=== PATIENT | male | born 1980 | race Caucasian/White ===

== ENCOUNTER 2017-08-22 17:07 | Observation (INO) | payer OTHER, SELFPAY ==
[2017-08-22 17:08] VITALS: BP 164/100; PULSE 67; RESP 14; TEMP 36.9; O2SAT 97; BMI 34.0
--- NOTE | 2017-08-22 17:19 | CT_ITS ---
CT abdomen pelvis w con CLINICAL INDICATION: Abdominal pain and tenderness. Right lower quadrant pain and tenderness. Lower abdominal pain and tenderness ITS.REASON: abd pain ORDERING PHYSICIAN: Montse Shoemaker MD PATIENT AGE: 37 years COMPARISON: None TECHNIQUE: Axial images obtained with sagittal and coronal reformats. PROCEDURE: Oral Contrast: None IV Contrast: 75 mL's of [id number]. FINDINGS: No acute finding in the lower chest. The liver, spleen, adrenal glands, and pancreas have an unremarkable appearance. Gallbladder wall appears slightly thickened but may be due to contraction. Ultrasound may be of further value. There is mild ectasia of the renal pelvicalyceal system on both sides as seen on the most recent IVP of 07/11/2017. Unremarkable appendix. There is thickening of the junction of the descending and sigmoid colon in the left lower quadrant with an inflamed diverticulum noted with stranding of the pericolic fat. No abscess or free air are evident. There is colonic diverticulosis of the descending and sigmoid colon. No pelvic mass. No acute bony anomalies. IMPRESSION: Diverticulitis of the proximal sigmoid colon. No abscess or free air.
[2017-08-22 17:26] LABS: Microscopic, Urine URINE MICROSCOPIC (MICROSCOPIC)
[2017-08-22 17:27] LABS: Appearance,Urine CLEAR (Clear); Bilirubin,Urine Negative (Negative); Blood, Urine TRACE-I (Negative); Color,Urine YELLOW (Yellow); Glucose,Urine (UA) Negative (Negative); Ketones,Urine Negative (Negative); Leukocyte Esterase,Urine Negative (Negative); Nitrate,Urine Negative (Negative); Protein,Urine Negative (Negative); Specific Gravity, Urine <= 1.005 (1.005-1.030); Urobilinogen,Urine 0.2 EU/dl (0.2)
[2017-08-22 17:37] LABS: Basophils % 0.3 % (0.1-2.0); Eosinophils # 0.1 K/mm3 (0.0-0.4); Eosinophils % 1.1 % (0.1-12.0); Hematocrit 37.8 % (42.0-52.0); Hemoglobin 12.7 g/dL (14.1-18.0); Lymphocytes # 2.2 K/mm3 (0.7-4.5); Lymphocytes % 23.9 K/mm3 (10-50); Mean Corpuscular HGB Conc 33.5 g/dL (31.8-35.4); Mean Corpuscular Hemoglobin 27.9 pg (27.0-31.2); Mean Corpuscular Volume 83.2 fl (80-94); Mean Platelet Volume 7.8 fl (7.4-10.4); Monocytes # 0.5 K/mm3 (0.1-1.0); Monocytes % 5.6 % (1.7-9.3); Neutrophils # 6.2 K/mm3 (1.8-7.8); Platelet Count 213 K/mm3 (142-424); Red Blood Count 4.55 M/mm3 (4.60-6.20); Red Cell Distribution Width 13.6 % (11.5-17.5)
--- NOTE | 2017-08-22 17:41 | HMH.EDABDPAI ---
ED Disposition Clinical Impression: Abdominal pain Qualifiers: Abdominal location: right lower quadrant Qualified Code(s): R10.31 - Right lower quadrant pain Disposition: Still a Patient Condition on Discharge: Good Instructions: DI for Diarrhea and Traveler's Diarrhea -- Adult, DI for Diarrhea and Traveler's Diarrhea -- Child, DI for Nausea -- Adult, DI for Nausea -- Child Referrals: Rayo Richey APRN [Primary Care Provider] - - Critical Care Critical Care Time: No Attestation: On , the high probability of a clinically significant, sudden or life threatening deterioration of the following system(s) required my full and direct attention, intervention and personal management. The time I documented below is in addition to time spent performing reported procedures but includes the following listed in this critical care notation. Medical Decision Making Vital Signs: 08/22/17 17:08 Temperature 98.5 F Temperature Source Oral Pulse Rate [Left Brachial] 67 Respiratory Rate 14 Blood Pressure [Right Arm] 164/100 Blood Pressure Mean [Right Arm] 121 Blood Pressure Source [Right Arm] Automatic Cuff Blood Pressure Position [Right Arm] Sitting 02 Sat by Pulse Oximetry 97 Oxygen Delivery Method Room Air - Lab Data Lab Results 08/22/17 17:20: Urine Color Yellow, Urine Appearance Clear, Urine pH 7.0, Ur Specific [place] <= 1.005, Urine Protein Negative, Urine Glucose (UA) Negative, Urine Ketones Negative, Urine Blood Trace-i, Urine Nitrate Negative, Urine Bilirubin Negative, Urine Urobilinogen 0.2, Ur Leukocyte Esterase Negative, Urine RBC Occasional, Urine WBC Occasional, Ur Squamous Epith Cells None, Urine Bacteria None 08/22/17 17:30: WBC 9.0, RBC 4.55 L, Hgb 12.7 L, Hct 37.8 L, MCV 83.2, MCH 27.9, MCHC 33.5, RDW 13.6, Plt Count 213, MPV 7.8, Neut % (Auto) 69.0, Lymph % (Auto) 23.9, [place] % (Auto) 5.6, Eos % (Auto) 1.1, Baso % (Auto) 0.3, Neut # (Auto) 6.2, Lymph # (Auto) 2.2, [place] # (Auto) 0.5, Eos # (Auto) 0.1, Baso # (Auto) 0.0 08/22/17 17:30: Sodium 141, Potassium 4.4, Chloride 105, Carbon Dioxide 29, Anion Gap 11.4, BUN 13, Creatinine 1.11, Estimated Creat Clear 147, Estimated GFR 75, Est GFR ( Amer) 90, Glucose 97, Calcium 9.4, Total Bilirubin 0.6, AST 19, ALT 26, Alkaline Phosphatase 106, Total Protein 7.5, Albumin 3.8, Globulin 3.7 H, Albumin/Globulin Ratio 1.0 L Result diagrams: 08/22/17 17:30 08/22/17 17:30 Orders (Tests/Meds): ED MEDICATIONS Generic Name Dose Route Start Last Admin Trade Name Freq PRN Reason Stop Dose Admin Sodium Chloride 10 ml 08/22/17 17:39 08/22/17 17:42 Rad-Saline Flush 10ml Syringe IV 09/21/17 17:38 10 ml NEEDED PRN Administration Maintain IV Site Sodium Chloride 10 ml 08/22/17 17:41 Rad-Saline Flush 10ml Syringe IV 09/21/17 17:40 NEEDED PRN Maintain IV Site Discontinued Medications Generic Name Dose Route Start Last Admin Trade Name Freq PRN Reason Stop Dose Admin Ertapenem 0.5 gm/ Sodium 50 mls @ 100 mls/hr 08/22/17 19:04 Chloride IV 08/22/17 19:05 ONCE ONE Protocol Iopamidol 75 ml 08/22/17 17:39 08/22/17 17:42 [id number]; 75ml Vial IV 08/22/17 17:40 75 ml ONCE ONE Administration ORDERS Category Date Time Status CT abdomen pelvis w con Stat Cat Scan 08/22/17 17:19 Taken - CT Data ED CT Reviewed: Yes: I have reviewed the patient's CT results, I have viewed the radiologist's interpretation - Mehul Inquiry Pt receiving controlled substance: No Mehul was queried for this patient: No Medical Decision Making Narrative: The CT scan was suggestive of mild diverticulitis of the proximal sigmoid colon. This is contrary to the clinical findings by examination. I discussed this with Dr. Morrell the on-call surgeon who expressed concern for a retrocecal appendix. We agreed that it is more prudent to keep the patient, start IV antibiotics, [facility]
--- NOTE | 2017-08-22 17:44 | ED_ITS ---
ED Disposition Clinical Impression: Abdominal pain Qualifiers: Abdominal location: right lower quadrant Qualified Code(s): R10.31 - Right lower quadrant pain Disposition: Still a Patient Condition on Discharge: Good Instructions: DI for Diarrhea and Traveler's Diarrhea -- Adult, DI for Diarrhea and Traveler's Diarrhea -- Child, DI for Nausea -- Adult, DI for Nausea -- Child Referrals: Rayo Richey APRN [Primary Care Provider] - - Critical Care Critical Care Time: No Attestation: On , the high probability of a clinically significant, sudden or life threatening deterioration of the following system(s) required my full and direct attention, intervention and personal management. The time I documented below is in addition to time spent performing reported procedures but includes the following listed in this critical care notation. Medical Decision Making Vital Signs: 08/22/17 17:08 Temperature 98.5 F Temperature Source Oral Pulse Rate [Left Brachial] 67 Respiratory Rate 14 Blood Pressure [Right Arm] 164/100 Blood Pressure Mean [Right Arm] 121 Blood Pressure Source [Right Arm] Automatic Cuff Blood Pressure Position [Right Arm] Sitting 02 Sat by Pulse Oximetry 97 Oxygen Delivery Method Room Air - Lab Data Lab Results 08/22/17 17:20: Urine Color Yellow, Urine Appearance Clear, Urine pH 7.0, Ur Specific [place] <= 1.005, Urine Protein Negative, Urine Glucose (UA) Negative, Urine Ketones Negative, Urine Blood Trace-i, Urine Nitrate Negative, Urine Bilirubin Negative, Urine Urobilinogen 0.2, Ur Leukocyte Esterase Negative, Urine RBC Occasional, Urine WBC Occasional, Ur Squamous Epith Cells None, Urine Bacteria None 08/22/17 17:30: WBC 9.0, RBC 4.55 L, Hgb 12.7 L, Hct 37.8 L, MCV 83.2, MCH 27.9 , MCHC 33.5, RDW 13.6, Plt Count 213, MPV 7.8, Neut % (Auto) 69.0, Lymph % (Auto ) 23.9, [place] % (Auto) 5.6, Eos % (Auto) 1.1, Baso % (Auto) 0.3, Neut # (Auto) 6.2, Lymph # (Auto) 2.2, [place] # (Auto) 0.5, Eos # (Auto) 0.1, Baso # (Auto) 0.0 08/22/17 17:30: Sodium 141, Potassium 4.4, Chloride 105, Carbon Dioxide 29, Anion Gap 11.4, BUN 13, Creatinine 1.11, Estimated Creat Clear 147, Estimated GFR 75, Est GFR ( Amer) 90, Glucose 97, Calcium 9.4, Total Bilirubin 0.6 , AST 19, ALT 26, Alkaline Phosphatase 106, Total Protein 7.5, Albumin 3.8, Globulin 3.7 H, Albumin/Globulin Ratio 1.0 L Result diagrams: 08/22/17 17:30 08/22/17 17:30 Orders (Tests/Meds): ED MEDICATIONS Generic Name Dose Route Start Last Admin Trade Name Freq PRN Reason Stop Dose Admin Sodium Chloride 10 ml 08/22/17 17:39 08/22/17 17:42 Rad-Saline Flush 10ml Syringe IV 09/21/17 17:38 10 ml NEEDED PRN Administration Maintain IV Site Sodium Chloride 10 ml 08/22/17 17:41 Rad-Saline Flush 10ml Syringe IV 09/21/17 17:40 NEEDED PRN Maintain IV Site Discontinued Medications Generic Name Dose Route Start Last Admin Trade Name Freq PRN Reason Stop Dose Admin Ertapenem 0.5 gm/ Sodium 50 mls @ 100 mls/hr 08/22/17 19:04 Chloride IV 08/22/17 19:05 ONCE ONE Protocol Iopamidol 75 ml 08/22/17 17:39 08/22/17 17:42 [id number]; 75ml Vial IV 08/22/17 17:40 75 ml ONCE ONE Administration ORDERS Category Date Time Status CT abdomen pelvis w con
[2017-08-22 17:47] LABS: Alanine Aminotransferase 26 U/L (12-78); Albumin Level 3.8 gm/dL (3.4-5.0); Alkaline Phosphatase 106 U/L (46-116); Anion Gap 11.4 mEq/L (5-15); Aspartate Amino Transferase 19 U/L (15-37); Bilirubin,Total 0.6 mg/dL (0.2-1.0); Blood Urea Nitrogen 13 mg/dL (7-18); Calcium 9.4 mg/dL (8.5-10.1); Carbon Dioxide 29 mmol/L (21.0-32.0); Chloride 105 mmol/L (98-107); Creatinine Clearance Estimated 147 mL/min (0-300); Creatinine,Serum 1.11 mg/dL (0.70-1.30); Estimated Glomerular Filt Rate 75 ml/min (>60); GFR (African American) 90 ML/MIN (>60); Globulin 3.7 gm/dl (1.3-3.2); Glucose 97 mg/dL (74-106); Potassium 4.4 mmoL/L (3.5-5.1); Sodium 141 mmol/L (136-145); Total Protein,Serum 7.5 gm/dL (6.4-8.2)
[2017-08-22 18:07] LABS: RBC,Urine Occasional #/hpf (0-3); WBC,Urine Occasional #/hpf (0-3)
[2017-08-22 20:18] VITALS: BP 136/95; PULSE 85; RESP 14; TEMP 36.7; O2SAT 98
[2017-08-22 20:20] VITALS: BP 130/85; PULSE 63; RESP 18; TEMP 36.6; O2SAT 96; BMI 33.3
--- NOTE | 2017-08-22 20:30 | PC.ADMIT ---
[id number] Admission Note: The patient,Tomas Lr,37 y/o, was given written information regarding hospital policies, unit procedures and contact persons. Patient's smoking status: Former smoker. Vital Signs - 8 hr 08/23/17 04:40 Temperature 97.8 F Pulse Rate [Right Brachial] 59 L Respiratory Rate 18 Blood Pressure [Right Arm] 101/59 02 Sat by Pulse Oximetry 97
[2017-08-22 21:30] VITALS: O2SAT 96
--- NOTE | 2017-08-22 22:51 | PC.NURSE ---
PT STATES LAST FEW DAYS DECREASED UOP AND KENDRICK AT TIMES, UA COMPLETED IN ER
--- NOTE | 2017-08-23 00:46 | PC.NURSE ---
ADMISSION V/S OBTAINED BY BRUCE
--- NOTE | 2017-08-23 01:02 | PC.NURSE ---
IV STARTED IN ER
[2017-08-23 04:40] VITALS: BP 101/59; PULSE 59; RESP 18; TEMP 36.6; O2SAT 97
--- NOTE | 2017-08-23 06:17 | PC.NURSE ---
INSERTED IN ER
--- NOTE | 2017-08-23 06:36 | PC.NURSE ---
NEW PT ADMITTED BEGINNING OF SHIFT. DX DIVERTICULITIS. PRESENTED IN ER WITH C/O RLQ PAIN. NO MEDS GIVEN, NO REQUEST FOR ANY PAIN MED SINCE HERE. IV SECURE AND PATENT. HAD ABD CT WITH CONTRAST IN ER. PT HAS CONSULT WITH DR DRISCOLL THIS AM. HAS BEEN NPO SINCE MIDNIGHT. NO C/O PAIN REPORTED. PT STABLE. WILL CONTINUE TO MONITOR. REPORT TO BE GIVEN TO ONCOMING NURSE.
--- NOTE | 2017-08-23 07:42 | P.CONPHA_ITS ---
[facility] Pharm[facility] VTE Monitoring - Patient Demographics Admission date: 08/22/17 Report Date: 08/23/17 Time: 07:41 Allergies/Adverse Reactions: No Known Allergies Allergy (Verified 08/22/17 17:17) Height: 1.83 m Weight: 111.357 kg Patient Problems: Current Active Problems Abdominal pain (Acute) - VTE Risk Labs: VTE Related Lab Results Hgb 12.7 g/dL (14.1-18.0) L 08/22/17 17:30 Hct 37.8 % (42.0-52.0) L 08/22/17 17:30 Plt Count 213 K/mm3 (142-424) 08/22/17 17:30 BUN 13 mg/dL (7-18) 08/22/17 17:30 Creatinine 1.11 mg/dL (0.70-1.30) 08/22/17 17:30 Estimated Creat Clear 147 mL/min (0-300) 08/22/17 17:30 Was VTE Risk Assessment Performed: Yes VTE Score: 0 VTE Risk Level: Very Low Risk - Prophylaxis VTE Prophylaxis Ordered?: Yes Types of VTE Prophylaxis: TEDS Knee High Location of Applied Device: Bilateral Lower Extremeties - VTE Diagnosis Confirmed Treatment or plan recommended: Continue Current Treatment
--- NOTE | 2017-08-23 07:49 | HMH.GSCON ---
*Admission Date: 08/22/17 *Chief complaint: Abdominal pain *History of present illness: Patient is a pleasant healthy 37-year-old white male. He states that for about 3 or 4 days he has had some lower abdominal pain located across the region of the belt line. He also had some associated dysuria and burning with urination. He had presented to his primary care provider's office yesterday afternoon and reportedly urinary tract infection was ruled out. Due to the tenderness, with some localization to the right lower quadrant, there was a concern for appendicitis. He was referred to the emergency department. He underwent evaluation in the emergency department. He was found to have a normal white blood cell count. He underwent CT scan with IV contrast which reportedly revealed findings of mild diverticulitis with unremarkable appendix. He was admitted for inpatient management and surgical consultation. Review of Systems - Constitutional Denies anorexia, Denies body ache(s), Denies chills - Eyes Denies change in vision - ENT Denies dizziness - *Cardiovascular Denies chest pain - *Respiratory Denies shortness of breath - *Gastrointestinal Reports abdominal pain, Denies change in bowel habits, Denies bright, red blood in stools - *Genitourinary Reports difficulty urinating, Denies blood in urine - *Musculoskeletal Denies joint pain - *Neurologic Denies confusion [facility] History I have reviewed the patient's past medical history: Yes Medical History: Denies:: Cancer, Diabetes Mellitus Type 1, Diabetes Mellitus Type 2, MRSA Laterality Cases: Bilateral: Tonsillectomy, Other Other Surgeries: Yes: Other (ADNOIDS; URETHRAL SURGERY) Amputation: No Fractures: No - *Social History Educational Level: Completed High School Smoking Status: Former smoker Tobacco Type: smokeless tobacco Smoking End Date: 1YR Alcohol Intake: former Alcohol Intake Frequency:: holidays/special occasions only Occupational Status: employed Housing: house Household Members: spouse - Psychiatric History Expresses thoughts of harming self/others: None Suicide Plan Description: No Plan *Family Hx:: Cancer, Hypertension Meds Home Medications Medication Instructions Recorded Confirmed Type No Known Home Medications [No 08/22/17 08/22/17 History Known Home Medications] Allergies Allergy/AdvReac Type Severity Reaction Status Date / Time No Known Allergies Allergy Verified 08/22/17 17:17 Exam Vital signs and Labs for Last 24 Hours: Temp Pulse Resp BP Pulse Ox 97.8 F 59 L 18 101/59 97 01/12/18 04:40 08/23/17 04:40 08/23/17 04:40 08/23/17 04:40 08/23/17 04:40 I & O for Last 24 hours: Intake & Output 08/20/17 08/21/17 08/22/17 08/23/17 11:59 11:59 11:59 11:59 Intake Total 802 / 802 Balance 802 / 802 Weight 245 lb 8 oz - *Routine HEENT Exam Eye: Present: PERRL - *Routine Respiratory Exam Absent: rhonchi - *Routine Cardiovascular Exam Present: RRR - *Routine Abdominal Exam Present: soft, tenderness. Absent: rebound, guarding Results - Labs 08/22/17 17:30 08/22/17 17:30 Assessment and Plan (1) Abdominal pain Current visit: Yes Status: Acute Qualifiers: Abdominal location: right lower quadrant Qualified Code(s): R10.31 - Right lower quadrant pain Category: Medical Code(s): R10.9 - Unspecified abdominal pain - Assessment and plan all Dx Assessment and Plan for all problems:: Patient's signs and symptoms and CT scan are suggestive of mild to moderate non-complicated diverticulitis. Cannot absolutely however rule out appendicitis at this time. Plan to continue intravenous antibiotics for treatment of diverticulitis at this time. I will discuss the CT scan with radiologist and reviewed the films. If this is truly noncolicky diverticulitis patient may be able to be discharged soon on oral antibiotic regimen and dietary recommendations including a
--- NOTE | 2017-08-23 07:53 | P.CONS_ITS ---
*Admission Date: 08/22/17 *Chief complaint: Abdominal pain *History of present illness: Patient is a pleasant healthy 37-year-old white male. He states that for about 3 or 4 days he has had some lower abdominal pain located across the region of the belt line. He also had some associated dysuria and burning with urination. He had presented to his primary care provider's office yesterday afternoon and reportedly urinary tract infection was ruled out. Due to the tenderness, with some localization to the right lower quadrant, there was a concern for appendicitis. He was referred to the emergency department. He underwent evaluation in the emergency department. He was found to have a normal white blood cell count. He underwent CT scan with IV contrast which reportedly revealed findings of mild diverticulitis with unremarkable appendix. He was admitted for inpatient management and surgical consultation. Review of Systems - Constitutional Denies anorexia, Denies body ache(s), Denies chills - Eyes Denies change in vision - ENT Denies dizziness - *Cardiovascular Denies chest pain - *Respiratory Denies shortness of breath - *Gastrointestinal Reports abdominal pain, Denies change in bowel habits, Denies bright, red blood in stools - *Genitourinary Reports difficulty urinating, Denies blood in urine - *Musculoskeletal Denies joint pain - *Neurologic Denies confusion [facility] History I have reviewed the patient's past medical history: Yes Medical History: Denies:: Cancer, Diabetes Mellitus Type 1, Diabetes Mellitus Type 2, MRSA Laterality Cases: Bilateral: Tonsillectomy, Other Other Surgeries: Yes: Other (ADNOIDS; URETHRAL SURGERY) Amputation: No Fractures: No - *Social History Educational Level: Completed High School Smoking Status: Former smoker Tobacco Type: smokeless tobacco Smoking End Date: 1YR Alcohol Intake: former Alcohol Intake Frequency:: holidays/special occasions only Occupational Status: employed Housing: house Household Members: spouse - Psychiatric History Expresses thoughts of harming self/others: None Suicide Plan Description: No Plan *Family Hx:: Cancer, Hypertension Meds Home Medications Medication Instructions Recorded Confirmed Type No Known Home Medications [No 08/22/17 08/22/17 History Known Home Medications] Allergies Allergy/AdvReac Type Severity Reaction Status Date / Time No Known Allergies Allergy Verified 08/22/17 17:17 Exam Vital signs and Labs for Last 24 Hours: Temp Pulse Resp BP Pulse Ox 97.8 F 59 L 18 101/59 97 01/12/18 04:40 08/23/17 04:40 08/23/17 04:40 08/23/17 04:40 08/23/17 04:40 I & O for Last 24 hours: Intake & Output 08/20/17 08/21/17 08/22/17 08/23/17 11:59 11:59 11:59 11:59 Intake Total 802 / 802 Balance 802 / 802 Weight 245 lb 8 oz - *Routine HEENT Exam Eye: Present: PERRL - *Routine Respiratory Exam Absent: rhonchi - *Routine Cardiovascular Exam Present: RRR - *Routine Abdominal Exam Present: soft, tenderness. Absent: rebound, guarding Results - Labs 08/22/17 17:30 08/22/17 17:30 Assessment and Plan (1) Abdominal pain Current visit: Yes Status: Acute Qualifiers: Abdominal location: right lower quadrant Qualified Code(s): R10.31 - Righ
[2017-08-23 08:02] VITALS: BP 97/54; PULSE 53; RESP 22; TEMP 36.6; O2SAT 96
--- NOTE | 2017-08-23 08:46 | HMH.HP ---
*Admission Date: 08/22/17 *History of present illness: Patient is a pleasant healthy 37-year-old white male. He states that for about 3 or 4 days he has had some lower abdominal pain located across the region of the belt line. He also had some associated dysuria and burning with urination. He had presented to his primary care provider's office yesterday afternoon and reportedly urinary tract infection was ruled out. Due to the tenderness, with some localization to the right lower quadrant, there was a concern for appendicitis. He was referred to the emergency department. He underwent evaluation in the emergency department. He was found to have a normal white blood cell count. He underwent CT scan with IV contrast which reportedly revealed findings of mild diverticulitis with unremarkable appendix. He was admitted for inpatient management and surgical consultation. [facility] History I have reviewed the patient's past medical history: Yes Medical History: Denies:: Cancer, Diabetes Mellitus Type 1, Diabetes Mellitus Type 2, MRSA Laterality Cases: Bilateral: Tonsillectomy, Other Other Surgeries: Yes: Other (ADNOIDS; URETHRAL SURGERY) Amputation: No Fractures: No - *Social History Educational Level: Completed High School Smoking Status: Former smoker Tobacco Type: smokeless tobacco Smoking End Date: 1YR Alcohol Intake: former Alcohol Intake Frequency:: holidays/special occasions only Occupational Status: employed Housing: house Household Members: spouse - Psychiatric History Expresses thoughts of harming self/others: None Suicide Plan Description: No Plan *Family Hx:: Cancer, Hypertension Review of Systems - Review of Systems Review of systems:: pertinent systems reviewed and negative unless documented below - Constitutional Denies fever(s) - Eyes Denies change in vision - ENT Denies neck pain - *Cardiovascular Denies chest pain with activity - *Respiratory Denies cough - *Gastrointestinal Reports abdominal pain, Reports nausea, Denies black, tarry stools - *Genitourinary Denies difficulty urinating, Denies painful urination - *Musculoskeletal Denies joint pain - Integumentary/Breasts Denies rash - *Neurologic Denies confusion, Denies dizziness - Psychiatric Denies depression Meds Home Medications Medication Instructions Recorded Confirmed Type No Known Home Medications [No 08/22/17 08/22/17 History Known Home Medications] Allergies Allergy/AdvReac Type Severity Reaction Status Date / Time No Known Allergies Allergy Verified 08/22/17 17:17 Exam Vital signs and Labs for Last 24 Hours: Temp Pulse Resp BP Pulse Ox 97.9 F 53 L 22 97/54 96 08/23/17 08:02 08/23/17 08:02 08/23/17 08:02 08/23/17 08:02 08/23/17 08:02 I & O for Last 24 hours: Intake & Output 08/20/17 08/21/17 08/22/17 08/23/17 11:59 11:59 11:59 11:59 Intake Total 802 / 802 Balance 802 / 802 Weight 245 lb 8 oz - Constitutional no acute distress - *Routine HEENT Exam Head: Present: normocephalic Eye: Present: EOMI, PERRL ENT: Present: mucous membranes moist - *Routine Neck Exam Present: supple - *Routine Respiratory Exam Absent: respiratory distress - *Routine Cardiovascular Exam Absent: murmur - *Routine Abdominal Exam Present: soft, tenderness. Absent: distended, rebound - *Routine Extremities Exam Present: full ROM - *Routine Skin Exam Present: intact - *Routine Neurological Exam Present: alert, oriented X3, CN II-XII intact - Routine Psychiatric Exam Present: normal affect H&P: Result - Imaging and Cardiology CT scan - abdomen Status: image reviewed by me, final report Assessment and Plan (1) Diverticulitis Current visit: Yes Status: Acute Category: Medical Code(s): K57.92 - Diverticulitis of intestine, part unspecified, without perforation or abscess without bleeding
--- NOTE | 2017-08-23 08:52 | P.HP_ITS ---
*Admission Date: 08/22/17 *History of present illness: Patient is a pleasant healthy 37-year-old white male. He states that for about 3 or 4 days he has had some lower abdominal pain located across the region of the belt line. He also had some associated dysuria and burning with urination. He had presented to his primary care provider's office yesterday afternoon and reportedly urinary tract infection was ruled out. Due to the tenderness, with some localization to the right lower quadrant, there was a concern for appendicitis. He was referred to the emergency department. He underwent evaluation in the emergency department. He was found to have a normal white blood cell count. He underwent CT scan with IV contrast which reportedly revealed findings of mild diverticulitis with unremarkable appendix. He was admitted for inpatient management and surgical consultation. [facility] History I have reviewed the patient's past medical history: Yes Medical History: Denies:: Cancer, Diabetes Mellitus Type 1, Diabetes Mellitus Type 2, MRSA Laterality Cases: Bilateral: Tonsillectomy, Other Other Surgeries: Yes: Other (ADNOIDS; URETHRAL SURGERY) Amputation: No Fractures: No - *Social History Educational Level: Completed High School Smoking Status: Former smoker Tobacco Type: smokeless tobacco Smoking End Date: 1YR Alcohol Intake: former Alcohol Intake Frequency:: holidays/special occasions only Occupational Status: employed Housing: house Household Members: spouse - Psychiatric History Expresses thoughts of harming self/others: None Suicide Plan Description: No Plan *Family Hx:: Cancer, Hypertension Review of Systems - Review of Systems Review of systems:: pertinent systems reviewed and negative unless documented below - Constitutional Denies fever(s) - Eyes Denies change in vision - ENT Denies neck pain - *Cardiovascular Denies chest pain with activity - *Respiratory Denies cough - *Gastrointestinal Reports abdominal pain, Reports nausea, Denies black, tarry stools - *Genitourinary Denies difficulty urinating, Denies painful urination - *Musculoskeletal Denies joint pain - Integumentary/Breasts Denies rash - *Neurologic Denies confusion, Denies dizziness - Psychiatric Denies depression Meds Home Medications Medication Instructions Recorded Confirmed Type No Known Home Medications [No 08/22/17 08/22/17 History Known Home Medications] Allergies Allergy/AdvReac Type Severity Reaction Status Date / Time No Known Allergies Allergy Verified 08/22/17 17:17 Exam Vital signs and Labs for Last 24 Hours: Temp Pulse Resp BP Pulse Ox 97.9 F 53 L 22 97/54 96 08/23/17 08:02 08/23/17 08:02 08/23/17 08:02 08/23/17 08:02 08/23/17 08:02 I & O for Last 24 hours: Intake & Output 08/20/17 08/21/17 08/22/17 08/23/17 11:59 11:59 11:59 11:59 Intake Total 802 / 802 Balance 802 / 802 Weight 245 lb 8 oz - Constitutional no acute distress - *Routine HEENT Exam Head: Present: normocephalic Eye: Present: EOMI, PERRL ENT: Present: mucous membranes moist - *Routine Neck Exam Present: supple - *Routine Respiratory Exam Absent: respiratory distress - *Routine Cardiovascular Exam Absent: murmur - *Routine Abdominal Exam P
[2017-08-23 08:56] LABS: Basophils % 0.3 % (0.1-2.0); Eosinophils # 0.2 K/mm3 (0.0-0.4); Eosinophils % 2.7 % (0.1-12.0); Hematocrit 35.4 % (42.0-52.0); Hemoglobin 11.5 g/dL (14.1-18.0); Lymphocytes # 1.8 K/mm3 (0.7-4.5); Lymphocytes % 28.6 K/mm3 (10-50); Mean Corpuscular HGB Conc 32.6 g/dL (31.8-35.4); Mean Corpuscular Hemoglobin 27.4 pg (27.0-31.2); Mean Corpuscular Volume 84.1 fl (80-94); Mean Platelet Volume 7.9 fl (7.4-10.4); Monocytes # 0.4 K/mm3 (0.1-1.0); Monocytes % 6.5 % (1.7-9.3); Neutrophils % 61.8 % (37.0-80.0); Platelet Count 199 K/mm3 (142-424); Red Cell Distribution Width 13.7 % (11.5-17.5); White Blood Count 6.4 K/mm3 (4.8-10.8)
--- NOTE | 2017-08-23 12:21 | HMH.DCSUM ---
General - General Admission date: 08/22/17 Discharge date: 08/23/17 HPI HPI: Patient is a pleasant healthy 37-year-old white male. He states that for about 3 or 4 days he has had some lower abdominal pain located across the region of the belt line. He also had some associated dysuria and burning with urination. He had presented to his primary care provider's office yesterday afternoon and reportedly urinary tract infection was ruled out. Due to the tenderness, with some localization to the right lower quadrant, there was a concern for appendicitis. He was referred to the emergency department. He underwent evaluation in the emergency department. He was found to have a normal white blood cell count. He underwent CT scan with IV contrast which reportedly revealed findings of mild diverticulitis with unremarkable appendix. He was admitted for inpatient management and surgical consultation. Objective Vital signs: Temp Pulse Resp BP Pulse Ox 97.9 F 53 L 22 97/54 96 08/23/17 08:02 08/23/17 08:02 08/23/17 08:02 08/23/17 08:02 08/23/17 08:02 no acute distress - *Routine HEENT Exam Head: Present: normocephalic Eye: Present: EOMI, PERRL - *Routine Neck Exam Present: supple - *Routine Respiratory Exam Absent: respiratory distress - *Routine Cardiovascular Exam Present: RRR - *Routine Abdominal Exam Absent: distended, rebound, guarding, organomegaly - *Routine Extremities Exam Present: full ROM - *Routine Skin Exam Present: intact. Absent: rash - *Routine Neurological Exam Present: alert, oriented X3, CN II-XII intact - Routine Psychiatric Exam Present: normal affect Hospital Course Hospital Course: pt did well with ivf and abx and was seen by surg- see note - pt tolerated fluids and will be d/c on meds -pt will have follow up soon Results Labs on day of discharge: Labs from last 24 hours 08/23/17 08:30 WBC 6.4 D RBC 4.20 L Hgb 11.5 L Hct 35.4 L MCV 84.1 MCH 27.4 MCHC 32.6 RDW 13.7 Plt Count 199 MPV 7.9 Neut % (Auto) 61.8 Lymph % (Auto) 28.6 [place] % (Auto) 6.5 Eos % (Auto) 2.7 Baso % (Auto) 0.3 Neut # (Auto) 4.0 Lymph # (Auto) 1.8 [place] # (Auto) 0.4 Eos # (Auto) 0.2 Baso # (Auto) 0.0 DS: Diagnosis - Discharge Diagnosis (1) Diverticulitis Status: Acute Meds Home Medications Medication Instructions Recorded Confirmed Type No Known Home Medications [No 08/22/17 08/22/17 History Known Home Medications] Allergies Allergy/AdvReac Type Severity Reaction Status Date / Time No Known Allergies Allergy Verified 08/22/17 17:17 Discharge Plan - Patient Discharge Instructions Activity: Ambulate as Tolerated Diet: advance to your usual diet Additional Instructions: see dr munguia and pcp for follow up - Follow up Plan Disposition: Home, Self-[facility] Medications: Home Medications Medication Instructions Recorded Confirmed Type No Known Home Medications [No 08/22/17 08/22/17 History Known Home Medications] Prescriptions/Medication Reconciliation: No Action No Known Home Medications [No Known Home Medications] - Vaccines Have you received the pneumonia vaccine?: No Have you received the flu vaccine for this season?: No
--- NOTE | 2017-08-23 12:24 | P.DS_ITS ---
General - General Admission date: 08/22/17 Discharge date: 08/23/17 HPI HPI: Patient is a pleasant healthy 37-year-old white male. He states that for about 3 or 4 days he has had some lower abdominal pain located across the region of the belt line. He also had some associated dysuria and burning with urination. He had presented to his primary care provider's office yesterday afternoon and reportedly urinary tract infection was ruled out. Due to the tenderness, with some localization to the right lower quadrant, there was a concern for appendicitis. He was referred to the emergency department. He underwent evaluation in the emergency department. He was found to have a normal white blood cell count. He underwent CT scan with IV contrast which reportedly revealed findings of mild diverticulitis with unremarkable appendix. He was admitted for inpatient management and surgical consultation. Objective Vital signs: Temp Pulse Resp BP Pulse Ox 97.9 F 53 L 22 97/54 96 08/23/17 08:02 08/23/17 08:02 08/23/17 08:02 08/23/17 08:02 08/23/17 08:02 no acute distress - *Routine HEENT Exam Head: Present: normocephalic Eye: Present: EOMI, PERRL - *Routine Neck Exam Present: supple - *Routine Respiratory Exam Absent: respiratory distress - *Routine Cardiovascular Exam Present: RRR - *Routine Abdominal Exam Absent: distended, rebound, guarding, organomegaly - *Routine Extremities Exam Present: full ROM - *Routine Skin Exam Present: intact. Absent: rash - *Routine Neurological Exam Present: alert, oriented X3, CN II-XII intact - Routine Psychiatric Exam Present: normal affect Hospital Course Hospital Course: pt did well with ivf and abx and was seen by surg- see note - pt tolerated fluids and will be d/c on meds -pt will have follow up soon Results Labs on day of discharge: Labs from last 24 hours 08/23/17 08:30 WBC 6.4 D RBC 4.20 L Hgb 11.5 L Hct 35.4 L MCV 84.1 MCH 27.4 MCHC 32.6 RDW 13.7 Plt Count 199 MPV 7.9 Neut % (Auto) 61.8 Lymph % (Auto) 28.6 [place] % (Auto) 6.5 Eos % (Auto) 2.7 Baso % (Auto) 0.3 Neut # (Auto) 4.0 Lymph # (Auto) 1.8 [place] # (Auto) 0.4 Eos # (Auto) 0.2 Baso # (Auto) 0.0 DS: Diagnosis - Discharge Diagnosis (1) Diverticulitis Status: Acute Meds Home Medications Medication Instructions Recorded Confirmed Type No Known Home Medications [No 08/22/17 08/22/17 History Known Home Medications] Allergies Allergy/AdvReac Type Severity Reaction Status Date / Time No Known Allergies Allergy Verified 08/22/17 17:17 Discharge Plan - Patient Discharge Instructions Activity: Ambulate as Tolerated Diet: advance to your usual diet Additional Instructions: see dr munguia and pcp for follow up - Follow up Plan Disposition: Home, Self-Long-Term Medications: Home Medications Medication Instructions Recorded Confirmed Type No Known Home Medications [No 08/22/17 08/22/17 History Known Home Medications] Prescriptions/Medication Reconciliation: No Action No Known Home Med
== END 2017-08-23 12:52 | disposition home or self-care (01) ==
LOC: ER 19:21 → 2ND 20:57
PROVIDERS: Surgery; Admitting Provider Internal Medicine Adolescent Medicine; Emergency Provider Emergency Medicine; Family Provider Internal Medicine; PCP Nurse Practitioner Family; Visit Provider Emergency Medicine
CPT/HCPCS: 74177; 80053; 81001; 85025; 96365; 99283; G0378; Q9967

== ENCOUNTER → 2017-09-16 09:39 | Outpatient (CLI) | payer OTHER, SELFPAY ==
--- NOTE | 2017-09-16 09:41 | CT_ITS ---
CT abdomen pelvis w con CLINICAL INDICATION: Abdominal pain, diffuse abdominal pain Follow-up diverticulitis ORDERING PHYSICIAN: Helio Morrell MD PATIENT AGE: 37 years COMPARISON: 08/22/2017 TECHNIQUE: Axial images obtained with sagittal and coronal reformats. PROCEDURE: Oral Contrast: Gastroview IV Contrast: 75 mL of Isovue-370. FINDINGS: No acute finding in the lung bases. The liver, spleen, adrenal glands, pancreas, and gallbladder have an unremarkable appearance. No obstructing renal or ureteral calculi. Minimal prominence of the renal pelves nonspecific. There has been interval improvement in the diverticulitis within the at the descending/sigmoid junction in the left lower quadrant. No residual evident. No abscess. No free air. There is diverticulosis of the descending and sigmoid colon. Unremarkable appendix. No pelvic mass, abnormal fluid collection, or focal inflammatory change.. No acute bony anomalies. IMPRESSION: 1. Improved diverticulitis at the junction of the descending and sigmoid colon. Colonic diverticulosis once again noted 2. No acute abdominal or pelvic findings.
== END ==
PROVIDERS: Family Provider Internal Medicine; PCP Nurse Practitioner Family; Visit Provider Surgery
DX: R10.9 Unspecified abdominal pain (principal); K57.92 Diverticulitis of intestine, part unspecified, without perforation or abscess without bleeding
CPT/HCPCS: 74177; Q9967

== ENCOUNTER 2017-10-01 08:35 | Day surgery (SDC) | payer OTHER, SELFPAY ==
[2017-09-27 14:37] VITALS: BMI 31.1
[2017-10-01] VITALS (14 sets, daily range): BP systolic 77–133; BP diastolic 34–77; PULSE 36–47; RESP 14–19; TEMP 36.4–36.6; O2SAT 94–100
--- NOTE | 2017-10-01 10:35 | P.PCN_ITS ---
- Procedure: Date: 10/01/17 Procedure Performed:: Total colonoscopy to terminal ileum with polypectomy by snare and biopsy forceps Indications:: Patient is a 37-year-old white male. Primary care provider is Raoy Richey. I had seen him several years ago for hemorrhoid problems. Recently the patient had developed some urinary symptoms and was seen his primary care provider's office. There was concern for possible appendicitis as he has some tenderness in his lower abdomen and he was sent to the emergency department for workup. He had a CT scan done at that time on 08/23/17 which revealed findings of non- complicated diverticulitis with a normal appendix. He was admitted for inpatient management and convalesced on intravenous antibiotics and was sent home on a course of oral antibiotics. Plan was made for follow-up outpatient colonoscopy. Incidentally the patient had developed a thrombosed hemorrhoid and Dr. Rodriguez performed incision and drainage in the office. Patient followed up in my office. Started him on some Anusol HC cream. His hemorrhoid symptoms have resolved almost entirely and plan was made to proceed with colonoscopy. Of note, the patient had developed recurrent hemorrhoid symptoms after bowel preparation. Interestingly he was noted to have a heart rate of approximately 39-40 preoperatively. EKG revealed sinus bradycardia. Performing Provider:: Hleio Morrell MD Referring Provider:: Rayo Richey Sedation:: Versed 7 mg, fentanyl 150 mcg. Procedure:: Consent was obtained and patient was taken to same-day surgery endoscopy procedure room. He was positioned in a lateral decubitus position. Adequate intravenous sedation was achieved with titration of fentanyl and Versed. Variable stiffness Olympus colonoscope was inserted via the anus and advanced to the cecum without difficulty. Colonic preparation was good. Appendiceal orifice and ileocecal valve were clearly identified. Colonoscope was withdrawn through the colon. In the ascending colon there is a small but adenomatous appearing polyp removed with hot snare. As the colonoscope was withdrawn careful surveillance was carried out. He had some minor sigmoid diverticulosis but no evidence of any active diverticulitis. In the rectosigmoid region there are a couple hyperplastic appearing polyps which were removed with cold biopsy forceps. Retroflexion was performed which revealed no evidence of any pathologic internal hemorrhoids. Colonoscope was withdrawn examination externally revealed chronically thrombosed right lateral hemorrhoid. Findings:: Diverticulosis Polyps Chronically thrombosed right lateral external hemorrhoid Specimens:: Polyps Recommendations:: Recommend fiber supplementation. Likely repeat colonoscopy in 5 years pending the pathology. Nonoperative medical management of hemorrhoids. Complications:: None Estimated blood obtained (mL): 1
== END 2017-10-01 11:33 | disposition home or self-care (01) ==
PROVIDERS: Family Provider Internal Medicine; PCP Nurse Practitioner Family; Visit Provider Surgery
PROC: 0DJD8ZZ Inspection of Lower Intestinal Tract, Via Natural or Artificial Opening Endoscopic (ICD-10-PCS; CPT 45385; principal; 2017-10-01 09:30)
DX: K63.5 Polyp of colon (principal); K57.30 Diverticulosis of large intestine without perforation or abscess without bleeding
CPT/HCPCS: 45385; 45380; 93005; 99152; 99153

== ENCOUNTER → 2017-10-23 18:12 | Outpatient (CLI) | payer OTHER, SELFPAY ==
[2017-10-23 18:49] LABS: Basophils % 0.4 % (0.1-2.0); Eosinophils # 0.1 K/mm3 (0.0-0.4); Eosinophils % 1.4 % (0.1-12.0); Hematocrit 41.9 % (42.0-52.0); Hemoglobin 13.3 g/dL (14.1-18.0); Lymphocytes # 1.9 K/mm3 (0.7-4.5); Lymphocytes % 33.8 K/mm3 (10-50); Mean Corpuscular HGB Conc 31.8 g/dL (31.8-35.4); Mean Corpuscular Hemoglobin 27.7 pg (27.0-31.2); Mean Corpuscular Volume 87.1 fl (80-94); Mean Platelet Volume 7.9 fl (7.4-10.4); Monocytes # 0.3 K/mm3 (0.1-1.0); Monocytes % 6.1 % (1.7-9.3); Neutrophils # 3.3 K/mm3 (1.8-7.8); Neutrophils % 58.3 % (37.0-80.0); Platelet Count 208 K/mm3 (142-424); Red Blood Count 4.81 M/mm3 (4.60-6.20); Red Cell Distribution Width 13.6 % (11.5-17.5); White Blood Count 5.6 K/mm3 (4.8-10.8)
[2017-10-23 19:06] LABS: Alanine Aminotransferase 29 U/L (12-78); Albumin/Globulin Ratio 1.1 (1.1-1.8); Alkaline Phosphatase 88 U/L (46-116); Anion Gap 11.3 mEq/L (5-15); Aspartate Amino Transferase 16 U/L (15-37); Bilirubin,Total 0.4 mg/dL (0.2-1.0); Blood Urea Nitrogen 13 mg/dL (7-18); CKMB Relative Index 0.4 U/L (0-4.0); Calcium 9.1 mg/dL (8.5-10.1); Carbon Dioxide 31 mmol/L (21.0-32.0); Chloride 107 mmol/L (98-107); Cholesterol 184 mg/dL (140-200); Creatine Kinase 140 U/L (39-308); Creatine Kinase MB 0.5 mg/ml (0.0-3.6); Creatinine,Serum 0.94 mg/dL (0.70-1.30); Estimated Glomerular Filt Rate 90 ml/min (>60); Free T4 (Free Thyroxine) 0.91 ng/dl (0.76-1.46); GFR (African American) 109 ML/MIN (>60); Globulin 3.5 gm/dl (1.3-3.2); Glucose 101 mg/dL (74-106); HDL Cholesterol 37 mg/dL (27-67); LDL Cholesterol 122 mg/dL (0-130); Potassium 4.3 mmoL/L (3.5-5.1); Sodium 145 mmol/L (136-145); Thyroid Stimulating Hormone 0.74 uIU/ml (0.358-3.740); Total Protein,Serum 7.5 gm/dL (6.4-8.2); Triglycerides 127 mg/dL (30-200); Troponin I < 0.02 ng/ml (0.00-0.06); VLDL Cholesterol 25 mg/dL (0-40)
== END ==
PROVIDERS: PCP Nurse Practitioner Family; Visit Provider Nurse Practitioner Family
DX: R00.1 Bradycardia, unspecified (principal)
CPT/HCPCS: 36415; 80053; 80061; 82550; 82553; 84439; 84443; 84484; 85025; 93005

== ENCOUNTER → 2017-10-29 09:12 | Outpatient (CLI) | payer OTHER, SELFPAY ==
--- NOTE | 2017-10-29 09:14 | CA_ITS ---
PROCEDURE: 2-D M-mode and color Doppler study INDICATIONS FOR THE TEST: Chest pain COPD Heart Murmur Tobacco Smoking Palpitations Fatigue Syncope Edema Hypertension Diabetes Mellitus Rheumatic Fever SOB BANG Obesity Hyperlipidemia Family History HD Additional History BRADYCARDIA PATIENT INFORMATION HEIGHT: 72 WEIGHT:240 119/68 2-D/M-MODE INTERPRETATION: 2-D MEASUREMENTS OBSERVED VALUES IN CMS Right Ventricular Dimension (RVDd) 2.0 Interventricular Septum (Thickness)(IVsd) .9 Left Ventricular Internal Dimensions(LVIDd) 6.0 Left Ventricular Posterior Wall (Thickness)(LVPWd) 1.2 Aortic Root 3.8 Aortic Cusp Separation 2.0 Left Atrial Dimensions (LAD) 2.8 2D 1. Left atrium is normal size, left ventricle is normal size, there is no concentric left ventricular hypertrophy, visually estimated ejection fraction 55% with no obvious regional wall motion abnormality. 2. The right atrium and right ventricle are normal size and contractility 3. The aortic, mitral and tricuspid valve are structurally normal. 4. The pulmonic valve is poorly visualized 5. No significant pericardial effusion noted. DOPPLER INTERROGATION: Doppler interrogation of the aortic, mitral and tricuspid valvular presence of mild mitral and tricuspid regurgitation, tricuspid and jet velocity insufficient for calculation of the right ventricular systolic pressure, diastolic parameters are within normal range. CONCLUSION: 1. Normal left ventricular size, preserved left ventricular systolic function, visually estimated ejection fraction of 55% with no obvious regional wall motion abnormality, diastolic parameters are within normal range. 2. Mild mitral and tricuspid regurgitation 3. No significant pericardial effusion noted.
== END ==
PROVIDERS: Family Provider Internal Medicine; PCP Nurse Practitioner Family; Visit Provider Internal Medicine
DX: R00.1 Bradycardia, unspecified (principal)
CPT/HCPCS: 93306

== ENCOUNTER → 2017-12-19 10:00 | Outpatient (CLI) | payer OTHER, SELFPAY ==
[2017-12-19 10:03] LABS: Adenovirus F 40/41, stool Not Detected (NotDetected); Astrovirus Not Detected (NotDetected); Campylobacter Not Detected (NotDetected); Cryptosporidium Not Detected (NotDetected); Cyclospora Cayetanesis Not Detected (NotDetected); Entamoeba histolytica Not Detected (NotDetected); Enteroaggregative E coli Not Detected (NotDetected); Enteropathogenic E coli Not Detected (NotDetected); Enterotoxigenic E coli Not Detected (NotDetected); Giardia lamblia Not Detected (NotDetected); Norovirus Not Detected (NotDetected); Plesimonas Shigalloides, PCR Not Detected (NotDetected); Rotavirus A Not Detected (NotDetected); Salmonella, PCR Not Detected (NotDetected); Sapovirus Not Detected (NotDetected); Shiga-like toxin E coli Not Detected (NotDetected); Shigella Enterovasive E coli Not Detected (NotDetected); Vibrio Cholerae Not Detected (NotDetected); Vibrio, PCR Not Detected (NotDetected); Yersinia Entercolitica, PCR Not Detected (NotDetected)
[2017-12-19 10:37] LABS: Basophils % 0.3 % (0.1-2.0); Eosinophils # 0.1 K/mm3 (0.0-0.4); Hematocrit 45.2 % (42.0-52.0); Hemoglobin 14.8 g/dL (14.1-18.0); Lymphocytes # 1.9 K/mm3 (0.7-4.5); Lymphocytes % 17.9 K/mm3 (10-50); Mean Corpuscular HGB Conc 32.7 g/dL (31.8-35.4); Mean Corpuscular Volume 85.8 fl (80-94); Mean Platelet Volume 7.4 fl (7.4-10.4); Monocytes # 0.5 K/mm3 (0.1-1.0); Monocytes % 4.8 % (1.7-9.3); Platelet Count 253 K/mm3 (142-424); Red Blood Count 5.26 M/mm3 (4.60-6.20); Red Cell Distribution Width 13.9 % (11.5-17.5); White Blood Count 10.5 K/mm3 (4.8-10.8)
[2017-12-19 12:40] LABS: Alanine Aminotransferase 29 U/L (12-78); Albumin Level 4.3 gm/dL (3.4-5.0); Albumin/Globulin Ratio 1.1 (1.1-1.8); Alkaline Phosphatase 119 U/L (46-116); Anion Gap 16.3 mEq/L (5-15); Aspartate Amino Transferase 19 U/L (15-37); Bilirubin,Total 0.9 mg/dL (0.2-1.0); Blood Urea Nitrogen 17 mg/dL (7-18); Calcium 10.3 mg/dL (8.5-10.1); Carbon Dioxide 27 mmol/L (21.0-32.0); Chloride 104 mmol/L (98-107); Creatinine,Serum 1.12 mg/dL (0.70-1.30); Estimated Glomerular Filt Rate 74 ml/min (>60); GFR (African American) 89 ML/MIN (>60); Glucose 95 mg/dL (74-106); Potassium 5.3 mmoL/L (3.5-5.1); Sodium 142 mmol/L (136-145); Total Protein,Serum 8.3 gm/dL (6.4-8.2)
[2017-12-19 14:13] LABS: Clostridium Difficile A/B, PCR Detected (NotDetected)
== END ==
PROVIDERS: Visit Provider Nurse Practitioner Family
DX: R19.7 Diarrhea, unspecified (principal)
CPT/HCPCS: 36415; 80053; 85025; 87507

== ENCOUNTER → 2018-02-28 16:22 | Outpatient (CLI) | payer OTHER, SELFPAY ==
[2018-02-28 18:32] LABS: Alanine Aminotransferase 29 U/L (12-78); Albumin Level 3.8 gm/dL (3.4-5.0); Albumin/Globulin Ratio 1.2 (1.1-1.8); Alkaline Phosphatase 109 U/L (46-116); Anion Gap 13.1 mEq/L (5-15); Aspartate Amino Transferase 13 U/L (15-37); Bilirubin,Total 0.3 mg/dL (0.2-1.0); Blood Urea Nitrogen 13 mg/dL (7-18); Calcium 9.2 mg/dL (8.5-10.1); Carbon Dioxide 27 mmol/L (21.0-32.0); Chloride 107 mmol/L (98-107); Creatinine,Serum 1.03 mg/dL (0.70-1.30); Estimated Glomerular Filt Rate 81 ml/min (>60); GFR (African American) 98 ML/MIN (>60); Globulin 3.3 gm/dl (1.3-3.2); Glucose 90 mg/dL (74-106); Potassium 4.1 mmoL/L (3.5-5.1); Sodium 143 mmol/L (136-145); Total Protein,Serum 7.1 gm/dL (6.4-8.2); Uric Acid 7.7 mg/dL (2.6-7.2)
[2018-02-28 18:56] LABS: Erythrocyte Sedimentation Rate 21 mm/hr (0-15)
== END ==
PROVIDERS: Visit Provider Nurse Practitioner Family
DX: M25.541 Pain in joints of right hand (principal); M25.542 Pain in joints of left hand; M79.641 Pain in right hand; M79.642 Pain in left hand
CPT/HCPCS: 80053; 84550; 85651

== ENCOUNTER → 2018-08-11 10:03 | Outpatient (CLI) | payer OTHER, SELFPAY ==
[2018-08-11 10:17] LABS: Basophils % 0.2 % (0.1-2.0); Eosinophils # 0.1 K/mm3 (0.0-0.4); Eosinophils % 2.1 % (0.1-12.0); Hematocrit 41.7 % (42.0-52.0); Hemoglobin 13.2 g/dL (14.1-18.0); Lymphocytes # 1.8 K/mm3 (0.7-4.5); Lymphocytes % 29.5 % (10-50); Mean Corpuscular HGB Conc 31.6 g/dL (31.8-35.4); Mean Corpuscular Hemoglobin 27.7 pg (27.0-31.2); Mean Corpuscular Volume 87.7 fl (80-94); Mean Platelet Volume 7.7 fl (7.4-10.4); Monocytes # 0.4 K/mm3 (0.1-1.0); Monocytes % 6.6 % (1.7-9.3); Neutrophils # 3.8 K/mm3 (1.8-7.8); Neutrophils % 61.6 % (37.0-80.0); Platelet Count 203 K/mm3 (142-424); Red Blood Count 4.76 M/mm3 (4.60-6.20); Red Cell Distribution Width 14.6 % (11.5-17.5); White Blood Count 6.2 K/mm3 (4.8-10.8)
[2018-08-11 11:34] LABS: Alanine Aminotransferase 43 U/L (12-78); Albumin Level 3.9 gm/dL (3.4-5.0); Albumin/Globulin Ratio 1.2 (1.1-1.8); Alkaline Phosphatase 93 U/L (46-116); Anion Gap 13.2 mEq/L (5-15); Aspartate Amino Transferase 21 U/L (15-37); Bilirubin,Total 0.5 mg/dL (0.2-1.0); Blood Urea Nitrogen 13 mg/dL (7-18); Calcium 9.2 mg/dL (8.5-10.1); Carbon Dioxide 29 mmol/L (21.0-32.0); Chloride 106 mmol/L (98-107); Chol/HDL Ratio 5.7 (1-3.5); Cholesterol 255 mg/dL (140-200); Creatinine,Serum 1.07 mg/dL (0.70-1.30); Estimated Glomerular Filt Rate 77 ml/min (>60); Free Thyroxine Index 3.4 ug/dL (5.93-13.13); GFR (African American) 94 ML/MIN (>60); Globulin 3.3 gm/dl (1.3-3.2); Glucose 100 mg/dL (74-106); HDL Cholesterol 45 mg/dL (27-67); LDL Cholesterol 194 mg/dL (0-130); Potassium 4.2 mmoL/L (3.5-5.1); Sodium 144 mmol/L (136-145); T4 (Thyroxine) 9.5 ug/dl (4.7-13.3); Thyroid Stimulating Hormone 0.83 uIU/ml (0.358-3.740); Total Protein,Serum 7.2 gm/dL (6.4-8.2); Triglycerides 79 mg/dL (30-200); Triiodothryronine (T3) Uptake 36 % (31-39); Uric Acid 7.9 mg/dL (2.6-7.2); VLDL Cholesterol 16 mg/dL (0-40)
[2018-08-12 11:19] LABS: Vitamin D 25 Hydroxy 21.9 ng/mL (30.0-100.0)
== END ==
PROVIDERS: Visit Provider Nurse Practitioner Family
DX: E78.5 Hyperlipidemia, unspecified (principal); M25.50 Pain in unspecified joint
CPT/HCPCS: 36415; 80053; 80061; 82652; 84436; 84443; 84479; 84550; 85025

== ENCOUNTER → 2018-12-26 07:58 | Outpatient (CLI) | payer OTHER, SELFPAY ==
--- NOTE | 2018-12-26 08:05 | CT_ITS ---
CT abdomen pelvis w con CLINICAL INDICATION: Abdominal pain, abdominal mass 1 inch below the umbilicus ITS.REASON: abd pain ORDERING PHYSICIAN: Rayo Richey APRN PATIENT AGE: 38 years COMPARISON: 03/13/2018 TECHNIQUE: Axial images obtained with sagittal and coronal reformats. All CT scans at the facility use one or more dose reduction, viz: automated exposure control, ma/kV adjustment per patient size (including targeted exams where dose is matched to indication, i.e. head), or iterative reconstruction technique. PROCEDURE: Oral Contrast: None Contrast: 75 mL's Optiray 350 FINDINGS: Calcified granuloma is present in the right lower lobe and also one in the left lower lobe. The liver, gallbladder, spleen, adrenal glands, pancreas, and kidneys have an unremarkable appearance. Unremarkable appendix. No intestinal obstruction or free air. Scattered colonic diverticula are present without evidence of diverticulitis. No pelvic mass abnormal fluid collection or focal inflammatory change. No abdominal wall mass evident. No acute bony findings. IMPRESSION: No acute finding. Negative CT abdomen pelvis
--- NOTE | 2018-12-26 08:05 | XR_ITS ---
XR KUB HISTORY: Palpable lump, trouble urinating ITS.REASON: problems urinating ORDERING PHYSICIAN: Rayo Richey APRN PATIENT AGE: 38 years COMPARISON: None FINDINGS: The bowel gas pattern is unremarkable. No obvious obstruction.. No abnormal calcifications are evident. No obvious renal or ureteral calculi.. No acute bony anomalies evident. Contrast is present in the large and small bowel from recent oral contrast ingestion. There is minimal lumbar curvature convex left. IMPRESSION: Negative KUB, no acute finding
[2018-12-26 14:41] LABS: Alanine Aminotransferase 28 U/L (12-78); Albumin Level 3.7 gm/dL (3.4-5.0); Alkaline Phosphatase 92 U/L (46-116); Anion Gap 13.9 mEq/L (5-15); Aspartate Amino Transferase 12 U/L (15-37); Bilirubin,Total 0.7 mg/dL (0.2-1.0); Blood Urea Nitrogen 14 mg/dL (7-18); Calcium 9.2 mg/dL (8.5-10.1); Carbon Dioxide 27 mmol/L (21.0-32.0); Chloride 104 mmol/L (98-107); Creatinine,Serum 1.02 mg/dL (0.70-1.30); Estimated Glomerular Filt Rate 82 ml/min (>60); GFR (African American) 99 ML/MIN (>60); Globulin 3.6 gm/dl (1.3-3.2); Glucose 89 mg/dL (74-106); Potassium 3.9 mmoL/L (3.5-5.1); Sodium 141 mmol/L (136-145); Total Protein,Serum 7.3 gm/dL (6.4-8.2)
== END ==
PROVIDERS: PCP Emergency Medicine; Visit Provider Nurse Practitioner Family
DX: K57.92 Diverticulitis of intestine, part unspecified, without perforation or abscess without bleeding (principal); R39.198 Other difficulties with micturition; R19.09 Other intra-abdominal and pelvic swelling, mass and lump
CPT/HCPCS: 36415; 74018; 74177; 80053; Q9967

== ENCOUNTER → 2019-01-02 13:54 | Outpatient (CLI) | payer OTHER, SELFPAY | PROVIDERS: Visit Provider Nurse Practitioner Family | DX: N42.81 Prostatodynia syndrome (principal) | CPT/HCPCS: 87086 ==

== ENCOUNTER → 2020-02-12 10:29 | Outpatient (CLI) | payer OTHER, SELFPAY ==
[2020-02-12 13:26] LABS: Coronavirus 19 IgG Antibody Negative (Negative); Coronavirus 19 IgM Antibody Negative (Negative)
== END ==
PROVIDERS: Visit Provider Internal Medicine Gastroenterology
DX: Z01.818 Encounter for other preprocedural examination (principal)
CPT/HCPCS: 36415; 86328

== ENCOUNTER 2020-02-15 06:33 | Day surgery (SDC) | payer OTHER, SELFPAY ==
[2020-02-12 11:21] VITALS: BMI 33.9
[2020-02-15] VITALS (7 sets, daily range): BP systolic 91–118; BP diastolic 55–75; PULSE 42–52; RESP 12–18; TEMP 36.2–36.4; O2SAT 96–99
--- NOTE | 2020-02-15 07:14 | HMH.ANESCL ---
[facility] Anesthesia Checklist - Patient Identification Patient Identification: Arm Band, Verbal (Name & ) - Structural Data Admitted From: Home Planned Operative Procedure/s: colon Consent for Planned Operative Procedure(s) Verified: Yes Verified Documents: History and Physical - NPO Status Verified Time NPO: 00:00 - Chart Verification Results Verified: CBC, BMP - Additional verifications Patient : No Anesthesia Reactions: Yes ('dont do good with gas -n/v) Hx Blood Transfusions: No Blood Transfusion Reaction: No Cephalosporin Allergy: No Previous Colonoscopy: Yes - Cardiovascular Assessment Heart Sounds: S1 & S2 Pulse Strength: Baseline Pulse Rhythm: Regular Peripheral Edema: No - Airway Assessment C-Spine Mobility Assessed: Yes TMJ Mobility Assessed: Yes Dentition: Good Dentition - Neurological Assessment Level of Consciousness: Awake, Alert, Appropriate Hx Seizures: No Numbness or tingling in extremities: No - Anesthesia Plan Anesthesia Risk discussed: Yes Anesthesia Plan: Verified ASA Class: I Anesthesia Type: MAC [facility] History I have reviewed the patient's past medical history: Yes Medical History: Reports:: Hyperlipidemia, Kidney Stones Denies:: Cancer, Diabetes Mellitus Type 1, Diabetes Mellitus Type 2, Internal Pacemaker, Lung Disease, MRSA, Seizures *Have you ever received a pneumonia vaccine?: No *Have you received a flu vaccine this season?: No Other Medical History: Reports: Sinus Problems, Other Anesthesia experience/problems:: none Laterality Cases: Bilateral: Tonsillectomy, Other Other Surgeries: Yes: Colonoscopy, Other. No: Pacemaker Amputation: No Fractures: No - *Social History Last grade of school completed: High school graduate Smoking Status: Unknown if ever smoked Tobacco Type: smokeless tobacco # Packs/Day (cigarettes): 0 Alcohol Intake: never Alcohol Intake Frequency:: holidays/special occasions only Substance Use Type: denies use *Occupational Status:: employed Housing: house Household Members: family *Travel in the last 8 weeks: None Family Hx:: No significant family history
--- NOTE | 2020-02-15 07:36 | HMH.PROC ---
[facility] Procedure Note Procedure Note:: Colonoscopy Procedure Report: Colonoscopy with cold snare polypectomy and cold biopsies Endoscopist: Roel Rodas II, MD Referring physician: Lindsay RODGERS Date of Procedure: February 15, 2020 Equipment: Olympus 180 variable stiffness pediatric colonoscope Sedation: MAC sedation Indication: Mr. Lr is a 39-year-old gentleman who is here for diagnostic colonoscopy. The Saturday before last (9 days ago), he developed severe pain in the left lower abdomen at 2:30 AM and developed rectal bleeding 2 hours subsequently that lasted into the next day. He does have a history of diverticulitis. He also has a long history of colonic spasms and does report postprandial bowel urgency and some intermittent diarrhea. The patient does state that his sister has Crohn's disease. He has had no weight loss or fever. He reports no family history of colon cancer. His last colonoscopy 2 years ago (Dr. Helio Morrell) showed polyps and diverticulosis. The patient has not started antibiotics. His symptoms have improved and he has no further bleeding presently. Procedure: Prior to the procedure, a history and physical exam was performed, and patient's medications and allergies were reviewed. The risks, benefits and alternatives of the sedation and procedure were discussed with the patient. All questions were answered and informed consent was obtained. The patient was brought to the procedure room. Patient identification and proposed procedure were verified by the physician and the nurse. The patient was placed in a left lateral decubitus position and the scope was passed under direct vision. Throughout the procedure, the patient's blood pressure, pulse, and oxygen saturations were monitored continuously. The colonoscopy was accomplished without difficulty. The patient tolerated the procedure well. Findings: On digital rectal examination there was normal rectal tone. There were no external hemorrhoids. The colonoscope was introduced through the anal canal to the rectum and advanced to the cecum. The ileocecal valve and appendiceal orifice were identified. The scope was advanced a short distance into the ileum which appeared grossly normal. The scope was then withdrawn into the colon. The cecum and ascending colon were normal. Cold biopsies were taken from the right colon to rule out microscopic colitis. There was a diminutive 3 mm polyp in the transverse colon removed via cold snare polypectomy. There were scattered diverticuli throughout the descending and sigmoid colon (LEFT colon). There was some haustral edema/erythema in the sigmoid colon suggestive of some chronic sigmoid diverticulitis. Cold biopsies were obtained. The rectum itself was normal. Upon retroflexion within the rectum there were grade 1 internal hemorrhoids. The preparation was excellent throughout with [place] Preparation Score of 9. The cecal time was 12 minutes. Impression: 1. Diminutive transverse colon polyp 2. Left-sided diverticulosis with evidence of chronic sigmoid diverticulitis 3. Grade 1 internal hemorrhoids Plan: I will follow-up the polyp histology and biopsies. It is possible that he had hemorrhoidal bleeding versus diverticular hemorrhage. He is very stable presently. I would encourage dietary measures, bulk fiber supplementation and probiotic therapy. I do feel that he has some spastic diverticular disease and IBS. We will discuss treatment options. If the patient has recurrences of diverticulitis, I would consider low anterior resection/sigmoid resection.
== END 2020-02-15 08:43 | disposition home or self-care (01) ==
LOC: OUTP 06:34
PROVIDERS: PCP Nurse Practitioner Family; Visit Provider Internal Medicine Gastroenterology
PROC: 0DJD8ZZ Inspection of Lower Intestinal Tract, Via Natural or Artificial Opening Endoscopic (ICD-10-PCS; CPT 45378; principal; 2020-02-15 07:30)
DX: K63.5 Polyp of colon; K57.32 Diverticulitis of large intestine without perforation or abscess without bleeding; K64.0 First degree hemorrhoids; Z87.19 Personal history of other diseases of the digestive system; Z83.79 Family history of other diseases of the digestive system; Z87.442 Personal history of urinary calculi; Z90.89 Acquired absence of other organs; Z88.8 Allergy status to other drugs, medicaments and biological substances; Z87.891 Personal history of nicotine dependence; Z79.899 Other long term (current) drug therapy
CPT/HCPCS: 45385; 45380; J2704

== ENCOUNTER → 2020-03-02 07:36 | Outpatient (CLI) | payer OTHER, SELFPAY ==
--- NOTE | 2020-03-02 07:36 | CT_ITS ---
PROCEDURE: CT ABDOMEN PELVIS WO CON CLINICAL INDICATION: abd pain Mid to lower abdominal pain COMPARISON: [id number] CT abdomen pelvis w con from 12/26/2018 TECHNIQUE: Axial images obtained with sagittal and coronal reformats. All CT scans at the facility use one or more dose reduction, viz: automated exposure control, ma/kV adjustment per patient size (including targeted exams where dose is matched to indication, i.e. head), or iterative reconstruction technique. FINDINGS: LOWER THORAX: No acute finding ABDOMEN & PELVIS: The liver, gallbladder, spleen, adrenal glands, pancreas, and kidneys have an unremarkable appearance aside from a 3 mm nonobstructing stone in the lower pole of the left kidney. There is a mild amount of retained colonic feces. No evidence of appendicitis. There is diverticulosis of the descending and sigmoid colon with minimal stranding of the pericolic fat in the left lower quadrant at the proximal sigmoid colon consistent with mild diverticulitis. No abscess or perforation. There are mild degenerative changes of the hips with a small subchondral cyst in the superior aspect of the acetabulum on the right. IMPRESSION: Colonic diverticulosis with mild non complicated diverticulitis of the proximal sigmoid colon Dictated by: Bhavin Shah MD 03/03/2020 10:55 Electronically signed by Bhavin Shah MD in [place] 03/03/2020 10:55
== END ==
PROVIDERS: PCP Nurse Practitioner Family; Visit Provider Nurse Practitioner Family
DX: K57.92 Diverticulitis of intestine, part unspecified, without perforation or abscess without bleeding (principal)
CPT/HCPCS: 74176

== ENCOUNTER → 2020-04-22 10:53 | Outpatient (CLI) | payer OTHER, SELFPAY ==
[2020-04-22 18:05] LABS: Basophils % 0.4 % (0.1-2.0); Chloride 105 mmol/L (98-107); Eosinophils # 0.2 K/mm3 (0.0-0.4); Eosinophils % 4.2 % (0.1-12.0); Hematocrit 40.8 % (42.0-52.0); Hemoglobin 13.4 g/dL (14.1-18.0); Lymphocytes # 1.8 K/mm3 (0.7-4.5); Lymphocytes % 31.2 % (10-50); Mean Corpuscular HGB Conc 32.8 g/dL (31.8-35.4); Mean Corpuscular Hemoglobin 28.2 pg (27.0-31.2); Mean Corpuscular Volume 85.9 fl (80-94); Mean Platelet Volume 8.5 fl (7.4-10.4); Monocytes # 0.4 K/mm3 (0.1-1.0); Monocytes % 6.5 % (1.7-9.3); Neutrophils # 3.2 K/mm3 (1.8-7.8); Neutrophils % 57.7 % (37.0-80.0); Platelet Count 231 K/mm3 (142-424); Potassium 4.3 mmoL/L (3.5-5.1); Red Blood Count 4.75 M/mm3 (4.60-6.20); Red Cell Distribution Width 14.7 % (11.5-17.5); Sodium 139 mmol/L (136-145); White Blood Count 5.6 K/mm3 (4.8-10.8)
[2020-04-22 18:07] LABS: Blood Urea Nitrogen 15 mg/dl (9-20); Estimated Glomerular Filt Rate 83 ml/min (>60); GFR (African American) 101 ML/MIN (>60)
[2020-04-22 18:08] LABS: Alanine Aminotransferase 28 U/L (12-78); Albumin Level 4.1 g/dl (3.5-5.0); Albumin/Globulin Ratio 1.5 (1.1-1.8); Alkaline Phosphatase 92 U/L (38-126); Anion Gap 12.3 mEq/L (5-15); Aspartate Amino Transferase 30 U/L (17-59); Bilirubin,Total 0.6 mg/dl (0.2-1.3); Calcium 9.7 mg/dl (8.4-10.2); Carbon Dioxide 26 mmol/L (22.0-30.0); Chol/HDL Ratio 5.8 (1-3.5); Cholesterol 210 mg/dl (140-200); Globulin 2.8 g/dL (1.3-3.2); Glucose 99 mg/dl (74-100); HDL Cholesterol 36 mg/dl (40-60); Total Protein,Serum 6.9 g/dl (6.3-8.2); Triglycerides 177 mg/dl (30-150); VLDL Cholesterol 35 mg/dL (0-40)
[2020-04-22 18:19] LABS: Direct LDL Cholesterol 124.33 mg/dL (100-129)
[2020-04-22 18:25] LABS: T4 (Thyroxine) 9.5 ug/dl (5.53-11.0)
[2020-04-22 18:31] LABS: 25-OH Vitamin D, Total 22.4 ng/mL (30-100)
[2020-04-25 13:35] LABS: H. pylori Breath Test Negative (Negative)
== END ==
PROVIDERS: Visit Provider Nurse Practitioner Family
DX: R10.9 Unspecified abdominal pain (principal); K57.92 Diverticulitis of intestine, part unspecified, without perforation or abscess without bleeding; R53.83 Other fatigue; K21.9 Gastro-esophageal reflux disease without esophagitis
CPT/HCPCS: 80053; 80061; 82306; 83013; 84436; 84443; 85025

== ENCOUNTER → 2020-05-03 07:54 | Outpatient (CLI) | payer OTHER, SELFPAY ==
--- NOTE | 2020-05-03 07:54 | US_ITS ---
PROCEDURE: US GALLBLADDER CLINICAL INDICATION: abd pain COMPARISON: CT CT ABDOMEN PELVIS WO CON from 03/02/2020 FINDINGS: Pancreas: Pancreas is not well delineated due to overlying bowel gas. CT or MRI without and with contrast with pancreatic protocol may provide further evaluation if clinically desired. Liver: Unremarkable. There is appropriate direction of blood flow within a non dilated portal vein. Right kidney: Unremarkable appearing. No hydronephrosis. Gallbladder: No stones are evident. There is no gallbladder wall thickening. Common duct is normal in diameter. IMPRESSION: Negative gallbladder ultrasound. No stones evident. Poor visualization of the pancreas Dictated by: Bhavin Shah MD 05/03/2020 19:25 Bhavin Shah MD in [place] 05/03/2020 19:25
== END ==
PROVIDERS: PCP Nurse Practitioner Family; Visit Provider Nurse Practitioner Family
DX: R10.9 Unspecified abdominal pain (principal)
CPT/HCPCS: 76705

== ENCOUNTER 2020-05-11 21:52 | Emergency (ER) | payer OTHER, SELFPAY ==
[2020-05-11 21:53] VITALS: BP 160/104; PULSE 82; RESP 16; TEMP 36.8; O2SAT 97
[2020-05-11 21:54] VITALS: BMI 33.2
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
[2020-05-11 22:09] LABS: Chloride 102 mmol/L (98-107)
[2020-05-11 22:10] LABS: Sodium 140 mmol/L (136-145)
[2020-05-11 22:12] LABS: Alanine Aminotransferase 26 U/L (12-78); Aspartate Amino Transferase 29 U/L (17-59); Blood Urea Nitrogen 14 mg/dl (9-20); Creatinine Clearance Estimated 156 mL/min (50-200); Estimated Glomerular Filt Rate 83 ml/min (>60); GFR (African American) 101 ML/MIN (>60)
[2020-05-11 22:13] LABS: Albumin Level 4.2 g/dl (3.5-5.0); Albumin/Globulin Ratio 1.4 (1.1-1.8); Alkaline Phosphatase 92 U/L (38-126); Bilirubin,Total 0.4 mg/dl (0.2-1.3); Calcium 9.7 mg/dl (8.4-10.2); Carbon Dioxide 30 mmol/L (22.0-30.0); Globulin 2.9 g/dL (1.3-3.2); Glucose 108 mg/dl (74-100); Total Protein,Serum 7.1 g/dl (6.3-8.2)
[2020-05-11 22:18] LABS: Basophils % 0.5 % (0.1-2.0); Eosinophils # 0.1 K/mm3 (0.0-0.4); Eosinophils % 1.3 % (0.1-12.0); Hematocrit 37.8 % (42.0-52.0); Hemoglobin 12.8 g/dL (14.1-18.0); Lymphocytes # 2.1 K/mm3 (0.7-4.5); Lymphocytes % 26.8 % (10-50); Mean Corpuscular Volume 85.2 fl (80-94); Mean Platelet Volume 7.6 fl (7.4-10.4); Monocytes # 0.5 K/mm3 (0.1-1.0); Monocytes % 6.2 % (1.7-9.3); Neutrophils # 5.2 K/mm3 (1.8-7.8); Neutrophils % 65.2 % (37.0-80.0); Platelet Count 211 K/mm3 (142-424); Red Blood Count 4.43 M/mm3 (4.60-6.20); Red Cell Distribution Width 14.7 % (11.5-17.5); White Blood Count 7.9 K/mm3 (4.8-10.8)
--- NOTE | 2020-05-11 22:34 | PC.NURSE ---
pt back from CT
[2020-05-11 22:53] LABS: Microscopic, Urine URINE MICROSCOPIC (MICROSCOPIC)
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
[2020-05-11 22:55] LABS: Appearance,Urine CLEAR (Clear); Bilirubin,Urine Negative (Negative); Blood, Urine TRACE-I (Negative); Color,Urine YELLOW (Yellow); Glucose,Urine (UA) Negative (Negative); Ketones,Urine Negative (Negative); Leukocyte Esterase,Urine Negative (Negative); Nitrate,Urine Negative (Negative); PH,Urine 5.5 (5.0-8.5); Protein,Urine Negative (Negative); Urobilinogen,Urine 0.2 EU/dl (0.2)
[2020-05-11 23:01] VITALS: BP 139/94; PULSE 66; RESP 14; TEMP 36.8; O2SAT 98
[2020-05-11 23:06] LABS: Bacteria,Urine Trace /lpf; WBC,Urine Occasional #/hpf (0-3)
== END 2020-05-11 23:11 | disposition home or self-care (01) ==
PROVIDERS: Emergency Provider Emergency Medicine; PCP Nurse Practitioner Family
DX: S16.1XXA Strain of muscle, fascia and tendon at neck level, initial encounter (principal); T07.XXXA Unspecified multiple injuries, initial encounter; V40.5XXA Car driver injured in collision with pedestrian or animal in traffic accident, initial encounter; Y92.488 Other paved roadways as the place of occurrence of the external cause
CPT/HCPCS: 70450; 71045; 71275; 72125; 72170; 74177; 80053; 81001; 85025; 96365; 96375; 99282; Q9967

== ENCOUNTER → 2020-05-25 10:28 | Outpatient (CLI) | payer OTHER, SELFPAY ==
[2020-05-25 13:43] LABS: Coronavirus 19 IgG Antibody Negative (Negative); Coronavirus 19 IgM Antibody Negative (Negative)
== END ==
PROVIDERS: Visit Provider Internal Medicine Gastroenterology
DX: Z01.818 Encounter for other preprocedural examination (principal); K30 Functional dyspepsia
CPT/HCPCS: 36415; 86328

== ENCOUNTER 2020-05-27 07:07 | Day surgery (SDC) | payer OTHER, SELFPAY ==
[2020-05-25 09:40] VITALS: BMI 33.1
[2020-05-27 07:39] VITALS: BP 141/66; PULSE 53; RESP 18; TEMP 36.1; O2SAT 99
[2020-05-27 08:37] VITALS: O2SAT 97
--- NOTE | 2020-05-27 08:39 | HMH.PROC ---
[facility] Procedure Note Procedure Note:: Upper Endoscopy Procedure Report: Esophagogastroduodenoscopy with cold biopsies Endoscopost: Roel Rodas II, MD Referring Physician: Lindsay RODGERS Date of Procedure: May 27, 2020 Equipment: Olympus GIF 180 standard upper endoscope Sedation: MAC sedation Indications: Mr. Lr is a 39-year-old gentleman with epigastric abdominal burning discomfort which sometimes feels like it is on fire . He did have a normal gallbladder on the CAT scan from February 2020. He had similar symptoms 10 years ago. The patient does have moderate bloating and bowel frequency with 3-5 bowel movements daily. His CAT scan did show fecal retention. EGD is performed to evaluate etiology of his acute and chronic dyspepsia. He does state that his C 13 sucrose breath test was negative (results pending). Procedure: Prior to the procedure, a history and physical exam was performed, and patient's medications and allergies were reviewed. The risks, benefits and alternatives of the sedation and procedure were discussed with the patient. All questions were answered and informed consent was obtained. The patient was brought to the procedure room. Patient identification and proposed procedure were verified by the physician and the nurse. The patient was placed in a left lateral decubitus position and the scope was passed under direct vision. Throughout the procedure, the patient's blood pressure, pulse, and oxygen saturations were monitored continuously. The upper GI endoscopy was accomplished without difficulty. The patient tolerated the procedure well. Findings: The scope was passed directly into the upper esophagus and advanced to the third portion of the duodenum. The post bulbar duodenum and duodenal bulb were normal with normal mucosa and conniventes. There was bile staining in the duodenum. Cold biopsies were taken from the post bulbar duodenum to rule out celiac disease. The scope was withdrawn through a normal duodenal bulb and pylorus into the stomach. There was moderate bile reflux with linear reactive gastropathy of the antrum and body of the stomach. The remainder of the antrum, body and fundus of the stomach were grossly normal. Upon retroflexion there was no hiatal hernia. 2 biopsies were taken in the antrum and along the lesser curvature for histology to rule out gastritis and/or H pylori. The scope was then withdrawn into the esophagus. There was no evidence of reflux esophagitis or Isbell's. The remainder of the esophageal mucosa was normal. Impression: 1. Bile reflux with linear reactive gastropathy Plan: I will follow up the biopsies. The patient does have functional dyspepsia. He does have associated functional intestinal disorder with IBS diarrhea intermittently. We will discuss additional dietary measures and treatment options.
[2020-05-27 08:50] VITALS: BP 108/70; PULSE 49; RESP 18; TEMP 36.4; O2SAT 95
[2020-05-27 09:00] VITALS: BP 101/62; PULSE 45; RESP 18; O2SAT 96
[2020-05-27 09:10] VITALS: BP 104/58; PULSE 48; RESP 18; O2SAT 98
--- NOTE | 2020-05-27 09:13 | HMH.ANESCL ---
[facility] Anesthesia Checklist - Patient Identification Patient Identification: Arm Band - Structural Data Admitted From: Home Planned Operative Procedure/s: egd Consent for Planned Operative Procedure(s) Verified: Yes Verified Documents: Surgical Consent, History and Physical - NPO Status Verified Time NPO: 00:00 - Additional verifications Anesthesia Reactions: Yes ('dont do good with gas -n/v) Hx Blood Transfusions: No Blood Transfusion Reaction: No - Airway Assessment C-Spine Mobility Assessed: Yes (mp2) TMJ Mobility Assessed: Yes Dentition: Good Dentition - Neurological Assessment Level of Consciousness: Awake, Alert - Anesthesia Plan Anesthesia Risk discussed: Yes Anesthesia Plan: Verified ASA Class: II Anesthesia Type: MAC [facility] History I have reviewed the patient's past medical history: Yes Medical History: Reports:: Hyperlipidemia, Kidney Stones Denies:: Cancer, Chronic Obstructive Pulmonary Disease (COPD), Diabetes Mellitus Type 1, Diabetes Mellitus Type 2, Internal Pacemaker, Lung Disease, MRSA, Seizures *Have you ever received a pneumonia vaccine?: No *Have you received a flu vaccine this season?: No Other Medical History: Reports: Sinus Problems, Other. Denies: Blood Transfusion Reaction Anesthesia experience/problems:: nac Laterality Cases: Bilateral: Tonsillectomy, Other Other Surgeries: Yes: Colonoscopy, Other. No: Pacemaker Amputation: No Fractures: No - *Social History Last grade of school completed: High school graduate Smoking Status: Former smoker Tobacco Type: cigarettes # Packs/Day (cigarettes): 0 Smoking End Date: 05/12/2016 Alcohol Intake: former Alcohol Intake Frequency:: holidays/special occasions only Substance Use Type: denies use *Occupational Status:: employed Housing: house Household Members: family *Travel in the last 8 weeks: None Family Hx:: Cancer
[2020-05-27 09:45] VITALS: BP 121/75; PULSE 52; RESP 18; O2SAT 100
== END 2020-05-27 09:56 | disposition home or self-care (01) ==
LOC: OUTP 07:09
PROVIDERS: PCP Nurse Practitioner Family; Visit Provider Internal Medicine Gastroenterology
PROC: 0DJ08ZZ Inspection of Upper Intestinal Tract, Via Natural or Artificial Opening Endoscopic (ICD-10-PCS; CPT 43235; principal; 2020-05-27 08:30)
DX: K21.9 Gastro-esophageal reflux disease without esophagitis (principal); K31.9 Disease of stomach and duodenum, unspecified; E78.5 Hyperlipidemia, unspecified; Z87.442 Personal history of urinary calculi; Z90.89 Acquired absence of other organs; Z87.891 Personal history of nicotine dependence; Z87.19 Personal history of other diseases of the digestive system; Z79.899 Other long term (current) drug therapy
CPT/HCPCS: 43239

== ENCOUNTER → 2020-08-10 15:50 | Outpatient (CLI) | payer OTHER, SELFPAY ==
--- NOTE | 2020-08-10 16:00 | XR_ITS ---
PROCEDURE: XR KNEE LT 4V CLINICAL INDICATION: Knee pain COMPARISON: No exams were available for comparison FINDINGS: No fracture or dislocation. No lytic or blastic change. There is normal mineralization. The joint spaces are well-preserved. No significant degenerative/arthritic changes. No erosive changes evident. There is a small bone island just below the lateral tibial plateau. Other findings:None. IMPRESSION: No acute findings. Dictated by: Dr. Jose Luis Andrade MD 08/11/2020 09:14 Dr. Jose Luis Andrade MD in [place] 08/11/2020 09:14
[2020-08-10 16:17] LABS: Basophils % 0.1 % (0.1-2.0); Eosinophils % 0.2 % (0.1-12.0); Hemoglobin 13.7 g/dL (14.1-18.0); Lymphocytes # 1.3 K/mm3 (0.7-4.5); Lymphocytes % 12.8 % (10-50); Mean Corpuscular HGB Conc 32.5 g/dL (31.8-35.4); Mean Corpuscular Hemoglobin 27.7 pg (27.0-31.2); Monocytes # 0.4 K/mm3 (0.1-1.0); Monocytes % 3.7 % (1.7-9.3); Neutrophils # 8.5 K/mm3 (1.8-7.8); Neutrophils % 83.1 % (37.0-80.0); Platelet Count 234 K/mm3 (142-424); Red Blood Count 4.94 M/mm3 (4.60-6.20); Red Cell Distribution Width 15.1 % (11.5-17.5); White Blood Count 10.2 K/mm3 (4.8-10.8)
[2020-08-10 16:48] LABS: Erythrocyte Sedimentation Rate 21 mm/hr (0-15)
[2020-08-10 18:07] LABS: Uric Acid 7.7 mg/dl (3.5-8.5)
[2020-08-10 18:13] LABS: C-Reactive Protein 7.6 mg/L (0-4)
== END ==
PROVIDERS: Visit Provider Physician Assistant
DX: M25.562 Pain in left knee (principal)
CPT/HCPCS: 36415; 73564; 84550; 85025; 85651; 86140

== ENCOUNTER → 2020-08-22 13:22 | Outpatient (CLI) | payer OTHER, SELFPAY ==
--- NOTE | 2020-08-22 13:22 | MR_ITS ---
PROCEDURE: MR KNEE LT WO CON CLINICAL INDICATION: Knee pain and swelling pain when bending knee. medial sided knee pain x2wks. no injury. swelling superior to patella. prior x-ray 08-10-20 COMPARISON: CR XR KNEE LT 4V from 08/10/2020 TECHNIQUE: Routine multiplanar multi echo sequences are performed without gadolinium enhancement. FINDINGS: The cruciate ligaments appear intact as do the collateral ligaments. No meniscal tear. There is increased T2 signal of the quadriceps tendon interspersed within the tendinous fibers with suspected partial tear of the anterior fibers centrally. The patellar tendon is intact. The patellar cartilage is preserved. The patellofemoral ligaments appear intact. No evidence of patellar dislocation. There is a small amount fluid within the knee joint. There is an area of decreased T1 and T2 signal involving the proximal tibia laterally consistent with a bone island as seen on recent radiograph. No significant arthritic changes. IMPRESSION: 1. Partial tear of the quadriceps tendon anteriorly and centrally. 2. No internal derangement apparent. Dictated by: Bhavin Shah MD 08/24/2020 09:13 Bhavin Shah MD in [place] 08/24/2020 09:13
== END ==
PROVIDERS: PCP Nurse Practitioner Family; Visit Provider Physician Assistant
DX: M25.562 Pain in left knee (principal); M25.462 Effusion, left knee
CPT/HCPCS: 73721

== ENCOUNTER → 2020-08-24 10:00 | Outpatient (CLI) | payer OTHER, SELFPAY ==
--- NOTE | 2020-08-24 10:03 | XR_ITS ---
PROCEDURE: XR HIP RT 2-3V W/PELVIS CLINICAL INDICATION: right hip pain COMPARISON: CR XR PELVIS 1-2V from 05/11/2020 FINDINGS: There are minimal osteoarthritic changes of the right hip. Small os acetabulum is noted. No fracture or dislocation. No lytic or blastic change. IMPRESSION: Minimal osteoarthritis of the right hip Dictated by: Bhavin Shah MD 08/24/2020 17:09 Bhavin Shah MD in [place] 08/24/2020 17:09
--- NOTE | 2020-08-24 10:03 | XR_ITS ---
PROCEDURE: XR HIP LT 2-3V W/PELVIS CLINICAL INDICATION: left hip pain COMPARISON: CR XR PELVIS 1-2V from 05/11/2020 FINDINGS: Minimal osteoarthritic changes noted of the left hip. No fracture or dislocation. No lytic or blastic change. IMPRESSION: Minimal osteoarthritis of the left hip Dictated by: Bhavin Shah MD 08/24/2020 17:10 Bhavin Shah MD in [place] 08/24/2020 17:10
== END ==
PROVIDERS: PCP Nurse Practitioner Family; Visit Provider Orthopaedic Surgery
DX: M25.552 Pain in left hip (principal); M25.551 Pain in right hip
CPT/HCPCS: 73502

== ENCOUNTER → 2020-08-29 15:56 | Outpatient (POV) | payer OTHER, SELFPAY | PROVIDERS: Visit Provider Nurse Practitioner Family | DX: Z00.00 Encounter for general adult medical examination without abnormal findings (principal) ==

== ENCOUNTER 2020-09-06 17:00 | Outpatient (RCR) | payer OTHER, SELFPAY | END 2020-09-06 17:05 | disposition home or self-care (01) | LOC: PT 17:00 | PROVIDERS: PCP Nurse Practitioner Family; Visit Provider Orthopaedic Surgery | DX: M25.562 Pain in left knee; M76.892 Other specified enthesopathies of left lower limb, excluding foot; G89.29 Other chronic pain | CPT/HCPCS: 97010; 97033; 97110; 97163 ==

== ENCOUNTER → 2020-11-12 13:59 | Outpatient (CLI) | payer OTHER, SELFPAY ==
--- NOTE | 2020-11-13 10:37 | PC.NURSE ---
notified Dr Rodriguez at 0940 that the patient tested Positive for COVID. Notified pt of positive results at [id number].
== END ==
PROVIDERS: PCP Nurse Practitioner Family; Visit Provider Physician Assistant
DX: Z20.822 Contact with and (suspected) exposure to COVID-19 (principal); U07.1 COVID-19
CPT/HCPCS: U0003

== ENCOUNTER → 2020-12-12 11:14 | Outpatient (CLI) | payer OTHER, SELFPAY ==
[2020-12-12 12:22] LABS: Uric Acid 6.7 mg/dl (3.5-8.5)
[2020-12-12 13:09] LABS: Erythrocyte Sedimentation Rate 24 mm/hr (0-15)
[2020-12-15 12:45] LABS: Antinuclear Antibodies, IFA Negative (.); RA Latex Turbid. <10.0 IU/mL (0.0-13.9)
== END ==
PROVIDERS: Visit Provider Nurse Practitioner Family
DX: M25.50 Pain in unspecified joint (principal)
CPT/HCPCS: 36415; 84550; 85651; 86038; 86431

== ENCOUNTER 2020-12-29 11:08 | Emergency (ER) | payer OTHER, SELFPAY ==
[2020-12-29 11:10] VITALS: BP 147/88; PULSE 66; RESP 20; O2SAT 98; BMI 29.8
[2020-12-29 11:23] VITALS: BP 147/88; PULSE 64; O2SAT 97
[2020-12-29 11:30] VITALS: BP 156/85; PULSE 73; O2SAT 95
--- NOTE | 2020-12-29 11:39 | CT_ITS ---
PROCEDURE: CT ABDOMEN PELVIS W CON CLINICAL INDICATION: Lower abdominal pain COMPARISON: CT CT ABDOMEN PELVIS W CON from 05/11/2020 TECHNIQUE: IV Contrast: 75ML Isovue 370 Oral Contrast None Axial images obtained with sagittal and coronal reformats. All CT scans at the facility use one or more dose reduction, viz: automated exposure control, ma/kV adjustment per patient size (including targeted exams where dose is matched to indication, i.e. head), or iterative reconstruction technique. FINDINGS: LOWER THORAX: No acute finding ABDOMEN & PELVIS: Liver, spleen, adrenal glands, pancreas, and gallbladder have an unremarkable appearance. Nonobstructing 2 mm stone is present in the lower pole of the left kidney. No ureteral calculi. No hydronephrosis. There is some mild cortical scarring of the left kidney inferiorly. No intestinal obstruction or free air. There is mild thickening of the pyloric region of the stomach. This is nonspecific. No evidence of appendicitis. There is colonic diverticulosis. There is very minimal haziness of the pericolic fat in the left lower quadrant which could be due to very early diverticulitis. An air-fluid levels present within the colon in the junction of the descending and sigmoid colon. No abscess or free air. There are mild degenerative changes in the lower thoracic spine. IMPRESSION: Colonic diverticulosis with possible minimal or very early diverticulitis in the distal descending colon. No abscess or free air. Nonobstructing left nephrolithiasis. Thickening of the pyloric region of the stomach. This is nonspecific and could be due to nondistention, inflammation, or even neoplastic process. Upper endoscopy may provide further evaluation. Dictated by: Bhavin Shah MD 12/29/2020 12:15 Bhavin Shah MD in [place] 12/29/2020 12:15
[2020-12-29 11:53] LABS: Basophils % 0.2 % (0.1-2.0); Eosinophils % 0.2 % (0.1-12.0); Hemoglobin 13.4 g/dL (14.1-18.0); Lymphocytes # 1.5 K/mm3 (0.7-4.5); Lymphocytes % 15.5 % (10-50); Mean Corpuscular HGB Conc 32.6 g/dL (31.8-35.4); Mean Corpuscular Hemoglobin 27.3 pg (27.0-31.2); Mean Corpuscular Volume 83.8 fl (80-94); Mean Platelet Volume 7.6 fl (7.4-10.4); Monocytes # 0.4 K/mm3 (0.1-1.0); Monocytes % 3.8 % (1.7-9.3); Neutrophils % 80.4 % (37.0-80.0); Platelet Count 210 K/mm3 (142-424); Red Blood Count 4.89 M/mm3 (4.60-6.20)
[2020-12-29 12:09] LABS: Chloride 104 mmol/L (98-107); Potassium 4.7 mmoL/L (3.5-5.1); Sodium 140 mmol/L (136-145)
[2020-12-29 12:11] LABS: Alanine Aminotransferase 22 U/L (12-78); Aspartate Amino Transferase 31 U/L (17-59); Blood Urea Nitrogen 14 mg/dl (9-20); Creatinine Clearance Estimated 154 mL/min (50-200); Estimated Glomerular Filt Rate 93 ml/min (>60); GFR (African American) 113 ML/MIN (>60)
[2020-12-29 12:12] LABS: Albumin Level 4.7 g/dl (3.5-5.0); Albumin/Globulin Ratio 1.6 (1.1-1.8); Alkaline Phosphatase 102 U/L (38-126); Anion Gap 14.7 mEq/L (5-15); Bilirubin,Total 0.8 mg/dl (0.2-1.3); Calcium 10.2 mg/dl (8.4-10.2); Carbon Dioxide 26 mmol/L (22.0-30.0); Globulin 2.9 g/dL (1.3-3.2); Glucose 123 mg/dl (74-100); Total Protein,Serum 7.6 g/dl (6.3-8.2)
--- NOTE | 2020-12-29 12:12 | HMH.EDABDPAI ---
ED Disposition Clinical Impression: Diverticulitis Disposition: Home, Self-Care Condition on Discharge: Good Instructions: DI for Diverticulitis Additional Instructions: You have a thickened area in the upper GI tract. Follow-up with GI to consider upper endoscopy within the next 1 to 2 weeks. Take antibiotics until complete. Follow-up with your PCP within the next 2 to 3 days. Prescriptions: Amoxicillin/Potassium Clav [Augmentin 875-125 Tablet] 1 tab PO Q12H #14 tab [facility]: [facility] Ketorolac Tromethamine [Toradol 10mg tablet] 10 mg PO Q6H PRN 4 Days #16 tab PRN Reason: pain Transmission Status: Pending to [facility] Referrals: Rayo Richey APRN [Primary Care Provider] - 3 days - Critical Care Critical Care Time: No Attestation: On 12/29/20, the high probability of a clinically significant, sudden or life threatening deterioration of the following system(s) required my full and direct attention, intervention and personal management. The time I documented below is in addition to time spent performing reported procedures but includes the following listed in this critical care notation. Medical Decision Making - Medical Records Medical records reviewed: Yes: I reviewed the patient's medical records. - Mehul Inquiry Pt receiving controlled substance: No Vital Signs: 12/29/20 11:10 12/29/20 11:23 12/29/20 11:30 Temperature Source Oral Pulse Rate 64 73 Pulse Rate [Right Radial] 66 Respiratory Rate 20 Blood Pressure 147/88 H 156/85 H Blood Pressure [Right Arm] 147/88 H Blood Pressure Mean 103 112 Blood Pressure Mean [Right Arm] 107 02 Sat by Pulse Oximetry 98 97 95 Oxygen Delivery Method Room Air - Lab Data Lab results reviewed: Yes: I reviewed the patient's lab results. Lab Results 12/29/20 11:20: WBC 10.0, RBC 4.89, Hgb 13.4 L, Hct 41.0 L, MCV 83.8, MCH 27.3, MCHC 32.6, RDW 15.0, Plt Count 210, MPV 7.6, Neut % (Auto) 80.4 H, Lymph % (Auto) 15.5, Falls % (Auto) 3.8, Eos % (Auto) 0.2, Baso % (Auto) 0.2, Neut # (Auto) 8.0 H, Lymph # (Auto) 1.5, Falls # (Auto) 0.4, Eos # (Auto) 0.0, Baso # (Auto) 0.0 12/29/20 11:20: Sodium 140, Potassium 4.7, Chloride 104, Carbon Dioxide 26, Anion Gap 14.7, BUN 14, Creatinine 0.90, Estimated Creat Clear 154, Estimated GFR 93, Est GFR ( Amer) 113, Glucose 123 H, Calcium 10.2, Total Bilirubin 0.8, AST 31, ALT 22, Alkaline Phosphatase 102, Total Protein 7.6, Albumin 4.7, Globulin 2.9, Albumin/Globulin Ratio 1.6 Result diagrams: 12/29/20 11:20 12/29/20 11:20 Orders (Tests/Meds): ED MEDICATIONS Generic Name Dose Route Start Last Admin Trade Name Freq PRN Reason Stop Dose Admin Sodium Chloride 1,000 mls @ 999 mls/hr 12/29/20 11:45 12/29/20 11:41 Sod Chlor 0.9% 1000ml Bag IV 12/29/20 12:45 999 mls/hr .Q1H1M DARION Administration Discontinued Medications Generic Name Dose Route Start Last Admin Trade Name Freq PRN Reason Stop Dose Admin Iopamidol 75 ml 12/29/20 11:53 12/29/20 11:53 Iopamidol-370 (76%);100ml Bottle IV 12/29/20 11:54 75 ml ONCE ONE Administration Ketorolac Tromethamine 30 mg 12/29/20 11:39 12/29/20 11:41 Ketorolac 30mg/Ml Vial IV 12/29/20 11:40 30 mg ONCE ONE Administration Ondansetron HCl 4 mg 12/29/20 11:40 12/29/20 11:42 Ondansetron 4mg/2ml Vial IV 12/29/20 11:41 4 mg ONCE ONE Administration Sodium Chloride 10 ml 12/29/20 11:53 12/29/20 11:53 Sodium Chloride 0.9% 10ml Syr (Rad Only) IV 12/29/20 11:54 10 ml ONCE ONE Administration ORDERS Category Date Time Status Diarrhea 6-11 Panel, Cdiff PCR Stat Lab 12/29/20 12:28 Ordered - CT Data CT Scan: Abdomen, Pelvis Time Received: 12:[address] Reviewed: Yes: I have reviewed the patient's CT results Findings Narrative: Colonic diverticulosis with possible minimal or very early diverticulitis in the distal descending colon. No abscess or free air.
[2020-12-29 12:48] VITALS: BP 156/85; PULSE 73; RESP 18; TEMP 36.9; O2SAT 98
== END 2020-12-29 13:02 | disposition home or self-care (01) ==
PROVIDERS: Emergency Provider Emergency Medicine; PCP Nurse Practitioner Family
DX: K57.92 Diverticulitis of intestine, part unspecified, without perforation or abscess without bleeding (principal); E78.5 Hyperlipidemia, unspecified; Z87.891 Personal history of nicotine dependence; Z87.442 Personal history of urinary calculi; Z79.899 Other long term (current) drug therapy
CPT/HCPCS: 74177; 80053; 85025; 96365; 96375; 99282; J2405; Q9967

== ENCOUNTER → 2021-01-02 09:14 | Outpatient (POV) | payer OTHER, SELFPAY | PROVIDERS: Visit Provider Nurse Practitioner Family | DX: Z00.00 Encounter for general adult medical examination without abnormal findings (principal) ==

== ENCOUNTER → 2021-08-12 14:19 | Outpatient (CLI) | payer OTHER, SELFPAY | PROVIDERS: PCP Nurse Practitioner Family; Visit Provider Nurse Practitioner Family | DX: Z20.822 Contact with and (suspected) exposure to COVID-19 (principal) | CPT/HCPCS: C9803; U0003; U0005 ==

== ENCOUNTER → 2021-08-16 11:55 | Outpatient (CLI) | payer OTHER, SELFPAY | PROVIDERS: PCP Nurse Practitioner Family; Visit Provider Nurse Practitioner | DX: Z20.822 Contact with and (suspected) exposure to COVID-19 (principal) | CPT/HCPCS: C9803; U0003; U0005 ==

== ENCOUNTER → 2021-09-11 17:59 | Outpatient (CLI) | payer OTHER, SELFPAY | PROVIDERS: PCP Nurse Practitioner Family; Visit Provider Nurse Practitioner | DX: Z20.822 Contact with and (suspected) exposure to COVID-19 (principal) | CPT/HCPCS: C9803; U0003; U0005 ==

== ENCOUNTER → 2021-10-03 11:06 | Outpatient (CLI) | payer OTHER, SELFPAY ==
--- NOTE | 2021-10-03 11:09 | XR_ITS ---
FINAL REPORT CLINICAL HISTORY: Left shoulder pain, no recent injury FINDINGS: 3 views of the left shoulder were obtained. There is no acute fracture or dislocation. The joint spaces are intact. There are no soft tissue abnormalities. IMPRESSION: No acute process. Reviewed, Interpreted and Dictated by Neo Isabel MD Transcribed by Art Giang Authenticated by Neo Isabel MD on 10/03/2021 12:44:51 PM [facility]
--- NOTE | 2021-10-03 11:09 | XR_ITS ---
FINAL REPORT CLINICAL HISTORY: left hip pain FINDINGS: Left hip with pelvis. There is no acute fracture or dislocation. The joint spaces are intact. There are no soft tissue abnormalities. IMPRESSION: No acute process. Reviewed, Interpreted and Dictated by Neo Isabel MD Transcribed by Art Giang Authenticated by Neo Isabel MD on 10/03/2021 12:44:49 PM [facility]
== END ==
PROVIDERS: PCP Nurse Practitioner Family; Visit Provider Nurse Practitioner Family
DX: M25.552 Pain in left hip (principal); M25.512 Pain in left shoulder
CPT/HCPCS: 73030; 73502

== ENCOUNTER → 2021-11-02 10:58 | Outpatient (CLI) | payer OTHER, SELFPAY ==
--- NOTE | 2021-11-02 11:03 | XR_ITS ---
FINAL REPORT CLINICAL HISTORY: kidney stone, hematuria FINDINGS: SINGLE VIEW ABDOMEN There is a nonspecific, nonobstructive gas pattern. There are no abnormally dilated loops of small bowel. No abnormal calcification is identified. IMPRESSION: No acute process. Reviewed, Interpreted and Dictated by Neo Isabel MD Transcribed by Stacey Crabtree Authenticated by Neo Isabel MD on 11/02/2021 12:57:[address] [facility]
== END ==
PROVIDERS: PCP Nurse Practitioner Family; Visit Provider Urology
DX: N20.0 Calculus of kidney (principal)
CPT/HCPCS: 74018

== ENCOUNTER 2022-07-16 08:42 | Emergency (ER) | payer OTHER, SELFPAY ==
[2022-07-16] VITALS (7 sets, daily range): BP systolic 127–192; BP diastolic 66–100; PULSE 51–68; RESP 16–18; TEMP 36.6; O2SAT 99–100; BMI 29.8
--- NOTE | 2022-07-16 09:00 | CT_ITS ---
FINAL REPORT TECHNIQUE: After the administration of intravenous contrast, axial images were obtained through the abdomen and pelvis by computed tomography. This study was performed with technique to keep radiation doses as low as reasonably achievable, (ALARA). Individualized dose reduction techniques using automated exposure control or adjustment of the MA and/or KV according to the patient's size were employed. CLINICAL HISTORY: abd pain, bloody stools COMPARISON: 12/29/2020 FINDINGS: Abdomen: The lung bases demonstrate calcified granulomas and bibasilar atelectasis. The liver is normal in size and attenuation. The spleen is unremarkable. The adrenals are normal. The pancreas is unremarkable. The kidneys enhance appropriately. There is scarring noted in the lower pole the left kidney. The aorta is normal in caliber. There is no free fluid or adenopathy. There is wall thickening of the descending colon with mild adjacent fat stranding worrisome for mild colitis. There is descending and sigmoid diverticulosis. Pelvis: The appendix is normal. The urinary bladder is unremarkable. There is no free fluid or adenopathy. IMPRESSION: Wall thickening of the descending colon with mild adjacent fat stranding worrisome for mild colitis. Reviewed, Interpreted and Dictated by Helio Hanks III, MD Transcribed by Kylie Gauthier Authenticated and [facility]
[2022-07-16 09:15] LABS: Basophils % 0.1 % (0.1-2.0); Eosinophils % 0.2 % (0.1-12.0); Hematocrit 41.9 % (42.0-52.0); Hemoglobin 13.4 g/dL (14.1-18.0); Lymphocytes # 1.1 K/mm3 (0.7-4.5); Lymphocytes % 10.4 % (10-50); Mean Corpuscular Hemoglobin 27.5 pg (27.0-31.2); Mean Corpuscular Volume 85.7 fl (80-94); Mean Platelet Volume 8.1 fl (7.4-10.4); Monocytes # 0.3 K/mm3 (0.1-1.0); Monocytes % 3.1 % (1.7-9.3); Neutrophils # 9.3 K/mm3 (1.8-7.8); Neutrophils % 86.3 % (37.0-80.0); Platelet Count 222 K/mm3 (142-424); Red Blood Count 4.89 M/mm3 (4.60-6.20); Red Cell Distribution Width 15.1 % (11.5-17.5); White Blood Count 10.8 K/mm3 (4.8-10.8)
[2022-07-16 09:18] LABS: MANUAL DIFFERENTIAL MANUAL DIFFERENTIAL (MANUAL DIFF)
[2022-07-16 09:23] LABS: Chloride 104 mmol/L (98-107); Potassium 3.9 mmoL/L (3.5-5.1); Sodium 136 mmol/L (136-145)
--- NOTE | 2022-07-16 09:24 | PC.NURSE ---
pt to Ct
[2022-07-16 09:25] LABS: Alanine Aminotransferase 20 U/L (12-78); Aspartate Amino Transferase 27 U/L (17-59); Blood Urea Nitrogen 16 mg/dl (9-20); Creatinine Clearance Estimated 152 mL/min (50-200); Estimated Glomerular Filt Rate 93 ml/min (>60); GFR (African American) 113 ML/MIN (>60)
[2022-07-16 09:26] LABS: Albumin Level 4.5 g/dl (3.5-5.0); Albumin/Globulin Ratio 1.6 (1.1-1.8); Alkaline Phosphatase 95 U/L (38-126); Anion Gap 8.9 mEq/L (5-15); Bilirubin,Total 0.6 mg/dl (0.2-1.3); Calcium 9.9 mg/dl (8.4-10.2); Carbon Dioxide 27 mmol/L (22.0-30.0); Globulin 2.9 g/dL (1.3-3.2); Glucose 106 mg/dl (74-100); Lipase 58 U/L (23-300); Total Protein,Serum 7.4 g/dl (6.3-8.2)
[2022-07-16 09:27] LABS: Lactic Acid 0.8 mmol/L (0.7-2.1)
--- NOTE | 2022-07-16 09:43 | PC.NURSE ---
checked on pt at this time, pt reports pain has improved with medication. States no needs at this
[2022-07-16 09:57] LABS: Lymphocytes % 7 % (10-50); Monocytes % 5 % (2-9); Neutrophils % 88 % (42-76); Platelet Estimate Normal; RBC Morphology Normal; Total Cells Counted 100
--- NOTE | 2022-07-16 10:10 | HMH.EDABDPAI ---
Discharge Plan Disposition Patient Disposition: Home, Self-Care Condition: Good Prescriptions Prescriptions: New hydrocodone-acetaminophen 5-325 mg tablet 1 tab PO DAILY Qty: 7 0RF ciprofloxacin HCl [Cipro] 500 mg tablet 500 mg PO BID Qty: 20 0RF metronidazole [Flagyl] 375 mg capsule 375 mg PO BID Qty: 20 0RF No Action hyoscyamine sulfate 0.125 mg tablet 0.125 mg PO NEEDED PRN (Reason: Stomach) [id number] 36,000-114,000- 180,000 unit capsule,delayed release(DR/EC) 1 cap PO DAILY meloxicam 7.5 mg tablet 7.5 mg PO DAILY PRN (Reason: pain) Qty: 30 2RF Rx Instructions: pt has been on diclofenac and had no allergic reaction. alfuzosin 10 MG tablet extended release 24 hr 10 mg PO DAILY L.acidoph, paracasei,B. lactis 1 EACH capsule 1 tab PO DAILY phentermine 37.5 mg tablet 37.5 mg PO DAILY Referrals Follow up/Referrals: Rayo Richey APRN [Primary Care Provider] - See instructions Activity Restrictions/Add. Instructions Additional Instructions/Restrictions: Please follow up with your primary care physician in 1-2 days for further management. Please take the antibiotic as prescribed. Please return to ED if any worsening symptoms. Take tylenol for pain control and norco if pain is not resolved with over the counter. Clinical Impressions Clinical Impression: Colitis Stand Alone Forms Stand Alone Forms: Work/School Release Instructions Patient Instructions: DI for Colitis Print Language Print Language: [place] Citizen Discharge ED Provider: Lisa Blanco Abdominal Pain HPI General Chief Complaint: Abdominal Pain Stated Complaint: abd pain Time Seen by Provider: 07/16/22 09:00 Mode of Arrival: Ambulatory Source of Information: Patient Limitations: No Limitations Description of Symptoms (Recalled from ER Triage Doc. by RN): Pt c/o lower abd pain, blood in stool, nausea that began approx 0130 this morning. Pt reports blood in stool is bright red. Pt reports hx of diverticulitis. History of Present Illness HPI narrative: Mr. Marin is a 41 yo male w/ PMH for acute diverticulitis presenting to the emergency department for LLQ abdominal pain which started around 0130AM. Patient also report bright red blood in toilet not enought to quantify. Hx of hemrrhoids. Patient also reports nausea but denies any emesis. No constipation or diarrhea. No fevers ,cough or other infectious like symptoms. Of note patient reports he ate at a [employer] restaurant yesterday. Patient reports no one else has similar symptoms. MD complaint: abdominal pain Onset (ago): hour(s) Consistency: constant Location: LLQ Severity: severe Severity scale (1-10): 9 Quality: sharp Migration to: no migration Relieving factors: nothing Exacerbating factors: nothing Associated symptoms: nausea Related Data Home Medications Medication Instructions Recorded Confirmed L.acidoph, paracasei,B. lactis 10 1 tab PO DAILY UNKNOWN 05/27/20 07/16/22 billion cell capsule alfuzosin 10 mg tablet,extended 10 mg PO DAILY PROSTATE 05/27/20 07/16/22 release 24 hr hyoscyamine sulfate 0.125 mg tablet 0.125 mg PO NEEDED PRN Stomach 08/08/20 07/16/22 [id number]-zlugffxn-qmyvugu 1 cap PO DAILY Supplement 08/08/20 07/16/22 36,000-114,000-180,000 unit capsule,delay rel phentermine 37.5 mg tablet 37.5 mg PO DAILY Weight loss 07/16/22 07/16/22 Previous Rx's Medication Instructions Recorded meloxicam 7.5 mg tablet 7.5 mg PO DAILY PRN pain #30 tabs 05/08/22 ciprofloxacin HCl 500 mg tablet 500 mg PO BID #20 tabs 07/16/22 (Cipro) hydrocodone 5 mg-acetaminophen 325 1 tab PO DAILY #7 tabs 07/16/22 mg tablet metronidazole 375 mg capsule 375 mg PO BID #20 caps 07/16/22 (Flagyl) Allergies Allergy/AdvReac Type Severity Reaction Status Date / Time ciprofloxacin [From Cipro] Allergy Severe blind Verified 01/12/22 11:26 ibuprofen Allergy Mild Lips Verified 01/12/22 11:26 Swelling
[2022-07-16 10:25] LABS: Microscopic, Urine URINE MICROSCOPIC (MICROSCOPIC)
[2022-07-16 10:26] LABS: Appearance,Urine CLEAR (Clear); Bilirubin,Urine Negative (Negative); Blood, Urine 1+ (Negative); Color,Urine YELLOW (Yellow); Glucose,Urine (UA) Negative (Negative); Ketones,Urine 2+ (Negative); Leukocyte Esterase,Urine Negative (Negative); Nitrate,Urine Negative (Negative); PH,Urine 5.5 (5.0-8.5); Protein,Urine Negative (Negative); Specific Gravity, Urine 1.015 (1.005-1.030); Urobilinogen,Urine 0.2 EU/dl (0.2)
[2022-07-16 10:39] LABS: Bacteria,Urine 1+ /lpf; Squamous Epithelial Cell,Urine Occasional #/hpf (0-5); WBC,Urine Occasional #/hpf (0-3)
--- NOTE | 2022-07-16 10:40 | PC.NURSE ---
Dr. Blanco at
== END 2022-07-16 12:00 | disposition home or self-care (01) ==
PROVIDERS: Emergency Provider Student in an Organized Health Care Education/Training Program; PCP Nurse Practitioner Family
DX: K52.9 Noninfective gastroenteritis and colitis, unspecified (principal); Z79.899 Other long term (current) drug therapy; Z88.1 Allergy status to other antibiotic agents; Z88.6 Allergy status to analgesic agent
CPT/HCPCS: 74177; 80053; 81001; 83605; 83690; 85007; 85025; 96365; 96375; 96376; 99284; J2405; Q9967

== ENCOUNTER 2022-09-07 09:38 | Emergency (ER) | payer OTHER, SELFPAY ==
[2022-09-07 09:45] VITALS: BP 123/76; PULSE 72; RESP 20; TEMP 36.8; O2SAT 96; BMI 30.5
--- NOTE | 2022-09-07 09:52 | XR_ITS ---
FINAL REPORT CLINICAL HISTORY: pain FINDINGS: Left forearm Two views were obtained. There is no acute fracture or dislocation. The joint spaces appear normal. No soft tissue abnormality is identified. IMPRESSION: No acute process. Reviewed, Interpreted and Dictated by Rossana Barroso MD Transcribed by Stacey Crabtree Authenticated and [facility]
--- NOTE | 2022-09-07 09:52 | XR_ITS ---
FINAL REPORT CLINICAL HISTORY: pain FINDINGS: Left wrist Three views were obtained. There is no acute fracture or dislocation. The joint spaces appear normal. No soft tissue abnormality is identified. IMPRESSION: No acute process. Reviewed, Interpreted and Dictated by Rossana Barroso MD Transcribed by Stacey Crabtree Authenticated and . [facility]
--- NOTE | 2022-09-07 09:52 | XR_ITS ---
FINAL REPORT CLINICAL HISTORY: pain COMPARISON: 07/27/2019 FINDINGS: Left hand Three views were obtained. There is no acute fracture or dislocation. The joint spaces appear normal. No soft tissue abnormality is identified. IMPRESSION: No acute process. Reviewed, Interpreted and Dictated by Rossana Barroso MD Transcribed by Stacey Crabtree Authenticated and [facility]
--- NOTE | 2022-09-07 10:18 | EXP.UTC ---
Discharge Plan Disposition Patient Disposition: Home, Self-Care Condition: Good Prescriptions Prescriptions: No Action hyoscyamine sulfate 0.125 mg tablet 0.125 mg PO NEEDED PRN (Reason: Stomach) [id number]-[id number]-gibqkwe 36,000-114,000- 180,000 unit capsule,delayed release(DR/EC) 1 cap PO DAILY meloxicam 7.5 mg tablet 7.5 mg PO DAILY PRN (Reason: pain) Qty: 30 2RF Rx Instructions: pt has been on diclofenac and had no allergic reaction. alfuzosin 10 MG tablet extended release 24 hr 10 mg PO DAILY L.acidoph, paracasei,B. lactis 1 EACH capsule 1 tab PO DAILY phentermine 37.5 mg tablet 37.5 mg PO DAILY hydrocodone-acetaminophen 5-325 mg tablet 1 tab PO DAILY Qty: 7 0RF ciprofloxacin HCl [Cipro] 500 mg tablet 500 mg PO BID Qty: 20 0RF metronidazole [Flagyl] 375 mg capsule 375 mg PO BID Qty: 20 0RF Referrals Follow up/Referrals: Rayo Richey APRN [Primary Care Provider] - See instructions Activity Restrictions/Add. Instructions Additional Instructions/Restrictions: Wrist splint X 2 weeks then re-evaluate Clinical Impressions Clinical Impression: Sprain and strain of left wrist Stand Alone Forms Stand Alone Forms: Work/School Release Instructions Patient Instructions: DI for Wrist Sprain Discharge ED Provider: Sierra Wyatt [facility] HPI General Stated complaint: 09/03 AO@Work LT wrist pain Mode of Arrival: Ambulatory Source of Information: Patient Limitations: No Limitations Time Seen by Provider: 09/07/22 10:19 Description of Symptoms (Recalled from Triage Doc. by RN): injured left wrist HEENT Symptoms (Recalled from RN notes): No Resp Symptoms (Recalled from RN notes): No Skin Symptoms (Recalled from RN notes): No MS Symptoms (Recalled from RN notes): Yes Functional Status (Recalled from RN notes): n/a History of Present Illness Provider Complaint: Patient twisted left wrist 4 days ago. Was crawling thru a tunnel at work, put his left hand down and it fell into a hole, twisting his wrist. Has had pain, decreased strength, some tingling/burning into his fingers. Feels a popping sensation in his wrist. Onset (ago): day(s) (4) Location: left and upper extremity Relieving factors: immobilization Exacerbating factors: movement Treatments prior to arrival: none Related Data Home Medications Medication Instructions Recorded Confirmed L.acidoph, paracasei,B. lactis 10 1 tab PO DAILY UNKNOWN 05/27/20 07/16/22 billion cell capsule alfuzosin 10 mg tablet,extended 10 mg PO DAILY PROSTATE 05/27/20 07/16/22 release 24 hr hyoscyamine sulfate 0.125 mg tablet 0.125 mg PO NEEDED PRN Stomach 08/08/20 07/16/22 [id number] 1 cap PO DAILY Supplement 08/08/20 07/16/22 36,000-114,000-180,000 unit capsule,delay rel phentermine 37.5 mg tablet 37.5 mg PO DAILY Weight loss 07/16/22 07/16/22 Previous Rx's Medication Instructions Recorded meloxicam 7.5 mg tablet 7.5 mg PO DAILY PRN pain #30 tabs 05/08/22 ciprofloxacin HCl 500 mg tablet 500 mg PO BID #20 tabs 07/16/22 (Cipro) hydrocodone 5 mg-acetaminophen 325 1 tab PO DAILY #7 tabs 07/16/22 mg tablet metronidazole 375 mg capsule 375 mg PO BID #20 caps 07/16/22 (Flagyl) Allergies Allergy/AdvReac Type Severity Reaction Status Date / Time ciprofloxacin [From Cipro] Allergy Severe blind Verified 09/07/22 09:56 ibuprofen Allergy Mild Lips Verified 09/07/22 09:56 Swelling Worker's Comp Is this a Worker's Comp case?: Yes Is this an H Worker's Comp?: No Is this a [place] Worker's Comp?: No [facility] Disclaimer: The information contained in this section may have been updated after the patient was seen, as this information can be updated by other users. Social History Smoking Status: Former smoker second hand exposure: No alcohol intake: current counseling provided: provider counseling substance u
[2022-09-07 10:40] VITALS: BP 123/76; PULSE 72; RESP 20; TEMP 36.8; O2SAT 96
== END 2022-09-07 10:40 | disposition home or self-care (01) ==
PROVIDERS: Emergency Provider Physician Assistant; PCP Nurse Practitioner Family
DX: Y99.0 Civilian activity done for income or pay (principal); W17.2XXA Fall into hole, initial encounter; S63.502A Unspecified sprain of left wrist, initial encounter
CPT/HCPCS: 73090; 73110; 73130; 99212; 99213; G0463

== ENCOUNTER 2022-09-21 10:51 | Emergency (ER) | payer OTHER, SELFPAY ==
[2022-09-21 10:51] VITALS: BP 113/66; PULSE 56; RESP 20; TEMP 36.5; O2SAT 95; BMI 30.5
[2022-09-21 11:19] VITALS: BP 113/66; PULSE 56; RESP 20; TEMP 36.5; O2SAT 95
== END 2022-09-21 11:19 | disposition other institution (70) ==
PROVIDERS: Emergency Provider Physician Assistant; PCP Nurse Practitioner Family
DX: T14.8XXA Other injury of unspecified body region, initial encounter (principal)

== ENCOUNTER → 2022-10-08 12:42 | Outpatient (CLI) | payer OTHER, SELFPAY ==
--- NOTE | 2022-10-08 12:42 | MR_ITS ---
FINAL REPORT CLINICAL HISTORY: Left wrist injury. twisted wrist with pain on ulnar aspect of wrist. FINDINGS: Multiplanar and multisequence imaging of the left wrist was obtained without intravenous contrast. BONES/JOINTS: There is bone marrow edema in the ulnar styloid process and distal ulna. No fracture identified. Remaining bone marrow signal intensity is preserved. There is no evidence of AVN. There is multi joint degenerative disease. LIGAMENTS: The scapholunate ligament is intact. There is no widening of the scapholunate distance. The lunotriquetral ligament is intact. Remaining intrinsic ligaments appear within normal limits. TFCC: Evaluation of the triangular fibrocartilage complex is somewhat limited by motion. No fluid is seen crossing the distal radial ulnar joint. TENDONS/MUSCLES: Tendons are unremarkable without tear. Musculature is unremarkable. OTHER SOFT TISSUES: There is no joint effusion. The median nerve has a normal appearance within the carpal tunnel. The ulnar nerve has a normal appearance. There is some slightly an usual vessel seen along the ulnar side of the proximal hand, but likely representing veins. Ideology is unclear. This could be a normal anatomic finding for this patient. However, venous malformation is difficult to entirely exclude. Soft tissues are otherwise unremarkable. IMPRESSION: Bone marrow edema in the distal ulna and ulnar styloid process. Bone contusion not excluded. Evaluation of the TFCC somewhat limited, no gross tear identified. Reviewed, Interpreted and Dictated by Casandra Bobo MD Transcribed by Kylie Gauthier Authenticated and [facility]
--- NOTE | 2022-10-08 12:49 | XR_ITS ---
FINAL REPORT CLINICAL HISTORY: RULE OUT METAL FOREIGN BODY FOR MRI FINDINGS: 2 views were obtained. No acute fracture or malalignment. The paranasal sinuses are symmetric. No radiopaque foreign body identified. IMPRESSION: No acute fracture or malalignment. No radiopaque foreign body. Reviewed, Interpreted and Dictated by Casandra Bobo MD Transcribed by Kylie Gauthier Authenticated and [facility]
== END ==
PROVIDERS: PCP Nurse Practitioner Family; Visit Provider Orthopaedic Surgery
DX: S69.92XA Unspecified injury of left wrist, hand and finger(s), initial encounter (principal); H05.53 Retained (old) foreign body following penetrating wound of bilateral orbits
CPT/HCPCS: 70200; 73221

== ENCOUNTER 2022-10-12 10:23 | Outpatient (RCR) | payer OTHER, SELFPAY | END 2022-10-12 11:30 | disposition home or self-care (01) | LOC: OT 10:23 | PROVIDERS: Visit Provider Orthopaedic Surgery | DX: M25.532 Pain in left wrist (principal) | CPT/HCPCS: 97763 ==

== ENCOUNTER 2024-09-17 08:44 | Observation (INO) | payer BC, SELFPAY ==
[2024-09-17] VITALS (13 sets, daily range): BP systolic 118–156; BP diastolic 71–89; PULSE 77–96; RESP 16–19; TEMP 36.7–37.7; O2SAT 90–99; BMI 31.8; BMI 32.1
--- NOTE | 2024-09-17 09:05 | CT_ITS ---
FINAL REPORT TECHNIQUE: Pre-and postcontrast images of the abdomen through the pelvis were performed by computed tomography. Extensive 3-D reconstruction images were performed. A CTA was performed. This study was performed with techniques to keep radiation doses as low as reasonably achievable (ALARA). Individualized dose reduction techniques using automated exposure control or adjustment of mA and/or kV according to the patient's size were employed. CLINICAL HISTORY: rlq and llq ttp, rectal bleeding COMPARISON: CT abdomen and pelvis 07/16/2022 FINDINGS: ABDOMEN: There is a calcified granuloma in the medial left lung base. Precontrast images demonstrate no evidence of nephrolithiasis. The liver is homogeneous. The gallbladder is distended. The spleen, pancreas, adrenal glands, and kidneys are unremarkable. PELVIS: The appendix is not identified. The urinary bladder is unremarkable. There is extensive mucosal thickening involving the proximal and mid sigmoid colon. There is extensive surrounding inflammatory reaction. Findings are favored to represent acute infectious or inflammatory colitis. No evidence of abscess is seen. Segment of involvement measures 12 cm in length. There are a few surrounding lymph nodes which may be reactive. There is a trace amount of pelvic free fluid. The bony pelvis is unremarkable. CTA: The celiac axis, SMA, and SOCORRO are patent. There are widely patent single renal arteries. The abdominal aorta and iliac vessels are widely patent. IMPRESSION: Extensive mucosal thickening and inflammation of the proximal and mid sigmoid colon favored to represent acute infectious or inflammatory colitis with reactive adenopathy and a small amount of free fluid in the pelvis. Lower endoscopy is recommended for further evaluation. Neoplasm is considered less likely. Reviewed, Interpreted and Dictated by Neo Isabel MD Transcribed by Geovanna Rainey Authenticated and [facility]
--- NOTE | 2024-09-17 09:05 | HMH.EDGENADL ---
Discharge Plan Disposition Patient Disposition: Admitted Condition: Fair Clinical Impressions Clinical Impression: Colitis, Lower GI bleed Discharge ED Provider: Simon Jones Adult HPI General Chief complaint: Abdominal Pain Stated complaint: Abd Pain, blood in stool, diverticulitis Time Seen by Provider: 09/17/24 09:05 History of Present Illness HPI narrative: Patient is a 44-year-old male with history of frequent colitis and gastroenteritis, BPH. Presents today due to concerns for diarrhea, abdominal cramping that began yesterday. He reports that this is similar to bouts of his diverticulitis in the past. He reports passing bright red blood mixed in with stools as well as some pus in his stool. Intermittent rectal pain and spasming as well as suprapubic and left lower quadrant abdominal pain. He reports occasional difficulty urinating. Endorses subjective fevers beginning last night. He still has been able to tolerate oral intake endorses nausea without vomiting. Denies any chest pain shortness of breath, flank pain. Denies any dizziness lightheadedness or passing out. Related Data Home Medications ?Medication ?Instructions ?Recorded ?Confirmed L.acidoph,paracasei,B.animalis 10 1 tab PO DAILY 05/27/20 09/17/24 billion cell capsule alfuzosin 10 mg tablet,extended 10 mg PO DAILY 05/27/20 09/17/24 release 24 hr hyoscyamine sulfate 0.125 mg tablet 0.125 mg PO Q6HP PRN Stomach Pain 08/08/20 09/17/24 meloxicam 15 mg tablet 15 mg PO DAILYP PRN Arthritis 09/17/24 09/17/24 Allergies Allergy/AdvReac Type Severity Reaction Status Date / Time ciprofloxacin (From Cipro) Allergy Severe blind Verified 09/17/24 09:17 ibuprofen Allergy Mild Lips Verified 09/17/24 09:17 Swelling PFSH PFS Disclaimer: The information contained in this section may have been updated after the patient was seen, as this information can be updated by other users. Surgical History (Updated 09/17/24 @ 14:06 by Pat Weathers RN) H/O hand surgery History of colonoscopy H/O wrist surgery H/O adenoidectomy Hx of tonsillectomy History of kidney surgery Family History (Updated 09/17/24 @ 14:06 by Pat Weathers RN) Father Family history of cancer Social History Smoking Status: Never smoker second hand exposure: No alcohol intake: current alcohol intake frequency: holidays/special occasions only counseling provided: provider counseling substance use type: denies use current occupational status: employed Travel in the last 8 weeks: None household members: family housing: house 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[employer], [employer] current occupational exposures/hazards: No caffeine: Yes Have you lived/traveled outside US in past 30 days?: No Contact w/someone who lives/traveled outside US past 30 days?: No Exposure to someone with infectious disease in past 14 days?: No Do you have a fever (greater than 100.4 F or 38 C)?: No Have you tested positive for COVID-19: No Exposed to someone with COVID-19 in past 14 days?: No Do you have a sore throat?: No Do you have a cough?: No Do you have any weakness?: No Do you have any diarrhea?: No Are you experiencing any unusual bleeding?: No Do you have any muscle aches/pain?: No Do you have any abdominal pain?: Yes Are you experiencing loss of taste or smell?: No Other Medical History Have you received the Flu Vaccine for this season: No Have you received the Pneumonia Vaccine: No ROS Obtained: Yes All systems reviewed & no additional complaints except as documented Physical Exam General General appearance: alert and in no apparent distress Head Head exam: atraumatic and normocephalic Eye Eye exam: Present PERRL and EOMI ENT ENT exam: Present normal oropharynx Neck Neck exam: Present full ROM and trachea midline Chest Chest inspection: Present symmetric chest wall rise Respiratory Respiratory exam: Present normal lung sounds bilaterally; Absent stridor Cardiovascular Cardiovascular exam: Present regular rate and normal rhythm Abdominal Exam Abdominal exam: Present soft and tenderness (Suprapubic, left lower quadrant and right lower quadrant pain. No peritoneal signs.); Absent distention Extremities Exam Extremities exam: Present full ROM Neurological Exam Neurological exam: Present alert and oriented X3 Psychiatric Psychiatric exam: Present normal mood Skin Skin exam: Present warm and dry Medical Decision Making Medical Records Screening: Per USPSTF and CDC recommendations, given the prevalence of disease in our region, it is our hospital?s policy to screen for HIV and viral Hepatitis for all patients aged 18 and over and those with ongoing risk factors. Mehul Inquiry Pt receiving controlled substance: No Vital Signs: 09/17/24 08:46 09/17/24 08:51 09/17/24 09:00 Temperature 98.5 F Temperature Source Oral Pulse Rate 86 84 Pulse Rate [Left Radial] 87 Respiratory Rate 19 Blood Pressure 132/77 131/74 Blood Pressure [Right Arm] 132/77 Blood Pressure Mean [Right Arm] 95 Blood Pressure Source Blood Pressure Position 02 Sat by Pulse Oximetry 97 96 95 Oxygen Delivery Method Room Air Room Air Room Air 09/17/24 11:25 09/17/24 11:30 09/17/24 12:00 Temperature Temperature Source Pulse Rate 78 77 80 Pulse Rate [Left Radial] Respiratory Rate Blood Pressure 125/76 118/71 124/76 Blood Pressure [Right Arm] Blood Pressure Mean [Right Arm] Blood Pressure Source Blood Pressure Position 02 Sat by Pulse Oximetry 99 91 L 91 L Oxygen Delivery Method Room Air Room Air Room Air 09/17/24 12:30 09/17/24 12:41 09/17/24 13:01 Temperature Temperature Source Pulse Rate 77 90 Pulse Rate [Left Radial] Respiratory Rate Blood Pressure 121/71 120/76 Blood Pressure [Right Arm] Blood Pressure Mean [Right Arm] Blood Pressure Source Blood Pressure Position 02 Sat by Pulse Oximetry 91 L 96 Oxygen Delivery Method Room Air Room Air Room Air 09/17/24 13:09 Temperature 98.0 F Temperature Source Oral Pulse Rate 78 Pulse Rate [Left Radial] Respiratory Rate 16 Blood Pressure 120/76 Blood Pressure [Right Arm] Blood Pressure Mean [Right Arm] Blood Pressure Source Automatic Cuff Blood Pressure Position Sitting 02 Sat by Pulse Oximetry Oxygen Delivery Method Room Air Lab Data Lab Results 09/17/24 08:57: WBC 11.9 H, RBC 4.39 L, Hgb 11.9 L, Hct 37.0 L, MCV 84.3, MCH 27.1, MCHC 32.2, RDW 14.3, Plt Count 259, MPV 10.3, Neut % (Auto) 83.5 H, Lymph % (Auto) 9.7 L, [place] % (Auto) 5.8, Eos % (Auto) 0.3, Baso % (Auto) 0.2, Neut # (Auto) 9.9 H, Lymph # (Auto) 1.2, [place] # (Auto) 0.7, Eos # (Auto) 0.0, Baso # (Auto) 0.0, Sodium 138, Potassium 4.0, Chloride 103, Carbon Dioxide 29, Anion Gap 10.0, BUN 12, Creatinine 0.80, Estimated Creat Clear 178, Estimated GFR 105, Est GFR ( Amer) 127, Glucose 101 H, Calcium 9.0, Phosphorus 2.1 L, Magnesium 1.9, Total Bilirubin 0.8, AST 30, ALT 23, Alkaline Phosphatase 103, Total Protein 7.1, Albumin 4.2, Globulin 2.9, Albumin/Globulin Ratio 1.4, Lipase 49, HCV Ab ELLIS w/Rflx PCR Qn Negative, HIV Ag/Ab Combo Qual Negative 09/17/24 09:22: Lactate 0.7, Blood Type O Positive, Antibody Screen Negative 09/17/24 08:57 09/17/24 08:57 Orders (Tests/Meds): ED MEDICATIONS Generic Name Dose Route Start Last Admin Trade Name Freq PRN Reason Stop Dose Admin Acetaminophen 650 mg 09/17/24 16:06 Acetaminophen 325mg Tab PO 10/17/24 16:05 Q6HP PRN Fever or Mild Pain (1-3) Lactated Ringer's 1,000 mls @ 100 mls/hr 09/17/24 16:15 09/17/24 16:17 Lactated Ringer's 1000 Ml Bag IV 09/18/24 12:14 100 mls/hr .Q10H DARION Administration Morphine Sulfate 4 mg 09/17/24 14:15 09/17/24 14:45 Morphine 4mg/Ml Syringe IV 10/17/24 14:14 4 mg Q3HP PRN Administration Moderate to Severe Pain (4-10) Sodium Chloride 10 ml 09/17/24 16:06 Sodium Chloride 0.9% 10ml Flush Syringe IV 10/17/24 16:05 NEEDED PRN Maintain IV Site Discontinued Medications Generic Name Dose Route Start Last Admin Trade Name Freq PRN Reason Stop Dose Admin Hydromorphone HCl 1 mg 09/17/24 11:17 09/17/24 11:22 Hydromorphone 2mg/Ml Syringe IV 09/17/24 11:18 1 mg ONCE ONE Administration Iopamidol 80 ml 09/17/24 09:42 09/17/24 09:47 Iopamidol-370 (76%);100ml Bottle IV 09/17/24 09:43 80 ml ONCE ONE Administration Morphine Sulfate 4 mg 09/17/24 09:05 09/17/24 09:15 Morphine 4mg/Ml Syringe IV 09/17/24 09:06 4 mg ONCE ONE Administration Ondansetron HCl 4 mg 09/17/24 09:05 09/17/24 09:15 Ondansetron 4mg/2ml Vial IV 09/17/24 09:06 4 mg ONCE ONE Administration Sodium Chloride 50 ml 09/17/24 09:42 09/17/24 09:47 0.9 % Sodium Chloride 50 Ml Vial IV 09/17/24 09:43 50 ml ONCE ONE Administration Sodium Chloride 10 ml 09/17/24 09:42 09/17/24 09:47 Sodium Chloride 0.9% 10ml Syr (Rad Only) IV 09/17/24 09:43 10 ml ONCE ONE Administration ORDERS Category Date Time Status Type and Screen Stat BBK 09/17/24 09:[address] angio abdomen pelvis Stat Cat Scan 09/17/24 09:05 Completed GI consult [Consult to Gastroenterology] [CONS] Routine Cons 09/17/24 12:55 Active CBC w/Auto Diff [Complete Blood Count Auto Diff] Stat Lab 09/17/24 08:57 Completed CMP [Comprehensive Metabolic Panel] Stat Lab 09/17/24 08:57 Completed Complete Blood Count Auto Diff AMLAB Lab 09/18/24 06:00 Ordered Comprehensive Metabolic Panel AMLAB Lab 09/18/24 06:00 Ordered Diarrhea 23 Panel, PCR Stat Lab 09/17/24 09:44 Ordered HIV Combo Stat Lab 09/17/24 08:57 Completed Hepatitis C Ab Qual. W/ RFX Stat Lab 09/17/24 08:57 Completed Lactic Acid Stat Lab 09/17/24 09:22 Completed Lipase Stat Lab 09/17/24 08:57 Completed MAG [Magnesium] Stat Lab 09/17/24 08:57 Completed Magnesium AMLAB Lab 09/18/24 06:00 Ordered PHOS [Phosphorous] Stat Lab 09/17/24 08:57 Completed UA [Urinalysis and Microscopic] Stat Lab 09/17/24 13:36 Completed Medical Decision Narrative: In summary, this 44-year-old man presents to the emergency department today with abdominal pain, diarrhea. On initial evaluation patient is afebrile, hemodynamically stable and in no acute distress. On exam, patient is warm and well-perfused with full pulses in all extremities. Abdominal exam is soft, nondistended. He does have right lower quadrant, suprapubic and left lower quadrant abdominal pain with no peritoneal signs. He does have a surgical history for a kidney surgery on the left. Differential diagnosis includes but is not limited to colitis, diverticulitis, acute blood loss anemia, lower GI bleed, hemorrhoids, BPH, STI. Based on these concerns, I ordered CBC, CMP, GI PCR, lactate, lipase, mag, Phos, UA, CTA of the abdomen and pelvis. Patient received Dilaudid, morphine, Zofran for treatment. CT imaging personally interpreted demonstrate findings consistent with colitis, no active extravasation, confirmed by the radiologist final read. Of note, social determinants of health include inability to see health director of health care marketing in a timely manner.. Mild leukocytosis with a white blood cell count of 11.9. Mild anemia with a hemoglobin 11.9, down from 13.4 in 202, and better review the EMR. No significant electrolyte derangement. Mild hypophosphatemia. Urinalysis within normal limits. Given patient's continued pain despite multiple doses of IV narcotics, and given bloody bowel movements, and moderate to high risk given open score 14, felt reasonable to consult gastroenterology. Had an interactive discussion with them and ultimately they recommend admission for bowel cleanout and possible sigmoidoscopy versus colonoscopy. Therefore, for reasonable to consult hospital medicine Dr. Carrillo who agrees to admit the patient to service for further workup definitive management. Patient returns to their service in hemodynamically stable condition. Critical Care Critical Care Time Critical Care Time: No
[2024-09-17] MEDS: MORPHINE 4MG/ML SYRINGE 4 MG IV ×3 (09:15→21:20)
[2024-09-17] MEDS: ONDANSETRON 4MG/2ML VIAL 4 MG IV (09:15)
[2024-09-17 09:17] LABS: Basophils % 0.2 % (0.1-2.0); Eosinophils % 0.3 % (0.1-12.0); Hemoglobin 11.9 g/dL (14.1-18.0); Lymphocytes # 1.2 K/mm3 (0.7-4.5); Lymphocytes % 9.7 % (10-50); Mean Corpuscular HGB Conc 32.2 g/dL (31.8-35.4); Mean Corpuscular Hemoglobin 27.1 pg (27.0-31.2); Mean Corpuscular Volume 84.3 fl (80-94); Mean Platelet Volume 10.3 fl (7.4-10.4); Monocytes # 0.7 K/mm3 (0.1-1.0); Monocytes % 5.8 % (1.7-9.3); Neutrophils # 9.9 K/mm3 (1.8-7.8); Neutrophils % 83.5 % (37.0-80.0); Platelet Count 259 K/mm3 (142-424); Red Blood Count 4.39 M/mm3 (4.60-6.20); Red Cell Distribution Width 14.3 % (11.5-17.5); White Blood Count 11.9 K/mm3 (4.8-10.8)
[2024-09-17 09:18] LABS: Albumin Level 4.2 g/dl (3.5-5.0); Chloride 103 mmol/L (98-107); Sodium 138 mmol/L (136-145)
[2024-09-17 09:20] LABS: Phosphorous 2.1 mg/dl (2.5-4.5)
[2024-09-17 09:21] LABS: Alanine Aminotransferase 23 U/L (12-78); Albumin/Globulin Ratio 1.4 (1.1-1.8); Alkaline Phosphatase 103 U/L (38-126); Aspartate Amino Transferase 30 U/L (17-59); Bilirubin,Total 0.8 mg/dl (0.2-1.3); Blood Urea Nitrogen 12 mg/dl (9-20); Carbon Dioxide 29 mmol/L (22.0-30.0); Creatinine Clearance Estimated 178 mL/min (50-200); Estimated Glomerular Filt Rate 105 ml/min (>60); GFR (African American) 127 ML/MIN (>60); Globulin 2.9 g/dL (1.3-3.2); Glucose 101 mg/dl (74-100); Lipase 49 U/L (23-300); Total Protein,Serum 7.1 g/dl (6.3-8.2)
[2024-09-17 09:22] LABS: Magnesium 1.9 mg/dl (1.6-2.3)
--- NOTE | 2024-09-17 09:23 | PC.NURSE ---
ALLERGY BRACELET PLACED ON PT
--- NOTE | 2024-09-17 09:24 | PC.NURSE ---
PT WENT TO RESTROOM AT THIS TIME STILL UNABLE TO URINATE FOR SAMPLE
--- NOTE | 2024-09-17 09:39 | PC.NURSE ---
pt to ct via wheelchair
[2024-09-17 09:45] LABS: Lactic Acid 0.7 mmol/L (0.7-2.1)
--- NOTE | 2024-09-17 09:46 | PC.NURSE ---
PT ARRIVED BACK TO ROOM FROM CT
[2024-09-17] MEDS: IOPAMIDOL-370 (76%);100ML BOTTLE 80 ML IV (09:47)
[2024-09-17] MEDS: SODIUM CHLORIDE 0.9% 10ML SYR (RAD ONLY) 10 ML IV (09:47)
[2024-09-17] MEDS: 0.9 % SODIUM CHLORIDE 50 ML VIAL IV (09:47)
--- NOTE | 2024-09-17 09:47 | PC.NURSE ---
PT GIVEN ICE CHIPS AT THIS TIME NO OTHER NEEDS CALL LIGHT IN REACH
[2024-09-17 10:14] LABS: HIV Combo NEGATIVE (Negative)
[2024-09-17 10:22] LABS: Hepatitis C Ab Qual. W/ RFX NEGATIVE (Negative)
[2024-09-17] MEDS: HYDROMORPHONE 2MG/ML SYRINGE 1 MG IV (11:22)
--- NOTE | 2024-09-17 11:45 | PC.NURSE ---
checked on pt, reports his pain is manageable
--- NOTE | 2024-09-17 12:44 | PC.NURSE ---
SPEAKING WITH HOSPITALIST
--- NOTE | 2024-09-17 12:51 | PC.NURSE ---
mix house operator notified of pending admission
--- NOTE | 2024-09-17 12:57 | EXP.HP ---
History of Present Illness *Admission Date: 09/17/24 *Reason for visit:: abdominal pain, diarrhea *History of present illness: Mr. Lr is a 44-year-old male with previous history of colitis and diverticulitis. Reportedly had C. difficile a few years ago. Has been having worsening symptoms and was scheduled to see Dr. Nguyen at [place] later this month. He had an increase in abdominal pain and recently completed a course of Flagyl 6 weeks ago from his PCP. Got somewhat better but symptoms have worsened over the past week. Been having pebbly stools until the past week when he began to notice mucoid and bloody bowel movements. States that it looks like bloody pus . Having chills. No nirmal vomiting. No shortness of breath or chest pain. Workup in the ER concerning for white count of 11.9, hemoglobin 11.9, liver enzymes and kidney function normal. CT obtained showing extensive mucosal thickening of sigmoid colon with reactive adenopathy. Medicine consulted for admission and further management. GI consulted to assist with care. On arrival to the floor, having some improvement with morphine for pain control. Appears comfortable laying on his side. States he is thirsty. No chest pain or shortness of breath. Stable on room air. Denies any known sick contacts. [facility] Disclaimer: The information contained in this section may have been updated after the patient was seen, as this information can be updated by other users. Surgical History (Updated 09/17/24 @ 14:06 by Pat Weathers RN) H/O hand surgery History of colonoscopy H/O wrist surgery H/O adenoidectomy Hx of tonsillectomy History of kidney surgery Family History (Updated 09/17/24 @ 14:06 by Pat Weathers RN) Father Family history of cancer Social History Smoking Status: Never smoker second hand exposure: No alcohol intake: current alcohol intake frequency: holidays/special occasions only counseling provided: provider counseling substance use type: denies use current occupational status: employed Travel in the last 8 weeks: None household members: family housing: house 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[employer], [employer]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[employer] current occupational exposures/hazards: No caffeine: Yes Have you lived/traveled outside US in past 30 days?: No Contact w/someone who lives/traveled outside US past 30 days?: No Exposure to someone with infectious disease in past 14 days?: No Do you have a fever (greater than 100.4 F or 38 C)?: No Have you tested positive for COVID-19: No Exposed to someone with COVID-19 in past 14 days?: No Do you have a sore throat?: No Do you have a cough?: No Do you have any weakness?: No Do you have any diarrhea?: No Are you experiencing any unusual bleeding?: No Do you have any muscle aches/pain?: No Do you have any abdominal pain?: Yes Are you experiencing loss of taste or smell?: No Other Medical History Have you received the Flu Vaccine for this season: No Have you received the Pneumonia Vaccine: No Review of Systems Review of Systems Review of systems (narrative): 14 point review of systems performed, pertinent positives and negatives as per HPI Meds Home Medications and Allergies Home Medications ?Medication ?Instructions ?Recorded ?Confirmed ?Type L.acidoph,paracasei,B.animalis 10 1 tab PO DAILY 05/27/20 09/17/24 History billion cell capsule alfuzosin 10 mg tablet,extended 10 mg PO DAILY 05/27/20 09/17/24 History release 24 hr hyoscyamine sulfate 0.125 mg tablet 0.125 mg PO Q6HP PRN Stomach Pain 08/08/20 09/17/24 History meloxicam 15 mg tablet 15 mg PO DAILYP PRN Arthritis 09/17/24 09/17/24 History New Prescriptions to Start Prescriptions: Allergies Allergy/AdvReac Type Severity Reaction Status Date / Time ciprofloxacin (From Cipro) Allergy Severe blind Verified 09/17/24 09:17 ibuprofen Allergy Mild Lips Verified 09/17/24 09:17 Swelling Exam Data for Last 24 hours Vital signs and Labs for Last 24 Hours: Temp Pulse Resp BP Pulse Ox O2 Del Method 98.5 F 77 19 121/71 91 L Room Air 09/17/24 08:46 09/17/24 12:30 09/17/24 08:46 09/17/24 12:30 09/17/24 12:30 09/17/24 12:30 Laboratory Results - last 24 hr 09/17/24 08:57: WBC 11.9 H, RBC 4.39 L, Hgb 11.9 L, Hct 37.0 L, MCV 84.3, MCH 27.1, MCHC 32.2, RDW 14.3, Plt Count 259, MPV 10.3, Neut % (Auto) 83.5 H, Lymph % (Auto) 9.7 L, [place] % (Auto) 5.8, Eos % (Auto) 0.3, Baso % (Auto) 0.2, Neut # (Auto) 9.9 H, Lymph # (Auto) 1.2, [place] # (Auto) 0.7, Eos # (Auto) 0.0, Baso # (Auto) 0.0, Sodium 138, Potassium 4.0, Chloride 103, Carbon Dioxide 29, Anion Gap 10.0, BUN 12, Creatinine 0.80, Estimated Creat Clear 178, Estimated GFR 105, Est GFR ( Amer) 127, Glucose 101 H, Calcium 9.0, Phosphorus 2.1 L, Magnesium 1.9, Total Bilirubin 0.8, AST 30, ALT 23, Alkaline Phosphatase 103, Total Protein 7.1, Albumin 4.2, Globulin 2.9, Albumin/Globulin Ratio 1.4, Lipase 49, HCV Ab ELLIS w/Rflx PCR Qn Negative, HIV Ag/Ab Combo Qual Negative 09/17/24 09:22: Lactate 0.7, Blood Type O Positive, Antibody Screen Negative I & O for Last 24 hours: Intake & Output 09/14/24 09/15/24 09/16/24 09/17/24 23:59 23:59 23:59 23:59 Weight 106.594 kg Constitutional Constitutional: mild distress, obese and cooperative *Routine HEENT Exam Head: Present normocephalic Eye: Present EOMI and PERRL ENT: Present mucous membranes moist *Routine Neck Exam Neck: Present supple; Absent lymphadenopathy *Routine Respiratory Exam Respiratory: Present CTA bilaterally; Absent respiratory distress, rhonchi, stridor, wheezes or crackles *Routine Cardiovascular Exam Cardiovascular: Present RRR *Routine Abdominal Exam Abdominal: Present soft, normoactive bowel sounds, tenderness (Significant in lower abdomen and suprapubic) and guarding; Absent distended or rebound *Routine Rectal Exam Rectal:: deferred *Routine Genitalia Exam Genitalia:: deferred *Routine Extremities Exam Extremities: Absent cyanosis, clubbing or edema *Routine Skin Exam Skin: Present warm; Absent rash *Routine Neurological Exam Neurological: Present alert, oriented X3 and moving all extremities; Absent altered mental status Assessment and Plan *Assessment and plan (1) Colitis: Status: Acute Category: Medical Code(s): K52.9 - Noninfective gastroenteritis and colitis, unspecified (2) Diarrhea: Status: Acute Category: Medical Code(s): R19.7 - Diarrhea, unspecified (3) Anemia: Status: Acute Category: Medical Code(s): D64.9 - Anemia, unspecified (4) Mucus in stool: Status: Acute Category: Medical Code(s): R19.5 - Other fecal abnormalities (5) Rectal bleeding: Status: Acute Category: Medical Code(s): K62.5 - Hemorrhage of anus and rectum (6) Obesity (BMI 30.0-34.9): Status: Acute Category: Medical Code(s): E66.811 - Obesity, class 1 Plan 44-year-old male who presents with about a week of abdominal pain that has worsened with radiation into his groin. Having bloody bowel movements. Presented to the ER, found to have colitis on CT. Discussed case with ER physician, request admission for eval ration by GI and further workup for hemorrhagic colitis. I agreed to admit for further care. Problems addressed as follows Colitis Rectal bleeding -Discussed case with GI, concern for infectious versus inflammatory. Recommend considering repeat colonoscopy in morning to evaluate etiology. As GI will not be here tomorrow, care will be transitioned over to [facility] lpn surgeon for further management -Stool panel pending to evaluate for C. difficile as patient has a history of C. difficile -Per my review of CT, has inflammation of his distal descending and sigmoid colon. -Celiac panel pending -White count slightly elevated 11.9. -Pain medication with morphine 4 mg as needed every 3 hours. -Low threshold to empirically initiate vancomycin if difficulty obtaining stool panel given history. -Clear liquid diet okay. -Kidney function normal with BUN 12, creatinine 0.8. Anemia due to blood loss. Hemoglobin 11.9. Transfusion threshold hemoglobin less than 7., Repeat CBC, CMP, magnesium ordered for the morning. Obesity: Complicates all aspects of his care Full code Holding anticoagulants in the setting of rectal bleeding Clear liquids, n.p.o. at midnight
--- NOTE | 2024-09-17 13:02 | HMH.PHAINT1 ---
Pharmacy Intervention Comments: MEDICATION RECONCILIATION COMPLETED ON PATIENT USING EXTERNAL FILL HISTORY FROM PHARMACY AND [facility] REPORT. -ELSY HARDEN, JESSIED
--- NOTE | 2024-09-17 13:07 | PC.NURSE ---
Report called to NORI Orozco on Med Surg.
[2024-09-17 13:48] LABS: Microscopic, Urine URINE MICROSCOPIC (MICROSCOPIC)
[2024-09-17 13:53] LABS: Appearance,Urine CLEAR (Clear); Bilirubin,Urine Negative (Negative); Blood, Urine 2+ (Negative); Color,Urine YELLOW (Yellow); Glucose,Urine (UA) Negative (Negative); Ketones,Urine 1+ (Negative); Leukocyte Esterase,Urine Negative (Negative); Nitrate,Urine Negative (Negative); PH,Urine 5.5 (5.0-8.5); Protein,Urine Negative (Negative); Specific Gravity, Urine 1.015 (1.005-1.030); Urobilinogen,Urine 0.2 EU/dl (0.2)
[2024-09-17 14:04] LABS: Bacteria,Urine Trace /lpf; Squamous Epithelial Cell,Urine Occasional #/hpf (0-5)
[2024-09-17] MEDS: LACTATED RINGERS 1000ML 1,000 ML 100 ML IV (16:17)
--- NOTE | 2024-09-17 17:11 | EXP.GE.CONS ---
History of Present Illness *Admission Date: 09/17/24 *Reason for visit:: Abdominal pain *History of present illness: Mr. Lr is a 44-year-old gentleman admitted for abdominal pain, bleeding and colitis. The patient has had a long history of colitis and diverticulitis. He does state that he has seen Dr. 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 He was set up for colonoscopy as outpatient on 09/28. He was having fairly significant abdominal pain and was given Flagyl 6 weeks ago (VISHAL Oliver) and did get some better. He does have worsening constipation and started a stool softener. He is having pebble-like stools. He has noted some mucus with his bowel movements. Over the last 4 to 5 days he has had worsening pain. He also reports rectal pain and spasms. He has been unable to tolerate oral intake with nausea. He did have labs that showed a white blood cell count of 11.9 and hemoglobin 11.9 and hematocrit 37.0. His liver and pancreatic chemistries were normal. Stool PCR panel is pending and he has had C. difficile in the past. CAT scan shows extensive mucosal thickening and inflammation of the proximal and mid sigmoid colon with some inflammatory reactive adenopathy. [facility] Disclaimer: The information contained in this section may have been updated after the patient was seen, as this information can be updated by other users. Surgical History (Updated 09/17/24 @ 14:06 by Pat Weathers RN) H/O hand surgery History of colonoscopy H/O wrist surgery H/O adenoidectomy Hx of tonsillectomy History of kidney surgery Family History (Updated 09/17/24 @ 14:06 by Pat Weathers RN) Father Family history of cancer Social History Smoking Status: Never smoker second hand exposure: No alcohol intake: current alcohol intake frequency: holidays/special occasions only counseling provided: provider counseling substance use type: denies use current occupational status: employed Travel in the last 8 weeks: None household members: family housing: house 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[employer], 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 current occupational exposures/hazards: No caffeine: Yes Have you lived/traveled outside [place] in past 30 days?: No Contact w/someone who lives/traveled outside US past 30 days?: No Exposure to someone with infectious disease in past 14 days?: No Do you have a fever (greater than 100.4 F or 38 C)?: No Have you tested positive for COVID-19: No Exposed to someone with COVID-19 in past 14 days?: No Do you have a sore throat?: No Do you have a cough?: No Do you have any weakness?: No Do you have any diarrhea?: No Are you experiencing any unusual bleeding?: No Do you have any muscle aches/pain?: No Do you have any abdominal pain?: Yes Are you experiencing loss of taste or smell?: No Meds Home Medications and Allergies Home Medications ?Medication ?Instructions ?Recorded ?Confirmed ?Type L.acidoph,paracasei,B.animalis 10 1 tab PO DAILY 05/27/20 09/17/24 History billion cell capsule alfuzosin 10 mg tablet,extended 10 mg PO DAILY 05/27/20 09/17/24 History release 24 hr hyoscyamine sulfate 0.125 mg tablet 0.125 mg PO Q6HP PRN Stomach Pain 08/08/20 09/17/24 History meloxicam 15 mg tablet 15 mg PO DAILYP PRN Arthritis 09/17/24 09/17/24 History New Prescriptions to Start Prescriptions: Allergies Allergy/AdvReac Type Severity Reaction Status Date / Time ciprofloxacin (From Cipro) Allergy Severe blind Verified 09/17/24 09:17 ibuprofen Allergy Mild Lips Verified 09/17/24 09:17 Swelling Exam (Inpt) Vital signs and Labs for Last 24 Hours: Temp Pulse Resp BP Pulse Ox O2 Del Method 99.1 F 83 18 156/75 H 98 Room Air 09/17/24 16:00 09/17/24 16:00 09/17/24 16:00 09/17/24 16:00 09/17/24 16:00 09/17/24 16:00 Laboratory Results - last 24 hr 09/17/24 08:57: WBC 11.9 H, RBC 4.39 L, Hgb 11.9 L, Hct 37.0 L, MCV 84.3, MCH 27.1, MCHC 32.2, RDW 14.3, Plt Count 259, MPV 10.3, Neut % (Auto) 83.5 H, Lymph % (Auto) 9.7 L, [place] % (Auto) 5.8, Eos % (Auto) 0.3, Baso % (Auto) 0.2, Neut # (Auto) 9.9 H, Lymph # (Auto) 1.2, [place] # (Auto) 0.7, Eos # (Auto) 0.0, Baso # (Auto) 0.0, Sodium 138, Potassium 4.0, Chloride 103, Carbon Dioxide 29, Anion Gap 10.0, BUN 12, Creatinine 0.80, Estimated Creat Clear 178, Estimated GFR 105, Est GFR ( Amer) 127, Glucose 101 H, Calcium 9.0, Phosphorus 2.1 L, Magnesium 1.9, Total Bilirubin 0.8, AST 30, ALT 23, Alkaline Phosphatase 103, Total Protein 7.1, Albumin 4.2, Globulin 2.9, Albumin/Globulin Ratio 1.4, Lipase 49, HCV Ab ELLIS w/Rflx PCR Qn Negative, HIV Ag/Ab Combo Qual Negative 09/17/24 09:22: Lactate 0.7, Blood Type O Positive, Antibody Screen Negative 09/17/24 13:36: Urine Color Yellow, Urine Appearance Clear, Urine pH 5.5, Ur Specific [place] 1.015, Urine Protein Negative, Urine Glucose (UA) Negative, Urine Ketones 1+, Urine Blood 2+ A, Urine Nitrate Negative, Urine Bilirubin Negative, Urine Urobilinogen 0.2, Ur Leukocyte Esterase Negative, Urine RBC None, Urine WBC None, Ur Squamous Epith Cells Occasional, Urine Bacteria Trace I & O for Labs for Last 24 Hours: Intake & Output 09/14/24 09/15/24 09/16/24 09/17/24 23:59 23:59 23:59 23:59 Weight 237 lb 5 oz GI: Present distention and tenderness Comments:: Normoactive bowel sounds, mild distention with tenderness in the left lower quadrant, no rebound or guarding, no masses Results Labs 09/17/24 08:57 09/17/24 08:57 Labs: Laboratory Results - last 24 hr 09/17/24 08:57: WBC 11.9 H, RBC 4.39 L, Hgb 11.9 L, Hct 37.0 L, MCV 84.3, MCH 27.1, MCHC 32.2, RDW 14.3, Plt Count 259, MPV 10.3, Neut % (Auto) 83.5 H, Lymph % (Auto) 9.7 L, [place] % (Auto) 5.8, Eos % (Auto) 0.3, Baso % (Auto) 0.2, Neut # (Auto) 9.9 H, Lymph # (Auto) 1.2, [place] # (Auto) 0.7, Eos # (Auto) 0.0, Baso # (Auto) 0.0, Sodium 138, Potassium 4.0, Chloride 103, Carbon Dioxide 29, Anion Gap 10.0, BUN 12, Creatinine 0.80, Estimated Creat Clear 178, Estimated GFR 105, Est GFR ( Amer) 127, Glucose 101 H, Calcium 9.0, Phosphorus 2.1 L, Magnesium 1.9, Total Bilirubin 0.8, AST 30, ALT 23, Alkaline Phosphatase 103, Total Protein 7.1, Albumin 4.2, Globulin 2.9, Albumin/Globulin Ratio 1.4, Lipase 49, HCV Ab ELLIS w/Rflx PCR Qn Negative, HIV Ag/Ab Combo Qual Negative 09/17/24 09:22: Lactate 0.7, Blood Type O Positive, Antibody Screen Negative 09/17/24 13:36: Urine Color Yellow, Urine Appearance Clear, Urine pH 5.5, Ur Specific [place] 1.015, Urine Protein Negative, Urine Glucose (UA) Negative, Urine Ketones 1+, Urine Blood 2+ A, Urine Nitrate Negative, Urine Bilirubin Negative, Urine Urobilinogen 0.2, Ur Leukocyte Esterase Negative, Urine RBC None, Urine WBC None, Ur Squamous Epith Cells Occasional, Urine Bacteria Trace Assessment and Plan *Assessment and plan (1) Acute colitis: Status: Acute Category: Medical Code(s): K52.9 - Noninfective gastroenteritis and colitis, unspecified (2) Lower abdominal pain: Status: Acute Category: Medical Code(s): R10.30 - Lower abdominal pain, unspecified (3) Rectal bleeding: Status: Acute Category: Medical Code(s): K62.5 - Hemorrhage of anus and rectum (4) Mucus in stool: Status: Acute Category: Medical Code(s): R19.5 - Other fecal abnormalities (5) Left sided colitis: Status: Acute Category: Medical Code(s): K51.50 - Left sided colitis without complications Plan 1. Acute colitis. I do suspect self-limited colitis over chronic colitis. The patient had a colonoscopy with me in the remote past. His last colonoscopy was with Helio Morrell in October 2017. At that time he had extensive left-sided diverticulosis and small tubular adenoma removed. The patient has outpatient scheduled colonoscopy with just in case. Presently, CAT scan shows left-sided colitis. He does have a history of C. difficile. I would recommend PCR stool panel. I have spoken with Dr. Morrell and will have the patient prep for colonoscopy. Dr. Morrell will plan to do colonoscopy in the morning.
[2024-09-17] MEDS: PEG-ELECTROLYTE SOLN 4000ML BOTTLE 4000 ML PO (17:44)
[2024-09-17] MEDS: ACETAMINOPHEN 325MG TAB 650 MG PO (20:05)
--- NOTE | 2024-09-17 23:00 | PC.NURSE ---
Second half of GoLytely solution has been resumed at this time (another 2000 mL repeated per MAR order). Patient verbalized understanding of continuing to consume the solution. However, the patient stated that he has been having difficulty passing more stool since receiving the first half of GoLytely today, and he has not had a bowel movement for this shift other than a tiny smear. Stool sample remains unable to be collected thus far due to inadequacy. He continues to have abdominal discomfort and bowel sounds are active.
--- NOTE | 2024-09-17 23:59 | PC.NURSE ---
After consuming the rest of the GoLytely solution, the patient started to have multiple liquified and putrid bowel movements (starting around 23:22). Stool appearance did not show visible blood; color was brown/green. Patient did state that he vomited some shortly after drinking the solution; patient denied Zofran offer. He denies further nausea/vomiting at this time. A stool sample was taken around 23:55 and sent to lab. Patient is currently resting supine in bed. He is now NPO after midnight.
[2024-09-18] VITALS: BP 132/68; PULSE 76; RESP 16; TEMP 36.9; O2SAT 93
[2024-09-18 00:02] LABS: Adenovirus F 40/41, stool Not Detected (NotDetected); Astrovirus Not Detected (NotDetected); Campylobacter Not Detected (NotDetected); Cryptosporidium Not Detected (NotDetected); Cyclospora Cayetanesis Not Detected (NotDetected); Entamoeba histolytica Not Detected (NotDetected); Enteroaggregative E coli Not Detected (NotDetected); Enteropathogenic E coli Not Detected (NotDetected); Enterotoxigenic E coli Not Detected (NotDetected); Giardia lamblia Not Detected (NotDetected); Norovirus Not Detected (NotDetected); Plesimonas Shigalloides, PCR Not Detected (NotDetected); Rotavirus A Not Detected (NotDetected); Salmonella, PCR Not Detected (NotDetected); Sapovirus Not Detected (NotDetected); Shiga-like toxin E coli Not Detected (NotDetected); Shigella Enterovasive E coli Not Detected (NotDetected); Vibrio Cholerae Not Detected (NotDetected); Vibrio, PCR Not Detected (NotDetected); Yersinia Entercolitica, PCR Not Detected (NotDetected)
[2024-09-18] MEDS: MORPHINE 4MG/ML SYRINGE 4 MG IV ×3 (02:55→12:29)
[2024-09-18 03:00] VITALS: TEMP 37
[2024-09-18 04:00] VITALS: BP 139/73; PULSE 77; RESP 18; TEMP 36.7; O2SAT 91; BMI 32.8
[2024-09-18 04:49] LABS: Clostridium Difficile A/B, PCR Detected (NotDetected)
--- NOTE | 2024-09-18 04:57 | PC.NURSE ---
Lab called at 04:48 to report that the patient's diarrhea panel came back positive for C. difficile. Prabhakar CRANE was paged at this time to inform him about the finding. Contact precautions put into place.
--- NOTE | 2024-09-18 05:00 | PC.NURSE ---
Patient is alert and oriented x4. Patient was observed to have both wakeful periods (on behalf of frequent bowel movements this shift) and resting periods (eyes closed, respirations even and unlabored on room air) throughout the night. He has complained of consistent abdominal discomfort with severe, intermittent spasms. His stool appearance has been loose, runny, and brown/green in color. Contact precautions are in place per C. difficile (see prior note). Patient ambulates in his room/to the bathroom independently without difficulties. Morphine has been administered per MAR for abdominal pain with reported relief. Patient has also been complaining of a headache; Tylenol was given once per MAR but with no relief. However, patient did have a low-grade fever once this shift, and Tylenol addressed it. Patient denied other interventions at the time to relieve his headache other than rest (ex. cold compress). Patient had 1 unmeasured emesis episode (see prior note). Scheduled medications were administered per MAR. He has remained NPO since midnight; GoLytely solution was finished this shift (see prior note). Auscultation of his heart, lungs, and bowel sounds were within normal findings. Vital signs currently stable. At this time, the patient is resting in bed without further complaints. LR infusion continues to run at 100 mL/hr. Call light within reach.
[2024-09-18 06:25] LABS: Basophils % 0.2 % (0.1-2.0); Eosinophils % 0.2 % (0.1-12.0); Hematocrit 32.1 % (42.0-52.0); Lymphocytes # 1.7 K/mm3 (0.7-4.5); Lymphocytes % 13.7 % (10-50); Mean Corpuscular HGB Conc 32.4 g/dL (31.8-35.4); Mean Corpuscular Hemoglobin 27.7 pg (27.0-31.2); Mean Corpuscular Volume 85.6 fl (80-94); Mean Platelet Volume 10.3 fl (7.4-10.4); Monocytes % 8.2 % (1.7-9.3); Neutrophils # 9.8 K/mm3 (1.8-7.8); Neutrophils % 77.2 % (37.0-80.0); Platelet Count 209 K/mm3 (142-424); Red Blood Count 3.75 M/mm3 (4.60-6.20); Red Cell Distribution Width 14.6 % (11.5-17.5); White Blood Count 12.6 K/mm3 (4.8-10.8)
[2024-09-18 06:46] LABS: Hemoglobin 10.4 g/dL (14.1-18.0)
[2024-09-18 06:50] LABS: Albumin Level 3.7 g/dl (3.5-5.0); Chloride 98 mmol/L (98-107); Potassium 3.6 mmoL/L (3.5-5.1); Sodium 135 mmol/L (136-145)
[2024-09-18 06:53] LABS: Alanine Aminotransferase 24 U/L (12-78); Albumin/Globulin Ratio 1.3 (1.1-1.8); Alkaline Phosphatase 102 U/L (38-126); Anion Gap 10.6 mEq/L (5-15); Aspartate Amino Transferase 32 U/L (17-59); Bilirubin,Total 1.3 mg/dl (0.2-1.3); Blood Urea Nitrogen 11 mg/dl (9-20); Calcium 8.5 mg/dl (8.4-10.2); Carbon Dioxide 30 mmol/L (22.0-30.0); Creatinine Clearance Estimated 147 mL/min (50-200); Estimated Glomerular Filt Rate 81 ml/min (>60); GFR (African American) 98 ML/MIN (>60); Globulin 2.8 g/dL (1.3-3.2); Glucose 90 mg/dl (74-100); Magnesium 1.9 mg/dl (1.6-2.3); Total Protein,Serum 6.5 g/dl (6.3-8.2)
[2024-09-18] MEDS: ACETAMINOPHEN 325MG TAB 650 MG PO ×3 (07:25→23:53)
[2024-09-18 08:00] VITALS: BP 123/65; PULSE 75; RESP 17; TEMP 36.8; O2SAT 93
[2024-09-18] MEDS: LACTATED RINGERS 1000ML 1,000 ML 100 ML IV (08:02)
[2024-09-18] MEDS: VANCOMYCIN HCL 50MG/ML 150ML KIT 125 MG PO ×4 (09:32→20:48)
--- NOTE | 2024-09-18 15:51 | P.PN_ITS ---
Subjective *Date: 09/18/24 *Time: 16:36 Interval history: Continues to have cramping abdominal pain. Afebrile. White count remains elevated today. No nausea or vomiting. Will advance diet and monitor for tolerance. Stable on room air. Medical Exam Vital signs and Labs for Last 24 Hours: Vital Signs Temp Pulse Resp BP Pulse Ox O2 Del Method O2 Flow Rate 09/18/24 12:58 Room Air 09/18/24 10:56 Room Air 09/18/24 09:00 Room Air 09/18/24 08:00 Room Air 09/18/24 08:00 98.2 F 75 17 123/65 93 L Room Air 09/18/24 06:45 Room Air 09/18/24 05:00 Room Air 09/18/24 04:00 98.1 F 77 18 139/73 91 L Room Air 09/18/24 03:00 98.6 F 09/18/24 03:00 Room Air 09/18/24 01:00 Room Air 09/18/24 00:00 98.5 F 76 16 132/68 93 L Room Air 09/17/24 23:00 Room Air 09/17/24 21:00 Room Air 09/17/24 20:35 99.1 F 09/17/24 20:00 99.9 F H 96 H 18 147/77 H 90 L Nasal Cannula 2 09/17/24 20:00 96 H 18 98 Room Air 09/17/24 19:00 Room Air 09/17/24 17:00 Room Air 09/17/24 16:00 99.1 F 83 18 156/75 H 98 Room Air Intake and Output 09/17/24 09/18/24 09/18/24 23:59 07:59 15:59 Intake Total 1999 2665 / 2905 240 / 2905 Output Total 0 / 0 Balance 1999 2665 / 2905 240 / 2905 Intake: Intake, Oral Amount 1999 2200 / 2440 240 / 2440 Infusion Intake 465 / 465 Lactated Ringers 1000ML 1,000 465 / 465 ml @ 100 mls/hr IV .Q10H [facility] Rx #:[id number] Output: Output, Urine Amount 0 / 0 Other: Number of Unmeasured Voids 1 1 Number of Bowel Movements 3 1 1 Number of Unmeasured Emesis 1 Episodes Weight 110.087 kg Patient Weight 09/18/24 23:59 Weight 110.087 kg Laboratory Results - last 24 hr 09/17/24 23:55: Stl Aeromonas (PCR) Not detected, Stl C. cayetanensis PCR Not detected, Stool Rotavirus (PCR) Not detected, Stl Adenov F 40/41 PCR Not detected, Stool Astrovirus (PCR) Not detected, Stool Campylobacter PCR Not detected, Stl C.difficile Tox PCR Detected A, Stool Cryptosporidium PCR Not detected, Stl E.coli Shiga Tox PCR Not detected, Stool E coli O157 PCR Not detected, Stl Enterotoxigenic E PCR Not detected, Stool EPEC (PCR) Not detected, Stool EAEC (PCR) Not detected, Stl E. histolytica PCR Not detected, Stool Giardia Lamblia PCR Not detected, Stool Salmonella PCR Not detected, Stool Sapovirus (PCR) Not detected, Stl P. shigelloides PCR Not detected, Stl Shigella/EIEC PCR Not detected, St Y.enterocolitica PCR Not detected, Stool Vibrio (PCR) Not detected, Stl Vibrio cholerae PCR Not detected, Stl Norovirus GI/GII PCR Not detected 09/18/24 05:50: WBC 12.6 H, RBC 3.75 L, Hgb 10.4 L D, Hct 32.1 L, MCV 85.6, MCH 27.7, MCHC 32.4, RDW 14.6, Plt Count 209, MPV 10.3, Neut % (Auto) 77.2, Lymph % (Auto) 13.7, [place] % (Auto) 8.2, Eos % (Auto) 0.2, Baso % (Auto) 0.2, Neut # (Auto) 9.8 H, Lymph # (Auto) 1.7, [place] # (Auto) 1.0, Eos # (Auto) 0.0, Baso # (Auto) 0.0, Sodium 135 L, Potassium 3.6, Chloride 98, Carbon Dioxide 30, Anion Gap 10.6, BUN 11, Creatinine 1.00 D, Estimated Creat Clear 147, Estimated GFR 81, Est GFR ( Amer) 98 D, Glucose 90, Calcium 8.5, Magnesium 1.9, Total Bilirubin 1.3, AST 32, ALT 24, Alkaline Phosphatase 102, Total Protein 6.5, Albumin 3.7 D, Globulin 2.8, Albumin/Globulin Ratio 1.3 I & O for Labs for Last 24 Hours: Intake & Output 09/15/24 09/16/24 09/17/24 09/18/24 23:59 23:59 23:59 23:59 Intake Total 1999 / 290 Output Total 0 / 0 Balance 1999 / 2904 Weight 107.643 kg 110.087 kg Constitutional: Present no acute distress, obese and cooperative Head: Present atraumatic and normocephalic ENT: Present normal exam Respiratory: Present normal respiratory effort; Absent rhonchi, wheezes or crackles Cardiac: Present Reg Rate and Rhythm GI: Present soft, tenderness (No significant suprapubic region and throughout lower abdomen.) and hyperactive bowel sounds; Absent distention Extremities: Present normal inspection and full ROM Skin: Present intact; Absent erythema Neuro: Present Grossly Intact, alert, awake, oriented x 3 and moves all extremities Assessment and Plan *Assessment and plan (1) C. difficile colitis: Status: Acute Category: Medical Code(s): A04.72 - Enterocolitis due to Clostridium difficile, not specified as recurrent (2) Colitis: Status: Acute Category: Medical Code(s): K52.9 - Noninfective gastroenteritis and colitis, unspecified (3) Diarrhea: Status: Acute Qualifiers: Diarrhea type: infectious Qualified Code(s): A09 - Infectious gastroenteritis and colitis, unspecified Category: Medical Code(s): R19.7 - Diarrhea, unspecified (4) Anemia: Status: Acute Category: Medical Code(s): D64.9 - Anemia, unspecified (5) Mucus in stool: Status: Acute Category: Medical Code(s): R19.5 - Other fecal abnormalities (6) Rectal bleeding: Status: Acute Category: Medical Code(s): K62.5 - Hemorrhage of anus and rectum (7) Obesity (BMI 30.0-34.9): Status: Acute Category: Medical Code(s): E66.811 - Obesity, class 1 Plan 44-year-old male who presents with about a week of abdominal pain that has worsened with radiation into his groin. Having bloody bowel movements. Presen melba to the ER, found to have colitis on CT. Discussed case with ER physician, request admission for eval ration by GI and further workup for hemorrhagic colitis. I agreed to admit for further care. Positive for C. difficile. Advance diet. Monitoring for tolerance of p.o. intake and medications. Will monitor for 24 more hours. If doing well in the morning, anticipate discharge tomorrow. Problems addressed as follows C. difficile colitis Rectal bleeding -Stool panel returned positive for C. difficile overnight. Initiated on vancomycin 125 mg p.o. 4 times a day -Holding on colonoscopy today. -Hemoglobin with slight drop at 10.4. White count remains elevated at 12.6. -Still having significant cramping. Continue pain control with Oxycodone 5 mg as needed every 4 hours. Initiate Ativan 0.5 mg every 6 hours for cramping pain -Celiac panel pending -Full liquid -Kidney function normal with BUN 11, cr 1.0. Anemia due to blood loss. Hemoglobin down from 11.9-10.4 Transfusion threshold hemoglobin less than 7., Repeat CBC, CMP, magnesium ordered for the morning. Obesity: Complicates all aspects of his care Full code Holding anticoagulants in the setting of rectal bleeding Full liquids
[2024-09-18 16:00] VITALS: BP 121/59; PULSE 71; RESP 19; TEMP 36.8; O2SAT 95
[2024-09-18] MEDS: OXYCODONE 5MG W/APAP 325MG TABLET 1 EACH PO ×2 (16:16→20:48)
[2024-09-18 17:09] LABS: Deamidated Gliadin Abs, IgA 5 units (0-19); Deamidated Gliadin Abs, IgG 3 units (0-19); Tissue Transglutaminase IgA Ab <2 U/mL (0-3); Tissue Transglutaminase IgG Ab 3 U/mL (0-5)
[2024-09-18] MEDS: LORazepam 2MG/ML VIAL 0.5 MG IV ×2 (17:54→23:48)
[2024-09-18 18:09] LABS: Endomysial IgA Antibody Negative (Negative)
--- NOTE | 2024-09-18 18:11 | PC.NURSE ---
Pt alert and oriented x4. on RA. Pt is tolerating a full liquid diet with no complaints of N/V. Pt has complained of pain multiple times today and has been medicated per MAR. aware. Pt is now resting in bed with at bedside, no complaints at this time.
[2024-09-18 19:54] VITALS: BP 135/71; PULSE 74; RESP 16; TEMP 36.9; O2SAT 94
[2024-09-19] MEDS: OXYCODONE 5MG W/APAP 325MG TABLET 1 EACH PO ×4 (01:01→12:34)
[2024-09-19 03:54] VITALS: BP 99/43; PULSE 63; RESP 18; TEMP 36.9; O2SAT 94; BMI 32.6
--- NOTE | 2024-09-19 04:54 | PC.NURSE ---
Pt A&OX4 and has tolerated room air. Lung sounds clear and bowel sounds hyperactive. He has complained of abdominal pain multiple times this shift and was medicated per Mar. He has denied any n/v. He has ambulated room independently. Family member has remained at bedside. No needs at this time, call light within reach.
[2024-09-19 06:19] LABS: Basophils % 0.2 % (0.1-2.0); Eosinophils # 0.1 K/mm3 (0.0-0.4); Hematocrit 32.1 % (42.0-52.0); Hemoglobin 10.1 g/dL (14.1-18.0); Lymphocytes # 1.5 K/mm3 (0.7-4.5); Lymphocytes % 16.5 % (10-50); Mean Corpuscular HGB Conc 31.5 g/dL (31.8-35.4); Mean Corpuscular Hemoglobin 26.5 pg (27.0-31.2); Mean Corpuscular Volume 84.3 fl (80-94); Mean Platelet Volume 10.2 fl (7.4-10.4); Monocytes # 0.8 K/mm3 (0.1-1.0); Monocytes % 8.1 % (1.7-9.3); Neutrophils # 6.9 K/mm3 (1.8-7.8); Neutrophils % 73.9 % (37.0-80.0); Platelet Count 215 K/mm3 (142-424); Red Blood Count 3.81 M/mm3 (4.60-6.20); Red Cell Distribution Width 14.3 % (11.5-17.5); White Blood Count 9.3 K/mm3 (4.8-10.8)
[2024-09-19 06:28] LABS: Albumin Level 3.6 g/dl (3.5-5.0); Chloride 99 mmol/L (98-107); Potassium 3.9 mmoL/L (3.5-5.1); Sodium 135 mmol/L (136-145)
[2024-09-19 06:30] LABS: Blood Urea Nitrogen 9 mg/dl (9-20); Creatinine Clearance Estimated 182 mL/min (50-200); Estimated Glomerular Filt Rate 105 ml/min (>60); GFR (African American) 127 ML/MIN (>60)
[2024-09-19 06:31] LABS: Alanine Aminotransferase 21 U/L (12-78); Alkaline Phosphatase 98 U/L (38-126); Anion Gap 8.9 mEq/L (5-15); Aspartate Amino Transferase 24 U/L (17-59); Bilirubin,Total 0.7 mg/dl (0.2-1.3); Calcium 8.6 mg/dl (8.4-10.2); Carbon Dioxide 31 mmol/L (22.0-30.0); Glucose 92 mg/dl (74-100); Magnesium 2.1 mg/dl (1.6-2.3); Total Protein,Serum 6.4 g/dl (6.3-8.2)
[2024-09-19 06:35] LABS: Neisseria gonorrhoeae, NAA Negative (Negative)
[2024-09-19 06:44] LABS: Albumin/Globulin Ratio 1.3 (1.1-1.8); Globulin 2.8 g/dL (1.3-3.2)
--- NOTE | 2024-09-19 06:58 | EXP.DC.SUM ---
General Admission date:: 09/17/24 Discharge date: 09/19/24 HPI HPI HPI: Mr. Lr is a 44-year-old male with previous history of colitis and diverticulitis. Reportedly had C. difficile a few years ago. Has been having worsening symptoms and was scheduled to see Dr. Nguyen at [facility] later this month. He had an increase in abdominal pain and recently completed a course of Flagyl 6 weeks ago from his PCP. Got somewhat better but symptoms have worsened over the past week. Been having pebbly stools until the past week when he began to notice mucoid and bloody bowel movements. States that it looks like bloody pus . Having chills. No nirmal vomiting. No shortness of breath or chest pain. Workup in the ER concerning for white count of 11.9, hemoglobin 11.9, liver enzymes and kidney function normal. CT obtained showing extensive mucosal thickening of sigmoid colon with reactive adenopathy. Medicine consulted for admission and further management. GI consulted to assist with care. On arrival to the floor, having some improvement with morphine for pain control. Appears comfortable laying on his side. States he is thirsty. No chest pain or shortness of breath. Stable on room air. Denies any known sick contacts. Hospital Course Hospital Course Hospital Course: 44-year-old male who presents with about a week of abdominal pain that has worsened with radiation into his groin. Having bloody bowel movements. Presented to the ER, found to have colitis on CT. Discussed case with ER physician, request admission for eval ration by GI and further workup for hemorrhagic colitis. I agreed to admit for further care. Positive for C. difficile. Tolerating p.o. vancomycin and p.o. fluids. Still having pain but stable to discharge home with continued treatment as an outpatient. Recommend follow-up with GI and 4 to 6 weeks to consider colonoscopy in 6 to 8 weeks. Problems addressed as follows: C. difficile colitis Rectal bleeding -Stool panel returned positive for C. difficile overnight of admission. Was initiated on vancomycin 125 mg p.o. 4 times a day. Will complete 10 days total. Decision made to hold on any colonoscopy until infection resolves. Will follow with GI in the next 4 to 6 weeks to have reevaluation. Would benefit from colonoscopy in 6 to 8 weeks. Hemoglobin has remained stable above 10 even though he had a slight drop after fluid resuscitation. White count improved to normal at 9.3. Afebrile. Tolerating oxycodone and Ativan for pain and spasming of colon. Will continue short course to assist with symptom management at home. Celiac panel was obtained and negative. Tolerating full liquid diet. Kidney function normal with BUN 9, creatinine 0.8. Counseled on typical time course for improvement. Recommended avoiding antibiotics unless he has been appropriately evaluated and had stool panel to evaluate for infection. Reports that he has been taking antibiotics 3-4 times a year for colitis and diverticulitis Anemia due to blood loss. Hemoglobin down from 11.9-10.4. Stable above 10. No need for transfusion during admission. Would benefit from repeat labs with CBC, CMP, magnesium at follow-up Total time spent on discharge 32 minutes in counseling, documentation, chart review, and direct care with patient. Exam Data for Last 24 hours Vital signs and Labs for Last 24 Hours: Temp Pulse Resp BP Pulse Ox O2 Del Method O2 Flow Rate 98.4 F 63 18 99/43 L 94 L Room Air 2 09/19/24 03:54 09/19/24 03:54 09/19/24 03:54 09/19/24 03:54 09/19/24 03:54 09/19/24 06:51 09/17/24 20:00 Laboratory Results - last 24 hr 09/17/24 08:57: Endomysial IgA Ab Negative, Tiss Transglutamin IgG 3, Tiss Transglutamin IgA <2, Gliadin (Deamidat) IgG 3, Gliadin (Deamidat) IgA 5 09/17/24 13:36: C. trachomatis (PETRA) Negative, N. gonorrhoeae (PETRA) Negative 09/18/24 05:50: Carbon Dioxide 30, Anion Gap 10.6, BUN 11, Creatinine 1.00 D, Estimated Creat Clear 147, Estimated GFR 81, Est GFR ( Amer) 98 D, Glucose 90, Calcium 8.5, Magnesium 1.9, Total Bilirubin 1.3, AST 32, ALT 24, Alkaline Phosphatase 102, Total Protein 6.5, Globulin 2.8, Albumin/Globulin Ratio 1.3 09/19/24 05:48: WBC 9.3 D, RBC 3.81 L, Hgb 10.1 L, Hct 32.1 L, MCV 84.3, MCH 26.5 L, MCHC 31.5 L, RDW 14.3, Plt Count 215, MPV 10.2, Neut % (Auto) 73.9, Lymph % (Auto) 16.5, Mccormick % (Auto) 8.1, Eos % (Auto) 1.0, Baso % (Auto) 0.2, Neut # (Auto) 6.9, Lymph # (Auto) 1.5, Mccormick # (Auto) 0.8, Eos # (Auto) 0.1, Baso # (Auto) 0.0, Sodium 135 L, Potassium 3.9, Chloride 99, Carbon Dioxide 31 H, Anion Gap 8.9, BUN 9, Creatinine 0.80, Estimated Creat Clear 182, Estimated GFR 105, Est GFR ( Amer) 127 D, Glucose 92, Calcium 8.6, Magnesium 2.1 D, Total Bilirubin 0.7, AST 24, ALT 21, Alkaline Phosphatase 98, Total Protein 6.4, Albumin 3.6, Globulin 2.8, Albumin/Globulin Ratio 1.3 I & O for Last 24 hours: Intake & Output 09/16/24 09/17/24 09/18/24 09/19/24 23:59 23:59 23:59 23:59 Intake Total 1999 / 4665 3025 / 3325 300 / 300 Output Total 0 / 0 0 / 0 Balance 1999 / 5 3025 / 3325 300 / 300 Weight 107.643 kg 110.087 kg 109.452 kg Constitutional Constitutional: no acute distress, obese and cooperative *Routine HEENT Exam Head: Present normocephalic Eye: Present EOMI and PERRL ENT: Present mucous membranes moist *Routine Neck Exam Neck: Present supple; Absent lymphadenopathy *Routine Respiratory Exam Respiratory: Present CTA bilaterally; Absent rhonchi, wheezes or crackles *Routine Cardiovascular Exam Cardiovascular: Present RRR *Routine Abdominal Exam Abdominal: Present soft, normoactive bowel sounds and tenderness (Lower abdomen, worse in left lower quad) *Routine Rectal Exam Patient deferred: visual exam *Routine Exam Patient deferred: penile exam *Routine Extremities Exam Extremities: Absent cyanosis, clubbing or edema *Routine Skin Exam Skin: Present intact and warm; Absent rash *Routine Neurological Exam Neurological: Present alert, oriented X3 and moving all extremities; Absent altered mental status Results Data Completed and Pending Labs on day of discharge: Labs from last 24 hours 09/19/24 09/18/24 09/17/24 05:48 05:50 13:36 WBC 9.3 D RBC 3.81 L Hgb 10.1 L Hct 32.1 L MCV 84.3 MCH 26.5 L MCHC 31.5 L RDW 14.3 Plt Count 215 MPV 10.2 Neut % (Auto) 73.9 Lymph % (Auto) 16.5 Mccormick % (Auto) 8.1 Eos % (Auto) 1.0 Baso % (Auto) 0.2 Neut # (Auto) 6.9 Lymph # (Auto) 1.5 Mccormick # (Auto) 0.8 Eos # (Auto) 0.1 Baso # (Auto) 0.0 Sodium 135 L Potassium 3.9 Chloride 99 Carbon Dioxide 31 H 30 Anion Gap 8.9 10.6 BUN 9 11 Creatinine 0.80 1.00 D Estimated Creat Clear 182 147 Estimated GFR 105 81 Est GFR ( Amer) 127 D 98 D Glucose 92 90 Calcium 8.6 8.5 Magnesium 2.1 D 1.9 Total Bilirubin 0.7 1.3 AST 24 32 ALT 21 24 Alkaline Phosphatase 98 102 Total Protein 6.4 6.5 Albumin 3.6 Globulin 2.8 2.8 Albumin/Globulin Ratio 1.3 1.3 Endomysial IgA Ab Tiss Transglutamin IgG Tiss Transglutamin IgA Gliadin (Deamidat) IgG Gliadin (Deamidat) IgA C. trachomatis (PETRA) Negative N. gonorrhoeae (PETRA) Negative 09/17/24 08:57 WBC RBC Hgb Hct MCV MCH MCHC RDW Plt Count MPV Neut % (Auto) Lymph % (Auto) Mccormick % (Auto) Eos % (Auto) Baso % (Auto) Neut # (Auto) Lymph # (Auto) Mccormick # (Auto) Eos # (Auto) Baso # (Auto) Sodium Potassium Chloride Carbon Dioxide Anion Gap BUN Creatinine Estimated Creat Clear Estimated GFR Est GFR ( Amer) Glucose Calcium Magnesium Total Bilirubin AST ALT Alkaline Phosphatase Total Protein Albumin Globulin Albumin/Globulin Ratio Endomysial IgA Ab Negative Tiss Transglutamin IgG 3 Tiss Transglutamin IgA <2 Gliadin (Deamidat) IgG 3 Gliadin (Deamidat) IgA 5 C. trachomatis (PETRA) N. gonorrhoeae (PETRA) DS: Diagnosis Discharge Diagnosis (1) C. difficile colitis: Status: Acute Code(s): A04.72 - Enterocolitis due to Clostridium difficile, not specified as recurrent (2) Colitis: Status: Acute Code(s): K52.9 - Noninfective gastroenteritis and colitis, unspecified (3) Diarrhea: Status: Acute Code(s): R19.7 - Diarrhea, unspecified Qualifiers: Diarrhea type: infectious Qualified Code(s): A09 - Infectious gastroenteritis and colitis, unspecified (4) Anemia: Status: Acute Code(s): D64.9 - Anemia, unspecified (5) Mucus in stool: Status: Acute Code(s): R19.5 - Other fecal abnormalities (6) Rectal bleeding: Status: Acute Code(s): K62.5 - Hemorrhage of anus and rectum (7) Obesity (BMI 30.0-34.9): Status: Acute Code(s): E66.811 - Obesity, class 1 Meds Home Medications and Allergies Home Medications ?Medication ?Instructions ?Recorded ?Confirmed ?Type L.acidoph,paracasei,B.animalis 10 1 tab PO DAILY 05/27/20 09/17/24 History billion cell capsule alfuzosin 10 mg tablet,extended 10 mg PO DAILY 05/27/20 09/17/24 History release 24 hr hyoscyamine sulfate 0.125 mg tablet 0.125 mg PO Q6HP PRN Stomach Pain 08/08/20 09/17/24 History vancomycin 50 mg/mL oral solution 125 mg (2.5 mL) PO QID #0 mL 09/18/24 Rx (Firvanq) lorazepam 0.5 mg tablet (Ativan) 0.5 mg PO BID PRN anxiety #7 tabs 09/19/24 Rx oxycodone-acetaminophen 5 mg-325 1 tab PO Q4HP PRN Moderate To 09/19/24 Rx mg tablet Severe Pain (4-10) 3 days #17 tabs New Prescriptions to Start Prescriptions: lorazepam [Ativan] Hill Carrillo oxycodone-acetaminophen Hill Carrillo Allergies Allergy/AdvReac Type Severity Reaction Status Date / Time ciprofloxacin (From Cipro) Allergy Severe blind Verified 09/17/24 09:17 ibuprofen Allergy Mild Lips Verified 09/17/24 09:17 Swelling Discharge Plan Disposition Patient Disposition: Home, Self-Care Condition: Fair Discharge Order Discharge Orders: Discharge Order (Routine); Ordered 09/19/24 Ordered By: Hill Carrillo Follow up Plan Follow up with: Roel Rodas II, MD [Staff Physician] - 2 weeks (Please call office for follow up appointment ) Rayo Richey APRN [Primary Care Provider] - 09/28/24 3:00 pm Prescriptions/Medication Reconciliation: New vancomycin [Firvanq] 50 mg/mL Recon Soln 125 mg PO QID Qty: 0 0RF oxycodone-acetaminophen 5-325 mg Tablet 1 tab PO Q4HP PRN (Reason: Moderate To Severe Pain (4-10)) 3 Days Qty: 17 0RF lorazepam [Ativan] 0.5 mg tablet 0.5 mg PO BID PRN (Reason: anxiety) Qty: 7 0RF Continued hyoscyamine sulfate 0.125 mg tablet 0.125 mg PO Q6HP PRN (Reason: Stomach Pain) alfuzosin 10 MG tablet extended release 24 hr 10 mg PO DAILY L.acidoph,paracasei,B.animalis 1 EACH capsule 1 tab PO DAILY Discontinued meloxicam 15 mg tablet 15 mg PO DAILYP PRN (Reason: Arthritis) Patient Comments: TAKE 1 TABLET BY MOUTH ONCE DAILY NEEDED FOR ARTHRITIS Problem Reconciliation Problems Reviewed?: Yes Patient Discharge Instructions ACTIVITY: Continue current activity DIET: continue same diet and advance to your usual diet Patient Instructions: DI for Gastrointestinal Bleeding, DI for Colitis, DI for Clostridioides difficile Infection Print Language: Croatian Providers Primary Care Provider: Rayo Richey Admit Provider: Hill Carrillo Attending Provider: Hill Carrillo
[2024-09-19 08:00] VITALS: BP 112/50; PULSE 72; RESP 16; RESP 18; TEMP 37; O2SAT 95
[2024-09-19] MEDS: VANCOMYCIN HCL 50MG/ML 150ML KIT 125 MG PO ×2 (08:06→12:34)
[2024-09-19] MEDS: LORazepam 2MG/ML VIAL 0.5 MG IV (08:06)
--- NOTE | 2024-09-21 11:16 | SW/DCPLANNER ---
Spoke with patient on the phone. Patient stated that he is the same as the day he was discharged. Patietnt stated that he is still in alot of pain. Patient stated that he just came from seeing his primary care provider and that she is trying to get a ct order for him. Patient stated that his was able to sheepskin pickler his new medicine. Patient stated that he has no concerns or questions at this time. Tony Terry
[2024-09-23 09:14] LABS: Reticulin IgA Antibody Negative titer (Neg:<1:2.5)
== END 2024-09-19 13:25 | disposition home or self-care (01) | DRG 372 ==
LOC: ER 09:34 → 2ND 12:59
PROVIDERS: Admitting Provider Internal Medicine Adolescent Medicine; Emergency Provider Emergency Medicine; PCP Nurse Practitioner Family; Visit Provider Internal Medicine Adolescent Medicine
DX: A04.72 Enterocolitis due to Clostridium difficile, not specified as recurrent (principal); D62 Acute posthemorrhagic anemia; E66.9 Obesity, unspecified; Z79.01 Long term (current) use of anticoagulants; Z68.32 Body mass index [BMI] 32.0-32.9, adult; Z79.899 Other long term (current) drug therapy
CPT/HCPCS: 36415; 74174; 80053; 81001; 83516; 83605; 83690; 83735; 84100; 85025; 86255; 86256; 86803; 86850; 87389; 87491; 87507; 87591; 99285; G0378; J1171; J2060; J2270; J2405; J7120; Q9967

== ENCOUNTER 2024-09-21 15:25 | Outpatient (CLI) | payer BC, SELFPAY ==
--- NOTE | 2024-09-21 15:29 | CT_ITS ---
FINAL REPORT TECHNIQUE: Axial CT of the abdomen and pelvis, without and with IV contrast. This study was performed with techniques to keep radiation doses as low as reasonably achievable, (ALARA). Individualized dose reduction techniques using automated exposure control or adjustment of mA and/or kV according to the patient''s size were employed. CLINICAL HISTORY: INCREASED ABD PAIN COMPARISON: 09/17/2024 FINDINGS: Abdomen: Lung bases are clear. Liver has an unremarkable CT appearance. The spleen, gallbladder pancreas and adrenal glands are unremarkable. Precontrast imaging shows a tiny nonobstructing left renal stone. Postcontrast imaging of the kidneys shows no mass or obstruction. No bowel obstruction or fluid collection is seen. Pelvis: The appendix is normal. There are inflammatory changes seen in the proximal sigmoid colon likely representing with diverticulitis. Although, sigmoid colon mass cannot be excluded as cause of wall thickening. There is no abscess or obstruction. Urinary bladder and prostate are unremarkable. IMPRESSION: Abnormal wall thickening of the sigmoid colon suspicious for diverticulitis or less likely, mass. No associated obstruction or abscess identified. Reviewed, Interpreted and Dictated by Rossana Barroso MD Transcribed by Kylie Gauthier Authenticated and [facility]
[2024-09-21] MEDS: SODIUM CHLORIDE 0.9% 10ML SYR (RAD ONLY) 10 ML IV (15:46)
[2024-09-21] MEDS: IOPAMIDOL-370 (76%);100ML BOTTLE 75 ML IV (15:46)
== END 2024-09-21 23:59 | disposition home or self-care (01) ==
LOC: RAD 15:25
PROVIDERS: PCP Nurse Practitioner Family; Visit Provider Nurse Practitioner Family
DX: R10.32 Left lower quadrant pain (principal)
CPT/HCPCS: 74178; Q9967

== ENCOUNTER 2024-11-23 08:39 | Day surgery (SDC) | payer BC, SELFPAY ==
[2024-11-20 09:52] VITALS: BMI 31.1
[2024-11-23 09:37] VITALS: BP 131/78; PULSE 68; RESP 16; TEMP 36.7; O2SAT 97
[2024-11-23] MEDS: LACTATED RINGERS 1000ML 1,000 ML 50 ML IV (09:46)
--- NOTE | 2024-11-23 10:02 | P.PNANES_ITS ---
[facility] Disclaimer: The information contained in this section may have been updated after the patient was seen, as this information can be updated by other users. Medical History Ex-smoker for more than 1 year Diverticulitis Surgical History H/O hand surgery History of colonoscopy H/O wrist surgery H/O adenoidectomy Hx of tonsillectomy History of kidney surgery Family History Father Family history of cancer Social History (Updated 11/23/24 @ 09:45 by Leilani Jolley RN) Smoking Status: Former smoker tobacco type: cigarettes packs per day: 0 second hand exposure: No alcohol intake: current alcohol intake frequency: holidays/special occasions only counseling provided: provider counseling substance use type: denies use current occupational status: employed Travel in the last 8 weeks: None household members: family housing: house 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[employer], [employer] current occupational exposures/hazards: No caffeine: Yes Have you lived/traveled outside [place] in past 30 days?: No Contact w/someone who lives/traveled outside US past 30 days?: No Exposure to someone with infectious disease in past 14 days?: No Do you have a fever (greater than 100.4 F or 38 C)?: No Have you tested positive for COVID-19: No Exposed to someone with COVID-19 in past 14 days?: No Do you have a sore throat?: No Do you have a cough?: No Do you have any weakness?: No Are you experiencing any nausea/vomitting?: No Do you have any diarrhea?: No Are you experiencing any unusual bleeding?: No Do you have any muscle aches/pain?: No Do you have any abdominal pain?: No Are you experiencing loss of taste or smell?: No [facility] Anesthesia Checklist Patient Identification Patient Identification: Arm Band Structural Data Admitted From: Home Planned Operative Procedure/s: Colonoscopy Consent for Planned Operative Procedure(s) Verified: Yes Verified Documents: Surgical Consent and History and Physical NPO Status Verified Time NPO: 07:00 (finished prep) Additional verifications Anesthesia Reactions: Yes ('dont do good with gas -n/v) Hx Blood Transfusions: No Blood Transfusion Reaction: No Airway Assessment Mallampati Score:: Class II C-Spine Mobility Assessed: Yes TMJ Mobility Assessed: Yes Dentition: Good Dentition Neurological Assessment Level of Consciousness: Awake, Alert and Appropriate Anesthesia Plan Anesthesia Risk discussed: Yes Anesthesia Plan: Verified ASA Class: II Anesthesia Type: MAC
--- NOTE | 2024-11-23 10:42 | P.HP_ITS ---
History of Present Illness *Admission Date: 11/23/24 *History of present illness: Mr. Lr is a 44-year-old gentleman with lower abdominal pain especially left lower quadrant abdominal pain. 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 He was scheduled to see Dr. Philipp Nguyen in [place] for col onoscopy on 09/28. He was having more significant pain and given Flagyl or Augmentin by VISHAL Oliver. He was having pebble-like stools. He was having worsening constipation. He does take equate brand fiber supplement. He was having worsening pain over the 4 to 5 days prior to his hospital admission with rectal pain and spasm. He did have C. difficile in the past. His CAT scan showed extensive mucosal thickening and inflammation of the proximal and mid sigmoid colon with some inflammatory reactive adenopathy. During his hospitalization, his PCR panel was positive for C. difficile. He does state that this is very different than his prior C. difficile. He did have a repeat CAT scan yesterday that showed wall thickening of the sigmoid colon suspicious for diverticulitis. He does state that this is resulted in him having urinary hesitancy with difficult urination in the morning. He also has incomplete defecation with small frequent stools, longer periods on the commode and excessive wiping. [facility] Disclaimer: The information contained in this section may have been updated after the patient was seen, as this information can be updated by other users. Medical History (Updated 11/23/24 @ 10:44 by Roel Rodas II, MD) Ex-smoker for more than 1 year Diverticulitis Surgical History H/O hand surgery History of colonoscopy H/O wrist surgery H/O adenoidectomy Hx of tonsillectomy History of kidney surgery Family History Father Family history of cancer Social History (Updated 11/23/24 @ 09:45 by Leilani Jolley RN) Smoking Status: Former smoker tobacco type: cigarettes packs per day: 0 second hand exposure: No alcohol intake: current alcohol intake frequency: holidays/special occasions only counseling provided: provider counseling substance use type: denies use current occupational status: employed Travel in the last 8 weeks: None household members: family housing: house 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[employer], [employer] current occupational exposures/hazards: No caffeine: Yes Have you lived/traveled outside US in past 30 days?: No Contact w/someone who lives/traveled outside US past 30 days?: No Exposure to someone with infectious disease in past 14 days?: No Do you have a fever (greater than 100.4 F or 38 C)?: No Have you tested positive for COVID-19: No Exposed to someone with COVID-19 in past 14 days?: No Do you have a sore throat?: No Do you have a cough?: No Do you have any weakness?: No Are you experiencing any nausea/vomitting?: No Do you have any diarrhea?: No Are you experiencing any unusual bleeding?: No Do you have any muscle aches/pain?: No Do you have any abdominal pain?: No Are you experiencing loss of taste or smell?: No Other Medical History Have you received the Flu Vaccine for this season: No Have you received the Pneumonia Vaccine: No Review of Systems Review of Systems Review of systems (narrative): Negative *Cardiovascular Comments: Negative *Gastrointestinal Comments: Negative *Genitourinary Comments: Negative *Musculoskeletal Comments: Negative *Neurologic Comments: Negative Meds Home Medications and Allergies Home Medications ?Medication ?Instructions ?Recorded ?Confirmed ?Type L.acidoph,paracasei,B.animalis 10 1 tab PO DAILY 05/27/20 11/23/24 History billion cell capsule alfuzosin 10 mg tablet,extended 10 mg PO DAILY 05/27/20 11/23/24 History release 24 hr vancomycin 50 mg/mL oral solution 125 mg (2.5 mL) PO QID #0 mL 09/18/24 11/23/24 Rx (Firvanq) buspirone 10 mg tablet 10 mg PO BID #60 tabs 09/22/24 11/23/24 Rx diphenhydramine 25 2 tab PO HS 09/22/24 11/23/24 History mg-acetaminophen 500 mg tablet (Tylenol PM Extra Strength) meloxicam 15 mg tablet 15 mg PO DAILY 09/22/24 11/23/24 History psyllium seed (sugar) oral powder 1 tbsp PO DAILY 09/22/24 11/23/24 History (Metamucil (sugar) oral powder) sodium,potassium,mag sulfates 17.5 See Rx Instructions PO .COMPLEX 11/09/24 Rx gram-3.13 gram-1.6 gram oral soln #354 mL (Suprep Bowel Prep Kit) New Prescriptions to Start Prescriptions: Allergies Allergy/AdvReac Type Severity Reaction Status Date / Time ciprofloxacin (From Cipro) Allergy Severe Rash Verified 11/23/24 09:33 ibuprofen Allergy Mild Lips Verified 11/23/24 09:33 Swelling Exam Data for Last 24 hours Vital signs and Labs for Last 24 Hours: Temp Pulse Resp BP Pulse Ox O2 Del Method 98.0 F 68 16 131/78 97 Room Air 11/23/24 09:37 11/23/24 09:37 11/23/24 09:37 11/23/24 09:37 11/23/24 09:37 11/23/24 09:37 I & O for Last 24 hours: Intake & Output 11/20/24 11/21/24 11/22/24 11/23/24 23:59 23:59 23:59 23:59 Weight 230 lb *Routine HEENT Exam Head: Present normocephalic Eye: Present EOMI and PERRL ENT: Present mucous membranes moist *Routine Neck Exam Neck: Present supple *Routine Respiratory Exam Respiratory: Present CTA bilaterally *Routine Cardiovascular Exam Cardiovascular: Present RRR *Routine Abdominal Exam Abdominal: Present soft and normoactive bowel sounds; Absent tenderness *Routine Rectal Exam Rectal:: deferred *Routine Genitalia Exam Genitalia:: deferred *Routine Extremities Exam Extremities: Absent cyanosis, clubbing or edema *Routine Skin Exam Skin: Present warm; Absent rash *Routine Neurological Exam Neurological: Present alert and oriented X3 Assessment and Plan *Assessment and plan (1) Sigmoid diverticulitis: Status: Acute Category: Medical Code(s): K57.32 - Diverticulitis of large intestine without perforation or abscess without bleeding (2) C. difficile colitis: Status: Acute Category: Medical Code(s): A04.72 - Enterocolitis due to Clostridium difficile, not specified as recurrent (3) Lower abdominal pain: Status: Acute Category: Medical Code(s): R10.30 - Lower abdominal pain, unspecified (4) Rectal bleeding: Status: Acute Category: Medical Code(s): K62.5 - Hemorrhage of anus and rectum (5) Mucus in stool: Status: Acute Category: Medical Code(s): R19.5 - Other fecal abnormalities (6) Left lower quadrant abdominal pain: Status: Acute Category: Medical Code(s): R10.32 - Left lower quadrant pain Plan A/P: 1. Left lower quadrant abdominal pain with CAT scan showing thickening of the sigmoid colon is the preprocedural diagnosis. The patient will be anesthetized/sedated using MAC sedation. The patient has been seen and examined. Cardiac and lung assessment prior to the examination is stable. P roceed with planned diagnostic colonoscopy.
--- NOTE | 2024-11-23 10:50 | P.PCN_ITS ---
[facility] Procedure Note Date: 11/23/24 Time: 11:04 Procedure Note:: Colonoscopy Procedure Report: Colonoscopy with cold snare polypectomy Endoscopist: Roel Rodas II, MD Referring physician: VISHAL Oliver Date of Procedure: November 23, 2024 Equipment: Olympus 190 variable stiffness pediatric colonoscope Sedation: MAC sedation Indication: Mr. Lr is a 44-year-old gentleman who is here for diagnostic colonoscopy. The patient has had lower abdominal pain especially left lower q uadrant abdominal pain. 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 He was scheduled to see Dr. Philipp Nguyen in [place] for colonoscopy on 09/28. He was having more significant pain and given Flagyl or Augmentin by VISHAL Oliver. He was having pebble-like stools. He was having worsening constipation. He does take equate brand fiber supplement. He was having worsening pain over the 4 to 5 days prior to his hospital admission with rectal pain and spasm. He did have C. difficile in the past. His CAT scan showed extensive mucosal thickening and inflammation of the proximal and mid sigmoid colon with some inflammatory reactive adenopathy. During his hospitalization, his PCR panel was positive for C. difficile. He does state that this is very different than his prior C. difficile. He did have a repeat CAT scan in September that showed wall thickening of the sigmoid colon suspicious for diverticulitis. He does state that this is resulted in him having urinary hesitancy with difficult urination in the morning. He also has incomplete defecation with small frequent stools, longer periods on the commode and excessive wiping. Procedure: Prior to the procedure, a history and physical exam was performed, and patient's medications and allergies were reviewed. The risks, benefits and alternatives of the sedation and procedure were discussed with the patient. All questions were answered and informed consent was obtained. The patient was brought to the procedure room. Patient identification and proposed procedure were verified by the physician and the nurse. The patient was placed in a left lateral decubitus position and the scope was passed under direct vision. Throughout the procedure, the patient's blood pressure, pulse, and oxygen saturations were monitored continuously. The colonoscopy was accomplished without difficulty. The patient tolerated the procedure well. Findings: On digital rectal examination there was normal rectal tone. There were no external hemorrhoids. The colonoscope was introduced through the anal canal to the rectum and advanced to the cecum. The ileocecal valve and appendiceal orifice were identified. The scope was advanced a short distance into the ileum which appeared grossly normal. The scope was then withdrawn into the colon. The cecum, ascending and transverse colon and mucosa were grossly normal. There were scattered diverticuli throughout the descending and sigmoid colon (LEFT colon). There was sigmoid haustral edema suggestive of chronic sigmoid diverticulitis or smoldering sigmoid diverticulitis. There was a diminutive 5 to 6 mm polyp in the sigmoid colon removed via cold snare polypectomy. The rectum itself was normal. Upon retroflexion within the rectum there were grade 2 internal hemo rrhoids. The preparation was excellent throughout with [place]wood Preparation Score of 9. The cecal time was 14 minutes. Impression: 1. Left-sided diverticulosis with evidence of chronic smoldering sigmoid diverticulitis 2. Diminutive sigmoid polyp (5 to 6 mm) 3. Grade 2 internal hemorrhoids Plan: I will follow-up the polyp histology and if the polyp is adenomatous, would recommend repeat surveillance colonoscopy again in 7 years. Diverticulitis is defined as inflammation of a diverticulum which occurs when there is thinning of the diverticular wall from increased intraluminal gas pressure within the colon or hardened particles of stool which can become lodged within the diverticulum pocket. These events reduce blood flow to this small pocket and increase the risk of inflammation and infection. This is called diverticulitis. There are uncomplicated and complicated forms of diverticulitis as well as acute and chronic diverticulitis. Uncomplicated diverticulitis accounts for 75% of cases and is not associated with complication and typically responds to medical treatment without surgery. Complicated diverticulitis which involves having a colonic diverticular abscess, fistula, obstruction or perforation (with peritonitis) which accounts for the remaining 25%, most often requires surgery. The patient does not yet have complicated diverticulitis but does have some chronic smoldering sigmoid diverticulitis. Persons who initially improve with antibiotics but later experience recurring symptoms including left lower abdominal pain and change in bowel habits have chronic smoldering diverticulitis. If the symptoms remain persistent for more than 12 weeks, it is best to be referred to a colorectal surgeon for evaluation.
[2024-11-23 11:11] VITALS: BP 116/65; PULSE 65; RESP 16; TEMP 36.2; O2SAT 96
[2024-11-23 11:21] VITALS: BP 114/64; PULSE 63; RESP 16; O2SAT 98
[2024-11-23 11:31] VITALS: BP 127/75; PULSE 64; RESP 16; O2SAT 97
[2024-11-23 11:41] VITALS: BP 125/80; PULSE 62; RESP 16; O2SAT 98
== END 2024-11-23 11:54 | disposition home or self-care (01) ==
PROVIDERS: PCP Nurse Practitioner Family; Visit Provider Internal Medicine Gastroenterology
PROC: 0DJD8ZZ Inspection of Lower Intestinal Tract, Via Natural or Artificial Opening Endoscopic (ICD-10-PCS; CPT 45378; principal; 2024-11-23 10:30)
DX: K63.5 Polyp of colon (principal); K64.1 Second degree hemorrhoids; K57.32 Diverticulitis of large intestine without perforation or abscess without bleeding; A04.72 Enterocolitis due to Clostridium difficile, not specified as recurrent; R10.30 Lower abdominal pain, unspecified; R19.5 Other fecal abnormalities; R10.32 Left lower quadrant pain
CPT/HCPCS: 45385; J7120

== ENCOUNTER 2025-02-24 11:59 | Inpatient (IN) | payer BC, SELFPAY ==
[2025-02-24] VITALS (9 sets, daily range): BP systolic 106–152; BP diastolic 56–93; PULSE 51–87; RESP 15–16; TEMP 36.5–36.7; O2SAT 96–99; BMI 31.1
--- NOTE | 2025-02-24 12:02 | HMH.EDGENADL ---
Discharge Plan Disposition Patient Disposition: Admitted Clinical Impressions Clinical Impression: Colitis Discharge ED Provider: Savannah Dalal General Adult HPI General Chief complaint: Abdominal Pain Stated complaint: Diverticulitis and colitis flare up Time Seen by Provider: 02/24/25 12:02 History of Present Illness HPI narrative: Patient is a 44-year-old male with a past medical history of colitis and diverticulitis who follows with Dr. Rodas here at [facility] who returns to the emergency department today with suprapubic and left lower quadrant abdominal pain. Patient states that he has a history of colitis and diverticulitis has had previous colonoscopies. Patient states that he was recently on Flagyl, his antibiotics have recently been changed to doxycycline. Patient states over the last 3 days he has had pus drainage from his rectum decreased bowel movements. Patient still passing gas. Patient denies any fevers. Patient reports nausea but no vomiting. Patient states that his GI doctor has recommended colorectal follow-up and patient has an appointment on March 02. Patient denies any other medical problems at this time, does not take any other daily medications. Patient reports 1 prior abdominal surgery at age 12 but none recently. Related Data Home Medications ?Medication ?Instructions ?Recorded ?Confirmed L.acidoph,paracasei,B.animalis 10 1 tab PO DAILY 05/27/20 02/24/25 billion cell capsule alfuzosin 10 mg tablet,extended 10 mg PO DAILY 05/27/20 02/24/25 release 24 hr meloxicam 15 mg tablet 15 mg PO DAILY 09/22/24 02/24/25 psyllium seed (sugar) oral powder 1 tbsp PO DAILY 09/22/24 02/24/25 (Metamucil (sugar) oral powder) Previous Rx's ?Medication ?Instructions ?Recorded buspirone 10 mg tablet 10 mg PO BID #60 tabs 12/18/24 doxycycline hyclate 100 mg capsule 100 mg PO DAILY #30 caps 02/23/25 Allergies Allergy/AdvReac Type Severity Reaction Status Date / Time ciprofloxacin (From Cipro) Allergy Severe Rash Verified 11/23/24 09:33 ibuprofen Allergy Mild Lips Verified 11/23/24 09:33 Swelling PFSH FOR[facility] Disclaimer: The information contained in this section may have been updated after the patient was seen, as this information can be updated by other users. Medical History (Updated 02/24/25 @ 17:05 by Julia Blake APRN) Ex-smoker for more than 1 year Diverticulitis Surgical History H/O hand surgery History of colonoscopy H/O wrist surgery H/O adenoidectomy Hx of tonsillectomy History of kidney surgery Family History Father Family history of cancer Social History (Updated 02/24/25 @ 15:34 by Erin Mendez RN) Smoking Status: Former smoker tobacco type: cigarettes packs per day: 0 second hand exposure: No alcohol intake: never counseling provided: provider counseling substance use type: denies use current occupational status: employed Travel in the last 8 weeks?: None household members: family housing: house 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[employer] current occupational exposures/hazards: No caffeine: Yes Have you lived/traveled outside [place] in past 30 days?: No Contact w/someone who lives/traveled outside US past 30 days?: No Exposure to someone with infectious disease in past 14 days?: No Do you have a fever (greater than 100.4 F or 38 C)?: No Have you tested positive for COVID-19?: No Exposed to someone with COVID-19 in past 14 days?: No Do you have a sore throat?: No Do you have a cough?: No Do you have any weakness?: No Do you have any diarrhea?: No Are you experiencing any unusual bleeding?: No Do you have any muscle aches/pain?: No Do you have any abdominal pain?: Yes Are you experiencing loss of taste or smell?: No Other Medical History Have you received the Flu Vaccine for this season: No Have you received the Pneumonia Vaccine: No ROS Obtained: Yes All systems reviewed & no additional complaints except as documented and Yes Systems reviewed as appropriate & no additional complaints except as documented Physical Exam General General appearance: alert and in no apparent distress Head Head exam: atraumatic, normocephalic and normal inspection Eye Eye exam: Present normal appearance, PERRL and EOMI; Absent scleral icterus ENT ENT exam: Present normal exam and normal external ear exam Neck Neck exam: Present normal inspection and full ROM Chest Chest inspection: Present normal inspection and symmetric chest wall rise Respiratory Respiratory exam: Present normal lung sounds bilaterally; Absent respiratory distress or wheezes Cardiovascular Cardiovascular exam: Present regular rate, normal rhythm and normal heart sounds Abdominal Exam Abdominal exam: Present soft and distention; Absent tenderness, guarding or rebound Abdominal tenderness: Present LLQ and suprapubic Extremities Exam Extremities exam: Present normal inspection and full ROM Back Exam Back exam: Present normal inspection and full ROM Neurological Exam Neurological exam: Present alert and oriented X3 Psychiatric Psychiatric exam: Present normal affect and normal mood Skin Skin exam: Present warm and dry Medical Decision Making Medical Records Screening: Per USPSTF and CDC recommendations, given the prevalence of disease in our region, it is our hospital?s policy to screen for HIV and viral Hepatitis for all patients aged 18 and over and those with ongoing risk factors. Mehul Inquiry Pt receiving controlled substance: No Vital Signs: 02/24/25 12:04 02/24/25 12:31 02/24/25 12:38 Temperature 97.7 F Temperature Source Oral Pulse Rate 62 Pulse Rate [Right] 65 Respiratory Rate 15 Blood Pressure 152/93 H 145/70 H Blood Pressure [Right Arm] 152/93 H Blood Pressure Mean 113 Blood Pressure Mean [Right Arm] 112 Blood Pressure Source Blood Pressure Source [Right Arm] Automatic Cuff Blood Pressure Position Blood Pressure Position [Right Arm] Supine 02 Sat by Pulse Oximetry 98 98 Oxygen Delivery Method Room Air 02/24/25 13:00 02/24/25 14:49 02/24/25 14:51 Temperature Temperature Source Pulse Rate 59 L 58 L Pulse Rate [Right] Respiratory Rate Blood Pressure 134/79 119/57 L 119/57 L Blood Pressure [Right Arm] Blood Pressure Mean 97 Blood Pressure Mean [Right Arm] Blood Pressure Source Blood Pressure Source [Right Arm] Blood Pressure Position Blood Pressure Position [Right Arm] 02 Sat by Pulse Oximetry 99 96 Oxygen Delivery Method Room Air 02/24/25 15:48 Temperature 98.1 F Temperature Source Oral Pulse Rate 87 Pulse Rate [Right] Respiratory Rate 15 Blood Pressure 150/84 H Blood Pressure [Right Arm] Blood Pressure Mean Blood Pressure Mean [Right Arm] Blood Pressure Source Automatic Cuff Blood Pressure Source [Right Arm] Blood Pressure Position Sitting Blood Pressure Position [Right Arm] 02 Sat by Pulse Oximetry Oxygen Delivery Method Room Air Lab Data Lab Results 02/24/25 12:17: WBC 8.5, RBC 4.71, Hgb 12.5 L, Hct 39.5 L, MCV 83.9, MCH 26.5 L, MCHC 31.6 L, RDW 14.9, Plt Count 237, MPV 9.7, Neut % (Auto) 70.7, Lymph % (Auto) 18.9, [place] % (Auto) 8.5, Eos % (Auto) 1.3, Baso % (Auto) 0.2, Neut # (Auto) 6.0, Lymph # (Auto) 1.6, [place] # (Auto) 0.7, Eos # (Auto) 0.1, Baso # (Auto) 0.0, ESR 42 H, Sodium 139, Potassium 4.2, Chloride 101, Carbon Dioxide 28, Anion Gap 14.2, BUN 11, Creatinine 0.80, Estimated Creat Clear 174, Estimated GFR 105, Est GFR ( Amer) 127, Glucose 101 H, Calcium 9.7, Total Bilirubin 0.6, AST 23, ALT 17, Alkaline Phosphatase 102, C-Reactive Protein 67.8 H, Total Protein 7.8, Albumin 4.4, Globulin 3.4 H, Albumin/Globulin Ratio 1.3 02/24/25 12:17 02/24/25 12:17 Orders (Tests/Meds): ED MEDICATIONS Generic Name Dose Route Start Last Admin Trade Name Freq PRN Reason Stop Dose Admin Acetaminophen 650 mg 02/24/25 16:15 Acetaminophen 325mg Tab PO 03/26/25 16:14 Q4HP PRN Fever or Mild Pain (1-3) Buspirone HCl 10 mg 02/24/25 21:00 Buspirone Hcl 10 Mg Tablet PO 03/26/25 20:59 BID DARION Enoxaparin Sodium 40 mg 02/25/25 09:00 Enoxaparin 40mg/0.4ml Syringe SUBCUT 03/27/25 08:59 DAILY DARION Piperacillin Sod/Tazobactam 50 mls @ 100 mls/hr 02/24/25 16:00 Sod 3.375 gm/ Sodium Chloride IV 03/06/25 15:59 Q6H DARION Sodium Chloride 1,000 mls @ 100 mls/hr 02/24/25 17:00 Sod Chlor 0.9% 1000ml Bag IV 03/26/25 16:59 .Q10H DARION Mesalamine 1,600 mg 02/24/25 15:00 02/24/25 15:[address] PO 03/26/25 14:59 1,600 mg TID DARION Administration Morphine Sulfate 4 mg 02/24/25 16:18 Morphine 4mg/Ml Syringe IV 03/26/25 16:17 Q4HP PRN Severe Pain (7-10) Morphine Sulfate 2 mg 02/24/25 17:02 Morphine 2mg/Ml Syringe IV 03/26/25 17:01 Q2HP PRN Moderate Pain (4-6) Ondansetron HCl 4 mg 02/24/25 16:15 Ondansetron 4mg/2ml Vial IV 03/26/25 16:14 Q8HP PRN Nausea Sodium Chloride 10 ml 02/24/25 15:15 Sodium Chloride 0.9% 10ml Flush Syringe IV 03/26/25 15:14 NEEDED PRN Maintain IV Site Sodium Chloride 10 ml 02/24/25 16:54 Sodium Chloride 0.9% 10ml Flush Syringe IV 03/26/25 16:53 NEEDED PRN Maintain IV Site Tamsulosin HCl 0.4 mg 02/24/25 21:00 Tamsulosin 0.4mg Capsule PO 03/26/25 20:59 HS DARION Discontinued Medications Generic Name Dose Route Start Last Admin Trade Name Freq PRN Reason Stop Dose Admin Diazepam 5 mg 02/24/25 15:20 02/24/25 15:25 Diazepam 10mg/2ml Syringe IV 02/24/25 15:21 5 mg ONCE ONE Administration Dicyclomine HCl 20 mg 02/24/25 14:48 02/24/25 15:25 Dicyclomine 10mg Capsule PO 02/24/25 14:49 20 mg ONCE ONE Administration Piperacillin Sod/Tazobactam 50 mls @ 100 mls/hr 02/24/25 16:00 Sod 3.375 gm/ Sodium Chloride IV 03/06/25 15:59 Q6H DARION Iopamidol 75 ml 02/24/25 13:09 02/24/25 13:12 Iopamidol-370 (76%);100ml Bottle IV 02/24/25 13:10 75 ml ONCE ONE Administration Morphine Sulfate 4 mg 02/24/25 12:34 02/24/25 12:47 Morphine 4mg/Ml Syringe IV 02/24/25 12:35 4 mg ONCE ONE Administration Ondansetron HCl 4 mg 02/24/25 12:34 02/24/25 12:47 Ondansetron 4mg/2ml Vial IV 02/24/25 12:35 4 mg ONCE ONE Administration Sodium Chloride 10 ml 02/24/25 13:09 02/24/25 13:12 Sodium Chloride 0.9% 10ml Syr (Rad Only) IV 03/26/25 13:08 10 ml NEEDED PRN Administration Maintain IV Site ORDERS Category Date Time Status CT abdomen pelvis w con Stat Cat Scan 02/24/25 12:34 Completed CBC w/Auto Diff [Complete Blood Count Auto Diff] Stat Lab 02/24/25 12:17 Completed CMP [Comprehensive Metabolic Panel] Stat Lab 02/24/25 12:17 Completed CRP [C-Reactive Protein] Stat Lab 02/24/25 12:17 Completed ESR [Erythrocyte Sedimentation Rate] Stat Lab 02/24/25 12:17 Completed Blood Culture Stat Micro 02/24/25 14:03 Received Medical Decision Narrative: Patient is a 44-year-old gentleman with a past medical history of colitis and diverticulitis who presents to the emergency department with abdominal pain. On arrival, patient was hemodynamically stable with unremarkable vital signs. Differential includes but not limited to diverticulitis, bowel perforation, colitis, gastroenteritis, intra-abdominal abscess, acute on chronic abdominal pain, amongst others. Patient's labs were reviewed and interpreted by myself, CBC showed no leukocytosis, hemoglobin was stable. ESR mildly elevated at 42. CRP elevated at 67. CT scan of the abdomen was obtained which showed diffuse colonic inflammation and thickening especially in the proximal colon. Patient received IV narcotics in the emergency department reported persistent and severe pain. I discussed the case with Dr. Rodas with GI who recommended IV benzodiazepines, Bentyl as well as mesalamine. Given patient's continued severe pain, I discussed the case with hospital medicine who agreed admission at this time. Given no acute surgical pathology I did not feel the patient warranted transfer for surgical evaluation at this time. Critical Care Critical Care Time Critical Care Time: No
--- OUTSIDE RECORDS SUMMARY | 2025-02-24 12:11 | XMS_ITS | Data Portability ---
Author Organization [facility] Address [address] [place] [address] Assessment Encounter Date Assessment Date Assessment LastModified by Organization Details LastModified Time 07/19/2022 07/19/2022 -Medications were reviewed and any necessary updates and renewals were made, patient instructed to complete as prescribed. -The potential side effects of medications were discussed. -Counseling was done on care goals and ways to prevent future hospitalizatio ns. -Further treatment per orders listed below. [email or web address] Not available 07/19/2022 16:11:27 09/21/2024 09/21/2024 -Medications were reviewed and any necessary updates and renewals were made, patient instructed to complete as prescribed. -The potential side effects of medications were discussed. -Counseling was done on care goals and ways to prevent future hospitalizatio ns. -Further treatment per orders listed below. [email or web address] Not available 09/21/2024 09:34:58 Plan of Treatment Reminders Order Date Submit Date Provider Last Modified By Organization Details Last Modified Time Details Appointments None recorded. Lab urinalysis, dipstick 2024 025 [facility], [address] [place] [address], [place], [address], 13:38:44 culture, urine 2024 025 [facility], [address], Steven [address], [place], [address], 02:06:02 magnesium, serum or plasma 2023 024 [facility], [address], [place] [address], [place], [address], 4 15:07:37 calcium, ionized, quant ISE, serum or plasma 2023 024 [facility], [address], [place], [place], [address], 4 15:07:38 CMP, serum or plasma 2023 024 [facility], [address], [place], [place], [address], 4 15:07:35 vitamin B12 + folate, serum or blood 2023 024 [facility], [address], [place] [address], [place], [address], 4 15:07:36 erythrocyte sedimentati on rate by westergren method 2023 024 [facility], [address], [address], [place], [address], 4 15:07:37 C reactive protein, QN, serum or plasma 2023 024 [facility], [address], [place], [place], [address], 4 15:07:38 drug screen, urine 2023 024 [facility], [address] [place], [address], 4 09:42:26 TSH + free T4, serum 2023 024 [facility], [address], [address], [place], [address], 4 09:09:07 PSA, serum or plasma 2023 024 [facility], [address], [place] [address], [place], [address], 4 09:09:10 ESR (erythrocyt e sedimentati on rate), blood 2023 024 [facility], [address], [place], [place], [address], 4 09:09:11 CBC w/ auto diff 2023 024 [facility], [address], [place], [place], [address], 4 09:09:08 CMP, serum or plasma 2023 024 [facility], [address], [address], [place], [address], 4 09:09:09 urinalysis, dipstick 2023 024 [facility], [address] [facility], [place], [address], 4 10:05:18 lipid panel, serum 2023 024 [facility], [address], Steven [address], [place], [address], 4 09:09:10 Referral None recorded. Procedures None recorded. Surgeries None recorded. Imaging CT, abdomen + pelvis, w/wo contrast - increase in abd pain,tender ness and bb issues 2024 025 [facility] Scheduling Department -New Scheduling Process, [address], [place], [address], 5 07:50:16 Medication Orders meloxicam 15 mg tablet 2024 025 [facility], [address], [address], 5 10:32:14 Vistaril 25 mg capsule 2024 025 [facility], [address] [place], [address], 5 13:35:04 alfuzosin ER 10 mg tablet,exte nded release 24 hr 2024 025 [facility], [address] [place], [address], 5 10:32:18 hyoscyamine sulfate 0.125 mg tablet 2024 025 [facility], [address], [address], 5 10:32:17 Adipex-P 37.5 mg tablet 2023 024 [facility], [address], [address], 4 13:15:57 meloxicam 15 mg tablet 2023 024 [facility], [address], [address], 4 09:27:35 Flagyl 500 mg tablet 2021 022 [facility], [address], [address], 5 09:35:37 Patient TargetsNo targets recorded. Patient Instructions Encounter Date Encounter Id Patient Instructions Last Modified By Organization Details Last Modified Time 09/09/2023 [id number] learning about healthy weight efryman Not available 09/09/2023 09:27:29 body mass index: care instructions efryman Not available 09/09/2023 09:27:28 Reason for Referral None Reported. Results Created Date Observation Date Name Description Value Unit Range Abnormal Flag Note LastModifiedBy Organization Detail LastModifiedTime 07/12/20 22 07/12/2022 HbA1c (hemo globi n A1c), blood HbA1C 5.5 % Not Available [address], [address], 07/12/2022 16:41:07 09/09/19 24 09/10/2023 TSH+F REE T4 TSH 1.090 uIU/m L 0.450- 4.500 Not Available [facility] ([facility]) [address] [place], [address], 09/10/2023 09:09:07 09/09/19 24 09/10/2023 TSH+F REE T4 T4,free(dire ct) 1.12 NG/dL 0.82-1 .77 Not Available [facility] ([facility]) [address] [place], [address], 09/10/2023 09:09:07 09/09/19 24 09/10/2023 CBC WITH DIFFE RENTI AL/PL ATELE T WBC 6.2 x10e3 /uL 3.4-10 .8 Not Available [facility] ([facility]) [address] [place], [address], 09/10/2023 09:09:08 09/09/1909/10/2023 CBC WITH DIFFE RENTI AL/PL ATELE T RBC 4.77 x10e6 /uL 4.14-5 .80 Not Available [facility] ([facility]) [address] [place], [address], 09/10/2023 09:09:08 09/09/19 24 09/10/2023 CBC WITH DIFFE RENTI AL/PL ATELE T hemoglobin 13.2 g/dL 13.0-1 7.7 Not Available [facility] ([facility]) [address] [place], [address], 09/10/2023 09:09:08 09/09/19 24 09/10/2023 CBC WITH DIFFE RENTI AL/PL ATELE T hematocrit 40.6 % 37.5-5 1.0 Not Available [facility] ([facility]) [address] [facility], [place], [address], 09/10/2023 09:09:08 09/09/19 24 09/10/2023 CBC WITH DIFFE RENTI AL/PL ATELE T MCV 85 fL 79-97 Not Available [facility] ([facility]) [address] [facility], [place], [address], 09/10/2023 09:09:08 09/09/19 24 09/10/2023 CBC WITH DIFFE RENTI AL/PL ATELE T MCH 27.7 pg 26.6-3 3.0 Not Available [facility] ([facility]) [address] [facility], [place], [address], 09/10/2023 09:09:08 09/09/19 24 09/10/2023 CBC WITH DIFFE RENTI AL/PL ATELE T MCHC 32.5 g/dL 31.5-3 5.7 Not Available [facility] ([facility]) [address] [facility], [place], [address], 09/10/2023 09:09:08 09/09/19 24 09/10/2023 CBC WITH DIFFE RENTI AL/PL ATELE T RDW 14.2 % 11.6-1 5.4 Not Available [facility] ([facility]) [address] [place], [address], 09/10/2023 09:09:08 09/09/19 24 09/10/2023 CBC WITH DIFFE RENTI AL/PL ATELE T platelets 244 x10e3 /uL 150-45 0 Not Available [facility] ([facility]) [address] [place], [address], 09/10/2023 09:09:08 09/09/19 24 09/10/2023 CBC WITH DIFFE RENTI AL/PL ATELE T neutrophils 60 % not estab. Not Available [facility] ([facility]) [address] [facility], [place], [address], 09/10/2023 09:09:08 09/09/19 24 09/10/2023 CBC WITH DIFFE RENTI AL/PL ATELE T lymphs 29 % not estab. Not Available [facility] ([facility]) [address] [facility], [place], [address], 09/10/2023 09:09:08 09/09/19 24 09/10/2023 CBC WITH DIFFE RENTI AL/PL ATELE T monocytes 8 % not estab. Not Available [facility] ([facility]) [address] [facility], [place], [address], 09/10/2023 09:09:08 09/09/19 24 09/10/2023 CBC WITH DIFFE RENTI AL/PL ATELE T eos 2 % not estab. Not Available [facility] ([facility]) [address] [facility], [place], [address], 09/10/2023 09:09:08 09/09/19 24 09/10/2023 CBC WITH DIFFE RENTI AL/PL ATELE T basos 0 % not estab. Not Available [facility] ([facility]) [address] [facility], [place], [address], 09/10/2023 09:09:08 09/09/19 24 09/10/2023 CBC WITH DIFFE RENTI AL/PL ATELE T immature cells PARACHUTE PANEL JOINER Not Available [facility] ([facility]) [address] [facility], [place], [address], 09/10/2023 09:09:08 09/09/19 24 09/10/2023 CBC WITH DIFFE RENTI AL/PL ATELE T neutrophils (absolute) 3.7 x10e3 /uL 1.4-7. 0 Not Available [facility] ([facility]) [address] [facility], [place], [address], 09/10/2023 09:09:08 09/09/19 24 09/10/2023 CBC WITH DIFFE RENTI AL/PL ATELE T lymphs (absolute) 1.8 x10e3 /uL 0.7-3. 1 Not Available [facility] ([facility]) [address] [facility], [place], [address], 09/10/2023 09:09:08 09/09/19 24 09/10/2023 CBC WITH DIFFE RENTI AL/PL ATELE T monocytes(ab solute) 0.5 x10e3 /uL 0.1-0. 9 Not Available [facility] ([facility]) [address] [facility], [place], [address], 09/10/2023 09:09:08 09/09/19 24 09/10/2023 CBC WITH DIFFE RENTI AL/PL ATELE T eos (absolute) 0.1 x10e3 /uL 0.0-0. 4 Not Available [facility] ([facility]) [address] [facility], [place], [address], 09/10/2023 09:09:08 09/09/19 24 09/10/2023 CBC WITH DIFFE RENTI AL/PL ATELE T baso (absolute) 0.0 x10e3 /uL 0.0-0. 2 Not Available [facility] ([facility]) [address] [facility], [place], [address], 09/10/2023 09:09:08 09/09/1909/10/2023 CBC WITH DIFFE RENTI AL/PL ATELE T immature granulocytes 1 % not estab. Not Available [facility] ([facility]) [address] [facility], [place], [address], 09/10/2023 09:09:08 09/09/19 24 09/10/2023 CBC WITH DIFFE RENTI AL/PL ATELE T immature grans (abs) 0.0 x10e3 /uL 0.0-0. 1 Not Available [facility] ([facility]) [address] [facility], [place], [address], 09/10/2023 09:09:08 09/09/19 24 09/10/2023 CBC WITH DIFFE RENTI AL/PL ATELE T NRBC PARACHUTE PANEL JOINER Not Available [facility] ([facility]) [address] [facility], [place], [address], 09/10/2023 09:09:08 09/09/19 24 09/10/2023 CBC WITH DIFFE RENTI AL/PL ATELE T hematology comments: PARACHUTE PANEL JOINER Not Available [facility] ([facility]) [address] [facility], [place], [address], 09/10/2023 09:09:08 09/09/19 24 09/10/2023 COMP. METAB OLIC PANEL (14) glucose 95 mg/dL 70-99 Not Available [facility] ([facility]) [address] [facility], [place], [address], 09/10/2023 09:09:09 09/09/19 24 09/10/2023 COMP. METAB OLIC PANEL (14) BUN 14 mg/dL 6-24 Not Available [facility] ([facility]) [address] [facility], [place], [address], 09/10/2023 09:09:09 09/09/19 24 09/10/2023 COMP. METAB OLIC PANEL (14) creatinine 0.91 mg/dL 0.76-1 .27 Not Available [facility] ([facility]) [address] [facility], [place], [address], 09/10/2023 09:09:09 09/09/19 24 09/10/2023 COMP. METAB OLIC PANEL (14) eGFR 107 mL/mi n/1.7 3 >59 Not Available [facility] ([facility]) [address], [place], [address], 09/10/2023 09:09:09 09/09/19 24 09/10/2023 COMP. METAB OLIC PANEL (14) BUN/creatini ne ratio 15 9-20 Not Available [facility] ([facility]) [address], [place], [address], 09/10/2023 09:09:09 09/09/19 24 09/10/2023 COMP. METAB OLIC PANEL (14) sodium 140 mmol/ L 134-14 4 Not Available [facility] ([facility]) [address], [place], [address], 09/10/2023 09:09:09 09/09/19 24 09/10/2023 COMP. METAB OLIC PANEL (14) potassium 4.6 mmol/ L 3.5-5. 2 Not Available [facility] ([facility]) [address], [place], [address], 09/10/2023 09:09:09 09/09/19 24 09/10/2023 COMP. METAB OLIC PANEL (14) chloride 104 mmol/ L 96-106 Not Available [facility] ([facility]) [address], [place], [address], 09/10/2023 09:09:09 09/09/19 24 09/10/2023 COMP. METAB OLIC PANEL (14) carbon dioxide, total 23 mmol/ L 20-29 Not Available [facility] ([facility]) [address], [place], [address], 09/10/2023 09:09:09 09/09/19 24 09/10/2023 COMP. METAB OLIC PANEL (14) calcium 9.7 mg/dL 8.7-10 .2 Not Available [facility] ([place] [facility]) [address] [facility], [place], [address], 09/10/2023 09:09:09 09/09/19 24 09/10/2023 COMP. METAB OLIC PANEL (14) protein, total 7.0 g/dL 6.0-8. 5 Not Available [facility] ([place]) [address], [place], [address], 09/10/2023 09:09:09 09/09/19 24 09/10/2023 COMP. METAB OLIC PANEL (14) albumin 4.3 g/dL 4.1-5. 1 Not Available [facility] ([facility]) [address], [place], [address], 09/10/2023 09:09:09 09/09/19 24 09/10/2023 COMP. METAB OLIC PANEL (14) globulin, total 2.7 g/dL 1.5-4. 5 Not Available [facility] ([facility]) [address], [place], [address], 09/10/2023 09:09:09 09/09/19 24 09/10/2023 COMP. METAB OLIC PANEL (14) A/G ratio 1.6 1.2-2. 2 Not Available [facility] ([facility]) [address], [place], [address], 09/10/2023 09:09:09 09/09/19 24 09/10/2023 COMP. METAB OLIC PANEL (14) bilirubin, total 0.3 mg/dL 0.0-1. 2 Not Available [facility] ([facility]) [address], [place], [address], 09/10/2023 09:09:09 09/09/19 24 09/10/2023 COMP. METAB OLIC PANEL (14) alkaline phosphatase 88 IU/L 44-121 Not Available [facility] ([place] [facility]) [address], [place], [address], 09/10/2023 09:09:09 09/09/19 24 09/10/2023 COMP. METAB OLIC PANEL (14) AST (SGOT) 18 IU/L 0-40 Not Available [facility] ([facility]) [address] [place], [address], 09/10/2023 09:09:09 09/09/19 24 09/10/2023 COMP. METAB OLIC PANEL (14) ALT (SGPT) 17 IU/L 0-44 Not Available [facility] ([facility]) [address] [place], [address], 09/10/2023 09:09:09 09/09/19 24 09/10/2023 LIPID PANEL cholesterol, total 212 mg/dL 100-19 9 above high normal Not Available [facility] ([facility]) [address] [place], [address], 09/10/2023 09:09:10 09/09/19 24 09/10/2023 LIPID PANEL triglyceride s 130 mg/dL 0-149 Not Available [facility] ([facility]) [address] [place], [address], 09/10/2023 09:09:10 09/09/19 24 09/10/2023 LIPID PANEL HDL cholesterol 41 mg/dL >39 Not Available [facility] ([facility]) [address] [place], [address], 09/10/2023 09:09:10 09/09/19 24 09/10/2023 LIPID PANEL VLDL cholesterol paulo 24 mg/dL 5-40 Not Available [facility] ([facility]) [address] [place], [address], 09/10/2023 09:09:10 09/09/19 24 09/10/2023 LIPID PANEL LDL chol calc ([facility]) 147 mg/dL 0-99 above high normal Not Available [facility] ([facility]) [address] [facility] [place], [address], 09/10/2023 09:09:10 09/09/19 24 09/10/2023 LIPID PANEL comment: PARACHUTE PANEL JOINER Not Available [facility] ([facility]) [address] [facility], [place], [address], 09/10/2023 09:09:10 09/09/19 24 09/10/2023 PSA TOTAL (REFL EX TO FREE) prostate specific Ag 1.2 NG/mL 0.0-4. 0 Red ECLIA metho dolog y. Accor ding to the Ameri can [employer] g[employer] iatio n, Serum PSA shoul d decre ase and remai n at undet ectab le level s after radic al prost atect abrahan. The AUA defin es bioch emica l recur rence as an initi al PSA value 0.2 ng/mL or great er follo wed by a subse quent confi rmato ry PSA value 0.2 ng/mL or great er. Value s obtai marisa with diffe rent assay metho ds or kits canno t be used inter lackey eably . Resul ts canno t be inter prete d as absol orse evide nce of the prese nce or absen ce of daniela timmons se. Not Available [facility] ([facility]) [address] [facility], [place], [address], 09/10/2023 09:09:10 09/09/19 24 09/10/2023 PSA TOTAL (REFL EX TO FREE) reflex criteria Commen t The perce nt free PSA is perfo rmed on a refle x basis only when the total PSA is betwe en 4.0 and 10.0 ng/mL . Not Available [facility] ([facility]) [address] [facility], [place], [address], 09/10/2023 09:09:10 09/09/19 24 09/10/2023 SEDIM ENTAT ION RATE- WESTE RGREN sedimentatio n rate-westerg riana 25 mm/HR 0-15 above high normal Not Available [facility] ([facility]) [address], [place], [address], 09/10/2023 09:09:11 09/09/19 24 09/09/2023 urina lysis , dipst ick Leukocytes Negati ve Not Available [address], [address], 09/09/2023 09:28:07 09/09/19 24 09/09/2023 urina lysis , dipst ick Nitrite negati ve Not Available [address], [address], 09/09/2023 09:28:07 09/09/19 24 09/09/2023 urina lysis , dipst ick Urobilinogen .2 Not Available [facility] [address], [address], 09/09/2023 09:28:07 09/09/19 24 09/09/2023 urina lysis , dipst ick Protein Negati ve Not Available [address], [address], 09/09/2023 09:28:07 09/09/19 24 09/09/2023 urina lysis , dipst ick pH 5.5 Not Available [address], [address], 09/09/2023 09:28:07 09/09/19 24 09/09/2023 urina lysis , dipst ick Blood Small Not Available [address], [address], 09/09/2023 09:28:07 09/09/19 24 09/09/2023 urina lysis , dipst ick Specific Lenora 1.030 Not Available [address], [address], 09/09/2023 09:28:07 09/09/19 24 09/09/2023 urina lysis , dipst ick Ketone Negati ve Not Available [address], [address], 09/09/2023 09:28:07 09/09/19 24 09/09/2023 urina lysis , dipst ick Bilirubin Negati ve Not Available [address], [address], 09/09/2023 09:28:07 09/09/19 24 09/09/2023 urina lysis , dipst ick Glucose Negati ve Not Available [address], [address], 09/09/2023 09:28:07 09/09/19 24 09/09/2023 urina lysis , dipst ick Appearance Clear Not Available [address], [address], 09/09/2023 09:28:07 09/09/19 24 09/09/2023 urina lysis , dipst ick Color Yellow Not Available [address], [address], 09/09/2023 09:28:07 09/09/19 24 09/09/2023 drug scree n, urine THC negati ve Not Available [address], [address], 09/09/2023 09:25:25 09/09/19 24 09/09/2023 drug scree n, urine TCA positi ve Not Available [address], [address], 09/09/2023 09:25:25 09/09/19 24 09/09/2023 drug scree n, urine BAR negati ve Not Available [address], [address], 09/09/2023 09:25:25 09/09/19 24 09/09/2023 drug scree n, urine BZO negati ve Not Available [address], [address], 09/09/2023 09:25:25 09/09/19 24 09/09/2023 drug scree n, urine MTD negati ve Not Available [address], [address], 09/09/2023 09:25:25 09/09/19 24 09/09/2023 drug scree n, urine AMP negati ve Not Available [address], [address], 09/09/2023 09:25:25 09/09/19 24 09/09/2023 drug scree n, urine MOP negati ve Not Available [address], [address], 09/09/2023 09:25:25 09/09/19 24 09/09/2023 drug scree n, urine OXY negati ve Not Available [address], [address], 09/09/2023 09:25:25 09/09/19 24 09/09/2023 drug scree n, urine MDMA negati ve Not Available [address], [address], 09/09/2023 09:25:25 09/09/19 24 09/09/2023 drug scree n, urine JAMA negati ve Not Available [address], [address], 09/09/2023 09:25:25 09/09/19 24 09/09/2023 drug scree n, urine PCP negati ve Not Available [address], [address], 09/09/2023 09:25:25 09/09/19 24 09/09/2023 drug scree n, urine MET negati ve Not Available [address], [address], 09/09/2023 09:25:25 02/28/20 24 02/29/2024 COMP. METAB OLIC PANEL (14) glucose 92 mg/dL 70-99 normal Not Available [facility] ([facility]) [address] [place], [address], 03/02/2024 15:07:35 02/28/20 24 02/29/2024 COMP. METAB OLIC PANEL (14) BUN 10 mg/dL 6-24 normal Not Available [facility] ([facility]) [address] [place], [address], 03/02/2024 15:07:35 02/28/20 24 02/29/2024 COMP. METAB OLIC PANEL (14) creatinine 0.91 mg/dL 0.76-1 .27 normal Not Available [facility] ([facility]) [address] [place], [address], 03/02/2024 15:07:35 02/28/20 24 02/29/2024 COMP. METAB OLIC PANEL (14) eGFR 107 mL/mi n/1.7 3 >59 normal Not Available [facility] ([facility]) [address] [place], [address], 03/02/2024 15:07:35 02/28/20 24 02/29/2024 COMP. METAB OLIC PANEL (14) BUN/creatini ne ratio 11 9-20 normal Not Available [facility] ([facility]) [address], [place], [address], 03/02/2024 15:07:35 02/28/20 24 02/29/2024 COMP. METAB OLIC PANEL (14) sodium 139 mmol/ L 134-14 4 normal Not Available [facility] ([facility]) [address], [place], [address], 03/02/2024 15:07:35 02/28/20 24 02/29/2024 COMP. METAB OLIC PANEL (14) potassium 4.4 mmol/ L 3.5-5. 2 normal Not Available [facility] ([facility]) [address] [facility], [place], [address], 03/02/2024 15:07:35 02/28/20 24 02/29/2024 COMP. METAB OLIC PANEL (14) chloride 104 mmol/ L 96-106 normal Not Available [facility] ([facility]) [address] [facility], [place], [address], 03/02/2024 15:07:35 02/28/20 24 02/29/2024 COMP. METAB OLIC PANEL (14) carbon dioxide, total 23 mmol/ L 20-29 normal Not Available [facility] ([facility]) [address] [facility], [place], [address], 03/02/2024 15:07:35 02/28/20 24 02/29/2024 COMP. METAB OLIC PANEL (14) calcium 9.8 mg/dL 8.7-10 .2 normal Not Available [facility] ([facility]) [address] [facility], [place], [address], 03/02/2024 15:07:35 02/28/20 24 02/29/2024 COMP. METAB OLIC PANEL (14) protein, total 6.9 g/dL 6.0-8. 5 normal Not Available [facility] ([facility]) [address] [place], [address], 03/02/2024 15:07:35 02/28/20 24 02/29/2024 COMP. METAB OLIC PANEL (14) albumin 4.3 g/dL 4.1-5. 1 normal Not Available [facility] ([facility]) [address] [place], [address], 03/02/2024 15:07:35 02/28/20 24 02/29/2024 COMP. METAB OLIC PANEL (14) globulin, total 2.6 g/dL 1.5-4. 5 Not Available [facility] ([facility]) [address] [facility] [place], [address], 03/02/2024 15:07:35 02/28/20 24 02/29/2024 COMP. METAB OLIC PANEL (14) bilirubin, total 0.4 mg/dL 0.0-1. 2 normal Not Available [facility] ([facility]) [address] [facility] [place], [address], 03/02/2024 15:07:35 02/28/20 24 02/29/2024 COMP. METAB OLIC PANEL (14) alkaline phosphatase 105 IU/L 44-121 normal Not Available [facility]) [address] [facility] [place], [address], 03/02/2024 15:07:35 02/28/20 24 02/29/2024 COMP. METAB OLIC PANEL (14) AST (SGOT) 16 IU/L 0-40 normal Not Available [facility] ([facility]) [address] [facility] [place], [address], 03/02/2024 15:07:35 02/28/20 24 02/29/2024 COMP. METAB OLIC PANEL (14) ALT (SGPT) 18 IU/L 0-44 normal Not Available [facility] ([facility]) [address] [facility] [place], [address], 03/02/2024 15:07:35 02/28/20 24 02/29/2024 VITAM IN B12 AND FOLAT E vitamin B12 326 pg/mL 232-12 45 normal Not Available [facility] ([facility]) [address] [facility], [place], [address], 03/02/2024 15:07:36 02/28/20 24 02/29/2024 VITAM IN B12 AND FOLAT E folate (folic acid), serum 15.0 NG/mL >3.0 normal A serum folat e karie ntrat ion of less than 3.1 ng/mL is consi dered to repre sent clini paulo defic iency . Not Available [facility] ([facility]) [address] [facility], [place], [address], 03/02/2024 15:07:36 02/28/20 24 02/29/2024 SEDIM ENTAT ION RATE- WESTE RGREN sedimentatio n rate-westerg riana 41 mm/HR 0-15 above high normal Not Available [facility] ([facility]) [address] [facility] [place], [address], 03/02/2024 15:07:37 02/28/20 24 02/29/2024 MAGNE SIUM magnesium 2.2 mg/dL 1.6-2. 3 normal Not Available [facility] ([facility]) [address] [facility] [place], [address], 03/02/2024 15:07:37 02/28/20 24 03/02/2024 CALCI UM, IONIZ ED, SERUM calcium, ionized, serum 5.2 mg/dL 4.5-5. 6 Not Available [facility] ([facility]) [address] [place], [address], 03/02/2024 15:07:38 02/28/20 24 02/29/2024 C-NASRIN CTIVE PROTE IN, QUANT C-reactive protein, quant 21 mg/L 0-10 above high normal Not Available [facility] ([facility]) [address] [facility], [place], [address], 03/02/2024 15:07:38 09/21/19 25 09/23/2024 URINE CULTU RE, ROUTI NE urine culture, routine Final report Not Available [facility] ([facility]) [address] [facility], [place], [address], 09/23/2024 02:06:02 09/21/19 25 09/23/2024 URINE CULTU RE, ROUTI NE result 1 COMMEN T Cultu re shows less than 10,00 0 colon y formi ng units of bacte matthew per selina liter of urine . This colon y count is not gener ally consi dered to be clini nasim signi fican t. Not Available [facility] ([facility]) [address] [facility], [place], [address], 09/23/2024 02:06:02 09/21/19 25 09/21/2024 urina lysis , dipst ick Leukocytes Negati ve Not Available [address], [address], 09/21/2024 09:50:52 09/21/19 25 09/21/2024 urina lysis , dipst ick Nitrite negati ve Not Available [address], [address], 09/21/2024 09:50:52 09/21/19 25 09/21/2024 urina lysis , dipst ick Urobilinogen .2 Not Available [facility] [address], [address], 09/21/2024 09:50:52 09/21/19 25 09/21/2024 urina lysis , dipst ick Protein Negati ve Not Available [address], [address], 09/21/2024 09:50:52 09/21/19 25 09/21/2024 urina lysis , dipst ick pH 5.5 Not Available [address], [address], 09/21/2024 09:50:52 09/21/1909/21/2024 urina lysis , dipst ick Blood Small Not Available [address], [address], 09/21/2024 09:50:52 09/21/1909/21/2024 urina lysis , dipst ick Specific Lenora 1.025 Not Available [address], [address], 09/21/2024 09:50:52 09/21/19 25 09/21/2024 urina lysis , dipst ick Ketone Negati ve Not Available [address], [address], 09/21/2024 09:50:52 09/21/19 25 09/21/2024 urina lysis , dipst ick Bilirubin Negati ve Not Available [address], [address], 09/21/2024 09:50:52 09/21/19 25 09/21/2024 urina lysis , dipst ick Glucose Negati ve Not Available [address], [address], 09/21/2024 09:50:52 09/21/19 25 09/21/2024 urina lysis , dipst ick Appearance Clear Not Available [address], [address], 09/21/2024 09:50:52 09/21/19 25 09/21/2024 urina lysis , dipst ick Color Yellow Not Available [address], [address], 09/21/2024 09:50:52 07/16/20 22 07/16/2022 CT, abdom en + pelvi s, w/ contr ast No observ ation record ed. [facility] [address], [place], [address], 07/16/2022 11:45:36 09/07/19 23 09/07/2022 XR, hand No observ ation record ed. [facility] [address], [place], [place], [address], 09/07/2022 13:05:48 09/07/19 23 09/07/2022 XR, wrist No observ ation record ed. [facility] [address], [place], [address], 09/07/2022 13:05:30 09/07/19 23 09/07/2022 XR, forea rm No observ ation record ed. [facility] [address], [place], [address], 09/07/2022 13:05:12 10/08/19 23 10/08/2022 XR, orbit , 4 or more view No observ ation record ed. [facility] [address], [place], [address], 10/08/2022 15:34:38 10/08/19 23 10/08/2022 MRI, wrist , w/o contr ast No observ ation record ed. [facility] [address], [place], [address], 10/08/2022 15:34:00 09/17/19 25 09/17/2024 CT, angio gram, abdom en + pelvi s, w/wo contr ast No observ ation record ed. [facility] [address], [place], [address], 09/17/2024 10:52:21 09/22/19 25 09/21/2024 CT, abdom en + pelvi s, w/wo contr ast No observ ation record ed. [facility] [address], [place], [address], 09/22/2024 11:22:16 Result Notes None recorded. Problems Name Problem SNOMED Code Status Onset Date Resolution Date Notes Provider Name and Address Organization Details Recorded Time Prostatiti s 4994776 Active Ciara Alvarez null, [place] - [facility] 2 16:40:33 Diverticul itis 629226166 Active Ciara Alvarez null, [place] - [facility] 2 16:40:47 Arthritis 1804245 Active hips and left shoulder Ciara Alvarez null, [place] - [facility] 2 16:41:11 Colitis 38306010 Active 2021 Yolis Jazmyne null, [place] - [facility] 2 16:17:48 Hyperlipid emia 02346133 Active 2023 Rayo Richey, [employer] [address], [place], [address] , [place] - [facility] 4 09:26:04 Problem Notes None recorded. Procedures Surgical History Date Name Laterality Status Provider Name and Address Organization Details Recorded Time 09/21/19 Medication Reconcilliation completed Yolis Stears [place] - [facility] 09/21/2024 09:34:58 07/19/20 Medication Reconcilliation completed Yolis Stears [place] [facility] 07/19/2022 16:11:28 Remove tonsils and adenoids completed Ciara ARMSTRONG [facility] 05/10/2022 16:43:16 operation on urethra completed Ciara Oliverler [place] [facility] 05/10/2022 16:43:27 colonoscopy completed Ciara Oliverler [place] [facility] 05/10/2022 16:43:36 Ear Tubes - Tympanostomy Tubes completed Ciara Oliverler [place] [facility] 05/10/2022 16:43:43 Imaging Results None recorded. Procedure Notes None recorded. Medical Equipment None Reported. Allergies Allergen ID Allergen Name Allergen Category Reaction Reaction Severity Criticality Documentation Date Start Date Code Code System Note Provider Name and Address Organization Details Recorded Time 384294 ibuprofen medicatio n swelling Not available low 05/10/2022 5640 RxNorm Ciara Kim lorene [place] [facility] 16:34:33 893598 Cipro medicatio n rash moderate high 05/10/2022 53963 3 RxNorm can not take becas ue he will blist er Ciara Kim lorene [place] [facility] 16:35:15 Medications Name Sig Start Date Stop Date Status Note LastModified by Organization Details LastModified Time amoxicillin 500 mg capsule 09/21 completed Not Available Not Available Not Available meloxicam 15 mg tablet TAKE 1 TABLET BY MOUTH ONCE DAILY NEEDED FOR ARTHRITIS 2024 active Not Available Not Available Not Avai lable prednisone 20 mg tablet TAKE 1 TABLET BY MOUTH TWICE DAILY WITH FOOD OR MILK 05/10 completed Not Available Not Available Not Available metronidazo le 500 mg tablet TAKE 1 TABLET BY MOUTH TWICE DAILY FOR 7 DAYS 09/21 completed Not Available Not Available Not Available phentermine 37.5 mg tablet TAKE 1 TABLET BY MOUTH ONCE DAILY 02/27 completed Not Available Not Available Not Available ciprofloxac in 500 mg tablet TAKE 1 TABLET BY MOUTH TWICE DAILY 09/09 completed Not Available Not Available Not Available amoxicillin 500 mg tablet Take 1 tablet twice a day by oral route for 10 days. 09/21 completed Not Available Not Available Not Available meloxicam 7.5 mg tablet TAKE 1 TABLET BY MOUTH ONCE DAILY NEEDED FOR PAIN 02/27 completed Not Available Not Available Not Available oxycodone-a cetaminophe n 5 mg-325 mg tablet Take 1 tablet every 6 hours by oral route. 09/28 completed Not Available Not Available Not Available lorazepam 0.5 mg tablet Take 1 tablet twice a day by oral route. 09/28 completed Not Available Not Available Not Available dicyclomine 20 mg tablet TAKE 1 TABLET BY MOUTH 4 TIMES DAILY NEEDED active Not Available Not Available No t Available hyoscyamine sulfate 0.125 mg tablet active Not Available Not Available Not Available buspirone 10 mg tablet TAKE 1/2 (ONE-HALF ) TABLET BY MOUTH NIGHTLY FOR 5-7 DAYS, THEN 1 TABLET NIGHTLY FOR 5-7 DAYS, THEN INCREASE TO 1 TABLET TWICE A DAY 09/28 completed Not Available Not Available Not Available diclofenac sodium 75 mg tablet,woo yed release TAKE 1 TABLET BY MOUTH TWICE DAILY active Not Available Not Available No t Available gabapentin 100 mg capsule TAKE 1 CAPSULE BY MOUTH ONCE DAILY AT BEDTIME FOR 7 DAYS 09/09 completed Not Available Not Available Not Available metronidazo le 375 mg capsule TAKE 1 CAPSULE BY MOUTH TWICE DAILY 07/19 completed Not Available Not Available Not Available amoxicillin 500 mg-potassiu m clavulanate 125 mg tablet TAKE 1 TABLET BY MOUTH THREE TIMES DAILY FOR 14 DAYS active Not Available Not Available No t Available hydroxyzine pamoate 25 mg capsule Take 1 capsule every day by oral route as needed for 14 days. active Not Available Not Available No t Available alfuzosin ER 10 mg tablet,exte nded release 24 hr TAKE 1 TABLET BY MOUTH ONCE DAILY active Not Available Not Available No t Available diclofenac 1 % topical gel APPLY 2 GRAMS TOPICALLY 4 TIMES DAILY TO SHOULDER 05/10 completed Not Available Not Available Not Available sodium,pota ssium,mag sulfates 17.5 gram-3.13 gram-1.6 gram oral soln DRINK 6 OUNCES TWICE A DAY DIRECTED FOR 1 DAY FOR COLONOSCO PY PREP 09/21 completed Not Available Not Available Not Available Creon 36,000 unit-114,00 0 unit-180,00 0 unit capsule,del ayed release TAKE 1 CAPSULE BY MOUTH THREE TIMES DAILY WITH MEALS 09/09 completed Not Available Not Available Not Available Ozempic 0.25 mg or 0.5 mg (2 mg/1.5 mL) subcutaneou s pen injector Inject 0.25 mg every week by subcutane ous route. 07/12 completed Not Available Not Available Not Available Vitals Date Recorded Body weight Body temperature Heart rate Oxygen saturation Oxygen saturation in Arterial blood by Pulse oximetry Respiratory rate Body mass index (BMI) Body height Systolic And Diastolic Provider Name and Address Organization Details Last Updated DateTime 4 243402. 54 g 97.9 [degF] 64 /min 97 % 97 % 20 /min 33.1 kg/m2 182.88 cm 110/78 mm[Hg] Ciara Alvarez [facility] 4 08:33:31 Date Recorded Body height Respiratory rate Body mass index (BMI) Body weight Heart rate Oxygen saturation Oxygen saturation in Arterial blood by Pulse oximetry Body temperature Systolic And Diastolic Provider Name and Address Organization Details Last Updated DateTime 5 182.88 cm 18 /min 32.3 kg/m2 065596. 98 g 76 /min 95 % 95 % 98.1 [degF] 130/82 mm[Hg] Yolis Samano [place] - [facility] 5 09:43:21 Date Recorded Body height Body mass index (BMI) Body weight Heart rate Oxygen saturation Oxygen saturation in Arterial blood by Pulse oximetry Respiratory rate Systolic And Diastolic Provider Name and Address Organization Details Last Updated DateTime 5 182.88 cm 33.4 kg/m2 586852. 72 g 80 /min 97 % 97 % 18 /min 124/80 mm[Hg] Ciara Alvarez [facility] 5 09:48:28 Date Recorded Body height Body mass index (BMI) Body weight Body temperature Heart rate Oxygen saturation Oxygen saturation in Arterial blood by Pulse oximetry Respiratory rate Systolic And Diastolic Provider Name and Address Organization Details Last Updated DateTime 4 182.88 cm 33.1 kg/m2 031659. 24 g 98.1 [degF] 50 /min 96 % 96 % 18 /min 124/78 mm[Hg] Ciara Alvarez [place] - [facility] 4 13:17:18 Date Recorded Body height Oxygen saturation Oxygen saturation in Arterial blood by Pulse oximetry Heart rate Body temperature Body mass index (BMI) Body weight Respiratory rate Systolic And Diastolic Provider Name and Address Organization Details Last Updated DateTime 2 182.88 cm 97 % 97 % 82 /min 99 [degF] 31.6 kg/m2 603251. 02 g 18 /min 142/82 mm[Hg] Yolis Samano [place] - [facility] 2 16:16:03 Social History Question Answer Notes LastModified by Organizat ion Details LastModified Time Tobacco Smoking Status Former Smoker stopped 08-15-2016 Yolis Jimeneskarel null, [place] - [facility] 09/21/2024 09:47:11 Do You Have An Advance Directive? No Information not available 07/19/2022 Are You Blind Or Do You Have Difficulty Seeing? No Information not available 07/19/2022 What Is Your Level Of Caffeine Consumption? Occasional Information not available 05/10/2022 Are You Deaf Or Do You Have Serious Difficulty Hearing? No Information not available 07/19/2022 What Type Of Diet Are You Following? REGULAR Information not available 07/19/2022 What Is The Highest Grade Or Level Of School You Have Completed Or The Highest Degree You Have Received? [id number] Information not available 09/21/2024 Have There Been Any Changes To Your Family Or Social Situation? No Information not available 07/19/2022 What Is The Fluoride Status Of Your Home? Unknown Information not available 07/19/2022 When Did You Quit Smoking? 6-10yearssince lastcigarette Information not available 09/21/2024 Do You Have A Medical Power Of Information Technology Specialist? No Information not available 07/19/2022 What Was The Date Of Your Most Recent Tobacco Screening? 09/28/2024 Information not available 09/28/2024 What Is Your Relationship Status? Information not available 05/10/2022 Are You Sexually Active? Yes Information not available 05/10/2022 Do You Have Smoke And Carbon Monoxide Detectors In Your Home? Yes Information not available 07/19/2022 At What Age Did You Start Smoking Tobacco? 12 Information not available 09/21/2024 How Much Tobacco Do You Smoke? 1 PPD Information not available 09/21/2024 Has Tobacco Cessation Counseling Been Provided? No Information not available 09/21/2024 Do You Have Difficulty Walking Or Climbing Stairs? No Information not available 07/19/2022 Sex: Male Functional Status Question Answer Note LastModified by Organizat [employer] Details LastModified Time Do you use any illicit or recreational drugs? No Information not available 05/10/2022 Do you or have you ever used any other forms of tobacco or nicotine? Yes Information not available 05/10/2022 What is your level of alcohol consumption? None Information not available 07/19/2022 Do you or have you ever used smokeless tobacco? Never used smokeless tobacco Information not available 07/19/2022 Are you currently employed? Yes Information not available 07/19/2022 Do you have transportation difficulties? No Information not available 07/19/2022 Are you able to walk? YESWOREST Information not available 07/19/2022 Do you have difficulty doing errands alone? No Information not available 07/19/2022 Are you able to care for yourself? Yes Information n ot available 07/19/2022 Do you have difficulty dressing or bathing? No Information not available 07/19/2022 Do you or have you ever used e-cigarettes or vape? Never used electronic cigarettes Information not available 07/19/2022 What is your exercise level? None Information not available 07/19/2022 Mental Status Question Answer Note LastModified by Organizat ion Details LastModified Time Do you feel stressed (tense, restless, nervous, or anxious, or unable to sleep at night)? [id number] Information not available 07/19/2022 Do you have difficulty concentrating, remembering or making decisions? No Information no t available 07/19/2022 Family History Relationship Description Onset Age of this Age Resolved Age Notes LastModified by Organization Details LastModified Time Father Carcinoma of prostate 60 [email or web address] Not available 2021 16:41:50 Medical History Condition Response Arthritis Y Immunizations Vaccine Type Date Status Note Provider Nam jaime and Address Organization Details Recorded Time Hep B, adult 4 completed Ciara Kim null, [place] - [facility] 06/08/2022 09:19:56 Hep B, adult 4 completed Ciara [place] [facility] 06/08/2022 09:19:56 Hep B, adult 4 completed Ciara Kim [place] [facility] 06/08/2022 09:19:56 COVID-19 vaccine, vector-nr, rS-Ad26, PF, 0.5 mL 2 completed Ciara Kim null[place] [facility] 06/08/2022 09:19:56 Td (adult), 2 Lf tetanus toxoid, preservative free, adsorbed 4 completed Ciara Kim null, [place] - [facility] 06/08/2022 09:19:56 COVID-19 vaccine, vector-nr, rS-Ad26, PF, 0.5 mL 1 completed Ciara Kim null, [place] - [facility] 06/08/2022 09:19:56 Tdap 0 completed Ciara Kim null, [place] - [facility] 06/08/2022 09:19:56 Past Encounters Encounter ID Performer Location Encounter Start Date Encounter Closed Date Diagnosis/Indication Diagnosis SNOMED-CT Code Diagnosis ICD10 Code Diagnosis Note [id number] Rayo Richey APRN [address] [address] 05/10/2022 16:12:05 05/10/2022 17:21:15 Arthritis 2208574 M19.90 Prostatitis 8989779 N41. 9 Body mass index 30+ - obesity 017125879 Z68.34 Mehul report obtained, reviewed, and made part of patient's medical record. After reviewing the history, physical exam and treatment options, prescribin g a controlled substance is considered medically appropriat e for treatment for pain control and improvemen t of function. The risks of tolerance and drug dependence were specifical ly discussed with the patient. The patient denies receiving ongoing pain management from any other provider for this condition. All questions were answered. Pt compliant with plan of careKasper reviewedme dication compliance discussedL ast uds: 2Control substance agreement on file low fat/carb/c alorie diet discussede xercise plan discussed with pt [id number] Rayo Richey [employer] [address] [address] 05/17/2022 13:11:54 05/17/2022 14:12:54 Prediabetes 385739604 R73.03 a1c 5.8discuss ed diet and exercise plan with ptlow fat/carb/c alorie/glu cose diet [id number] Rayo Richey APRN [address] [address] 06/08/2022 08:54:57 06/08/2022 09:54:39 Body mass index 30+ - obesity 941031414 Z68.34 Mehul report obtained, reviewed, and made part of patient's medical record. After reviewing the history, physical exam and treatment options, prescribin g a controlled substance is considered medically appropriat e for treatment for pain control and improvemen t of function. The risks of tolerance and drug dependence were specifical ly discussed with the patient. The patient denies receiving ongoing pain management from any other provider for this condition. All questions were answered. Pt compliant with plan of careKasper reviewedme dication compliance discussedL ast uds: 2Control substance agreement on file low fat/carb/c alorie diet discussede xercise plan discussed with pt [id number] Rayo Richey [employer] [address] [address] 07/12/2022 16:23:36 07/12/2022 17:05:57 Body mass index 30+ - obesity 335481826 Z68.34 Mehul report obtained, reviewed, and made part of patient's medical record. After reviewing the history, physical exam and treatment options, prescribin g a controlled substance is considered medically appropriat e for treatment for pain control and improvemen t of function. The risks of tolerance and drug dependence were specifical ly discussed with the patient. The patient denies receiving ongoing pain management from any other provider for this condition. All questions were answered. Pt compliant with plan of careKasper reviewedme dication compliance discussedL ast uds: 2Control substance agreement on file low fat/carb/c alorie diet discussede xercise plan discussed with pt Prediabetes 685318596 R7 3.03 a1c 5.5discuss ed diet and exercise plan with ptlow fat/carb/c alorie/glu cose diet [id number] Johnmathew Richey [address] [address] 07/19/2022 16:08:28 07/19/2022 16:55:48 Colitis 24724247 K52.9 call gi for a appointmen viviana polk [id number] Johnmathew Richey [address] [address] 09/09/2023 08:07:51 09/09/2023 09:44:50 Arthritis 7680648 M19.90 only take meloxicam as needed- discussed risks with pt Body mass index 30+ - obesity 689902709 Z68.33 Obesity 467693485 E66.9 Pt compliant with plan of careKasper reviewedme dication compliance discussedL ast uds: 4Control substance agreement on file Diverticulitis 600608410 K57.92 Hyperlipidemia 86392892 E78.5 Screening for malignant neoplasm of prostate 144933882 Z12.5 Adult heal th examination 402748368 Z00.00 Abnormal urine odor 8769 003 R82.90 HIV screen ing declined 6314889524 61199 Z53.20 Hepatitis C screening declined 4784321997 5105 Z53.20 [id number] Johnmathew Richey [address] [address] 02/28/2024 13:06:20 02/28/2024 14:23:53 Pain in both feet 7326562959 4205898 M79.635 [id number] Johnmathew Richey [address] [address] 09/21/2024 09:32:44 09/21/2024 10:37:28 Left lower quadrant pain 951926779 R10.32 discussed that pt needed to go back to ed for eval- pt declined due to cost of er visit. discussed risk in waiting.mo nitor for fever- go to edpos c diff- vanc as orderedcon stipationi ssues with b/b.left lower abd paintender nessr/o blockage or infectionc alled gi for sooner appointmen t no response. [id number] Rayo Richey APRN [address] [address] 09/28/2024 09:38:00 09/28/2024 10:58:07 Colitis 72126933 K52.9 follow up with gi Diverticulitis 970556737 K57.92 follow up with gi Prostatitis 6365393 N41. 9 follow up with urology Arthritis 0142521 M19.90 only take meloxicam as needed- discussed risks with pt Insomnia 069025237 G47.0 0 discussed med in detail Health Concerns Section Related Observation LastModified by Organization Detai ls LastModified Time None Recorded Concern Status LastModified by Organization Details LastModified Time None Recorded Advance Directives Directive N: Payers Insurance Date Sequence Insurance Name Policy Number Policy Fernandez Covered Member ID Fernandez Member ID Guarantor Name 04/30/2023 2 [employer] (POS) Tomas Lr [id number] Tomas Lr 09/09/2023 1 [place] [id number] 1 Tomas Reardonelizabeth [id number] Tomas Reardonelizabeth 10/28/2024 1 [place] [id number] 1 Tomas Reardonelizabeth [id number] Tomas Lr Notes Date Note Type Note Provider Name and Address Organization Details Recorded Time 07/19/2022 text/html Emergency Depart ment Follow-Up RecordReported bypatient.Discharge InformationName of hospital/urgent care patient was seen: ([facility]); Patient presented to hospital/urgent care on or around: actual date 07-16-22; Patient presented to hospital for treatment of: (colitis); Patient's condition has: improved; Hospital records available at the time of this visit: Sophie Marin is a 41 year old male who presents to the office today for a hospital follow up for colitis. pt states he was given 3 days of metronidazole but was unable to continue it due to cost and cipro 10 dyas. pt states he does feel better but still having tenderness Rayo Richey APRN [address], [place], [address], [place] - [facility] 07/20/2022 14:24:34 09/09/2023 text/html 43 yr old male presents for adult wellness, follow up on arthritis and needs some lab work. States his urine is had been strong smelling and would like to have it checked. He has increased pain related to arthritis and would like to increase his meloxicam.pt states he also would like to restart adipex for wt loss. states he has been exercising and dieting but not having any success. has taken adipex in past and tolerated it well Rayo Richey APRN [address], [place], [address], [place] - [facility] 09/09/2023 10:39:41 02/28/2024 text/html 43 yr old male presents for feet cramping. Podiatry ordered some labs that he wanted done. pt states he is not sure why his feet cramp but they will draw up and cramp Rayo Richey ROYCE [address], [place], [address], [place] - [facility] 02/28/2024 13:53:40 09/21/2024 text/html Emergency Depart ment Follow-Up RecordReported bypatient.Discharge InformationName of hospital/urgent care patient was seen: ([facility]); Patient presented to hospital/urgent care on or around: actual date 09-17-2024; Patient presented to hospital for treatment of: (abdominal pain); Treatment received by hospital/urgent care: (admitted); Patient's condition has: worsened; Hospital records available at the time of this visit: Yes 44 year old male who presents to the office today for a hospital follow upcontinued low abdominal/pelvic painpain with touch of abdomenhas concerns of trouble urinating very little outpt and takes 15 mins to get started, feels pressure on bladder/prostate, also states has problems with bowel movements,states he was diagnosed with CDIFF while in the hospitalwants urine checkedpt states he feels there is something in his abd that is blocking off everything Rayo Richey, ROYCE [address], [place], [address], [place] - [facility] 09/21/2024 13:44:39 09/28/2024 text/html 44 yr old male presents for hospital follow up. pt states he seen dr calixto and he is getting treated for his diverticulitis and he feels much better. pt states he was told by gi he did not have c diff. pt states he has colonoscopy scheduled november 23 at [facility]. pt states he also needs refills for his prostates meds and arthritis.pt states he has nights where it is difficult for him to sleep. pt states he has problems falling and staying asleep. Rayo Richey, ROYCE [address], [place], [address], [place] [facility] 09/28/2024 13:35:20
--- OUTSIDE RECORDS SUMMARY | 2025-02-24 12:12 | XMS_ITS | Data Portability ---
Author Organization [place] - [place] - [place] & Radha [facility] Address [address] [place] [address] Assessment Encounter Date Assessment Date Assessment LastModified by Organization Details LastModified Time 04/28/2024 04/28/2024 Mr. Lr 43-year-old male here for: 1)Left lower quadrant pain 2)Diverticulosis w/ Hx of Diverticulitis 3)Diarrhea w/ Fecal urgency 4)Family Hx Crohns 5)Pancreatic insufficiency? -he reports fecal urgency after eating with multiple loose stools daily. He does not feel like he completely empties -still has his gallbladder -patient reports history of diverticulitis and colitis per Dr. Wilkinson's -Hx Crohns disease in sister - he was reportedly on Creon in the past but it became unaffordable. He is uninterested in restarting at this point. He does not remember it being beneficial - he reports multiple episodes of left-sided pain since his diagnosis. Last episode was 1 week ago. He was placed on antibiotics per PCP Plan: -Will schedule Dx colonoscopy in 6 weeks for further evaluation of diverticulitis. Patient is unsure of last colonoscopy but states he did have 3 polyps. -Continue fiber powder for bulk stool and prevent worsening disease -I suspect he may be having overflow. Patient educated that looser stools are permissive. Start Miralax 1 capful in 8oz of liquid once daily to help facilitate adequate bowel movements. - May consider stool studies and testing for pancreatic insufficiency if diarrhea continues given he was previously on Creon f/u after procedure [email or web address] Not available 04/28/2024 16:00:33 Plan of Treatment Reminders Order Date Submit Date Provider Last Modified By Organization Details Last Modified Time Details Appointments None record ed. Lab None record ed. Referral None record ed. Procedures None record ed. Surgeries None record ed. Imaging None record ed. Medication Orders None record ed. Patient TargetsNo targets recorded. Patient InstructionsNo instructions recorded. Reason for Referral None Reported. Medical Equipment None Reported. Allergies Allergen ID Allergen Name Allergen Category Reaction Reaction Severity Criticality Documentation Date Start Date Code Code System Note Provider Name and Address Organization Details Recorded Time 097870 Advil medicatio n Not available Not available Not available 04/28/2024 56896 0 RxNorm Hi Jade [facility], [place] - [facility] & [place] 4 08:44:03 Medications Name Sig Start Date Stop Date Status Note LastModified by Organization Details LastModified Time amoxicillin 500 mg capsule TAKE 1 CAPSULE BY MOUTH TWICE DAILY FOR 10 DAYS active Not Available Not Available No t Available meloxicam 15 mg tablet TAKE 1 TABLET BY MOUTH ONCE DAILY NEEDED FOR ARTHRITIS active Not Available Not Available No t Available metronidazo le 500 mg tablet TAKE 1 TABLET BY MOUTH TWICE DAILY FOR 7 DAYS active Not Available Not Available No t Available phentermine 37.5 mg tablet TAKE 1 TABLET BY MOUTH ONCE DAILY 04/28 completed Not Available Not Available Not Available meloxicam 7.5 mg tablet TAKE 1 TABLET BY MOUTH ONCE DAILY NEEDED FOR PAIN active Not Available Not Available No t Available oxycodone-a cetaminophe n 5 mg-325 mg tablet TAKE ONE TABLET BY MOUTH EVERY 4 HOURS NEEDED FOR moderate TO SEVERE pain FOR 3 DAYS MAY CAUSE DROWSINES S active Not Available Not Available No t Available lorazepam 0.5 mg tablet TAKE ONE TABLET BY MOUTH TWICE DAILY NEEDED FOR ANXIETY MAY CAUSE DROWSINES S active Not Available Not Available No t Available hyoscyamine sulfate 0.125 mg tablet TAKE 1 TABLET BY MOUTH EVERY 6 HOURS NEEDED active Not Available Not Available No t Available buspirone 10 mg tablet TAKE 1/2 (ONE-HALF ) TABLET BY MOUTH NIGHTLY FOR 5-7 DAYS, THEN 1 TABLET NIGHTLY FOR 5-7 DAYS, THEN INCREASE TO 1 TABLET TWICE A DAY active Not Available Not Available No t Available diclofenac sodium 75 mg tablet,woo yed release TAKE 1 TABLET BY MOUTH TWICE DAILY active Not Available Not Available No t Available amoxicillin 500 mg-potassiu m clavulanate 125 mg tablet TAKE 1 TABLET BY MOUTH THREE TIMES DAILY FOR 14 DAYS active Not Available Not Available No t Available alfuzosin ER 10 mg tablet,exte nded release 24 hr TAKE 1 TABLET BY MOUTH ONCE DAILY active Not Available Not Available No t Available fiber (herbal) tablet Take by oral route. active Not Available Not Available No t Available sodium,pota ssium,mag sulfates 17.5 gram-3.13 gram-1.6 gram oral soln TAKE 6 OUNCES TWICE A DAY BY MOUTH DIRECTED FOR 1 DAY FOR COLONOSCO PY PREP active Not Available Not Available No t Available Vitals Date Recorded Body height Body mass index (BMI) Body weight Body temperature Oxygen saturation Oxygen saturation in Arterial blood by Pulse oximetry Heart rate Heart rate Systolic And Diastolic Provider Name and Address Organization Details Last Updated DateTime 4 182.88 cm 34 kg/m2 396053. 25 g 98.1 [degF] 98 % 98 % 54 /min 56 /min 143/80 mm[Hg] Hi Jade [facility] & [place] 08:43:26 Social History Question Answer Notes LastModified by [email or web address] Details LastModified Time Tobacco Smoking Status Former Smoker Hi Jade [facility], [facility] & [place] 04/28/2024 08:47:50 What Is Your Level Of Caffeine Consumption? Occasional [email or web address] Information not available 04/28/2024 Sex: Unknown Functional Status Question Answer Note LastModified by [employer] Details LastModified Time Do you use any illicit or recreational drugs? No [email or web address] Information not available 04/28/2024 Do you or have you ever used any other forms of tobacco or nicotine? Yes [email or web address] Information not available 04/28/2024 What is your level of alcohol consumption? Occasional [email or web address] Information not available 04/28/2024 Do you or have you ever used smokeless tobacco? Currently chews tobacco Information not available 04/28/2024 Mental Status None recorded. Family History Relationship Description Onset Age of this Age Resolved Age Notes LastModified by Organization Details LastModified Time Paternal Grandmother Disorder of endocrine system pt. added direct ly (04/27) [email or web address] Not available 04/27/2024 08:20:59 Paternal Grandfather Disorder of endocrine system pt. added direct ly (04/27) [email or web address] Not available 04/27/2024 08:20:59 Paternal Uncle Disorder of endocrine system pt. added direct ly (04/27) [email or web address] Not available 04/27/2024 08:20:59 Medical History No medical history recorded. Past Encounters Encounter ID Performer Location Encounter Start Date Encounter Closed Date Diagnosis/Indication Diagnosis SNOMED-CT Code Diagnosis ICD10 Code Diagnosis Note [id number] LAVERNE ALAMO NP [facility] [facility] [address] [place] [address] 04/28/2024 08:33:04 04/28/2024 09:54:28 Diverticulosis of colon 928203255 K57.30 Urgent clint rupa for stool 73426829 R15.2 Family his tory of Crohn's disease 796952366 Z83.79 Left lower quadrant pain 874800081 R10.32 Health Concerns Section Related Observation LastModified by Organization Detai ls LastModified Time None Recorded Concern Status LastModified by Organization Details LastModified Time None Recorded Advance Directives Directive None Recorded Payers Insurance Date Sequence Insurance Name Policy Number Policy Fernandez Covered Member ID Fernandez Member ID Guarantor Name 06/16/2024 1 [place] [id number] Tomas Lr [id number] Tomas Lr Notes Date Note Type Note Provider Name and Address Organization Details Recorded Time 04/28/2024 text/html CURRENT 4 :Mr. Lr is a 43-year-old male referred to us by Rayo Richey APRN for diverticulitis. He is here to establish care. Patient reports during a previous ER visit he was diagnosed with diverticulitis on CT scan. He has been seeing Dr. Rodas since and was diagnosis by him with colitis. He often gets left lower quadrant pain. At times it is severe and he has been put on antibiotics by his PCP which does improved symptoms. The last time this happened was 1 week ago. He states he is trying to eat better. 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 He still has his gallbladder. He notes that corn, popcorn, nuts will often cause flare-ups . He was previously on Creon but reports he stopped this due to cost. He is using powdered fiber and feels that bowel movements are soft, no straining, no lingering. He does report incomplete emptying. He denies current alcohol, drugs or tobacco use. Denies dysphagia, unintentional weight loss, or blood in stool. Last colonoscopy more then 2 years ago with 3 polyps. No family history of colon cancer. Sister does have Crohns disease. LAVERNE ALAMO, MOUNIKA [address], [place], [address], [facility] - [facility] - [place] & [place] 04/28/2024 16:01:03
--- OUTSIDE RECORDS SUMMARY | 2025-02-24 12:12 | XMS_ITS | Clinical Summary ---
Author Organization [facility] [place] [address] Care Team Providers Care Intelligence Chief Name Role Phone Unavailable Primary Care Provider Unavailabl e Social History Tobacco Use Types Packs/Day Years Used Date Smoking Tobacco: Never Assessed Sex and Gender Information Value Date Recorded Sex Assigned at Not on file Legal Sex Male 9:30 PM EDT Gender Identity Not on file Sexual Orientation Not on file Plan of Treatment Health Maintenance Due Date Last Done Comments Annual Wellness Exam 1983 DTaP/TDaP/Td (1 - Tdap) 1999 Hepatitis B Vaccine (1 of 3 - 19+ 3-dose series) 1999 COVID-19 Vaccine (2023-2 5 season) 2024 Influenza Vaccine (#1) 2025 Meningococcal B Vaccine Aged Out No l onger eligible based on patient's age to complete this topic Pneumococcal Vaccine 0-49 Aged Out No longer eligible based on patient's age to complete this topic
--- OUTSIDE RECORDS SUMMARY | 2025-02-24 12:13 | XMS_ITS | Encounter Summary ---
Author Organization [facility] [place] [facility] Address [address] [id number] Care Team Providers Care Erp Specialist Name Role Phone Rayo Richey ROYCE Primary Care Provider +1- [phone] Reason for Referral * Consultation (Routine) - Authorized Specialty Diagnoses / Procedures Referred By Cynthia stephens Referred To Contact Colon and Rectal Surgery Diagnoses Sigmoid diverticulitis Roel Rodas MD [address] [facility] [address] [place] [address] Phone: tel: fax: Colorectal Surgery [address] [place] [address] Phone: tel: Referral ID Status Reason Start Date Expiration Date Visits Requested Visits Authorized [id number] Authorized Specialty Services Required 12/02/2024 06/03/2026 1 1 Encounter Details Date Type Department Care Team (Latest Contact Info) Description 12/02/2024 Community [facility] Community Practice [address] [place] [address] Roel Rodas MD [address] [facility] [address] [id number] Sigmoid diverticulitis (Primary Dx) Social History Tobacco Use Types Packs/Day Years Used Date Smoking Tobacco: Never Assessed Sex and Gender Information Value Date Recorded Sex Assigned at Not on file Legal Sex Male 6:09 PM EDT Gender Identity Not on file Sexual Orientation Not on file documented as of this encounter Plan of Treatment Upcoming Encounters Date Type Department Care Team (Late st Contact Info) Description 03/02/2025 1:00 PM EDT Consult [facility] General Surgery [address], [address] [place] [address] Neo Bruce MD [address] [place] [address] Scheduled Referrals Name Type Priority Associated Diagnoses Orde r Schedule Ambulatory referral to Colorectal Surgery Outpatient Referral Routine Sigmoid diverticulitis Expected: 12/02/2024 (Approximate), Expires: 12/02/2025 documented as of this encounter Visit Diagnoses Diagnosis Sigmoid diverticulitis- Primary Diverticulitis of colon (without mention of hemorrhage) documented in this encounter Care Teams Erp Specialist Relationship Specialty Start Date End Date Rayo Richey APRN [address] [place] [address] PCP - General 12/07/24 documented as of this encounter
--- OUTSIDE RECORDS SUMMARY | 2025-02-24 12:13 | XMS_ITS | Encounter Summary ---
Author Organization Healthcare Address [address] [place] [address] Care Team Providers Care Fret Saw Operator Name Role Phone Rayo Richey APRN Primary Care Provider +1- [phone] Encounter Details Date Type Department Care Team (Late st Contact Info) Description 09/21/2024 Orders Only External Location [address] [place] [address] Provider, External Social History Tobacco Use Types Packs/Day Years [...] Info) Description 03/02/2025 1:00 PM EDT Consult [facility] General Surgery [address] [place] [address] Neo Bruce MD [address] [place] [address] documented as of this encounter Procedures Procedure Name Priority Date/Time Associated Diagnosis Comments CT MSK OUTSIDE IMAGES 09/21/2024 3:34 PM EST documented in this encounter Results * CT MSK OUTSIDE IMAGES (09/21/2024 3:34 PM EST) Anatomical Region Laterality Modality Computed Tomogra phy 09/21/2024 3:34 PM EST us External Provider IMG CT PROCEDURES Final Result documented in this encounter Visit Diagnoses Not on filedocumented in this encounter Care Teams Fret Saw Operator Relationship Specialty Start Date End Date Rayo Richey APRN [address] [place] [address] PCP - General 12/07/24 documented as of this encounter
--- OUTSIDE RECORDS SUMMARY | 2025-02-24 12:13 | XMS_ITS | Encounter Summary ---
Author Organization Healthcare Address [address] [place] [address] Care Team Providers Care House Designer Name Role Phone Rayo Richey APRN Primary Care Provider +1- [phone] Encounter Details Date Type Department Care Team (Late st Contact Info) Description 09/17/2024 Orders Only External Location [address] [place] [address] Provider, External Social History Tobacco Use Types [...] Info) Description 03/02/2025 1:00 PM EDT Consult [facility] General Surgery [address], [address] [place] [address] Neo Bruce MD [address] [place] [address] documented as of this encounter Procedures Procedure Name Priority Date/Time Associated Diagnosis Comments CT MSK OUTSIDE IMAGES 09/17/2024 9:42 AM EST documented in this encounter Results * CT MSK OUTSIDE IMAGES (09/17/2024 9:42 AM EST) Anatomical Region Laterality Modality Computed Tomogra phy 09/17/2024 9:42 AM EST us External Provider IMG CT PROCEDURES Final Result documented in this encounter Visit Diagnoses Not on filedocumented in this encounter Care Teams House Designer Relationship Specialty Start Date End Date Rayo Richey APRN [address] [place] [address] PCP - General 12/07/24 documented as of this encounter
--- OUTSIDE RECORDS SUMMARY | 2025-02-24 12:14 | XMS_ITS | Encounter Summary ---
Author Organization Healthcare Address [address] [place] [address] Care Team Providers Care Fitter Up Name Role Phone Rayo Richey MEDICAL STAFFING COORDINATOR Primary Care Provider +1- [phone] Reason for Visit * Reason Onset Date Comments HCN Clinical Concern/Question 02/24/2025 Encounter Details Date Type Department Care Team (Late st Contact Info) Description 02/24/2025 Telephone [facility] General Surgery [address] [place] [address] Neo Bruce MD [address] [place] [address] HCN Clinical Concern/Question Social History Tobacco Use Types Packs/Day Years Used Date Smoking Tobacco: Never Assessed Sex and Gender Information Value Date Recorded Sex Assigned at Not on file Legal Sex Male 6:09 PM EDT Gender Identity Not on file Sexual Orientation Not on file documented as of this encounter Miscellaneous Notes * Telephone Encounter - Kaylee Blanco RN - 02/24/2025 11:29 AM EDT Spoke with patient and is in so much lower abd pain at this time he is on his way to [facility]. Will update once he knows what is being done for him since he has an appt with Dr. Bruce on Saturday. * Telephone Encounter - Anais Du - 02/24/2025 10:40 AM EDT Clinical Concern/Question Reason for Call: Patient says he is in a lot of pain , he has been off meds for 2 weeks and is having consistent flare ups, please follow-up , nothing sooner available to get him in Best contact number: [phone] (mobile) Optimal time of day to reach caller: ANYTIME Additional comments/information from caller: None Note: Please do not reply to this message. Follow-up communication and further actions as a result of this message need to be communicated with the patient directly, if the patient is not active onMyChart. If the patient is active on MyChart, they will receive notification of the communication/outcome via [employer]. documented in this encounter Plan of Treatment Upcoming Encounters Date Type Department Care Team (Late st Contact Info) Description 03/02/2025 1:00 PM EDT Consult [facility] General Surgery [address] [place] [address] Neo Bruce MD [address] [place] [address] documented as of this encounter Visit Diagnoses Not on filedocumented in this encounter Care Teams Fitter Up Relationship Specialty Start Date End Date Rayo Richey APRN [address] [place] [address] PCP - General 12/07/24 documented as of this encounter
--- OUTSIDE RECORDS SUMMARY | 2025-02-24 12:15 | XMS_ITS | Data Portability ---
Author Organization [facility]TI [facility] Arnold [facility] CLOS[facility] Address [address] [facility] [place] [address] Care Team Providers Care What Job Titles Mean Name Role Phone DEAN MARTINEZ Primary Care Provider [phone] YANIV CHANCE Orthopedic Surgeon [phone] ROBERTH CHU Social Service Manager Assessment Encounter Date Assessment Date Assessment LastModified by Organization Details LastModified Time 01/29/2023 01/29/2023 He will be transitioned to a Sandy cast with the wrist in neutral for an additional 4 weeks. Cast care instructions and activity restrictions discussed at length. Plan to return to work on modified duty next week. He will return to office to see Dr. Chance in 4 weeks with cast off on arrival. Patient expressed understanding and was in agreement with this plan. RTO as scheduled or sooner if needed, advised to call office with any questions/concer ns. 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 Continue modified work duty. Follow-up in 6 weeks for repeat assessment with plans to begin formal strengthening and allow for gradual return to activity as tolerated. [email or web address] Not available 02/26/2023 18:08:38 04/09/2023 04/09/2023 Patient is doing well at this time. He can now gradually resume activity as tolerated without restrictions. Continue with therapy working on progressive strengthening. At his request, he can return to work without restrictions at this time. Follow-up again in 4 weeks for repeat assessment. If doing well at that time with no setbacks with return to work I will declare him MMI at that time. [email or web address] Not available 04/11/2023 17:29:03 05/07/2023 05/07/2023 Patient is doing well at this time. He will continue home therapy exercises. He can continue all activity including work without restrictions. He has now reached MMI at this time. Patient will follow up in clinic on an as-needed basis should additional questions or concerns arise. [email or web address] Not available 05/07/2023 13:06:25 Plan of Treatment Reminders Order Date Submit Date Provider Last Modified By Organization Details Last Modified Time Details Appointments RECHECK 2025 04:45P M RUFUS WAGGONER MD Not available Not available Not available Lab urinalysi s panel, auto 2024 025 [facility], [address], [place], [address], 10/15/2024 10:11:37 PSA, serum or plasma 2024 025 [facility], [address], [place], [address], 10/15/2024 10:11:37 Referral None recorded. Procedures None recorded. Surgeries None recorded. Imaging None recorded. Medication Orders None recorded. Patient TargetsNo targets recorded. Patient InstructionsNo instructions recorded. Reason for Referral None Reported. Results Created Date Observation Date Name Description Value Unit Range Abnormal Flag Note LastModifiedBy Organization Detail LastModifiedTime 10/16/1910/15/2024 PSA, serum or plasm a PSA 1.8 NG/mL 0.0 - 4.0 Not Available [facility] [address], [place], [address], 10/15/2024 10:06:07 03/06/20 25 10/15/2024 urina lysis panel , auto Unknown Analyte Clean Catch Not Available [facility] [address], [place], [address], 10/15/2024 09:29:59 10/16/19 25 10/15/2024 urina lysis panel , auto Unknown Analyte Yellow Not Available [facility] [address], [place], [address], 10/15/2024 09:29:59 10/16/1910/15/2024 urina lysis panel , auto Unknown Analyte Clear Not Available [facility] [address], [place], [address], 10/15/2024 09:29:59 10/16/19 25 10/15/2024 urina lysis panel , auto Unknown Analyte 1.005 Not Available [facility] [address], [place], [address], 10/15/2024 09:29:59 10/16/19 25 10/15/2024 urina lysis panel , auto Unknown Analyte 1.003 - 1.030 Not Available [facility] [address], [place], [address], 10/15/2024 09:29:59 10/16/19 25 10/15/2024 urina lysis panel , auto Unknown Analyte 6.0 Not Available [facility] [address], [place], [address], 10/15/2024 09:29:59 10/16/19 25 10/15/2024 urina lysis panel , auto Unknown Analyte 5.0 - 8.0 Not Available [facility] [address], [place], [address], 10/15/2024 09:29:59 10/16/19 25 10/15/2024 urina lysis panel , auto Unknown Analyte Negati ve Not Available [facility] [address], [place], [address], 10/15/2024 09:29:59 10/16/19 25 10/15/2024 urina lysis panel , auto Unknown Analyte Negati ve Not Available [facility] [address], [place], [address], 10/15/2024 09:29:59 10/16/19 25 10/15/2024 urina lysis panel , auto Unknown Analyte Negati ve Not Available [facility] [address], [place], [address], 10/15/2024 09:29:59 10/16/19 25 10/15/2024 urina lysis panel , auto Unknown Analyte Negati ve Not Available [facility] [address], [place], [address], 10/15/2024 09:29:59 10/16/19 25 10/15/2024 urina lysis panel , auto Unknown Analyte Negati ve Not Available [facility] [address], [place], [address], 10/15/2024 09:29:59 03/06/10/15/2024 urina lysis panel , auto Unknown Analyte Negati ve Not Available [facility] [address], [place], [address], 10/15/2024 09:29:59 10/16/19 25 10/15/2024 urina lysis panel , auto Unknown Analyte Normal Not Available [facility] [address], [place], [address], 10/15/2024 09:29:59 10/16/19 25 10/15/2024 urina lysis panel , auto Unknown Analyte Negati ve Not Available [facility] [address], [place], [address], 10/15/2024 09:29:59 10/16/19 25 10/15/2024 urina lysis panel , auto Unknown Analyte Negati ve Not Available [facility] [address], [place], [address], 10/15/2024 09:29:59 10/16/19 25 10/15/2024 urina lysis panel , auto Unknown Analyte Normal Not Available [facility] [address], [place], [address], 10/15/2024 09:29:59 10/16/19 25 10/15/2024 urina lysis panel , auto Unknown Analyte Normal Not Available [facility] [address], [place], [address], 10/15/2024 09:29:59 10/16/19 25 10/15/2024 urina lysis panel , auto Unknown Analyte Negati ve Not Available [facility] [address], [place], [address], 10/15/2024 09:29:59 10/16/19 25 10/15/2024 urina lysis panel , auto Unknown Analyte Negati ve Not Available [facility] [address] [facility] [address], [place], [address], 10/15/2024 09:29:59 10/16/19 25 10/15/2024 urina lysis panel , auto Unknown Analyte 50 Moose/uL Not Available [facility] [address], [place], [address], 10/15/2024 09:29:59 10/16/19 25 10/15/2024 urina lysis panel , auto Unknown Analyte Negati ve Not Available [facility] [address], [place], [address], 10/15/2024 09:29:59 Result Notes None recorded. Problems Name Problem SNOMED Code Status Onset Date Resolution Date Notes Provider Name and Address Organization Details Recorded Time Family history of malignant neoplasm of prostate 388001560 Active 2016 JUVENCIO BRUNO JR, MD [address] [place] [address], [address], [facility] 7 13:14:10 Urgent desire to urinate 21117393 Active 2017 JUVENCIO BRUNO JR, MD [address] [place] [address], [address], [facility] 8 07:46:25 Urinary tract infectious disease 82772994 Active 2018 JUVENCIO BRUNO JR, MD [address] [place] [address], [address], [facility] 9 09:56:46 Acute prostatitis 85887192 Active 2018 JUVENCIO BRUNO JR, MD [address] [place] [address], [address], [facility] 9 08:36:45 Prostatitis 6130628 Active 2018 JUVENCIO BRUNO JR, MD [address] [place] [address], [address], [facility] 9 10:24:27 Premature ejaculation 97543438 Active 2019 JUVENCIO BRUNO JR, MD [address] [place] [address], [address], [facility] 0 08:15:24 Benign prostatic hyperplasia without outflow obstruction 000916380 Completed 202003/26/2021 JUVENCIO BRUNO JR, MD [address] [place] [address], [address], [facility] 1 10:34:24 Benign prostatic hyperplasia with outflow obstruction 971851810 Active 2020 JUVENCIO BRUNO JR, MD [address] [place] [address], [address], [facility] 1 10:34:18 Problem Notes None recorded. Procedures Surgical History Date Name Laterality Status Provider Name and Address Organization Details Recorded Time 3 Op Note completed YANIV CHANCE MD [address] [place] [address], [address], [facility] 01/14/2023 09:38:51 3 Wrist arthroscopy completed Rima Nava [facility] 02/26/2023 11:06:40 Imaging Results None recorded. Procedure Notes None recorded. Medical Equipment None Reported. Allergies Allergen ID Allergen Name Allergen Category Reaction Reaction Severity Criticality Documentation Date Start Date Code Code System Note Provider Name and Address Organization Details Recorded Time 392729 Cipro medicatio n Not available Not available Not available 01/15/201998880 3 RxNorm Salud paulson, [facility] 9 13:20:05 Medications Name Sig Start Date Stop Date Status Note LastModified by Organization Details LastModified Time Mobic 7.5 mg tablet Take 1 tablet every day by oral route for 7 days. 2022 active Not Available Not Available Not Avai lable doxycycline monohydrate 100 mg tablet Take 1 tablet twice a day by oral route. 02/27 completed Not Available Not Available Not Available Flagyl 500 mg tablet Take 1 tablet every 8 hours by oral route. 02/27 completed Not Available Not Available Not Available hyoscyamine 0.125 mg disintegrat ing tablet Place 1 tablet every 4 hours by sublingua l route. active Not Available Not Available No t Available Cipro 500 mg tablet Take 1 tablet every 12 hours by oral route. 01/15 completed Not Available Not Available Not Available gabapentin 100 mg capsule Take 1 capsule every day by oral route at bedtime for 7 days. 01/29 completed Not Available Not Available Not Available Percocet 5 mg-325 mg tablet Take 1 tablet every 6 hours by oral route as needed. 01/29 completed Not Available Not Available Not Available cefdinir 300 mg capsule Take 1 capsule twice a day by oral route for 14 days. 02/25 completed Not Available Not Available Not Available Bactrim DS 800 mg-160 mg tablet Take 1 tablet every 12 hours by oral route. 02/27 completed Not Available Not Available Not Available alfuzosin ER 10 mg tablet,exte nded release 24 hr Take 1 tablet every day by oral route for 30 days. 2020 active Not Available Not Available Not Avai lable meloxicam active Not Available Not Citlaly ilable Not Available fiber active Not Available Not Availa ble Not Available Probiotic active Not Available Not Citlaly ilable Not Available Vitals Date Recorded Body height Body mass index (BMI) Body weight Provider Name and Address Organization Details Last Updated DateTime 10/15/2024 182.88 cm 31.9 kg/m2 427469.21 g Neryemil Ojeda [facility] 10/15/2024 09:26:19 Date Recorded Body height Body mass index (BMI) Body weight Provider Name and Address Organization Details Last Updated DateTime 01/29/2023 182.88 cm 33.2 kg/m2 758443.13 g Salud Ar [facility] 01/29/2023 14:18:49 Date Recorded Body height Body mass index (BMI) Body weight Provider Name and Address Organization Details Last Updated DateTime 02/26/2023 182.88 cm 33.2 kg/m2 233010.13 g Rima Nava [facility] 02/26/2023 11:04:52 Date Recorded Body height Body mass index (BMI) Body weight Provider Name and Address Organization Details Last Updated DateTime 04/09/2023 182.88 cm 33.2 kg/m2 312606.13 g Filiberto Rothman [facility] 04/09/2023 11:08:55 Date Recorded Body height Provider Name an d Address Organization Details Last Updated DateTime 05/07/2023 182.88 cm Rima Nick [facility] 05/07/2023 08:56:49 Social History Question Answer Notes LastModified by Organizat ion Details LastModified Time Tobacco Smoking Status Former Smoker quit 08/15/2016 Rima Nava [facility] 02/26/2023 11:06:00 How Much Tobacco Do You Chew? None [email or web address] Information not available 02/26/2023 When Did You Quit Smoking? 6-10yearssi [email or web address] Information not available 10/15/2024 Marital Status Informati on not available 11/15/2016 What Was The Date Of Your Most Recent Tobacco Screening? 10/15/2024 [email or web address] Information not available 10/15/2024 What Is Your Relationship Status? [email or web address] Information not available 10/15/2024 At What Age Did You Start Smoking Tobacco? 12 [email or web address] Information not available 10/15/2024 Has Tobacco Cessation Counseling Been Provided? Yes [email or web address] Information not available 09/19/2018 On What Date Was Tobacco Cessation Counseling Provided? 02/26/2023 [email or web address] Information not available 02/26/2023 How Many Years Have You Smoked Tobacco? 23 [email or web address] Information not available 10/15/2024 Sex: Male Functional Status Question Answer Note LastModified by Organizat ion Details LastModified Time Do you use any illicit or recreational drugs? No [email or web address] Information not available 02/26/2023 Do you or have you ever used any other forms of tobacco or nicotine? Yes [email or web address] Information not available 10/15/2024 What is your level of alcohol consumption? None Information not available 11/15/2016 Do you or have you ever used smokeless tobacco? Current snuff user [email or web address] Information not available 10/15/2024 Are you currently employed? Yes [email or web address] Information not available 10/15/2024 What is your occupation? [employer] [email or web address] Information not available 10/15/2024 Do you or have you ever used e-cigarettes or vape? Never used electronic cigarettes [email or web address] Information not available 10/15/2024 Mental Status None recorded. Family History Relationship Description Onset Age of this Age Resolved Age Notes LastModified by Organization Details LastModified Time Father Carcinoma of prostate [email or web address] Not available 2024 08:57:29 Paternal Grandfather Diabetes mellitus [email or web address] Not available 2024 08:57:29 Paternal Grandmother Family history of malignant neoplasm [email or web address] Not available 01/2017 13:04:23 Medical History Condition Response Allergies/Hayfever Y Diabetes N Thyroid Disease N Arthritis Y Heart Conditions N Kidney Stones Y Stroke N Sleep Apnea N High Cholesterol Y Anesthesia Complications Y Liver Disease N Heart Attack ([place]) N Ulcers Y Kidney Disease N Immunizations Vaccine Type Date Status Note Provider Nam e and Address Organization Details Recorded Time COVID-19 vaccine, vector-nr, rS-Ad26, PF, 0.5 mL 2 completed Rima Nava [facility] 02/26/2023 11:05:02 COVID-19 vaccine, vector-nr, rS-Ad26, PF, 0.5 mL 1 completed Rima Nava [facility] 02/26/2023 11:05:02 Tdap 0 completed Rima Nava [facility] 02/26/2023 11:05:02 Td (adult), 2 Lf tetanus toxoid, preservative free, adsorbed 4 completed Rima Nava [facility] 02/26/2023 11:05:02 Hep B, adult 4 completed Rima paulson, [facility] 02/26/2023 11:05:02 Hep B, adult 4 completed Rima Nava null, [facility] 02/26/2023 11:05:02 Hep B, adult 4 completed Rima Elijah paulson, [facility] 02/26/2023 11:05:02 Past Encounters Encounter ID Performer Location Encounter Start Date Encounter Closed Date Diagnosis/Indication Diagnosis SNOMED-CT Code Diagnosis ICD10 Code Diagnosis Note [id number] JUVENCIO BRUNO JR, MD [facility] [address] [address] 11/15/2016 12:01:31 11/15/2016 16:21:05 Family history of malignant neoplasm of prostate 843306887 Z80.42 [id number] JUVENCIO BRUNO JR, MD [facility] [address] [address] 09/13/2017 10:46:37 09/16/2017 12:11:26 Family history of malignant neoplasm of prostate 761160140 Z80.42 Urgent clint rupa to urinate 11828003 R39.15 Dysuria 60775969 R30.0 [id number] JUVENCIO BRUNO JR, MD [facility] [address] [address] 09/19/2018 09:08:15 09/19/2018 09:57:46 Urinary tract infectious disease 16286952 N39.0 Family his tory of malignant neoplasm of prostate 923473983 Z80.42 [id number] JUVENCIO BRUNO JR, MD [facility] [address] [address] 01/15/2019 12:59:26 01/15/2019 13:36:14 Acute prostatitis 85105348 N41.0 Family his tory of malignant neoplasm of prostate 450457951 Z80.42 Urinary tr act infectious disease 03809545 N39.0 [id number] JUVENCIO BRUNO JR, MD [facility] [address] [place] [address] 02/27/2019 11:44:45 02/27/2019 12:34:01 Family history of malignant neoplasm of prostate 469292071 Z80.42 Prostatitis 6314991 N41. 9 [id number] JUVENCIO BRUNO JR, MD [facility] [address] [place], [place] [address] 12/11/2019 10:26:47 12/11/2019 11:15:31 Prostatitis 5950003 N41.9 Family his tory of malignant neoplasm of prostate 073936979 Z80.42 [id number] JUVENCIO BRUNO JR, MD [facility] [address] [address] 02/26/2020 08:58:25 02/26/2020 09:29:15 Family history of malignant neoplasm of prostate 906019972 Z80.42 Chronic prostatitis 1989 5009 N41.1 [id number] JUVENCIO BRUNO JR, MD [facility] [address] [address] 05/26/2020 15:03:32 05/26/2020 16:42:31 Premature ejaculation 24532604 F52.4 Family his tory of malignant neoplasm of prostate 412913356 Z80.42 [id number] JUVENCIO BRUNO JR, MD [facility] [address] [id number] 03/24/2021 09:44:21 03/24/2021 10:31:19 Kidney stone 18618790 N20.0 Family his tory of malignant neoplasm of prostate 410959639 Z80.42 Benign pro static hyperplasia with outflow obstruction 201474932 N40.1 [id number] YANIV CHANCE MD [facility] [address] [place] [address] 10/19/2022 09:05:43 10/19/2022 10:55:11 Injury to triangular fibrocartilage of wrist joint 884309969 S69.82XA [id number] YANIV CHANCE MD [facility]TH[facility] CS [address] [place] [address] 11/30/2022 07:56:14 11/30/2022 09:25:20 Injury to triangular fibrocartilage of wrist joint 099820548 S69.82XA MRA of the left wrist (11/22/2022 ) -demonstra melba a complete tear of the ulnar styloid fossa attachment of the TFCC, as well as possible tears of the dorsal and palmar distal radioulnar ligaments; marrow edema in the ulnar styloid noted. [id number] YANIV CHANCE MD SURGERY SCHEDULE [address] [facility] [place] [address] 01/14/2023 06:02:50 01/14/2023 06:03:29 [id number] ZULMA DOLAN PA-C [facility] [address] [place] [address] 01/29/2023 14:13:47 01/29/2023 14:50:04 Postoperative care 945392614 Z48.89 s/p Left wrist arthroscop ic synovectom y with arthroscop ic assisted open TFCC repair (DOS: 01/14/23) [id number] YANIV CHANCE MD [facility] [address] [place] [address] 02/26/2023 10:23:58 02/26/2023 11:31:37 Postoperative care 379450254 Z48.89 6 weeks s/p Left wrist arthroscop ic synovectom y with arthroscop ic assisted open TFCC repair (DOS: 01/14/23) [id number] YANIV CHANCE MD [facility] [address] [place] [address] 04/09/2023 10:27:03 04/12/2023 04:50:21 Postoperative care 197822254 Z48.89 12 weeks s/p Left wrist arthroscop ic synovectom y with arthroscop ic assisted open TFCC repair (DOS: 01/14/23) [id number] YANIV CHANCE MD [facility] [address] [place] [address] 05/07/2023 08:48:24 05/07/2023 09:30:33 Postoperative care 542451632 Z48.89 4 months s/p Left wrist arthroscop ic synovectom y with arthroscop ic assisted open TFCC repair (DOS: 01/14/23) [id number] RUFUS WAGGONER MD [facility] [address] [place] [address] 10/15/2024 08:57:28 10/15/2024 10:19:07 Benign prostatic hyperplasia with outflow obstruction 032311684 N40.1 Health Concerns Section Related Observation LastModified by Organization Detai ls LastModified Time None Recorded Concern Status LastModified by Organization Details LastModified Time None Recorded Advance Directives Directive None Recorded Payers Insurance Date Sequence Insurance Name Policy Number Policy Fernandez Covered Member ID Fernandez Member ID Guarantor Name 04/12/2023 [place] [facility] 10/19/2022 GENERIC WORKERS [facility] 02/19/2023 1 [employer] (POS) [facility] [id number] [facility] 01/15/2023 1 [employer] (PPO) [id number] [facility] [id number] [facility] 10/19/2024 1 [place] [id number] 1 [facility] [id number] [facility] Notes Date Note Type Note Provider Name and Address Organization Details Recorded Time 3 text/html Patient presents today for post op follow up visit. Reports uneventful post op period. POST OP GLOBAL VISIT01/29/23 DATE OF SURGERY:01/14/23 TIME POST SURGERY:15 daysSURGERY:INTERVAL HISTORY:Left wrist arthroscopic synovectomy with arthroscopic assisted open TFCC repair PREOP SYMPTOMSBETTER PAIN LEVEL (VAS)0/10 OVERALL ASSESSMENTIMPROVING ZULMA DOLAN PA-C [address] [place], [phone], [facility] 02/01/2023 08:55:19 3 text/html Patient returns to the clinic today for postoperative evaluation. Reports stiffness since coming out of the cast as expected, but no significant pain. POST OP GLOBAL VISITDATE OF SURGERY:01/14/23TIME POST SURGERY:6 WKSSURGERY: Left wrist arthroscopic synovectomy with arthroscopic assisted open TFCC repairINTERVAL HISTORY: PREOP SYMPTOMSBETTER PAIN LEVEL (VAS)0-1/10, pain increases with movement, stiffness OVERALL ASSESSMENTIMPROVING Mr. Lr visits us in office today for a recheck. YANIV CHANCE MD [address] [place] [address], [phone], [facility] 02/26/2023 18:08:45 3 text/html Patient returns to the clinic today for postoperative evaluation. Reports that he is doing well at this time. Still with mild residual stiffness and weakness in the mornings which resolves with time. Reports therapy has been helpful. POST OP GLOBAL VISIT04/09/23 DATE OF SURGERY: 01/14/23TIME POST SURGERY:12WKSSURGERY: Left wrist arthroscopic synovectomy with arthroscopic assisted open TFCC repairINTERVAL HISTORY: PREOP SYMPTOMSBETTER PAIN LEVEL (VAS)1/10 OVERALL ASSESSMENTIMPROVING Mr. Lr visits us in office today for a recheck. Pt states that he is doing great but he is experiencing stiffness and soreness because of the brace. Pt has been going to therapy and doing good. YANIV CHANCE MD [address] [place] [address], [phone], [facility] 04/11/2023 17:29:11 3 text/html Patient returns to the clinic today for a follow-up. Reports that he has been using his hand for all activities and has returned to work without restrictions without any complication. No new complaints at this time. He is happy with his results.Consult requested by:Primary Care Physician: Rossi CRANE Hand dominance: RightLocation: Left Wrist Pain level: 0 /10 Date of injury: 5[birth year]Xmfjlcjn: 8 months Recent Surgery: YesDATE OF SURGERY: 01/14/23SURGERY: Left wrist arthroscopic synovectomy with arthroscopic assisted open TFCC repairSurgeon(If Known): Dr. Chance In office procedure? No Previous upper extremity surgery? NoProcedure:Approximate date of surgery:Surgeon (if known):Have you or an immediate family member ever seen our hand surgeons before? 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 Yes Is this injury associated with a Workers Compensation claim? Yes Patient arrived in: n/a Reflesher Strength: right: left: Mr. Lr visits us in office today for a recheck. Reports no pain, denies n/t. In therapy twice weekly, but has bene released pending todays visit. 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 Does express discomfort in the morning after sleeping. YANIV CHANCE MD [address] [place], [phone], [facility] 05/07/2023 13:06:38 5 text/html 44-year-old gentleman who comes in for routine prostate evaluation. His father of prostate cancer. He is on alfuzosin and voids with a good stream. There is no hesitancy or urgency. He does have problems with diverticular disease. When he has a diverticular disease Flareup He has a harder time urinating. Otherwise he voids without any problem. PSA today is 1.8 we will repeat this in 1 year RUFUS WAGGONER MD [address] [place], [phone], [facility] 10/15/2024 10:12:01
--- OUTSIDE RECORDS SUMMARY | 2025-02-24 12:16 | XMS_ITS | Clinical Summary ---
Author Organization Healthcare Address [address] [place] [address] Care Team Providers Care Talent Acquisition Operations Manager Name Role Phone Rayo Richey APRN Primary Care Provider [phone] Encounters Date Type Department Care Team Description 02/24/2025 Telephone [facility] General Surgery [address] [place] [address] Neo Bruce MD [facility] Clinical Concern/Question 12/02/2024 Community [facility] Community Practice [address] [place] [address] Roel Rodas MD Sigmoid diverticulitis (Primary Dx) from Last 3 Months Social History Tobacco Use Types Packs/Day Years Used Date Smoking Tobacco: Never Assessed Sex and Gender Information Value Date Recorded Sex Assigned at Not on file Legal Sex Male 6:09 PM EDT Gender Identity Not on file Sexual Orientation Not on file Plan of Treatment Upcoming Encounters Date Type Department Care Team (Late st Contact Info) Description 03/02/2025 1:00 PM EDT Consult [facility] General Surgery [address] [place] [address] Neo Bruce MD [address] [place] [address] Health Maintenance Due Date Last Done Comments [facility]-Depression Screening 1980 [facility]-HIV Screening 1980 [facility]-Hepatitis C Screening 1980 [facility]-/Child/Adol SDOH Screenings 1980 [facility]-Varicella Vaccines (1 of 2 - 13+ 2-dose series) 1993 HPV Vaccines (1 - Male 3-dose series) 1995 [facility]- SDOH Screenings 1998 [facility]-Adult SDOH Screenings 1998 [id number] Vaccine (3 - season) 2024 08/31/2021, 05/04/2021 [facility]-Influenza Vaccine (#1) 2025 [facility]-DTaP,Tdap,and Td Vaccines (2 - Td or Tdap) 12/30/2029 12/31/2019, 02/25/2004 [facility]-Zoster Vaccines (1 of 2) 2030 [facility]-Hepatitis B Vaccines Completed 014, 10/12/2013, 09/11/2013 [facility]-HIB Vaccines Aged Out No longer e ligible based on patient's age to complete this topic [facility]-Hepatitis A Vaccines Aged Out No longer eligible based on patient's age to complete this topic [facility]-IPV Vaccines Aged Out No longer e ligible based on patient's age to complete this topic [facility]-Pneumococcal Vaccine: Pediatrics (0 to 5 Years) and At-Risk Patients (6 to 49 Years) Aged Out No longer eligible b ased on patient's age to complete this topic [facility]-Rotavirus Vaccines Aged Out No lo nger eligible based on patient's age to complete this topic Insurance [facility] Care Teams Talent Acquisition Operations Manager Relationship Specialty Start Date End Date Rayo Richey APRN [address] [place] [address] [facility] - General 12/07/24
--- NOTE | 2025-02-24 12:34 | CT_ITS ---
FINAL REPORT TECHNIQUE: IV contrast enhanced exam This study was performed with techniques to keep radiation doses as low as reasonably achievable, (ALARA). Individualized dose reduction techniques using automated exposure control or adjustment of mA and/or kV according to the patient''s size were employed. CLINICAL HISTORY: abdominal tenderness, RLQ and suprapubic, diverticulitis COMPARISON: 09/21/2024 FINDINGS: Abdomen: There is left renal scarring. Tiny nonobstructing lower pole left renal stone is noted. The remaining solid organs are negative. The gallbladder is unremarkable. Bowel demonstrates mild fecal impaction in the right and transverse colon. There is no adenopathy. Pelvis: Abnormal wall thickening of the proximal sigmoid colon in a similar pattern to the prior exam which may be due to focal colitis, diverticulitis, or neoplasm. No evidence of abscess or obstruction. Tiny bilateral inguinal hernias are present containing fat. The urinary bladder is unremarkable. The prostate is unremarkable. The appendix is normal. No free fluid or adenopathy. IMPRESSION: Significant wall thickening proximal sigmoid colon could be inflammatory or neoplastic. Colonoscopy needed unless done after prior exam. Reviewed, Interpreted and Dictated by Rossana Barroso MD Transcribed by Geovanna Rainey Authenticated and [facility]
[2025-02-24] MEDS: ONDANSETRON 4MG/2ML VIAL 4 MG IV (12:47)
[2025-02-24] MEDS: MORPHINE 4MG/ML SYRINGE 4 MG IV ×2 (12:47→17:16)
[2025-02-24 12:48] LABS: Albumin Level 4.4 g/dl (3.5-5.0); Chloride 101 mmol/L (98-107); Potassium 4.2 mmoL/L (3.5-5.1); Sodium 139 mmol/L (136-145)
[2025-02-24 12:51] LABS: Alanine Aminotransferase 17 U/L (12-78); Albumin/Globulin Ratio 1.3 (1.1-1.8); Alkaline Phosphatase 102 U/L (38-126); Anion Gap 14.2 mEq/L (5-15); Aspartate Amino Transferase 23 U/L (17-59); Bilirubin,Total 0.6 mg/dl (0.2-1.3); Blood Urea Nitrogen 11 mg/dl (9-20); Calcium 9.7 mg/dl (8.4-10.2); Carbon Dioxide 28 mmol/L (22.0-30.0); Creatinine Clearance Estimated 174 mL/min (50-200); Creatinine,Serum 0.80 mg/dl (0.66-1.25); Estimated Glomerular Filt Rate 105 ml/min (>60); GFR (African American) 127 ML/MIN (>60); Globulin 3.4 g/dL (1.3-3.2); Glucose 101 mg/dl (74-100); Total Protein,Serum 7.8 g/dl (6.3-8.2)
[2025-02-24 12:52] LABS: Hematocrit 39.5 % (42.0-52.0); Hemoglobin 12.5 g/dL (14.1-18.0); Immature Granulocytes % 0.4 %; Mean Corpuscular HGB Conc 31.6 g/dL (31.8-35.4); Mean Corpuscular Hemoglobin 26.5 pg (27.0-31.2); Mean Corpuscular Volume 83.9 fl (80-94); Nucleated Red Blood Cells % 0 %; Platelet Count 237 K/mm3 (142-424); Red Blood Count 4.71 M/mm3 (4.60-6.20); Red Cell Distribution Width-SD 45.8 fL; White Blood Count 8.5 K/mm3 (4.8-10.8)
[2025-02-24 12:57] LABS: C-Reactive Protein 67.8 mg/L (0-4)
[2025-02-24] MEDS: SODIUM CHLORIDE 0.9% 10ML SYR (RAD ONLY) 10 ML IV (13:12)
[2025-02-24] MEDS: IOPAMIDOL-370 (76%);100ML BOTTLE 75 ML IV (13:12)
--- NOTE | 2025-02-24 13:44 | PC.NURSE ---
attempted to straight stick, unsuccessful finding anything. called lab for assistance.
--- NOTE | 2025-02-24 13:57 | PC.NURSE ---
LAB AT BEDSIDE.
--- NOTE | 2025-02-24 14:43 | PC.NURSE ---
Dr. Dalal speaking with Dr. Rodas
--- NOTE | 2025-02-24 14:43 | PC.NURSE ---
Dr Rodas called back and is speaking with Dr Dalal at this time
--- NOTE | 2025-02-24 14:45 | PC.NURSE ---
warm blankets provided
--- NOTE | 2025-02-24 15:13 | PC.NURSE ---
supervisor lace tearing called for bed.
--- NOTE | 2025-02-24 15:20 | HMH.PHAINT1 ---
Pharmacy Intervention Comments: MEDICATION RECONCILIATION COMPLETED ON PATIENT USING EXTERNAL FILL HISTORY FROM PHARMACY. -ELSY HARDEN, JESSIED
[2025-02-24] MEDS: MESALAMINE 800MG TABLET DR 1600 MG PO ×2 (15:24→20:10)
[2025-02-24] MEDS: diazePAM 10MG/2ML SYRINGE 5 MG IV (15:25)
--- NOTE | 2025-02-24 15:26 | PC.NURSE ---
Called report to NORI Mcdermott.
--- NOTE | 2025-02-24 15:43 | PC.NURSE ---
arrived by w/c from ED
--- NOTE | 2025-02-24 16:24 | P.HP_ITS ---
<Statement entered by Baldemar Duenas MD - 02/28/25 09:02> Personally examined patient and agree with plan of care as outlined by the RAKING MACHINE OPERATOR. History of Present Illness *Admission Date: 02/24/25 *Reason for visit:: Colitis, abdominal pain *History of present illness: Mr. Lr is a 44-year-old male who came into the emergency department with abdominal pain, nausea, and diarrhea. He does have a previous history of colitis, diverticulitis, and C. difficile. He states that his symptoms have been going on for quite for which he has been seen by gastroenterology in [place] and Dr. Rodas here at [facility]. He states the pain increased last night and into today. He complains of pain in his lower abdomen, tender to palpation. He did have a colonoscopy with Dr. Rodas in November which showed left-sided diverticulosis with evidence of chronic smoldering sigmoid diverticulitis; of which he was referred to colorectal surgery for management. He saw Dr. Rodas in the office in September and was started on Flagyl and Augmentin. He states that he took the course of medication but still had intermittent abdominal pain. He called Dr. Rodas recently due to the increased pain and was started on doxycycline 100 mg daily for possible suspected diverticulitis. He took 2 days worth of medication but the pain was so intense he decided to come to the emergency room. [facility] Disclaimer: The information contained in this section may have been updated after the patient was seen, as this information can be updated by other users. Medical History (Updated 02/24/25 @ 17:05 by Julia Blake APRN) Ex-smoker for more than 1 year Diverticulitis Surgical History H/O hand surgery History of colonoscopy H/O wrist surgery H/O adenoidectomy Hx of tonsillectomy History of kidney surgery Family History Father Family history of cancer Social History (Updated 02/24/25 @ 15:34 by Erin Mendez RN) Smoking Status: Former smoker tobacco type: cigarettes packs per day: 0 second hand exposure: No alcohol intake: never counseling provided: provider counseling substance use type: denies use current occupational status: employed Travel in the last 8 weeks?: None household members: family housing: house 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[employer] current occupational exposures/hazards: No caffeine: Yes Have you lived/traveled outside US in past 30 days?: No Contact w/someone who lives/traveled outside US past 30 days?: No Exposure to someone with infectious disease in past 14 days?: No Do you have a fever (greater than 100.4 F or 38 C)?: No Have you tested positive for COVID-19?: No Exposed to someone with COVID-19 in past 14 days?: No Do you have a sore throat?: No Do you have a cough?: No Do you have any weakness?: No Do you have any diarrhea?: No Are you experiencing any unusual bleeding?: No Do you have any muscle aches/pain?: No Do you have any abdominal pain?: Yes Are you experiencing loss of taste or smell?: No Other Medical History Have you received the Flu Vaccine for this season: No Have you received the Pneumonia Vaccine: No Review of Systems Review of Systems Review of systems:: pertinent systems reviewed and negative unless documented below Constitutional Constitutional: Reports poor appetite and Reports malaise *Cardiovascular Cardiovascular: Denies chest pain and Denies dyspnea *Respiratory Respiratory: Denies dyspnea *Gastrointestinal Gastrointestinal: Reports abdominal pain, Reports change in stool character, Denies constipation, Reports loose stools, Denies melena, Reports nausea and Denies vomiting *Genitourinary Genitourinary: Reports urinary hesitancy Meds Home Medications and Allergies Home Medications ?Medication ?Instructions ?Recorded ?Confirmed ?Type L.acidoph,paracasei,B.animalis 10 1 tab PO DAILY 05/2702/24/25 History billion cell capsule alfuzosin 10 mg tablet,extended 10 mg PO DAILY 0 02/24/25 History release 24 hr meloxicam 15 mg tablet 15 mg PO DAILY 09/22/2402/09 History psyllium seed (sugar) oral powder 1 tbsp PO DAILY 09/1202/24/25 History (Metamucil (sugar) oral powder) buspirone 10 mg tablet 10 mg PO BID #60 tabs 02/24/25 Rx doxycycline hyclate 100 mg capsule 100 mg PO DAILY #30 caps 02/23/25 02/24/25 Rx New Prescriptions to Start Prescriptions: Allergies Allergy/AdvReac Type Severity Reaction Status Date / Time [facility]fl[facility] ([facility] Allergy Severe Rash Verified 11/23/24 09:33 ibuprofen Allergy Mild Lips Verified 11/23/24 09:33 Swelling Exam Data for Last 24 hours Vital signs and Labs for Last 24 Hours: Temp Pulse Resp BP Pulse Ox O2 Del Method 98 F 51 L 16 106/56 L 98 Room Air 02/24/25 16:00 02/24/25 16:00 02/24/25 16:00 02/24/25 16:00 02/24/25 16:00 02/24/25 16:00 Laboratory Results - last 24 hr 02/24/25 12:17: WBC 8.5, RBC 4.71, Hgb 12.5 L, Hct 39.5 L, MCV 83.9, MCH 26.5 L, MCHC 31.6 L, RDW 14.9, Plt Count 237, MPV 9.7, Neut % (Auto) 70.7, Lymph % (Auto) 18.9, [place] % (Auto) 8.5, Eos % (Auto) 1.3, Baso % (Auto) 0.2, Neut # (Auto) 6.0, Lymph # (Auto) 1.6, [place] # (Auto) 0.7, Eos # (Auto) 0.1, Baso # (Auto) 0.0, ESR 42 H, Sodium 139, Potassium 4.2, Chloride 101, Carbon Dioxide 28, Anion Gap 14.2, BUN 11, Creatinine 0.80, Estimated Creat Clear 174, Estimated GFR 105, Est GFR ( Amer) 127, Glucose 101 H, Calcium 9.7, Total Bilirubin 0.6, AST 23, ALT 17, Alkaline Phosphatase 102, C-Reactive Protein 67.8 H, Total Protein 7.8, Albumin 4.4, Globulin 3.4 H, Albumin/Globulin Ratio 1.3 I & O for Last 24 hours: Intake & Output 02/21/25 02/22/25 02/23/25 02/24/25 23:59 23:59 23:59 23:59 Weight 104.326 kg *Routine HEENT Exam Head: Present normocephalic Eye: Present EOMI and PERRL ENT: Present mucous membranes moist *Routine Neck Exam Neck: Present supple *Routine Respiratory Exam Respiratory: Present CTA bilaterally *Routine Cardiovascular Exam Cardiovascular: Present RRR *Routine Abdominal Exam Abdominal: Present soft, normoactive bowel sounds and tenderness (Lower abdomen); Absent distended or firm *Routine Rectal Exam Rectal:: deferred *Routine Genitalia Exam Genitalia:: deferred *Routine Extremities Exam Extremities: Absent cyanosis, clubbing or edema *Routine Skin Exam Skin: Present warm; Absent rash *Routine Neurological Exam Neurological: Present alert and oriented X3 Assessment and Plan *Assessment and plan (1) Colitis: Status: Acute Category: Medical Code(s): K52.9 - Noninfective gastroenteritis and colitis, unspecified (2) Diarrhea: Status: Acute Qualifiers: Diarrhea type: infectious Qualified Code(s): A09 - Infectious gastroenteritis and colitis, unspecified Category: Medical Code(s): R19.7 - Diarrhea, unspecified (3) Mucus in stool: Status: Acute Category: Medical Code(s): R19.5 - Other fecal abnormalities (4) Obesity (BMI 30.0-34.9): Status: Acute Category: Medical Code(s): E66.811 - Obesity, class 1 (5) Diverticulitis of large intestine with complication: Status: Acute Category: Medical Code(s): K57.32 - Diverticulitis of large intestine without perforation or abscess without bleeding (6) BPH (benign prostatic hyperplasia): Status: Acute Category: Medical Code(s): N40.0 - Benign prostatic hyperplasia without lower urinary tract symptoms Plan Mr. Lr is a 44-year-old male who presented to the emergency department after a few weeks of abdominal pain, worsening in the last 24 hours. He does state that he is having what he describes as frothy, infection bowel movements. He has a longstanding history of colitis/diverticulitis for which she sees GI for. He is currently being referred to [facility] colorectal surgery for continued evaluation of recurrent colitis. He was recently placed on doxycycline for suspected diverticulitis by Dr. Rodas, but has failed outpatient therapy. The ER physician consulted hospital medicine for admission for IV antibiotics and pain control, I accepted the patient. Plan of care as follows: #Colitis #Diarrhea #Mucus in stool #Diverticulitis of large intestine with complication - Discussed case with GI, Dr. Rodas, plans for admission, IV antibiotics. Dr. Rodas to discuss case with colorectal surgery for potential transfer. - Diarrhea panel pending. - Per my independent review of abdominal CT, patient has wall thickening in the sigmoid colon. This is typically indicative of colitis or neoplasm. - Patient had colonoscopy in November 2024, no evidence of neoplastic disease, diverticulosis noted. - No leukocytosis noted, WBC 8.5. Patient does have a history of anemia, hemoglobin stable at 12.5. Blood cultures pending. - Pain medication ordered acetaminophen 650 mg for mild pain, Toradol 30 mg IV for moderate pain, morphine 4 mg every 4 for severe pain. Monitoring for toxicity. - Initiate IV antibiotics, Zosyn every 6 hours. Resume BuSpar 10 mg twice daily. - Liquid diet today, n.p.o. after midnight. IV hydration due to poor oral intake LR at 100 mL/hour. - Kidney function within normal limits BUN 11, creatinine 0.80. ?Monitor CBC, CMP, magnesium, CRP, ESR, Pro-Bimal #BPH ?Resume alfuzosin 10 mg. #Obesity Complicates all aspects of his care Full code Lovenox VTE Full liquids, n.p.o. at midnight Ambulate as tolerated GI consulted
[2025-02-24] MEDS: 0.9 % SODIUM CHLORIDE 1000ML 1,000 ML 100 ML IV (17:16)
[2025-02-24] MEDS: PIPERCILLIN/TAZO 3.375 GM in 0.9 % SODIUM CHLORIDE 50 ML IV ×2 (17:17→21:34)
[2025-02-24] MEDS: HYDROMORPHONE 2MG/ML SYRINGE 1 MG IV ×2 (18:23→22:17)
[2025-02-24] MEDS: BUSPIRONE HCL 10 MG TABLET PO (20:10)
[2025-02-24] MEDS: TAMSULOSIN 0.4MG CAPSULE 0.4 MG PO (20:10)
[2025-02-24] MEDS: MORPHINE 2MG/ML SYRINGE 2 MG IV (20:19)
[2025-02-25] MEDS: DICYCLOMINE 20 MG/2ML VIAL 10 MG IM (00:40)
[2025-02-25] MEDS: ACETAMINOPHEN 325MG TAB 650 MG PO ×3 (01:43→18:38)
[2025-02-25] MEDS: diazePAM 10MG/2ML SYRINGE 5 MG IV ×2 (01:51→06:12)
[2025-02-25 04:00] VITALS: BP 104/53; PULSE 60; RESP 19; TEMP 36.9; O2SAT 90; BMI 30.4
[2025-02-25] MEDS: 0.9 % SODIUM CHLORIDE 1000ML 1,000 ML 100 ML IV ×2 (04:18→15:41)
[2025-02-25] MEDS: PIPERCILLIN/TAZO 3.375 GM in 0.9 % SODIUM CHLORIDE 50 ML IV ×4 (04:19→22:03)
[2025-02-25] MEDS: HYDROMORPHONE 2MG/ML SYRINGE 1 MG IV ×5 (04:19→22:26)
[2025-02-25 06:21] LABS: Hematocrit 33.9 % (42.0-52.0); Immature Granulocytes % 0.7 %; Mean Corpuscular HGB Conc 31.3 g/dL (31.8-35.4); Mean Corpuscular Hemoglobin 26.4 pg (27.0-31.2); Mean Corpuscular Volume 84.3 fl (80-94); Nucleated Red Blood Cells % 0 %; Platelet Count 205 K/mm3 (142-424); Red Blood Count 4.02 M/mm3 (4.60-6.20); Red Cell Distribution Width-SD 46.7 fL; White Blood Count 7.4 K/mm3 (4.8-10.8)
[2025-02-25 06:25] LABS: Hemoglobin 10.8 g/dL (14.1-18.0)
[2025-02-25 06:30] LABS: Alanine Aminotransferase 15 U/L (12-78); Albumin Level 3.6 g/dl (3.5-5.0); Albumin/Globulin Ratio 1.3 (1.1-1.8); Alkaline Phosphatase 83 U/L (38-126); Anion Gap 14.0 mEq/L (5-15); Aspartate Amino Transferase 26 U/L (17-59); Bilirubin,Total 0.9 mg/dl (0.2-1.3); Blood Urea Nitrogen 9 mg/dl (9-20); Calcium 8.9 mg/dl (8.4-10.2); Carbon Dioxide 27 mmol/L (22.0-30.0); Chloride 101 mmol/L (98-107); Creatinine Clearance Estimated 124 mL/min (50-200); Creatinine,Serum 1.10 mg/dl (0.66-1.25); Estimated Glomerular Filt Rate 73 ml/min (>60); GFR (African American) 88 ML/MIN (>60); Globulin 2.7 g/dL (1.3-3.2); Glucose 98 mg/dl (74-100); Magnesium 1.9 mg/dl (1.6-2.3); Phosphorous 3.3 mg/dl (2.5-4.5); Potassium 4.0 mmoL/L (3.5-5.1); Sodium 138 mmol/L (136-145); Total Protein,Serum 6.3 g/dl (6.3-8.2)
--- NOTE | 2025-02-25 06:59 | EXP.PN ---
Subjective *Date: 02/25/25 *Time: 06:59 Interval history: 44-year-old gentleman with ongoing lower abdominal pain especially in the left lower quadrant. 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 Prior CAT scans have shown extensive mucosal thickening and inflammation of the proximal and mid sigmoid colon. He presented to the ED again yesterday with intractable pain. He had undergone colonoscopy with me in November 2024 and had left-sided diverticulosis with evidence of chronic smoldering sigmoid diverticulitis. I had recommended colorectal surgery consultation and the patient does have an appointment with colorectal surgery (Neo Bruce MD) at the [facility] next week. At the ED, his white blood cell count was 8.4, hemoglobin 12.5 and hematocrit 39.5. Additional labs showed lactate 0.9, AST 26, ALT 15 and C-reactive protein was elevated at 67.8. His albumin was 4.4. His prior comparable CRP in July 2020 was 7.6. The patient's CAT scan again showed marked thickening of the proximal sigmoid colon. He was admitted because of intractable pain. Exam Data for Last 24 hours Vital signs and Labs for Last 24 Hours: Temp Pulse Resp BP Pulse Ox O2 Del Method 98.5 F 60 19 104/53 L 90 L Room Air 02/25/25 04:00 02/25/25 04:00 02/25/25 04:00 02/25/25 04:00 02/25/25 04:00 02/25/25 05:00 Laboratory Results - last 24 hr 02/24/25 12:17: WBC 8.5, RBC 4.71, Hgb 12.5 L, Hct 39.5 L, MCV 83.9, MCH 26.5 L, MCHC 31.6 L, RDW 14.9, Plt Count 237, MPV 9.7, Neut % (Auto) 70.7, Lymph % (Auto) 18.9, [place] % (Auto) 8.5, Eos % (Auto) 1.3, Baso % (Auto) 0.2, Neut # (Auto) 6.0, Lymph # (Auto) 1.6, [place] # (Auto) 0.7, Eos # (Auto) 0.1, Baso # (Auto) 0.0, ESR 42 H, Sodium 139, Potassium 4.2, Chloride 101, Carbon Dioxide 28, Anion Gap 14.2, BUN 11, Creatinine 0.80, Estimated Creat Clear 174, Estimated GFR 105, Est GFR ( Amer) 127, Glucose 101 H, Calcium 9.7, Total Bilirubin 0.6, AST 23, ALT 17, Alkaline Phosphatase 102, C-Reactive Protein 67.8 H, Total Protein 7.8, Albumin 4.4, Globulin 3.4 H, Albumin/Globulin Ratio 1.3 02/24/25 17:46: Lactate 0.9 02/25/25 05:57: WBC 7.4, RBC 4.02 L, Hgb 10.8 L D, Hct 33.9 L, MCV 84.3, MCH 26.4 L, MCHC 31.3 L, RDW 15.2, Plt Count 205, MPV 9.7, Neut % (Auto) 65.8, Lymph % (Auto) 23.2, [place] % (Auto) 8.2, Eos % (Auto) 1.8, Baso % (Auto) 0.3, Neut # (Auto) 4.9, Lymph # (Auto) 1.7, [place] # (Auto) 0.6, Eos # (Auto) 0.1, Baso # (Auto) 0.0, Sodium 138, Potassium 4.0, Chloride 101, Carbon Dioxide 27, Anion Gap 14.0, BUN 9, Creatinine 1.10 D, Estimated Creat Clear 124, Estimated GFR 73, Est GFR ( Amer) 88 D, Glucose 98, Calcium 8.9, Phosphorus 3.3, Magnesium 1.9, Total Bilirubin 0.9, AST 26, ALT 15, Alkaline Phosphatase 83, Total Protein 6.3, Albumin 3.6 D, Globulin 2.7, Albumin/Globulin Ratio 1.3 I & O for Last 24 hours: Intake & Output 02/22/25 02/23/25 02/24/25 02/25/25 23:59 23:59 23:59 23:59 Intake Total 800 / 800 120 / 120 Output Total 100 / 100 Balance 800 / 800 20 / 20 Weight 230 lb 224 lb 12.074 oz Assessment and Plan *Assessment and plan (1) Left lower quadrant abdominal pain: Status: Acute Category: Medical Code(s): R10.32 - Left lower quadrant pain (2) Sigmoid diverticulitis: Status: Acute Category: Medical Code(s): K57.32 - Diverticulitis of large intestine without perforation or abscess without bleeding Plan 1. Acute sigmoid diverticulitis. This is acute on chronic and chronic smoldering diverticulitis. There is no evidence of any complication (i.e. perforation, abscess, ascites, fistula). It is apparent the patient needs surgery and I would recommend that he continue antibiotics through to his surgery since this is best performed electively when the inflammation has subsided. There is no evidence on CAT scan that he needs urgent surgery. I would continue intravenous antibiotics to be transition to oral and at this point would recommend transition to Augmentin. I would also recommend Flagyl and probiotic because of history of C. difficile. I would favor benzodiazepines and dicyclomine over opiates to control pain. I would also recommend continuing mesalamine which I suggested to the ED to reduce any mucosal inflammation. I am not convinced that we need to move up surgery meeting because this sigmoid inflammation should be treated medically to help reduce inflammation prior to surgery and he does have the appointment very soon.
[2025-02-25 08:00] VITALS: BP 113/50; PULSE 53; PULSE 57; RESP 16; O2SAT 94; O2SAT 96
[2025-02-25] MEDS: BUSPIRONE HCL 10 MG TABLET PO ×2 (08:38→20:04)
[2025-02-25] MEDS: MESALAMINE 800MG TABLET DR 1600 MG PO ×3 (08:39→20:04)
--- NOTE | 2025-02-25 14:12 | EXP.ACUTE.PN ---
Subjective *Date: 02/25/25 *Time: 14:12 Interval history: Patient is lying in bed, states that he is still having diffuse abdominal pain. Currently rates his pain a 7 out of 10, but states throughout the night it was a 10 out of 10 multiple times. He was seen by Dr. Rodas this morning who recommended continuing the current plan, and discharging patient home once pain was controlled with antibiotics and pain medication. Patient does have follow-up with colorectal surgeon on March 02. Medical Exam Vital signs and Labs for Last 24 Hours: Vital Signs Temp Pulse Pulse Pulse Resp BP BP 02/25/25 13:00 02/25/25 11:00 02/25/25 09:00 02/25/25 08:00 53 L 02/25/25 08:00 57 L 16 113/50 L 02/25/25 06:59 02/25/25 05:00 02/25/25 04:00 98.5 F 60 19 104/53 L 02/25/25 03:00 02/25/25 01:00 02/24/25 23:00 02/24/25 21:00 02/24/25 20:00 97.7 F 65 16 114/63 02/24/25 20:00 02/24/25 18:34 02/24/25 17:00 02/24/25 16:00 98 F 51 L 16 106/56 L 02/24/25 15:48 98.1 F 87 15 150/84 H 02/24/25 15:21 02/24/25 14:51 58 L 119/57 L 02/24/25 14:49 59 L 119/57 L Pulse Ox O2 Del Method 02/25/25 13:00 Room Air 02/25/25 11:00 Room Air 02/25/25 09:00 Room Air 02/25/25 08:00 96 Room Air 02/25/25 08:00 94 L Room Air 02/25/25 06:59 Room Air 02/25/25 05:00 Room Air 02/25/25 04:00 90 L Room Air 02/25/25 03:00 Room Air 02/25/25 01:00 Room Air 02/24/25 23:00 Room Air 02/24/25 21:00 Room Air 02/24/25 20:00 96 Room Air 02/24/25 20:00 Room Air 02/24/25 18:34 Room Air 02/24/25 17:00 Room Air 02/24/25 16:00 98 Room Air 02/24/25 15:48 Room Air 02/24/25 15:21 Room Air 02/24/25 14:51 96 Room Air 02/24/25 14:49 99 Intake and Output 02/24/25 02/25/25 02/25/25 23:59 07:59 15:59 Intake Total 800 / 800 120 / 240 120 / 240 Output Total 100 / 100 0 / 100 Balance 800 / 800 20 / 140 120 / 140 Intake: Intake, Oral Amount 800 / 800 120 / 240 120 / 240 Output: Output, Urine Amount 100 / 100 0 / 100 Other: Number of Unmeasured Voids 1 Weight 104.326 kg 101.947 kg Patient Weight 02/25/25 23:59 Weight 101.947 kg Laboratory Results - last 24 hr 02/24/25 17:46: Lactate 0.9 02/25/25 05:57: WBC 7.4, RBC 4.02 L, Hgb 10.8 L D, Hct 33.9 L, MCV 84.3, MCH 26.4 L, MCHC 31.3 L, RDW 15.2, Plt Count 205, MPV 9.7, Neut % (Auto) 65.8, Lymph % (Auto) 23.2, [place] % (Auto) 8.2, Eos % (Auto) 1.8, Baso % (Auto) 0.3, Neut # (Auto) 4.9, Lymph # (Auto) 1.7, [place] # (Auto) 0.6, Eos # (Auto) 0.1, Baso # (Auto) 0.0, Sodium 138, Potassium 4.0, Chloride 101, Carbon Dioxide 27, Anion Gap 14.0, BUN 9, Creatinine 1.10 D, Estimated Creat Clear 124, Estimated GFR 73, Est GFR ( Amer) 88 D, Glucose 98, Calcium 8.9, Phosphorus 3.3, Magnesium 1.9, Total Bilirubin 0.9, AST 26, ALT 15, Alkaline Phosphatase 83, Total Protein 6.3, Albumin 3.6 D, Globulin 2.7, Albumin/Globulin Ratio 1.3 I & O for Labs for Last 24 Hours: Intake & Output 02/22/25 02/23/25 02/24/2502/25/25 23:59 23:59 23:59 23:59 Intake Total 800 / 800 240 / 240 Output Total 100 / 100 Balance 800 / 800 140 / 140 Weight 104.326 kg 101.947 kg Microbiology Reports for the Last 24 Hours: Microbiology 02/24/25 13:58 Blood Blood Culture - Preliminary NO GROWTH AFTER 24 HOURS 02/24/25 14:03 Blood Blood Culture - Preliminary NO GROWTH AFTER 24 HOURS Assessment and Plan *Assessment and plan (1) Colitis: Status: Acute Category: Medical Code(s): K52.9 - Noninfective gastroenteritis and colitis, unspecified (2) Diarrhea: Status: Acute Qualifiers: Diarrhea type: infectious Qualified Code(s): A09 - Infectious gastroenteritis and colitis, unspecified Category: Medical Code(s): R19.7 - Diarrhea, unspecified (3) Mucus in stool: Status: Acute Category: Medical Code(s): R19.5 - Other fecal abnormalities (4) Obesity (BMI 30.0-34.9): Status: Acute Category: Medical Code(s): E66.811 - Obesity, class 1 (5) Diverticulitis of large intestine with complication: Status: Acute Category: Medical Code(s): K57.32 - Diverticulitis of large intestine without perforation or abscess without bleeding (6) BPH (benign prostatic hyperplasia): Status: Acute Category: Medical Code(s): N40.0 - Benign prostatic hyperplasia without lower urinary tract symptoms Plan Mr. Lr is a 44-year-old male who presented to the emergency department after a few weeks of abdominal pain, worsening in the last 24 hours. He does state that he is having what he describes as frothy, infection bowel movements. He has a longstanding history of colitis/diverticulitis for which she sees GI for. He is currently being referred to [facility] surgery for continued evaluation of recurrent colitis. He was recently placed on doxycycline for suspected diverticulitis by Dr. Rodas, but has failed outpatient therapy. The ER physician consulted hospital medicine for admission for IV antibiotics and pain control, I accepted the patient. Plan of care as follows: #Colitis #Diarrhea #Mucus in stool #Diverticulitis of large intestine with complication - Discussed case with GI, Dr. Rodas, plans for admission, IV antibiotics. Dr. 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 He does think the patient needs surgery but it is not an emergency at this time. Plans to discharge home on oral antibiotics, and pain control once he is medically stable. - Diarrhea panel pending. Patient has not had episode of diarrhea or bowel movement since admission. - Per my independent review of abdominal CT, patient has wall thickening in the sigmoid colon. This is typically indicative of colitis or neoplasm. - Patient had colonoscopy in November 2024, no evidence of neoplastic disease, diverticulosis noted. - No leukocytosis noted, WBC stable at 7.4.. Patient does have a history of anemia, hemoglobin stable at 10.8. Blood cultures pending. Will continue to monitor for further drops in hemoglobin. - Pain medication ordered [place] 5/325 x 1 for moderate pain, [place] 5/325 x 2 for severe pain. Dilaudid 1 mg every 3 hours as needed for severe breakthrough pain. Patient required multiple doses of IV pain medication throughout the evening. Will continue to monitor. - Initiate IV antibiotics, Zosyn every 6 hours. Resume BuSpar 10 mg twice daily. -Patient able to tolerate a full liquid diet today without issues. IV hydration due to poor oral intake LR at 100 mL/hour. - Kidney function within normal limits BUN 9, creatinine 1.1. ?CRP elevated at 67.8, ESR 42. Will recheck in the a.m. continue to monitor CBC, CMP. #BPH ?Resume alfuzosin 10 mg. #Obesity Complicates all aspects of his care Full code Lovenox VTE Full liquids, n.p.o. at midnight Ambulate as tolerated GI consulted
[2025-02-25] MEDS: HYDROCODONE/APAP 5/325 MG TABLET 2 TAB PO ×2 (15:40→20:34)
[2025-02-25 16:00] VITALS: BP 100/55; PULSE 56; RESP 18; TEMP 36.9; O2SAT 92
[2025-02-25] MEDS: HYDROMORPHONE HCL 2 MG TABLET 1 MG PO (18:32)
[2025-02-25 19:45] VITALS: BP 114/55; PULSE 47; RESP 16; TEMP 36.6; O2SAT 92
[2025-02-25] MEDS: TAMSULOSIN 0.4MG CAPSULE 0.4 MG PO (20:04)
[2025-02-26 04:00] VITALS: BP 121/58; PULSE 52; RESP 16; TEMP 36.6; O2SAT 94; BMI 31.1
[2025-02-26] MEDS: PIPERCILLIN/TAZO 3.375 GM in 0.9 % SODIUM CHLORIDE 50 ML IV ×4 (04:31→21:37)
[2025-02-26] MEDS: HYDROMORPHONE HCL 2 MG TABLET 1 MG PO ×2 (04:31→08:24)
[2025-02-26] MEDS: 0.9 % SODIUM CHLORIDE 1000ML 1,000 ML 100 ML IV (04:31)
[2025-02-26] MEDS: HYDROCODONE/APAP 5/325 MG TABLET 2 TAB PO ×2 (05:14→09:19)
--- NOTE | 2025-02-26 05:18 | PC.NURSE ---
Pt A&OX4 and has tolerated room air. Lung sounds clear and bowel sounds active. Pt has complained of abdominal pain and a headache multiple times this shift. He has been medicated per MAR. He has ambulated room independently. Family member has remained at bedside. No other complaints at this time, call light within reach.
[2025-02-26 06:20] LABS: Hematocrit 33.9 % (42.0-52.0); Hemoglobin 10.9 g/dL (14.1-18.0); Immature Granulocytes % 0.3 %; Mean Corpuscular HGB Conc 32.2 g/dL (31.8-35.4); Mean Corpuscular Hemoglobin 27.5 pg (27.0-31.2); Mean Corpuscular Volume 85.6 fl (80-94); Nucleated Red Blood Cells % 0 %; Platelet Count 216 K/mm3 (142-424); Red Blood Count 3.96 M/mm3 (4.60-6.20); Red Cell Distribution Width-SD 47.4 fL; White Blood Count 7.4 K/mm3 (4.8-10.8)
[2025-02-26 06:21] LABS: Alanine Aminotransferase 15 U/L (12-78); Albumin Level 3.8 g/dl (3.5-5.0); Albumin/Globulin Ratio 1.4 (1.1-1.8); Alkaline Phosphatase 90 U/L (38-126); Anion Gap 14.1 mEq/L (5-15); Aspartate Amino Transferase 22 U/L (17-59); Bilirubin,Total 0.5 mg/dl (0.2-1.3); Blood Urea Nitrogen 8 mg/dl (9-20); Calcium 9.1 mg/dl (8.4-10.2); Carbon Dioxide 29 mmol/L (22.0-30.0); Chloride 98 mmol/L (98-107); Creatinine Clearance Estimated 116 mL/min (50-200); Creatinine,Serum 1.20 mg/dl (0.66-1.25); Estimated Glomerular Filt Rate 66 ml/min (>60); GFR (African American) 80 ML/MIN (>60); Globulin 2.7 g/dL (1.3-3.2); Glucose 99 mg/dl (74-100); Phosphorous 3.5 mg/dl (2.5-4.5); Potassium 4.1 mmoL/L (3.5-5.1); Sodium 137 mmol/L (136-145); Total Protein,Serum 6.5 g/dl (6.3-8.2)
[2025-02-26 06:27] LABS: C-Reactive Protein 64.8 mg/L (0-4)
[2025-02-26 08:00] VITALS: BP 112/53; PULSE 51; RESP 18; TEMP 36.7; O2SAT 100
[2025-02-26] MEDS: MESALAMINE 800MG TABLET DR 1600 MG PO ×3 (09:19→20:43)
[2025-02-26] MEDS: BUSPIRONE HCL 10 MG TABLET PO ×2 (09:22→20:44)
[2025-02-26] MEDS: HYDROMORPHONE 2MG/ML SYRINGE 1 MG IV ×2 (11:49→15:30)
--- NOTE | 2025-02-26 14:10 | CT_ITS ---
FINAL REPORT TECHNIQUE: Oral and IV contrast enhanced exam This study was performed with techniques to keep radiation doses as low as reasonably achievable, (ALARA). Individualized dose reduction techniques using automated exposure control or adjustment of mA and/or kV according to the patient's size were employed. CLINICAL HISTORY: Intractacble lower abdominal pain COMPARISON: 02/24/2025 FINDINGS: CT ABDOMEN PELVIS WITH CONTRAST: Abdomen: Lung bases are clear. The gallbladder is distended liver has an unremarkable CT appearance. The spleen, pancreas and adrenal glands are unremarkable. Kidneys show no mass or obstruction. No bowel obstruction or fluid collection is seen. No evidence of free air is identified. Pelvis: The appendix is normal in appearance. There is abnormal wall thickening of the proximal sigmoid colon similar to the prior examination of 02/24/2025. There is no evidence of bowel obstruction identified, and no abscess is noted. This wall thickening may be secondary to neoplasm or inflammation, and colonoscopy is strongly recommended for further evaluation. No fluid collection or adenopathy is seen. IMPRESSION: Stable short segment wall thickening of the proximal sigmoid colon without evidence of obstruction or abscess. This may be secondary to neoplasm or inflammatory change, and colonoscopy is strongly recommended for further evaluation. Reviewed, Interpreted and Dictated by Rossana Barroso MD Transcribed by Joya Salazar Authenticated and [facility]
[2025-02-26] MEDS: SODIUM CHLORIDE 0.9% 10ML SYR (RAD ONLY) 10 ML IV (14:41)
[2025-02-26] MEDS: IOPAMIDOL-370 (76%);100ML BOTTLE 75 ML IV (14:41)
--- OUTSIDE RECORDS SUMMARY | 2025-02-26 15:11 | XMS_ITS | Clinical Summary ---
Author Organization [facility] [place] [address] Care Team Providers Care Loan Supervisor Name Role Phone Unavailable Primary Care Provider [...]
--- OUTSIDE RECORDS SUMMARY | 2025-02-26 15:11 | XMS_ITS | Data Portability ---
Author Organization [place] - [place] - [place] [facility] Address [address] [place] [id number] Assessment Encounter Date Assessment Date Assessment LastModified [...] Name and Address Organization Details Recorded Time [id number] Advil medicatio n Not available Not available Not available 04/28/2024 [id number] RxNorm Hi Jade [facility], [place] - [facility] & [place] 4 08:44:03 Medications Name Sig Start Date [...] Updated DateTime 4 182.88 cm 34 kg/m2 942354. 25 g 98.1 [degF] 98 % 98 % 54 /min 56 /min 143/80 mm[Hg] Hi Jade [facility] & [place] 08:43:26 Social History Question Answer Notes LastModified by [employer] Details LastModified Time Tobacco Smoking Status Former Smoker Hi Jade [facility], [facility] & [place] 04/28/2024 08:47:50 What Is Your Level Of Caffeine Consumption? Occasional [email or web address] Information not available 04/28/2024 Sex: Unknown Functional Status Question Answer Note LastModified by [employer] Details LastModified Time Do you use any illicit or recreational drugs? No [email or web address] Information not available 04/28/2024 Do you or have you ever used any other forms of tobacco or nicotine? Yes [email or web address] Information not available 04/28/2024 What is your level of alcohol consumption? Occasional [email or web address] Information not available 04/28/2024 Do you or have you ever used smokeless tobacco? Currently chews tobacco [email or web address] Information not available 04/28/2024 Mental Status None [...] SNOMED-CT Code Diagnosis ICD10 Code Diagnosis Note [id number] LAVERNE ALAMO NP [facility] [facility] [address] [place] [address] 04/28/2024 08:33:04 04/28/2024 09:54:28 Diverticulosis of colon 645097548 K57.30 Urgent clint rupa for stool 42160869 R15.2 Family his tory of Crohn's disease 433983790 Z83.79 Left lower quadrant pain [id number] R10.32 Health Concerns Section Related Observation LastModified by Organization Detai ls LastModified Time None Recorded Concern Status LastModified by Organization Details LastModified Time None Recorded Advance Directives Directive None Recorded Payers Insurance Date Sequence Insurance Name Policy Number Policy Fernandez Covered Member ID Fernandez Member ID Guarantor Name 06/16/2024 1 [place] [id number] Tomas Lr [id number] [employer] Lr Notes Date Note Type Note Provider [...] trying to eat better. 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 LAVERNE ALAMO, MOUNI[address], [place], [address], [facility] - [facility] - [place] & [place] 04/28/2024 16:01:03
--- OUTSIDE RECORDS SUMMARY | 2025-02-26 15:11 | XMS_ITS | Data Portability ---
Author Organization [facility] Address [address] [place] [address] Assessment Encounter Date Assessment Date Assessment LastModified [...] None recorded. Lab urinalysis, dipstick 2024 025 [facility], [address] [place] [address], [place], [address], 13:38:44 culture, urine 2024 025 [facility], [address], Steven [address], [place], [address], 02:06:02 magnesium, serum or plasma 2023 024 [facility], [address], [place] [address], [place], [address], 4 15:07:37 calcium, ionized, quant ISE, serum or plasma 2023 024 [facility], [address], [place] [address], [place], [address], 4 15:07:38 CMP, serum or plasma 2023 024 [facility], [address], [place] [address], [place], [address], 4 15:07:35 vitamin B12 + folate, serum or blood 2023 024 [facility], [address], [place], [place], [address], 4 15:07:36 erythrocyte sedimentati on rate by westergren method 2023 024 [facility], [address], [address], [place], [address], 4 15:07:37 C reactive protein, QN, serum or plasma 2023 024 [facility], [address], [place] [address], [place], [address], 4 15:07:38 drug screen, urine 2023 024 [facility], [address] [place], [address], 4 09:42:26 TSH + free T4, serum 2023 024 [facility], [address], [address], [place], [address], 4 09:09:07 PSA, serum or plasma 2023 024 [facility], [address], [place] [address], [place], [address], 4 09:09:10 ESR (erythrocyt e sedimentati on rate), blood 2023 024 [facility], [address], [place] [address], [place], [address], 4 09:09:11 CBC w/ auto diff 2023 024 [facility], [address], [place] [address], [place], [address], 4 09:09:08 CMP, serum or plasma 2023 024 [facility], [address], [address], [place], [address], 4 09:09:09 urinalysis, dipstick 2023 024 [facility], [address], [place], [address], 4 10:05:18 lipid panel, serum 2023 024 [facility], [address], [address], [place], [address], 4 09:09:10 Referral None recorded. Procedures None recorded. Surgeries None recorded. Imaging CT, abdomen + pelvis, w/wo contrast - increase in abd pain,tender ness and bb issues 2024 025 [facility] Scheduling Department -New Scheduling Process, [address], [place], [address], 5 07:50:16 Medication Orders meloxicam 15 mg tablet 2024 025 [facility] 942, [address], [address], 5 10:32:14 Vistaril 25 mg capsule 2024 025 [facility] 591, [address] [place], [address], 5 13:35:04 alfuzosin ER 10 mg tablet,exte nded release 24 hr 2024 025 [facility] 591, [address] [place], [address], 5 10:32:18 hyoscyamine sulfate 0.125 mg tablet 2024 025 [facility] 591, [address], [address], 5 10:32:17 Adipex-P 37.5 mg tablet 2023 024 [facility] 591, [address], [address], 4 13:15:57 meloxicam 15 mg tablet 2023 024 [facility] 591, [address], [address], 4 09:27:35 Flagyl 500 mg tablet 2021 022 [facility] 591, [address], [address], 5 09:35:37 Patient TargetsNo targets recorded. Patient Instructions Encounter Date Encounter Id Patient Instructions Last Modified By Organization Details Last Modified Time 09/09/2023 [id number] learning about healthy weight efryman Not available 09/09/2023 09:27:29 body mass index: care instructions efryman Not available 09/09/2023 09:27:28 Reason for Referral None Reported. Results Created Date Observation Date Name Description Value Unit Range Abnormal Flag Note LastModifiedBy Organization Detail LastModifiedTime 07/12/20 22 07/12/2022 HbA1c (hemo globi n A1c), blood HbA1C 5.5 % Not Available [address], [address], 07/12/2022 16:41:07 09/09/19 24 09/10/2023 TSH+F REE T4 TSH 1.090 uIU/m L 0.450- 4.500 Not Available [facility] ([facility]) [address] [place], [address], 09/10/2023 09:09:07 09/09/19 24 09/10/2023 TSH+F REE T4 T4,free(dire ct) 1.12 NG/dL 0.82-1 .77 Not Available [facility] ([facility]) [address] [place], [address], 09/10/2023 09:09:07 09/09/19 24 09/10/2023 CBC WITH DIFFE RENTI AL/PL ATELE T WBC 6.2 x10e3 /uL 3.4-10 .8 Not Available [facility] ([facility]) [address] [place], [address], 09/10/2023 09:09:08 09/09/1909/10/2023 CBC WITH DIFFE RENTI AL/PL ATELE T RBC 4.77 x10e6 /uL 4.14-5 .80 Not Available [facility] ([facility]) [address] [place], [address], 09/10/2023 09:09:08 09/09/19 24 09/10/2023 CBC WITH DIFFE RENTI AL/PL ATELE T hemoglobin 13.2 g/dL 13.0-1 7.7 Not Available [facility] ([facility]) [address] [place], [address], 09/10/2023 09:09:08 09/09/19 24 09/10/2023 CBC WITH DIFFE RENTI AL/PL ATELE T hematocrit 40.6 % 37.5-5 1.0 Not Available [facility] ([facility]) [address] [facility], [place], [address], 09/10/2023 09:09:08 09/09/19 24 09/10/2023 CBC WITH DIFFE RENTI AL/PL ATELE T MCV 85 fL 79-97 Not Available [facility] ([facility]) [address] [facility], [place], [address], 09/10/2023 09:09:08 09/09/19 24 09/10/2023 CBC WITH DIFFE RENTI AL/PL ATELE T MCH 27.7 pg 26.6-3 3.0 Not Available [facility] ([facility]) [address] [facility], [place], [address], 09/10/2023 09:09:08 09/09/19 24 09/10/2023 CBC WITH DIFFE RENTI AL/PL ATELE T MCHC 32.5 g/dL 31.5-3 5.7 Not Available [facility] ([facility]) [address] [facility], [place], [address], 09/10/2023 09:09:08 09/09/19 24 09/10/2023 CBC WITH DIFFE RENTI AL/PL ATELE T RDW 14.2 % 11.6-1 5.4 Not Available [facility] ([facility]) [address] [place], [address], 09/10/2023 09:09:08 09/09/19 24 09/10/2023 CBC WITH DIFFE RENTI AL/PL ATELE T platelets 244 x10e3 /uL 150-45 0 Not Available [facility] ([facility]) [address] [place], [address], 09/10/2023 09:09:08 09/09/19 24 09/10/2023 CBC WITH DIFFE RENTI AL/PL ATELE T neutrophils 60 % not estab. Not Available [facility] ([facility]) [address] [facility], [place], [address], 09/10/2023 09:09:08 09/09/19 24 09/10/2023 CBC WITH DIFFE RENTI AL/PL ATELE T lymphs 29 % not estab. Not Available [facility] ([facility]) [address] [facility], [place], [address], 09/10/2023 09:09:08 09/09/19 24 09/10/2023 CBC WITH DIFFE RENTI AL/PL ATELE T monocytes 8 % not estab. Not Available [facility] ([facility]) [address] [facility], [place], [address], 09/10/2023 09:09:08 09/09/19 24 09/10/2023 CBC WITH DIFFE RENTI AL/PL ATELE T eos 2 % not estab. Not Available [facility] ([facility]) [address] [facility], [place], [address], 09/10/2023 09:09:08 09/09/19 24 09/10/2023 CBC WITH DIFFE RENTI AL/PL ATELE T basos 0 % not estab. Not Available [facility] ([facility]) [address] [facility], [place], [address], 09/10/2023 09:09:08 09/09/19 24 09/10/2023 CBC WITH DIFFE RENTI AL/PL ATELE T immature cells WELLHEAD PUMPER Not Available [facility] ([facility]) [address] [facility], [place], [address], 09/10/2023 09:09:08 09/09/19 24 09/10/2023 CBC WITH DIFFE RENTI AL/PL ATELE T neutrophils (absolute) 3.7 x10e3 /uL 1.4-7. 0 Not Available [facility] ([facility]) [address] [facility], [place], [address], 09/10/2023 09:09:08 09/09/19 24 09/10/2023 CBC WITH DIFFE RENTI AL/PL ATELE T lymphs (absolute) 1.8 x10e3 /uL 0.7-3. 1 Not Available [facility] ([facility]) [address] [facility], [place], [address], 09/10/2023 09:09:08 09/09/19 24 09/10/2023 CBC WITH DIFFE RENTI AL/PL ATELE T monocytes(ab solute) 0.5 x10e3 /uL 0.1-0. 9 Not Available [facility] ([facility]) [address] [facility], [place], [address], 09/10/2023 09:09:08 09/09/19 24 09/10/2023 CBC WITH DIFFE RENTI AL/PL ATELE T eos (absolute) 0.1 x10e3 /uL 0.0-0. 4 Not Available [facility] ([facility]) [address] [facility], [place], [address], 09/10/2023 09:09:08 09/09/19 24 09/10/2023 CBC WITH DIFFE RENTI AL/PL ATELE T baso (absolute) 0.0 x10e3 /uL 0.0-0. 2 Not Available [facility] ([facility]) [address] [facility], [place], [address], 09/10/2023 09:09:08 09/09/1909/10/2023 CBC WITH DIFFE RENTI AL/PL ATELE T immature granulocytes 1 % not estab. Not Available [facility] ([facility]) [address] [facility], [place], [address], 09/10/2023 09:09:08 09/09/19 24 09/10/2023 CBC WITH DIFFE RENTI AL/PL ATELE T immature grans (abs) 0.0 x10e3 /uL 0.0-0. 1 Not Available [facility] ([facility]) [address] [facility], [place], [address], 09/10/2023 09:09:08 09/09/19 24 09/10/2023 CBC WITH DIFFE RENTI AL/PL ATELE T NRBC WELLHEAD PUMPER Not Available [facility] ([facility]) [address] [facility], [place], [address], 09/10/2023 09:09:08 09/09/19 24 09/10/2023 CBC WITH DIFFE RENTI AL/PL ATELE T hematology comments: WELLHEAD PUMPER Not Available [facility] ([facility]) [address] [facility], [place], [address], 09/10/2023 09:09:08 09/09/19 24 09/10/2023 COMP. METAB OLIC PANEL (14) glucose 95 mg/dL 70-99 Not Available [facility] ([facility]) [address] [facility], [place], [address], 09/10/2023 09:09:09 09/09/19 24 09/10/2023 COMP. METAB OLIC PANEL (14) BUN 14 mg/dL 6-24 Not Available [facility] ([facility]) [address] [facility], [place], [address], 09/10/2023 09:09:09 09/09/19 24 09/10/2023 COMP. METAB OLIC PANEL (14) creatinine 0.91 mg/dL 0.76-1 .27 Not Available [facility] ([facility]) [address] [facility], [place], [address], 09/10/2023 09:09:09 09/09/19 24 09/10/2023 COMP. METAB OLIC PANEL (14) eGFR 107 mL/mi n/1.7 3 >59 Not Available [facility] ([facility]) [address], [place], [address], 09/10/2023 09:09:09 09/09/19 24 09/10/2023 COMP. METAB OLIC PANEL (14) BUN/creatini ne ratio 15 9-20 Not Available [facility] ([facility]) [address], [place], [address], 09/10/2023 09:09:09 09/09/19 24 09/10/2023 COMP. METAB OLIC PANEL (14) sodium 140 mmol/ L 134-14 4 Not Available [facility] ([facility]) [address], [place], [address], 09/10/2023 09:09:09 09/09/19 24 09/10/2023 COMP. METAB OLIC PANEL (14) potassium 4.6 mmol/ L 3.5-5. 2 Not Available [facility] ([facility]) [address], [place], [address], 09/10/2023 09:09:09 09/09/19 24 09/10/2023 COMP. METAB OLIC PANEL (14) chloride 104 mmol/ L 96-106 Not Available [facility] ([facility]) [address], [place], [address], 09/10/2023 09:09:09 09/09/19 24 09/10/2023 COMP. METAB OLIC PANEL (14) carbon dioxide, total 23 mmol/ L 20-29 Not Available [facility] ([facility]) [address], [place], [address], 09/10/2023 09:09:09 09/09/19 24 09/10/2023 COMP. METAB OLIC PANEL (14) calcium 9.7 mg/dL 8.7-10 .2 Not Available [facility] ([place] [place] [facility]) [address] [facility], [place], [address], 09/10/2023 09:09:09 09/09/19 24 09/10/2023 COMP. METAB OLIC PANEL (14) protein, total 7.0 g/dL 6.0-8. 5 Not Available [facility] ([facility]) [address], [place], [address], 09/10/2023 09:09:09 09/09/19 24 09/10/2023 COMP. METAB OLIC PANEL (14) albumin 4.3 g/dL 4.1-5. 1 Not Available [facility] ([facility]) [address], [place], [address], 09/10/2023 09:09:09 09/09/19 24 09/10/2023 COMP. METAB OLIC PANEL (14) globulin, total 2.7 g/dL 1.5-4. 5 Not Available [facility] ([facility]) [address], [place], [address], 09/10/2023 09:09:09 09/09/19 24 09/10/2023 COMP. METAB OLIC PANEL (14) A/G ratio 1.6 1.2-2. 2 Not Available [facility] ([facility]) [address], [place], [address], 09/10/2023 09:09:09 09/09/19 24 09/10/2023 COMP. METAB OLIC PANEL (14) bilirubin, total 0.3 mg/dL 0.0-1. 2 Not Available [facility] ([facility]) [address], [place], [address], 09/10/2023 09:09:09 09/09/19 24 09/10/2023 COMP. METAB OLIC PANEL (14) alkaline phosphatase 88 IU/L 44-121 Not Available [facility] ([place] [facility]) [address], [place], [address], 09/10/2023 09:09:09 09/09/19 24 09/10/2023 COMP. METAB OLIC PANEL (14) AST (SGOT) 18 IU/L 0-40 Not Available [facility] ([facility]) [address] [place], [address], 09/10/2023 09:09:09 09/09/19 24 09/10/2023 COMP. METAB OLIC PANEL (14) ALT (SGPT) 17 IU/L 0-44 Not Available [facility] ([facility]) [address] [place], [address], 09/10/2023 09:09:09 09/09/19 24 09/10/2023 LIPID PANEL cholesterol, total 212 mg/dL 100-19 9 above high normal Not Available [facility] ([facility]) [address] [place], [address], 09/10/2023 09:09:10 09/09/19 24 09/10/2023 LIPID PANEL triglyceride s 130 mg/dL 0-149 Not Available [facility] ([facility]) [address] [place], [address], 09/10/2023 09:09:10 09/09/19 24 09/10/2023 LIPID PANEL HDL cholesterol 41 mg/dL >39 Not Available [facility] ([facility]) [address] [place], [address], 09/10/2023 09:09:10 09/09/19 24 09/10/2023 LIPID PANEL VLDL cholesterol paulo 24 mg/dL 5-40 Not Available [facility] ([facility]) [address] [place], [address], 09/10/2023 09:09:10 09/09/19 24 09/10/2023 LIPID PANEL LDL chol calc ([facility]) 147 mg/dL 0-99 above high normal Not Available [facility] ([facility]) [address] [place], [address], 09/10/2023 09:09:10 09/09/19 24 09/10/2023 LIPID PANEL comment: WELLHEAD PUMPER Not Available [facility] ([facility]) [address] [facility], [place], [address], 09/10/2023 09:09:10 09/09/19 24 09/10/2023 PSA TOTAL [...] t be inter prete d as absol rose evide nce of the prese nce or absen ce of daniela timmons se. Not Available [facility] ([facility]) [address] [facility], [place], [address], 09/10/2023 09:09:10 09/09/19 24 09/10/2023 PSA TOTAL (REFL EX TO FREE) reflex criteria Commen t The perce nt free PSA is perfo rmed on a refle x basis only when the total PSA is betwe en 4.0 and 10.0 ng/mL . Not Available [facility] ([facility]) [address] [facility], [place], [address], 09/10/2023 09:09:10 09/09/19 24 09/10/2023 SEDIM ENTAT ION RATE- WESTE RGREN sedimentatio n rate-westerg riana 25 mm/HR 0-15 above high normal Not Available [facility] ([facility]) [address] [place], [address], 09/10/2023 09:09:11 09/09/19 24 09/09/2023 urina lysis , dipst ick Leukocytes Negati ve Not Available [address], [address], 09/09/2023 09:28:07 09/09/19 24 09/09/2023 urina lysis , dipst ick Nitrite negati ve Not Available [address], [address], 09/09/2023 09:28:07 09/09/19 24 09/09/2023 urina lysis , dipst ick Urobilinogen .2 Not Available [facility] [address], [address], 09/09/2023 09:28:07 09/09/19 24 09/09/2023 urina lysis , dipst ick Protein Negati ve Not Available [address], [address], 09/09/2023 09:28:07 09/09/19 24 09/09/2023 urina lysis , dipst ick pH 5.5 Not Available [address], [address], 09/09/2023 09:28:07 09/09/19 24 09/09/2023 urina lysis , dipst ick Blood Small Not Available [address], [address], 09/09/2023 09:28:07 09/09/19 24 09/09/2023 urina lysis , dipst ick Specific [place] 1.030 Not Available [address], [address], 09/09/2023 09:28:07 09/09/19 24 09/09/2023 urina lysis , dipst ick Ketone Negati ve Not Available [address], [address], 09/09/2023 09:28:07 09/09/19 24 09/09/2023 urina lysis , dipst ick Bilirubin Negati ve Not Available [address], [address], 09/09/2023 09:28:07 09/09/19 24 09/09/2023 urina lysis , dipst ick Glucose Negati ve Not Available [address], [address], 09/09/2023 09:28:07 09/09/19 24 09/09/2023 urina lysis , dipst ick Appearance Clear Not Available [address], [address], 09/09/2023 09:28:07 09/09/19 24 09/09/2023 urina lysis , dipst ick Color Yellow Not Available [address], [address], 09/09/2023 09:28:07 09/09/19 24 09/09/2023 drug scree n, urine THC negati ve Not Available [address], [address], 09/09/2023 09:25:25 09/09/19 24 09/09/2023 drug scree n, urine TCA positi ve Not Available [address], [address], 09/09/2023 09:25:25 09/09/19 24 09/09/2023 drug scree n, urine BAR negati ve Not Available [address], [address], 09/09/2023 09:25:25 09/09/19 24 09/09/2023 drug scree n, urine BZO negati ve Not Available [address], [address], 09/09/2023 09:25:25 09/09/19 24 09/09/2023 drug scree n, urine MTD negati ve Not Available [address], [address], 09/09/2023 09:25:25 09/09/19 24 09/09/2023 drug scree n, urine AMP negati ve Not Available [address], [address], 09/09/2023 09:25:25 09/09/19 24 09/09/2023 drug scree n, urine MOP negati ve Not Available [address], [address], 09/09/2023 09:25:25 09/09/19 24 09/09/2023 drug scree n, urine OXY negati ve Not Available [address], [address], 09/09/2023 09:25:25 09/09/19 24 09/09/2023 drug scree n, urine MDMA negati ve Not Available [address], [address], 09/09/2023 09:25:25 09/09/19 24 09/09/2023 drug scree n, urine JAMA negati ve Not Available [address], [address], 09/09/2023 09:25:25 09/09/19 24 09/09/2023 drug scree n, urine PCP negati ve Not Available [address], [address], 09/09/2023 09:25:25 09/09/19 24 09/09/2023 drug scree n, urine MET negati ve Not Available [address], [address], 09/09/2023 09:25:25 02/28/20 24 02/29/2024 COMP. METAB OLIC PANEL (14) glucose 92 mg/dL 70-99 normal Not Available [facility] ([facility]) [address] [place], [address], 03/02/2024 15:07:35 02/28/20 24 02/29/2024 COMP. METAB OLIC PANEL (14) BUN 10 mg/dL 6-24 normal Not Available [facility] ([facility]) [address] [place], [address], 03/02/2024 15:07:35 02/28/20 24 02/29/2024 COMP. METAB OLIC PANEL (14) creatinine 0.91 mg/dL 0.76-1 .27 normal Not Available [facility] ([facility]) [address] [place], [address], 03/02/2024 15:07:35 02/28/20 24 02/29/2024 COMP. METAB OLIC PANEL (14) eGFR 107 mL/mi n/1.7 3 >59 normal Not Available [facility] ([facility]) [address] [place], [address], 03/02/2024 15:07:35 02/28/20 24 02/29/2024 COMP. METAB OLIC PANEL (14) BUN/creatini ne ratio 11 9-20 normal Not Available [facility] ([facility]) [address], [place], [address], 03/02/2024 15:07:35 02/28/20 24 02/29/2024 COMP. METAB OLIC PANEL (14) sodium 139 mmol/ L 134-14 4 normal Not Available [facility] ([facility]) [address], [place], [address], 03/02/2024 15:07:35 02/28/20 24 02/29/2024 COMP. METAB OLIC PANEL (14) potassium 4.4 mmol/ L 3.5-5. 2 normal Not Available [facility] ([facility]) [address] [facility], [place], [address], 03/02/2024 15:07:35 02/28/20 24 02/29/2024 COMP. METAB OLIC PANEL (14) chloride 104 mmol/ L 96-106 normal Not Available [facility] ([facility]) [address] [facility], [place], [address], 03/02/2024 15:07:35 02/28/20 24 02/29/2024 COMP. METAB OLIC PANEL (14) carbon dioxide, total 23 mmol/ L 20-29 normal Not Available [facility] ([facility]) [address] [facility], [place], [address], 03/02/2024 15:07:35 02/28/20 24 02/29/2024 COMP. METAB OLIC PANEL (14) calcium 9.8 mg/dL 8.7-10 .2 normal Not Available [facility] ([facility]) [address] [facility], [place], [address], 03/02/2024 15:07:35 02/28/20 24 02/29/2024 COMP. METAB OLIC PANEL (14) protein, total 6.9 g/dL 6.0-8. 5 normal Not Available [facility] ([facility]) [address] [place], [address], 03/02/2024 15:07:35 02/28/20 24 02/29/2024 COMP. METAB OLIC PANEL (14) albumin 4.3 g/dL 4.1-5. 1 normal Not Available [facility] ([facility]) [address] [place], [address], 03/02/2024 15:07:35 02/28/20 24 02/29/2024 COMP. METAB OLIC PANEL (14) globulin, total 2.6 g/dL 1.5-4. 5 Not Available [facility] ([facility]) [address] [place], [address], 03/02/2024 15:07:35 02/28/20 24 02/29/2024 COMP. METAB OLIC PANEL (14) bilirubin, total 0.4 mg/dL 0.0-1. 2 normal Not Available [facility] ([facility]) [address] [place], [address], 03/02/2024 15:07:35 02/28/20 24 02/29/2024 COMP. METAB OLIC PANEL (14) alkaline phosphatase 105 IU/L 44-121 normal Not Available [facility] ([facility]) [address] [place], [address], 03/02/2024 15:07:35 02/28/20 24 02/29/2024 COMP. METAB OLIC PANEL (14) AST (SGOT) 16 IU/L 0-40 normal Not Available [facility] ([facility]) [address] [place], [address], 03/02/2024 15:07:35 02/28/20 24 02/29/2024 COMP. METAB OLIC PANEL (14) ALT (SGPT) 18 IU/L 0-44 normal Not Available [facility] ([facility]) [address] [place], [address], 03/02/2024 15:07:35 02/28/20 24 02/29/2024 VITAM IN B12 AND FOLAT E vitamin B12 326 pg/mL 232-12 45 normal Not Available [facility] ([facility]) [address] [facility], [place], [address], 03/02/2024 15:07:36 02/28/20 24 02/29/2024 VITAM IN B12 AND FOLAT E folate (folic acid), serum 15.0 NG/mL >3.0 normal A serum folat e karie ntrat ion of less than 3.1 ng/mL is consi dered to repre sent clini paulo defic iency . Not Available [facility] ([facility]) [address] [facility], [place], [address], 03/02/2024 15:07:36 02/28/20 24 02/29/2024 SEDIM ENTAT ION RATE- WESTE RGREN sedimentatio n rate-westerg riana 41 mm/HR 0-15 above high normal Not Available [facility] ([facility]) [address] [place], [address], 03/02/2024 15:07:37 02/28/20 24 02/29/2024 MAGNE SIUM magnesium 2.2 mg/dL 1.6-2. 3 normal Not Available [facility] ([facility]) [address] [place], [address], 03/02/2024 15:07:37 02/28/20 24 03/02/2024 CALCI UM, IONIZ ED, SERUM calcium, ionized, serum 5.2 mg/dL 4.5-5. 6 Not Available [facility] ([facility]) [address] [place], [address], 03/02/2024 15:07:38 02/28/20 24 02/29/2024 C-NASRIN CTIVE PROTE IN, QUANT C-reactive protein, quant 21 mg/L 0-10 above high normal Not Available [facility] ([facility]) [address] [facility], [place], [address], 03/02/2024 15:07:38 09/21/19 25 09/23/2024 URINE CULTU RE, ROUTI NE urine culture, routine Final report Not Available [facility] ([facility]) [address] [facility], [place], [address], 09/23/2024 02:06:02 09/21/19 25 09/23/2024 URINE CULTU RE, ROUTI NE result 1 COMMEN T Cultu re shows less than 10,00 0 colon y formi ng units of bacte matthew per selina liter of urine . This colon y count is not gener ally consi dered to be clini nasim signi fican t. Not Available [facility] ([facility]) [address] [facility], [place], [address], 09/23/2024 02:06:02 09/21/19 25 09/21/2024 urina lysis , dipst ick Leukocytes Negati ve Not Available [address], [address], 09/21/2024 09:50:52 09/21/19 25 09/21/2024 urina lysis , dipst ick Nitrite negati ve Not Available [address], [address], 09/21/2024 09:50:52 09/21/19 25 09/21/2024 urina lysis , dipst ick Urobilinogen .2 Not Available Tez [address], [address], 09/21/2024 09:50:52 09/21/19 25 09/21/2024 urina lysis , dipst ick Protein Negati ve Not Available [address], [address], 09/21/2024 09:50:52 09/21/19 25 09/21/2024 urina lysis , dipst ick pH 5.5 Not Available [address], [address], 09/21/2024 09:50:52 09/21/1909/21/2024 urina lysis , dipst ick Blood Small Not Available [address], [address], 09/21/2024 09:50:52 09/21/1909/21/2024 urina lysis , dipst ick Specific [place] 1.025 Not Available [address], [address], 09/21/2024 09:50:52 09/21/19 25 09/21/2024 urina lysis , dipst ick Ketone Negati ve Not Available [address], [address], 09/21/2024 09:50:52 09/21/19 25 09/21/2024 urina lysis , dipst ick Bilirubin Negati ve Not Available [address], [address], 09/21/2024 09:50:52 09/21/19 25 09/21/2024 urina lysis , dipst ick Glucose Negati ve Not Available [address], [address], 09/21/2024 09:50:52 09/21/19 25 09/21/2024 urina lysis , dipst ick Appearance Clear Not Available [address], [address], 09/21/2024 09:50:52 09/21/19 25 09/21/2024 urina lysis , dipst ick Color Yellow Not Available [address], [address], 09/21/2024 09:50:52 07/16/20 22 07/16/2022 CT, abdom en + pelvi s, w/ contr ast No observ ation record ed. [facility] [address], [place], [address], 07/16/2022 11:45:36 09/07/19 23 09/07/2022 XR, hand No observ ation record ed. [facility] [address], [place], [place], [address], 09/07/2022 13:05:48 09/07/19 23 09/07/2022 XR, wrist No observ ation record ed. [facility] [address], [place], [address], 09/07/2022 13:05:30 09/07/19 23 09/07/2022 XR, forea rm No observ ation record ed. [facility] [address], [place], [address], 09/07/2022 13:05:12 10/08/19 23 10/08/2022 XR, orbit , 4 or more view No observ ation record ed. [facility] [address], [place], [address], 10/08/2022 15:34:38 10/08/19 23 10/08/2022 MRI, wrist , w/o contr ast No observ ation record ed. [address], [place], [address], 10/08/2022 15:34:00 09/17/19 25 09/17/2024 CT, angio gram, abdom en + pelvi s, w/wo contr ast No observ ation record ed. [address], [place], [address], 09/17/2024 10:52:21 09/22/19 25 09/21/2024 CT, abdom en + pelvi s, w/wo contr ast No observ ation record ed. [address], [place], [address], 09/22/2024 11:22:16 02/25/20 25 02/24/2025 CT, abdom en + pelvi s, w/ contr ast No observ ation record ed. [facility] Scheduling Department -New Scheduling Process [address], [place], [address], 02/26/2025 14:35:28 Result Notes None recorded. Problems Name Problem SNOMED Code Status Onset Date Resolution Date Notes Provider Name and Address Organization Details Recorded Time Prostatiti s 0076072 Active Ciara Alvarez null, [place] - [facility] 2 16:40:33 Diverticul itis 210590366 Active Ciara Alvarez [place] - [facility] 2 16:40:47 Arthritis 8125172 Active hips and left shoulder Ciara Alvarez null, [place] - [facility] 2 16:41:11 Colitis 38434394 Active 2021 Yolisemil Samano null, [place] - [facility] 2 16:17:48 Hyperlipid emia 11478291 Active 2023 Rayo Richey, BRAKE SPECIALIST [address], [place], [address] , [place] - [facility] 4 09:26:04 Problem Notes None recorded. Procedures Surgical History Date Name Laterality Status Provider Name and Address Organization Details Recorded Time 09/21/19 25 Medication Reconcilliation completed Yolis Stears [place] - [facility] 09/21/2024 09:34:58 07/19/20 22 Medication Reconcilliation completed Yolis Stears [facility] 07/19/2022 16:11:28 Remove tonsils and adenoids completed Ciara Kim [facility] 05/10/2022 16:43:16 operation on urethra completed Ciarajose a Alvarez [facility] 05/10/2022 16:43:27 colonoscopy completed Ciara Kim [facility] 05/10/2022 16:43:36 Ear Tubes - Tympanostomy Tubes completed Ciara Kim [facility] 05/10/2022 16:43:43 Imaging Results None recorded. Procedure Notes None recorded. Medical Equipment None Reported. Allergies Allergen ID Allergen Name Allergen Category Reaction Reaction Severity Criticality Documentation Date Start Date Code Code System Note Provider Name and Address Organization Details Recorded Time 607219 ibuprofen medicatio n swelling Not available low 05/10/2022 5640 RxNorm [facility] 2 16:34:33 500334 Cipro medicatio n rash moderate high 05/10/2022 86665 3 RxNorm can not take becas ue he will blist er Ciara paulson, [facility] 2 16:35:15 Medications Name Sig Start Date Stop [...] Available Not Available Not Available amoxicillin 500 mg-potkennethiu m clavulanate 125 mg tablet TAKE 1 [...] completed Not Available Not Available Not Available Corina 36,000 unit-114,00 0 unit-180,00 0 unit capsule,del [...] Address Organization Details Last Updated DateTime 4 659492. 54 g 97.9 [degF] 64 /min 97 % 97 % 20 /min 33.1 kg/m2 182.88 cm 110/78 mm[Hg] Ciara Alvarez [facility] 4 08:33:31 Date Recorded Body height Respiratory rate Body mass index (BMI) Body weight Heart rate Oxygen saturation Oxygen saturation in Arterial blood by Pulse oximetry Body temperature Systolic And Diastolic Provider Name and Address Organization Details Last Updated DateTime 5 182.88 cm 18 /min 32.3 kg/m2 708112. 98 g 76 /min 95 % 95 % 98.1 [degF] 130/82 mm[Hg] Yolis Samano [place] - [facility] 5 09:43:21 Date Recorded Body height Body mass index (BMI) Body weight Heart rate Oxygen saturation Oxygen saturation in Arterial blood by Pulse oximetry Respiratory rate Systolic And Diastolic Provider Name and Address Organization Details Last Updated DateTime 5 182.88 cm 33.4 kg/m2 185733. 72 g 80 /min 97 % 97 % 18 /min 124/80 mm[Hg] Ciara Alvarez [facility] 5 09:48:28 Date Recorded Body height Body mass index (BMI) Body weight Body temperature Heart rate Oxygen saturation Oxygen saturation in Arterial blood by Pulse oximetry Respiratory rate Systolic And Diastolic Provider Name and Address Organization Details Last Updated DateTime 4 182.88 cm 33.1 kg/m2 274802. 24 g 98.1 [degF] 50 /min 96 % 96 % 18 /min 124/78 mm[Hg] Ciara Alvarez [place] - [facility] 4 13:17:18 Date Recorded Body height Oxygen saturation Oxygen saturation in Arterial blood by Pulse oximetry Heart rate Body temperature Body mass index (BMI) Body weight Respiratory rate Systolic And Diastolic Provider Name and Address Organization Details Last Updated DateTime 2 182.88 cm 97 % 97 % 82 /min 99 [degF] 31.6 kg/m2 320835. 02 g 18 /min 142/82 mm[Hg] Yolis Jimeneskarel [place] - [facility] 2 16:16:03 Social History Question Answer Notes LastModified by Organizat ion Details LastModified Time Tobacco Smoking Status Former Smoker stopped 08-15-2016 Yolis Jazmyne [facility] [place] - [facility] 09/21/2024 09:47:11 Do You [...] Or The Highest Degree You Have Received? [id number] Information not available 09/21/2024 Have There Been Any Changes To Your Family Or Social Situation? No Information not available 07/19/2022 What Is The Fluoride Status Of Your Home? Unknown Information not available 07/19/2022 When Did You Quit Smoking? 6-10yearssince lastcigarette Information not available 09/21/2024 Do You Have A Medical Power Of Electronics Utility Worker? No Information not available 07/19/2022 What Was [...] anxious, or unable to sleep at night)? [id number] Information not available 07/19/2022 Do you have difficulty concentrating, remembering or making decisions? No Information no t available 07/19/2022 Family History Relationship Description Onset Age of this Age Resolved Age Notes LastModified by Organization Details LastModified Time Father Carcinoma of prostate 60 cbuckler Not available 2021 16:41:50 Medical History Condition Response Arthritis Y Immunizations Vaccine Type Date Status Note Provider Nash sandoval and Address Organization Details Recorded Time Hep [...] free, adsorbed 4 completed Ciara Kim null, [place] - [facility] 06/08/2022 09:19:56 COVID-19 vaccine, vector-nr, rS-Ad26, PF, 0.5 mL 1 completed Ciara Kim null, [place] - [facility] 06/08/2022 09:19:56 Tdap 0 completed Ciara Kim null, [place] - [facility] 06/08/2022 09:19:56 Past Encounters Encounter ID Performer Location Encounter Start Date Encounter Closed Date Diagnosis/Indication Diagnosis SNOMED-CT Code Diagnosis ICD10 Code Diagnosis Note [id number] Rayo Richey APRN [address] [address] 05/10/2022 16:12:05 05/10/2022 17:21:15 Arthritis 5889261 M19.90 Prostatitis 3918564 N41. 9 Body mass index 30+ - obesity 254783442 Z68.34 Mehul report obtained, reviewed, and made [...] were answered. Pt compliant with plan of careCarltonsper reviewedme dication compliance discussedL ast uds: 2Control substance agreement on file low fat/carb/c alorie diet discussede xercise plan discussed with pt [id number] Rayo Richey [address] [address] 05/17/2022 13:11:54 05/17/2022 14:12:54 Prediabetes 522534940 R73.03 a1c 5.8discuss ed diet and exercise plan with ptlow fat/carb/c alorie/glu cose diet [id number] Rayo Richey[address] [address] 06/08/2022 08:54:57 06/08/2022 09:54:39 Body mass index 30+ - obesity 847608003 Z68.34 Mehul report obtained, reviewed, and made [...] were answered. Pt compliant with plan of careCarltonspkathleen reviewedme dication compliance discussedL ast uds: 2Control substance agreement on file low fat/carb/c alorie diet discussede xercise plan discussed with pt [id number] Rayo Richey [address] [address] 07/12/2022 16:23:36 07/12/2022 17:05:57 Body mass index 30+ - obesity 856914383 Z68.34 Mehul report obtained, reviewed, and made [...] discussede xercise plan discussed with pt Prediabetes 713249885 R7 3.03 a1c 5.5discuss ed diet and exercise plan with ptlow fat/carb/c alorie/glu cose diet [id number] Rayo Richey [address] [address] 07/19/2022 16:08:28 07/19/2022 16:55:48 Colitis 11179744 K52.9 call gi for a appointmen tcontinue cipro [id number] Rayo Richey [address] [address] 09/09/2023 08:07:51 09/09/2023 09:44:50 Arthritis 8321992 M19.90 only take meloxicam as needed- discussed risks with pt Body mass index 30+ - obesity 807176034 Z68.33 Obesity 029036593 E66.9 Pt compliant with plan of careKasper reviewedme dication compliance discussedL ast uds: 4Control substance agreement on file Diverticulitis 562609016 K57.92 Hyperlipidemia 27043866 E78.5 Screening for malignant neoplasm of prostate 081964781 Z12.5 Adult heal th examination 491448112 Z00.00 Abnormal urine odor 8769 003 R82.90 HIV screen ing declined 8088969374 35547 Z53.20 Hepatitis C screening declined 6601818258 5105 Z53.20 [id number] Rayo Richey [address] [address] 02/28/2024 13:06:20 02/28/2024 14:23:53 Pain in both feet 3235542994 0497782 M79.375 [id number] Rayo Richey APRN [address] [address] 09/21/2024 09:32:44 09/21/2024 10:37:28 Left lower quadrant pain 129124511 R10.32 discussed that pt needed to go back to ed for eval- pt declined due to cost of er visit. discussed risk in waiting.mo nitor for fever- go to edpos c diff- vanc as orderedcon stipationi ssues with b/b.left lower abd paintender nessr/o blockage or infectionc alled gi for sooner appointmen t no response. [id number] Rayo Richey APRN [address] [address] 09/28/2024 09:38:00 09/28/2024 10:58:07 Colitis 30447697 K52.9 follow up with gi Diverticulitis 823684133 K57.92 follow up with gi Prostatitis 8627934 N41. 9 follow up with urology Arthritis 6544466 M19.90 only take meloxicam as needed- discussed risks with pt Insomnia 124891253 G47.0 0 discussed med in detail Health Concerns Section Related Observation LastModified by Organization Detai ls LastModified Time None Recorded Concern Status LastModified by Organization Details LastModified Time None Recorded Advance Directives Directive N: Payers Insurance Date Sequence Insurance Name Policy Number Policy Fernandez Covered Member ID Fernandez Member ID Guarantor Name 04/30/2023 2 [employer] (POS) Tomas Lr [id number] Tomas Lr 09/09/2023 1 [place] [id number] 1 Tomas Lr [id number] Tomas Lr 10/28/2024 1 [place] [id number] 1 Tomas Lr [id number] Tomas Lr Notes Date Note Type Note Provider Name and Address Organization Details Recorded Time 07/19/2022 text/html Emergency Depart ment Follow-Up RecordReported bypatient.Discharge InformationName of hospital/urgent care patient was seen: ([facility]); Patient presented to hospital/urgent care on or [...] feel better but still having tenderness Rayo Patelbrigitte, BRAKE SPECIALIST [address], [place], [address], [place] - [facility] 07/20/2022 14:24:34 09/09/2023 text/html [...] in past and tolerated it well Rayo Patelbrigitte, BRAKE SPECIALIST [address], [place], [address], [place] - [facility] 09/09/2023 10:39:41 02/28/2024 text/html 43 yr old male presents for feet cramping. Podiatry ordered some labs that he wanted done. pt states he is not sure why his feet cramp but they will draw up and cramp Johnmathew brigitte, BRAKE SPECIALIST [address], [place], [address], [place] - [facility] 02/28/2024 13:53:40 09/21/2024 text/html Emergency Depart ment Follow-Up RecordReported bypatient.Discharge InformationName of hospital/urgent care patient was seen: ([facility]); Patient presented to hospital/urgent care on [...] abd that is blocking off everything Rayo Richey APRN [address], [place], [address], [place] - [facility] 09/21/2024 13:44:39 09/28/2024 text/html 44 yr old male presents for hospital follow up. pt states he seen dr calixto and he is getting treated for his diverticulitis and he feels much better. pt states he was told by gi he did not have c diff. pt states he has colonoscopy scheduled november 23 at [facility]. pt states he also needs refills for his prostates meds and arthritis.pt states he has nights where it is difficult for him to sleep. pt states he has problems falling and staying asleep. Rayo Richey APRN [address], [place], [address], [place] - [facility] 09/28/2024 13:35:20
--- OUTSIDE RECORDS SUMMARY | 2025-02-26 15:12 | XMS_ITS | Encounter Summary ---
Author Organization Healthcare Address [address] [place] [address] Care Team Providers Care Concessions Manager Name Role Phone Rayo Richey APRN Primary Care Provider +1- [phone] Encounter Details Date Type Department Care Team (Late st Contact Info) Description 09/21/2024 Orders Only External Location [address] [place] [address] Provider, External Social History Tobacco Use Types [...] Info) Description 03/02/2025 1:00 PM EDT Consult [facility] General Surgery [address], [address] [place] [address] Neo Bruce MD [address] [place] [address] documented as of this encounter Procedures Procedure [...] on filedocumented in this encounter Care Teams Concessions Manager Relationship Specialty Start Date End Date Rayo Richey APRN [address] [place] [address] PCP - General 12/07/24 documented as of this encounter
--- OUTSIDE RECORDS SUMMARY | 2025-02-26 15:12 | XMS_ITS | Encounter Summary ---
Author Organization [facility] Address [address] [id number] Care Team Providers Care Performing Arts Technicians Name Role Phone Rayo Richey ROYCE Primary Care Provider +1- [phone] Reason for Referral * Consultation (Routine) - Authorized Specialty Diagnoses / Procedures Referred By Cynthia stephens Referred To Contact Colon and Rectal Surgery Diagnoses Sigmoid diverticulitis Roel Rodas MD [address] [facility] [address] [place] [address] Phone: tel: fax: Colorectal Surgery [address] [place] [address] Phone: tel: Referral ID Status Reason Start Date Expiration Date Visits Requested Visits Authorized [id number] Authorized Specialty Services Required 12/02/2024 06/03/2026 1 1 Encounter Details Date Type Department Care Team (Latest Contact Info) Description 12/02/2024 Community [facility] Community Practice [address] [place] [address] Roel Rodas MD [address] [facility] [address] [place] [id number] Sigmoid diverticulitis (Primary Dx) Social History Tobacco [...] 1:00 PM EDT Consult [facility] General Surgery [address], [address] [place] [address] Neo Bruce MD [address] [place] [address] Scheduled Referrals Name Type Priority Associated Diagnoses Orde r Schedule Ambulatory referral to Colorectal Surgery Outpatient Referral Routine Sigmoid diverticulitis Expected: 12/02/2024 (Approximate), Expires: 12/02/2025 documented as of this encounter Visit Diagnoses Diagnosis Sigmoid diverticulitis- Primary Diverticulitis of colon (without mention of hemorrhage) documented in this encounter Care Teams Performing Arts Technicians Relationship Specialty Start Date End Date Rayo Richey APRN [address] [place] [address] PCP - General 12/07/24 documented as of this encounter
--- OUTSIDE RECORDS SUMMARY | 2025-02-26 15:12 | XMS_ITS | Clinical Summary ---
Author Organization Healthcare Address [address] [place] [address] Care Team Providers Care Inside Sales Director Name Role Phone Rayo Richey WHIP SAWYER Primary Care Provider +1- [phone] Encounters Date Type Department Care Team Description 02/24/2025 Orders Only External Location [address] [place] [address] Provider, External 02/24/2025 Telephone [facility] General Surgery [address], [address] [place] [address] Neo Bruce MD [facility] Clinical Concern/Question 12/02/2024 Community Orders Community Practice [address] [place] [address] Roel Rodas MD Sigmoid diverticulitis (Primary Dx) [...] Consult [facility] General Surgery [address], [address] [place] [address] Neo Bruce MD [address] [place] [address] Health Maintenance Due Date Last Done Comments [facility]-Depression Screening 1980 [facility]-HIV Screening 1980 [facility]-Hepatitis C Screening 1980 [facility]-Infant/Child/Adol SDOH Screenings 1980 [facility]-Varicella Vaccines (1 of 2 - 13+ 2-dose series) 1993 HPV Vaccines (1 - Male 3-dose series) 1995 [facility]- SDOH Screenings 1998 [facility]-Adult SDOH Screenings 1998 [facility]-ENSCD-50 Vaccine (3 - 2023- season) 2024 08/31/2021, 05/04/2021 [facility]-Influenza Vaccine (#1) [...] on patient's age to complete this topic Procedures Procedure Name Priority Date/Time Associated Diagnosis Comments CT MSK OUTSIDE IMAGES 02/24/2025 1:04 PM EDT from Last 3 Months Results * CT MSK OUTSIDE IMAGES (02/24/2025 1:04 PM EDT) Anatomical Region Laterality Modality Computed Tomogra phy 02/24/2025 1:04 PM EDT External Provider IMG CT PROCEDURES Final Result from Last 3 Months Insurance CODY Care Teams Inside Sales Director Relationship Specialty Start Date End Date Rayo Richey APRN [address] [place] [address] PCP - General 12/07/24
--- OUTSIDE RECORDS SUMMARY | 2025-02-26 15:12 | XMS_ITS | Encounter Summary ---
Author Organization Healthcare Address [address] [place] [address] Care Team Providers Care Gusset Stitcher Name Role Phone Rayo Richey APRN Primary Care Provider +1- [phone] Encounter Details Date Type Department Care Team (Late st Contact Info) Description 02/24/2025 Orders Only External Location [address] [place] [address] Provider, External Social History Tobacco Use Types [...] Info) Description 03/02/2025 1:00 PM EDT Consult [facility] General Surgery [address], [address] [place] [address] Neo Bruce MD [address] [place] [address] documented as of this encounter Procedures Procedure Name Priority Date/Time Associated Diagnosis Comments CT MSK OUTSIDE IMAGES 02/24/2025 1:04 PM EDT documented in this encounter Results * CT MSK OUTSIDE IMAGES (02/24/2025 1:04 PM EDT) Anatomical Region Laterality Modality Computed Tomogra phy 02/24/2025 1:04 PM EDT us External Provider IMG CT PROCEDURES Final Result documented in this encounter Visit Diagnoses Not on filedocumented in this encounter Care Teams Gusset Stitcher Relationship Specialty Start Date End Date Rayo Richey, ROYCE [address] [place] [address] PCP - General 12/07/24 documented as of this encounter
--- OUTSIDE RECORDS SUMMARY | 2025-02-26 15:12 | XMS_ITS | Encounter Summary ---
Author Organization Healthcare Address [address] [place] [address] Care Team Providers Care Mold Hoister Name Role Phone Rayo Richey REAL ESTATE FIRM MANAGER Primary Care Provider +1- [phone] Reason for Visit * Reason Onset Date Comments [facility] Clinical Concern/Question 02/24/2025 Encounter Details Date Type Department Care Team (Late st Contact Info) Description 02/24/2025 Telephone [facility] General Surgery [address], [address] [place] [address] Neo Bruce MD [address] [place] [address] HCN Clinical Concern/Question Social History [...] time he is on his way to [facility]. Will update once he knows what is [...] to get him in Best contact number: [phone] (mobile) Optimal time of day to reach caller: ANYTIME Additional comments/information from caller: None Note: Please do not reply to this message. Follow-up communication and further actions as a result of this message need to be communicated with the patient directly, if the patient is not active onMyChart. If the patient is active on MyChart, they will receive notification of the communication/outcome via [employer]. documented in this encounter Plan of Treatment Upcoming Encounters Date Type Department Care Team (Late st Contact Info) Description 03/02/2025 1:00 PM EDT Consult [facility] General Surgery [address], [address] [place] [address] Neo Bruce MD [address] [place] [address] documented as of this encounter Visit Diagnoses Not on filedocumented in this encounter Care Teams Mold Hoister Relationship Specialty Start Date End Date Rayo Richey APRN [address] [place] [address] PCP - General 12/07/24 documented as of this encounter
--- OUTSIDE RECORDS SUMMARY | 2025-02-26 15:12 | XMS_ITS | Data Portability ---
Author Organization PATTI LYRIC Arnold [facility] CLOSED Address [address] [facility] [address] [place] [address] Care Team Providers Care Automotive Finance Manager Name Role Phone DEAN MARTINEZ Primary Care Provider YANIV CHANCE Orthopedic Surgeon ROBERTH CHU Urgent Care Physician [phone] Assessment Encounter Date Assessment Date Assessment LastModified by Organization Details LastModified Time 01/29/2023 01/29/2023 He will be transitioned to a Tresckow cast with the wrist in neutral for [...] working on range of motion and light pewter caster strengthening, but no lifting or loading activities [...] Lab urinalysi s panel, auto 2024 025 [facility], [address], [place], [address], 10/15/2024 10:11:37 PSA, serum or plasma 2024 025 [facility], [address], [place], [address], 10/15/2024 10:11:37 Referral None recorded. Procedures None [...] [facility] [address], [place], [address], 10/15/2024 10:06:07 03/06/20 25 10/15/2024 urina lysis panel , auto Unknown Analyte Clean Catch Not Available [facility] [address], [place], [address], 10/15/2024 09:29:59 10/16/19 25 10/15/2024 urina lysis panel , auto Unknown Analyte Yellow Not Available [facility] [address], [place], [address], 10/15/2024 09:29:59 10/16/1910/15/2024 urina lysis panel , auto Unknown Analyte Clear Not Available [facility] [address], [place], [address], 10/15/2024 09:29:59 10/16/19 25 10/15/2024 urina lysis panel , auto Unknown Analyte 1.005 Not Available [facility] [address], [place], [address], 10/15/2024 09:29:59 10/16/19 25 10/15/2024 urina lysis panel , auto Unknown Analyte 1.003 - 1.030 Not Available [facility] [address], [place], [address], 10/15/2024 09:29:59 10/16/19 25 10/15/2024 urina lysis panel , auto Unknown Analyte 6.0 Not Available [facility] [address], [place], [address], 10/15/2024 09:29:59 10/16/19 25 10/15/2024 urina lysis panel , auto Unknown Analyte 5.0 - 8.0 Not Available [facility] [address], [place], [address], 10/15/2024 09:29:59 10/16/19 25 10/15/2024 urina lysis panel , auto Unknown Analyte Negati ve Not Available [facility] [address], [place], [address], 10/15/2024 09:29:59 10/16/19 25 10/15/2024 urina lysis panel , auto Unknown Analyte Negati ve Not Available [facility] [address], [place], [address], 10/15/2024 09:29:59 10/16/19 25 10/15/2024 urina lysis panel , auto Unknown Analyte Negati ve Not Available [facility] [address], [place], [address], 10/15/2024 09:29:59 10/16/19 25 10/15/2024 urina lysis panel , auto Unknown Analyte Negati ve Not Available [facility] [address], [place], [address], 10/15/2024 09:29:59 10/16/19 25 10/15/2024 urina lysis panel , auto Unknown Analyte Negati ve Not Available [facility] [address], [place], [address], 10/15/2024 09:29:59 03/06/10/15/2024 urina lysis panel , auto Unknown Analyte Negati ve Not Available [facility] [address], [place], [address], 10/15/2024 09:29:59 10/16/19 25 10/15/2024 urina lysis panel , auto Unknown Analyte Normal Not Available [facility] [address], [place], [address], 10/15/2024 09:29:59 10/16/19 25 10/15/2024 urina lysis panel , auto Unknown Analyte Negati ve Not Available [facility] [address], [place], [address], 10/15/2024 09:29:59 10/16/19 25 10/15/2024 urina lysis panel , auto Unknown Analyte Negati ve Not Available [facility] [address], [place], [address], 10/15/2024 09:29:59 10/16/19 25 10/15/2024 urina lysis panel , auto Unknown Analyte Normal Not Available [facility] [address], [place], [address], 10/15/2024 09:29:59 10/16/19 25 10/15/2024 urina lysis panel , auto Unknown Analyte Normal Not Available [facility] [address], [place], [address], 10/15/2024 09:29:59 10/16/19 25 10/15/2024 urina lysis panel , auto Unknown Analyte Negati ve Not Available [facility] [address], [place], [address], 10/15/2024 09:29:59 10/16/19 25 10/15/2024 urina lysis panel , auto Unknown Analyte Negati ve Not Available [facility] [address] [facility] [address], [place], [address], 10/15/2024 09:29:59 10/16/19 25 10/15/2024 urina lysis panel , auto Unknown Analyte 50 Moose/uL Not Available [facility] [address], [place], [address], 10/15/2024 09:29:59 10/16/19 25 10/15/2024 urina lysis panel , auto Unknown Analyte Negati ve Not Available [facility] [address], [place], [address], 10/15/2024 09:29:59 Result Notes None recorded. Problems Name Problem SNOMED Code Status Onset Date Resolution Date Notes Provider Name and Address Organization Details Recorded Time Family history of malignant neoplasm of prostate 657876329 Active 2016 JUVENCIO BRUNO JR, MD [address] [place] [address], [address], [facility] 7 13:14:10 Urgent desire to urinate 75608928 Active 2017 JUVENCIO BRUNO JR, MD [address] [place] [address], [address], [facility] 8 07:46:25 Urinary tract infectious disease 71696536 Active 2018 JUVENCIO BRUNO JR, MD [address] [place] [address], [address], [facility] 9 09:56:46 Acute prostatitis 19072315 Active 2018 JUVENCIO BRUNO JR, MD [address] [place] [address], [address], [facility] 9 08:36:45 Prostatitis 3068134 Active 2018 JUVENCIO BRUNO JR, MD [address] [place] [address], [address], [facility] 9 10:24:27 Premature ejaculation 64306118 Active 2019 JUVENCIO BRUNO JR, MD [address] [place] [address], [address], [facility] 0 08:15:24 Benign prostatic hyperplasia without outflow obstruction 261754930 Completed 202003/26/2021 JUVENCIO BRUNO JR, MD [address] [place] [address], [address], [facility] 1 10:34:24 Benign prostatic hyperplasia with outflow obstruction 734347305 Active 2020 JUVENCIO BRUNO JR, MD [address] [place] [address], [address], [facility] 1 10:34:18 Problem Notes None recorded. Procedures Surgical History Date Name Laterality Status Provider Name and Address Organization Details Recorded Time 3 Op Note completed YANIV CHANCE MD [address] [place] [address], [address], [facility] 01/14/2023 09:38:51 3 Wrist arthroscopy completed Rima Nava [facility] 02/26/2023 11:06:40 Imaging Results None recorded. Procedure Notes None recorded. Medical Equipment None Reported. Allergies Allergen ID Allergen Name Allergen Category Reaction Reaction Severity Criticality Documentation Date Start Date Code Code System Note Provider Name and Address Organization Details Recorded Time 643001 Cipro medicatio n Not available Not available Not available 01/15/201949202 3 RxNorm Salud paulson, [facility] 9 13:20:05 Medications Name Sig Start [...] Updated DateTime 10/15/2024 182.88 cm 31.9 kg/m2 477076.21 g Neryemil Ojeda [facility] 10/15/2024 09:26:19 Date Recorded Body height Body mass index (BMI) Body weight Provider Name and Address Organization Details Last Updated DateTime 01/29/2023 182.88 cm 33.2 kg/m2 358333.13 g Salud Ar [facility] 01/29/2023 14:18:49 Date Recorded Body height Body mass index (BMI) Body weight Provider Name and Address Organization Details Last Updated DateTime 02/26/2023 182.88 cm 33.2 kg/m2 571631.13 g Rima Nava [facility] 02/26/2023 11:04:52 Date Recorded Body height Body mass index (BMI) Body weight Provider Name and Address Organization Details Last Updated DateTime 04/09/2023 182.88 cm 33.2 kg/m2 348246.13 g Filiberto Rothman [facility] 04/09/2023 11:08:55 Date Recorded Body height Provider Name an d Address Organization Details Last Updated DateTime 05/07/2023 182.88 cm Rima Nick [facility] 05/07/2023 08:56:49 Social History Question Answer Notes LastModified by Organizat ion Details LastModified Time Tobacco Smoking Status Former Smoker quit 08/15/2016 Rima Nava [facility] 02/26/2023 11:06:00 How Much Tobacco Do You Chew? None [email or web address] Information not available 02/26/2023 When Did You Quit Smoking? 6-10yearssi [email or web address] Information not available 10/15/2024 Marital Status Informati on not available 11/15/2016 What Was The Date Of Your Most Recent Tobacco Screening? 10/15/2024 [email or web address] Information not available 10/15/2024 What Is Your Relationship Status? [email or web address] Information not available 10/15/2024 At What Age Did You Start Smoking Tobacco? 12 [email or web address] Information not available 10/15/2024 Has Tobacco Cessation Counseling Been Provided? Yes [email or web address] Information not available 09/19/2018 On What Date Was Tobacco Cessation Counseling Provided? 02/26/2023 [email or web address] Information not available 02/26/2023 How Many Years Have You Smoked Tobacco? 23 [email or web address] Information not available 10/15/2024 Sex: Male Functional Status Question Answer Note LastModified by Organizat ion Details LastModified Time Do you use any illicit or recreational drugs? No [email or web address] Information not available 02/26/2023 Do you or [...] not available 10/15/2024 What is your occupation? [employer] [email or web address] Information not available 10/15/2024 Do you [...] 13:04:23 Medical History Condition Response Allergies/Hayfever Y Thyroid Disease N Kidney Stones Y Heart Conditions N Anesthesia Complications Y Ulcers Y Heart Attack ([place]) N Diabetes N Arthritis Y Stroke N Sleep Apnea N High Cholesterol Y Liver Disease N Kidney Disease N Immunizations Vaccine Type Date Status Note Provider Nam e and Address Organization Details Recorded Time COVID-19 vaccine, vector-nr, rS-Ad26, PF, 0.5 mL 2 completed Rima Nava [facility] 02/26/2023 11:05:02 COVID-19 vaccine, vector-nr, rS-Ad26, PF, 0.5 mL 1 completed Rima Nava [facility] 02/26/2023 11:05:02 Tdap 0 completed Rima Nava [facility] 02/26/2023 11:05:02 Td (adult), 2 Lf tetanus toxoid, preservative free, adsorbed 4 completed Rima Nava [facility] 02/26/2023 11:05:02 Hep B, adult 4 completed Rima paulson, [facility] 02/26/2023 11:05:02 Hep B, adult 4 completed Rima Nava null, [facility] 02/26/2023 11:05:02 Hep B, adult 4 completed Rima Elijah paulson, [facility] 02/26/2023 11:05:02 Past Encounters Encounter ID Performer Location Encounter Start Date Encounter Closed Date Diagnosis/Indication Diagnosis SNOMED-CT Code Diagnosis ICD10 Code Diagnosis Note [id number] JUVENCIO BRUNO JR, MD [facility] [address] [address] 11/15/2016 12:01:31 11/15/2016 16:21:05 Family history of malignant neoplasm of prostate 853883394 Z80.42 [id number] JUVENCIO BRUNO JR, MD [facility] [address] [address] 09/13/2017 10:46:37 09/16/2017 12:11:26 Family history of malignant neoplasm of prostate 495129822 Z80.42 Urgent clint rupa to urinate 05144468 R39.15 Dysuria 75669759 R30.0 [id number] JUVENCIO BRUNO JR, MD [facility] [address] [address] 09/19/2018 09:08:15 09/19/2018 09:57:46 Urinary tract infectious disease 56748702 N39.0 Family his tory of malignant neoplasm of prostate 950117422 Z80.42 [id number] JUVENCIO BRUNO JR, MD [facility] [address] [address] 01/15/2019 12:59:26 01/15/2019 13:36:14 Acute prostatitis 79199088 N41.0 Family his tory of malignant neoplasm of prostate 823206645 Z80.42 Urinary tr act infectious disease 32235088 N39.0 [id number] JUVENCIO BRUNO JR, MD [facility] [address] [place] [address] 02/27/2019 11:44:45 02/27/2019 12:34:01 Family history of malignant neoplasm of prostate 287944009 Z80.42 Prostatitis 7731399 N41. 9 [id number] JUVENCIO BRUNO JR, MD [facility] [address] [place], [place] [address] 12/11/2019 10:26:47 12/11/2019 11:15:31 Prostatitis 7476657 N41.9 Family his tory of malignant neoplasm of prostate 078454531 Z80.42 [id number] JUVENCIO BRUNO JR, MD [facility] [address] [place] [address] 02/26/2020 08:58:25 02/26/2020 09:29:15 Family history of malignant neoplasm of prostate 771264467 Z80.42 Chronic prostatitis 1989 5009 N41.1 [id number] JUVENCIO BRUNO JR, MD [facility] [address] [address] 05/26/2020 15:03:32 05/26/2020 16:42:31 Premature ejaculation 04883368 F52.4 Family his tory of malignant neoplasm of prostate 028585119 Z80.42 [id number] JUVENCIO BRUNO JR, MD [facility] [address] [place] [address] 03/24/2021 09:44:21 03/24/2021 10:31:19 Kidney stone 42928843 N20.0 Family his tory of malignant neoplasm of prostate 281598058 Z80.42 Benign pro static hyperplasia with outflow obstruction 713545208 N40.1 [id number] YANIV CHANCE MD [facility] [address] [place] [address] 10/19/2022 09:05:43 10/19/2022 10:55:11 Injury to triangular fibrocartilage of wrist joint 575572267 S69.82XA [id number] YANIV CHANCE MD ORTHOPEDI CS [address] [place] [address] 11/30/2022 07:56:14 11/30/2022 09:25:20 Injury to triangular fibrocartilage of wrist joint 658177387 S69.82XA MRA of the left wrist (11/22/2022 ) -demonstra melba a complete tear of the ulnar styloid fossa attachment of the TFCC, as well as possible tears of the dorsal and palmar distal radioulnar ligaments; marrow edema in the ulnar styloid noted. [id number] YANIV CHANCE MD SURGERY SCHEDULE [address] [facility] [place] [address] 01/14/2023 06:02:50 01/14/2023 06:03:29 [id number] ZULMA DOLAN PA-C [facility] [address] [place] [address] 01/29/2023 14:13:47 01/29/2023 14:50:04 Postoperative care 477854805 Z48.89 s/p Left wrist arthroscop ic synovectom y with arthroscop ic assisted open TFCC repair (DOS: 01/14/23) [id number] YANIV CHANCE MD [facility] [address] [place] [address] 02/26/2023 10:23:58 02/26/2023 11:31:37 Postoperative care 874259554 Z48.89 6 weeks s/p Left wrist arthroscop ic synovectom y with arthroscop ic assisted open TFCC repair (DOS: 01/14/23) [id number] YANIV CHANCE MD [facility] [address] [place] [address] 04/09/2023 10:27:03 04/12/2023 04:50:21 Postoperative care 465811762 Z48.89 12 weeks s/p Left wrist arthroscop ic synovectom y with arthroscop ic assisted open TFCC repair (DOS: 01/14/23) [id number] YANIV CHANCE MD [facility] [address] [place] [address] 05/07/2023 08:48:24 05/07/2023 09:30:33 Postoperative care 360068275 Z48.89 4 months s/p Left wrist arthroscop ic synovectom y with arthroscop ic assisted open TFCC repair (DOS: 01/14/23) [id number] RUFUS WAGGONER MD [facility] [address] [place] [address] 10/15/2024 08:57:28 10/15/2024 10:19:07 Benign prostatic hyperplasia with outflow obstruction 726850426 N40.1 Health Concerns Section Related Observation LastModified by Organization Detai ls LastModified Time None Recorded Concern Status LastModified by Organization Details LastModified Time None Recorded Advance Directives Directive None Recorded Payers Insurance Date Sequence Insurance Name Policy Number Policy Fernandez Covered Member ID Fernandez Member ID Guarantor Name 04/12/2023 [place] [facility] 10/19/2022 GENERIC WORKERS [facility] 02/19/2023 1 [employer] (POS) [facility] [id number] [facility] 01/15/2023 1 [employer] (PPO) [id number] [facility] [id number] [facility] 10/19/2024 1 [place] [id number] [facility] [id number] [facility] Notes Date Note Type Note Provider Name and Address Organization Details Recorded Time 3 text/html Patient presents today for post op follow up visit. Reports uneventful post op period. POST OP GLOBAL VISIT01/29/23 DATE OF SURGERY:01/14/23 TIME POST SURGERY:15 daysSURGERY:INTERVAL HISTORY:Left wrist arthroscopic synovectomy with arthroscopic assisted open TFCC repair PREOP SYMPTOMSBETTER PAIN LEVEL (VAS)0/10 OVERALL ASSESSMENTIMPROVING ZULMA DOLAN PA-C [address] [place], [address], [facility] 02/01/2023 08:55:19 3 text/html Patient returns to [...] today for a recheck. YANIV CHANCE MD [address] [place] [address], [address], [facility] 02/26/2023 18:08:45 3 text/html Patient returns to [...] therapy and doing good. YANIV CHANCE MD [address] [place] [address], [address], [facility] 04/11/2023 17:29:11 3 text/html Patient returns to [...] Pain level: 0 /10 Date of injury: 0-57-59Iacifsyd: 8 months Recent Surgery: YesDATE OF SURGERY: 01/14/23SURGERY: Left wrist arthroscopic synovectomy with arthroscopic assisted open TFCC repairSurgeon(If Known): Dr. Chance In office procedure? No Previous upper extremity surgery? NoProcedure:Approximate date of surgery:Surgeon (if known):Have you or an immediate family member ever seen our hand surgeons before? 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 Yes Is this injury associated with a Workers Compensation claim? Yes Patient arrived in: n/a [employer] Strength: right: left: Mr. Lr visits us in office today for a recheck. Reports no pain, denies n/t. In therapy twice weekly, but has bene released pending todays visit. 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 Does express discomfort in the morning after sleeping. YANIV CHANCE MD [address] [place], [address], [facility] 05/07/2023 13:06:38 5 text/html 44-year-old gentleman who [...] in 1 year RUFUS WAGGONER MD [address] [place], [address], [facility] 10/15/2024 10:12:01
--- OUTSIDE RECORDS SUMMARY | 2025-02-26 15:12 | XMS_ITS | Encounter Summary ---
Author Organization Healthcare Address [address] [place] [address] Care Team Providers Care Manager Physical Name Role Phone Rayo Richey APRN Primary Care Provider [phone] Encounter Details Date Type Department Care Team (Late st Contact Info) Description 09/17/2024 Orders Only External Location [address] [place] [address] Provider, External Social History Tobacco Use Types [...] Info) Description 03/02/2025 1:[address] [facility] General Surgery [address] [place] [address] Neo Bruce MD [address] [place] [address] documented as of this encounter Procedures Procedure [...] on filedocumented in this encounter Care Teams Manager Physical Relationship Specialty Start Date End Date Rayo Richey APRN [address] [facility] [place] [address] PCP - General 12/07/24 documented as of this encounter
[2025-02-26 16:00] VITALS: BP 92/48; PULSE 41; RESP 16; TEMP 36.4; O2SAT 94
[2025-02-26] MEDS: POLYETHYLENE GLYCOL 3350 17 GM PACKET PO (16:39)
--- NOTE | 2025-02-26 16:40 | EXP.PN ---
Subjective *Date: 02/26/25 *Time: 17:32 Interval history: Patient continues to have pain, we started [facility] we did not think inpatient transfer was necessary at this time. Increase [place] to 50 mg every 4 hours, IV Dilaudid only for breakthrough pain. He has Valium as needed for pain as well. Exam Data for Last 24 hours Vital signs and Labs for Last 24 Hours: Temp Pulse Resp BP Pulse Ox O2 Del Method 98.1 F 51 L 18 112/53 L 100 Room Air 02/26/25 08:00 02/26/25 08:00 02/26/25 08:00 02/26/25 08:00 02/26/25 08:00 02/26/25 15:00 Laboratory Results - last 24 hr 02/26/25 05:50: WBC 7.4, RBC 3.96 L, Hgb 10.9 L, Hct 33.9 L, MCV 85.6, MCH 27.5, MCHC 32.2, RDW 15.0, Plt Count 216, MPV 10.1, Neut % (Auto) 56.3, Lymph % (Auto) 32.7, [place] % (Auto) 8.2, Eos % (Auto) 2.2, Baso % (Auto) 0.3, Neut # (Auto) 4.2, Lymph # (Auto) 2.4, [place] # (Auto) 0.6, Eos # (Auto) 0.2, Baso # (Auto) 0.0, ESR 74 H, Sodium 137, Potassium 4.1, Chloride 98, Carbon Dioxide 29, Anion Gap 14.1, BUN 8 L, Creatinine 1.20, Estimated Creat Clear 116, Estimated GFR 66, Est GFR ( Amer) 80, Glucose 99, Calcium 9.1, Phosphorus 3.5, Total Bilirubin 0.5, AST 22, ALT 15, Alkaline Phosphatase 90, C-Reactive Protein 64.8 H, Total Protein 6.5, Albumin 3.8, Globulin 2.7, Albumin/Globulin Ratio 1.4 I & O for Last 24 hours: Intake & Output 02/23/25 02/24/25 02/25/25 02/26/25 23:59 23:59 23:59 23:59 Intake Total 800 / 800 1040 / 1690 1280 / 1280 Output Total 100 / 100 300 / 300 Balance 800 / 800 940 / 1590 980 / 980 Weight 104.326 kg 101.947 kg 104.175 kg Microbiology Reports for the Last 24 Hours: Microbiology 02/24/25 14:03 Blood Blood Culture - Preliminary NO GROWTH AFTER 48 HOURS 02/24/25 13:58 Blood Blood Culture - Preliminary NO GROWTH AFTER 48 HOURS Assessment and Plan *Assessment and plan (1) Colitis: Status: Acute Category: Medical Code(s): K52.9 - Noninfective gastroenteritis and colitis, unspecified (2) Diarrhea: Status: Acute Qualifiers: Diarrhea type: infectious Qualified Code(s): A09 - Infectious gastroenteritis and colitis, unspecified Category: Medical Code(s): R19.7 - Diarrhea, unspecified (3) Mucus in stool: Status: Acute Category: Medical Code(s): R19.5 - Other fecal abnormalities (4) Obesity (BMI 30.0-34.9): Status: Acute Category: Medical Code(s): E66.811 - Obesity, class 1 (5) Diverticulitis of large intestine with complication: Status: Acute Category: Medical Code(s): K57.32 - Diverticulitis of large intestine without perforation or abscess without bleeding (6) BPH (benign prostatic hyperplasia): Status: Acute Category: Medical Code(s): N40.0 - Benign prostatic hyperplasia without lower urinary tract symptoms Plan Mr. Lr is a 44-year-old male who presented to the emergency department after a few weeks of abdominal pain, worsening in the last 24 hours. He does state that he is having what he describes as frothy, infection bowel movements. He has a longstanding history of colitis/diverticulitis for which she sees GI for. He is currently being referred to [facility] colorectal surgery for continued evaluation of recurrent colitis. He was recently placed on doxycycline for suspected diverticulitis by Dr. Rodas, but has failed outpatient therapy. The ER physician consulted hospital medicine for admission for IV antibiotics and pain control, I accepted the patient. Plan of care as follows: #Colitis #Diarrhea #Mucus in stool #Diverticulitis of large intestine with complication - Discussed case with GI, Dr. Rodas, plans for admission, IV antibiotics. Dr. 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 He does think the patient needs surgery but it is not an emergency at this time. Plans to discharge home on oral antibiotics, and pain control once he is medically stable. - Stool panel pending. Patient has not had episode of diarrhea or bowel movement since admission. - Per my independent review of abdominal CT, patient has wall thickening in the sigmoid colon. This is typically indicative of colitis or neoplasm. - Patient had colonoscopy in November 2024, showed smoldering diverticulitis but no evidence of neoplastic disease, diverticulosis noted. - No leukocytosis noted, WBC stable at 7.4. Patient does have a history of anemia, hemoglobin stable at 10.8. - Patient continues to have significant lower abdominal pain, repeat CT scan does not show any new abscess or worsening inflammation. Reached out to , colorectal surgery did not recommend inpatient transfer for intervention given no worsening signs on CT. ? Will maximize on oral medications including [place] 5 or 15 mg every 4 hours, Valium 5 mg every 6 hours, started dicyclomine 40 mg every 6 hours. IV Dilaudid only for breakthrough pain. ? Continue IV Zosyn every 6 hours, mesalamine 1600 mg 3 times daily. ? CRP elevated at 67.8 down to 64.8 today, ESR 42 bumped up to 74 today. Will recheck in the a.m. continue to monitor CBC, CMP. ? Follow-up [facility]. #BPH ? Resume alfuzosin 10 mg. #Obesity ? Complicates all aspects of his care Full code Lovenox VTE Full liquids, n.p.o. at midnight Ambulate as tolerated GI consulted
[2025-02-26] MEDS: HYDROCODONE/APAP 5/325 MG TABLET 3 TAB PO (19:00)
--- NOTE | 2025-02-26 19:28 | PC.NURSE ---
PATIENT HAS REPORTED 6-9/10 LOWER ABD PAIN THROUGHOUT THE DAY, PAIN TREATED PER MAR. CONTACTED MD FOR ADDITIONAL PAIN MANAGEMENT MEASURES, NEW ORDERS RECEIVED. PATIENT STATES THAT NONE OF THE PO MEDICATIONS ARE CONTROLLING HIS PAIN, IV DILAUDID WAS GIVEN SEVERAL TIMES DURING MY SHIFT, HOWEVER, FOLLOWING DISCUSSION WITH MD, PO MEDICATIONS ARE HIGHLY ENCOURAGED OVER IV DUE TO DISCHARGE PLANNING, MD INCREASED STRENGTH OF PO MEDS, MEDS ADMINISTERED PER MAR.
[2025-02-26 19:42] VITALS: BP 140/72; PULSE 50; RESP 16; TEMP 36.6; O2SAT 94
[2025-02-26] MEDS: TAMSULOSIN 0.4MG CAPSULE 0.4 MG PO (20:43)
[2025-02-26] MEDS: diazePAM 5MG TABLET 5 MG PO (20:43)
[2025-02-26 22:08] LABS: Microscopic, Urine URINE MICROSCOPIC (MICROSCOPIC)
[2025-02-26 22:13] LABS: Bilirubin,Urine Negative (Negative); Color,Urine YELLOW (Yellow); Glucose,Urine (UA) Negative (Negative); Ketones,Urine Negative (Negative); Leukocyte Esterase,Urine Negative (Negative); PH,Urine 6.0 (5.0-8.5); Protein,Urine Negative (Negative); Specific Gravity, Urine 1.010 (1.005-1.030); Urobilinogen,Urine 0.2 EU/dl (0.2)
[2025-02-26 22:33] LABS: WBC,Urine Occasional #/hpf (0-3)
[2025-02-26 22:34] LABS: Bacteria,Urine 1+ /lpf; Squamous Epithelial Cell,Urine Occasional #/hpf (0-5)
[2025-02-26] MEDS: HYDROCODONE/APAP 5/325 MG TABLET 1 TAB PO (23:50)
--- NOTE | 2025-02-27 02:24 | PC.NURSE ---
Pt AOx4. Reporting abd pain intermittently with some relief from prn pain medication. Pt has not had any nausea or vomiting. Urine sample sent to lab earlier in shift. Pt is currently resting in bed with eyes closed. Respirations even and unlabored. Bed is low, locked, and call light is in reach.
[2025-02-27] MEDS: diazePAM 5MG TABLET 5 MG PO ×2 (03:35→08:02)
[2025-02-27] MEDS: PIPERCILLIN/TAZO 3.375 GM in 0.9 % SODIUM CHLORIDE 50 ML IV ×3 (03:38→15:58)
[2025-02-27 04:00] VITALS: BP 121/60; PULSE 50; RESP 16; TEMP 36.8; O2SAT 97; BMI 32.8
[2025-02-27] MEDS: HYDROCODONE/APAP 5/325 MG TABLET 1 TAB PO ×2 (05:35→09:06)
[2025-02-27] MEDS: POLYETHYLENE GLYCOL 3350 17 GM PACKET PO ×2 (06:25→08:02)
[2025-02-27 07:35] LABS: Hematocrit 33.8 % (42.0-52.0); Hemoglobin 10.4 g/dL (14.1-18.0); Immature Granulocytes % 0.5 %; Mean Corpuscular HGB Conc 30.8 g/dL (31.8-35.4); Mean Corpuscular Hemoglobin 25.9 pg (27.0-31.2); Mean Corpuscular Volume 84.3 fl (80-94); Nucleated Red Blood Cells % 0 %; Platelet Count 201 K/mm3 (142-424); Red Blood Count 4.01 M/mm3 (4.60-6.20); Red Cell Distribution Width-SD 45.1 fL; White Blood Count 6.3 K/mm3 (4.8-10.8)
[2025-02-27 07:57] VITALS: BP 124/67; PULSE 49; RESP 16; TEMP 36.7; O2SAT 95
[2025-02-27] MEDS: MESALAMINE 800MG TABLET DR 1600 MG PO ×2 (08:02→12:02)
[2025-02-27] MEDS: BUSPIRONE HCL 10 MG TABLET PO (08:02)
[2025-02-27 08:14] LABS: Alanine Aminotransferase 18 U/L (12-78); Albumin Level 3.9 g/dl (3.5-5.0); Anion Gap 9.7 mEq/L (5-15); Aspartate Amino Transferase 25 U/L (17-59); Bilirubin,Total 0.5 mg/dl (0.2-1.3); Blood Urea Nitrogen 5 mg/dl (9-20); Calcium 9.7 mg/dl (8.4-10.2); Carbon Dioxide 29 mmol/L (22.0-30.0); Chloride 103 mmol/L (98-107); Creatinine Clearance Estimated 147 mL/min (50-200); Creatinine,Serum 1.00 mg/dl (0.66-1.25); Estimated Glomerular Filt Rate 81 ml/min (>60); GFR (African American) 98 ML/MIN (>60); Glucose 119 mg/dl (74-100); Potassium 3.7 mmoL/L (3.5-5.1); Sodium 138 mmol/L (136-145); Total Protein,Serum 6.3 g/dl (6.3-8.2)
[2025-02-27 08:15] LABS: Albumin/Globulin Ratio 1.6 (1.1-1.8); Alkaline Phosphatase 89 U/L (38-126); Globulin 2.4 g/dL (1.3-3.2)
[2025-02-27 08:20] LABS: C-Reactive Protein 42.9 mg/L (0-4)
[2025-02-27] MEDS: HYDROMORPHONE 2MG/ML SYRINGE 0.5 MG IV (09:48)
--- NOTE | 2025-02-27 10:03 | P.PN_ITS ---
Subjective *Date: 02/27/25 *Time: 10:03 Medical Exam Vital signs and Labs for Last 24 Hours: Vital Signs Temp Pulse Pulse Resp BP Pulse Ox O2 Del Method 02/27/25 08:54 Room Air 02/27/25 08:00 Room Air 02/27/25 07:57 98.1 F 49 L 16 124/67 95 Room Air 02/27/25 06:34 Room Air 02/27/25 05:00 Room Air 02/27/25 04:00 98.2 F 50 L 16 121/60 97 Room Air 02/27/25 03:00 Room Air 02/27/25 01:00 Room Air 02/26/25 23:00 Room Air 02/26/25 21:00 Room Air 02/26/25 20:00 Room Air 02/26/25 19:42 97.9 F 50 L 16 140/72 94 L Room Air 02/26/25 19:00 Room Air 02/26/25 16:00 97.6 F 41 L 16 92/48 L 94 L Room Air 02/26/25 15:00 Room Air 02/26/25 12:54 Room Air 02/26/25 11:00 Room Air Intake and Output 02/26/25 02/27/25 02/27/25 23:59 07:59 15:59 Intake Total 300 / 1680 100 / 540 440 / 540 Output Total 0 / 0 Balance 300 / 1380 100 / 540 440 / 540 Intake: Intake, Oral Amount 300 / 930 440 / 440 Intake, Total IV Amount 100 / 100 Pipercillin/Tazo 3.375 gm In 0. 100 / 100 9 % Sodium Chloride 50 ml @ 100 mls/hr IV Q6H [facility] Rx#:[id number] Output: Output, Urine Amount 0 / 0 Other: Number of Unmeasured Voids 1 Number of Bowel Movements 1 Weight 110.132 kg Patient Weight 02/27/25 23:59 Weight 110.132 kg Laboratory Results - last 24 hr 02/26/25 22:00: Urine Color Yellow, Urine Appearance Clear, Urine pH 6.0, Ur Specific [place] 1.010, Urine Protein Negative, Urine Glucose (UA) Negative, Urine Ketones Negative, Urine Blood 1+ A, Urine Nitrate Negative, Urine Bilirubin Negative, Urine Urobilinogen 0.2, Ur Leukocyte Esterase Negative, Urine RBC 3-5, Urine WBC Occasional, Ur Squamous Epith Cells Occasional, Urine Bacteria 1+ 02/27/25 07:15: WBC 6.3, RBC 4.01 L, Hgb 10.4 L, Hct 33.8 L, MCV 84.3, MCH 25.9 L, MCHC 30.8 L, RDW 14.6, Plt Count 201, MPV 9.9, Neut % (Auto) 67.6, Lymph % (Auto) 21.1, [place] % (Auto) 8.1, Eos % (Auto) 2.2, Baso % (Auto) 0.5, Neut # (Auto) 4.3, Lymph # (Auto) 1.3, [place] # (Auto) 0.5, Eos # (Auto) 0.1, Baso # (Auto) 0.0, Sodium 138, Potassium 3.7, Chloride 103, Carbon Dioxide 29, Anion Gap 9.7, BUN 5 L D, Creatinine 1.00, Estimated Creat Clear 147, Estimated GFR 81, Est GFR ( Amer) 98 D, Glucose 119 H, Calcium 9.7, Total Bilirubin 0.5, AST 25, ALT 18, Alkaline Phosphatase 89, C-Reactive Protein 42.9 H D, Total Protein 6.3, Albumin 3.9, Globulin 2.4, Albumin/Globulin Ratio 1.6 I & O for Labs for Last 24 Hours: Intake & Output 02/24/25 02/25/25 02/26/25 02/27/25 23:59 23:59 23:59 23:59 Intake Total 800 / 800 1040 / 1690 1580 / 1680 540 / 540 Output Total 100 / 100 300 / 300 0 / 0 Balance 800 / 800 940 / 1590 1280 / 1380 540 / 540 Weight 104.326 kg 101.947 kg 104.175 kg 110.132 kg Microbiology Reports for the Last 24 Hours: Microbiology 02/24/25 14:03 Blood Blood Culture - Preliminary NO GROWTH AFTER 48 HOURS 02/24/25 13:58 Blood Blood Culture - Preliminary NO GROWTH AFTER 48 HOURS The patient's infection will respond to the chosen ABx?: Yes Is the patient receiving the right drug, dose, and route?: Yes Could a more targeted ABx be ordered?: No (CONTINUE CURRENT ABX. WBC WNL, AFEBRILE)
[2025-02-27] MEDS: HYDROCODONE 10MG/APAP 325MG TAB 1 TAB PO (11:25)
[2025-02-27 15:56] VITALS: BP 140/71; PULSE 52; RESP 16; TEMP 36.6; O2SAT 95
[2025-02-27] MEDS: HYDROCODONE/APAP 5/325 MG TABLET 2 TAB PO (15:57)
--- NOTE | 2025-02-27 16:08 | EXP.DC.SUM ---
General Admission date:: 02/24/25 HPI HPI HPI: Mr. Lr is a 44-year-old male who came into the emergency department with abdominal pain, nausea, and diarrhea. He does have a previous history of colitis, diverticulitis, and C. difficile. He states that his symptoms have been going on for quite for which he has been seen by gastroenterology in [place] and Dr. Rodas here at [facility]. He states the pain increased last night and into today. He complains of pain in his lower abdomen, tender to palpation. He did have a colonoscopy with Dr. Rodas in November which showed left-sided diverticulosis with evidence of chronic smoldering sigmoid diverticulitis; of which he was referred to colorectal surgery for management. He saw Dr. Rodas in the office in September and was started on Flagyl and Augmentin. He states that he took the course of medication but still had intermittent abdominal pain. He called Dr. Rodas recently due to the increased pain and was started on doxycycline 100 mg daily for possible suspected diverticulitis. He took 2 days worth of medication but the pain was so intense he decided to come to the emergency room. Hospital Course Hospital Course Hospital Course: Mr. Lr is a 44-year-old male who presented to the emergency department after a few weeks of abdominal pain, worsening in the last 24 hours. He does state that he is having what he describes as frothy, infection bowel movements. He has a longstanding history of colitis/diverticulitis for which she sees GI for. He is currently being referred to colorectal surgery for continued evaluation of recurrent colitis. He was recently placed on doxycycline for suspected diverticulitis by Dr. Rodas, but has failed outpatient therapy. The ER physician consulted hospital medicine for admission for IV antibiotics and pain control, I accepted the patient. Plan of care as follows: #Acute on chronic smoldering diverticulitis ? Presented with severe lower abdominal pain. CT abdomen/pelvis showed significant wall thickening in the sigmoid colon. No signs of perforation or abscess. WBC normal, no signs of sepsis. ? Unfortunately, patient has had a complex and challenging history with both acute and chronic diverticulitis. He follows with Dr. Rodas, GI, outpatient closely. Colonoscopy in November 2024 showed smoldering diverticulitis without neoplastic disease. ? GI consulted, ultimately recommended follow-up with colorectal surgery at for definitive treatment. ? Patient's pain from diverticulitis (left lower quadrant, lower abdominal pain) was challenging to control during admission. Required multiple modalities and optimization for pain control. ? Ultimately achieved pain control with [place] 10 to 15 mg every 4-6 hours, dicyclomine 40 mg every 6 hours, Zosyn every 6 hours. ? Patient remained aseptic, repeat CT also did not show worsening diverticulitis or evidence of abscess. ESR/CRP also improved, 61/42.9 on discharge. Lactate normal. Had bowel movement. ? Discharged with oxycodone 5 to 10 mg every 4-6 hours, acetaminophen 650 mg every 46 hours, MiraLAX daily, dicyclomine 40 mg every 6 hours, Augmentin and metronidazole for 5 more days. ? Patient has appointment with colorectal surgery (Neo Bruce MD) on 02/23/2025. Patient is eager to follow-up there. #BPH ? Resume alfuzosin 10 mg. #Obesity ? Complicates all aspects of his care Total time spent on discharge: 32 minutes on chart review, counseling, documentation, and direct care with patient. Exam Data for Last 24 hours Vital signs and Labs for Last 24 Hours: Temp Pulse Resp BP Pulse Ox O2 Del Method 97.9 F 52 L 16 140/71 95 Room Air 02/27/25 15:56 02/27/25 15:56 02/27/25 15:56 02/27/25 15:56 02/27/25 15:56 02/27/25 15:56 Laboratory Results - last 24 hr 02/26/25 22:00: Urine Color Yellow, Urine Appearance Clear, Urine pH 6.0, Ur Specific [place] 1.010, Urine Protein Negative, Urine Glucose (UA) Negative, Urine Ketones Negative, Urine Blood 1+ A, Urine Nitrate Negative, Urine Bilirubin Negative, Urine Urobilinogen 0.2, Ur Leukocyte Esterase Negative, Urine RBC 3-5, Urine WBC Occasional, Ur Squamous Epith Cells Occasional, Urine Bacteria 1+ 02/27/25 07:15: WBC 6.3, RBC 4.01 L, Hgb 10.4 L, Hct 33.8 L, MCV 84.3, MCH 25.9 L, MCHC 30.8 L, RDW 14.6, Plt Count 201, MPV 9.9, Neut % (Auto) 67.6, Lymph % (Auto) 21.1, [place] % (Auto) 8.1, Eos % (Auto) 2.2, Baso % (Auto) 0.5, Neut # (Auto) 4.3, Lymph # (Auto) 1.3, [place] # (Auto) 0.5, Eos # (Auto) 0.1, Baso # (Auto) 0.0, ESR 61 H, Sodium 138, Potassium 3.7, Chloride 103, Carbon Dioxide 29, Anion Gap 9.7, BUN 5 L D, Creatinine 1.00, Estimated Creat Clear 147, Estimated GFR 81, Est GFR ( Amer) 98 D, Glucose 119 H, Calcium 9.7, Total Bilirubin 0.5, AST 25, ALT 18, Alkaline Phosphatase 89, C-Reactive Protein 42.9 H D, Total Protein 6.3, Albumin 3.9, Globulin 2.4, Albumin/Globulin Ratio 1.6 I & O for Last 24 hours: Intake & Output 02/24/25 02/25/25 02/26/25 02/27/25 23:59 23:59 23:59 23:59 Intake Total 800 / 800 1040 / 1690 1580 / 1680 940 / 940 Output Total 100 / 100 300 / 300 0 / 0 Balance 800 / 800 940 / 1590 1280 / 1380 940 / 940 Weight 104.326 kg 101.947 kg 104.175 kg 110.132 kg Microbiology Reports for the Last 24 Hours: Microbiology 02/24/25 14:03 Blood Blood Culture - Preliminary NO GROWTH AFTER 48 HOURS 02/24/25 13:58 Blood Blood Culture - Preliminary NO GROWTH AFTER 48 HOURS Constitutional Constitutional: no acute distress *Routine HEENT Exam Head: Present normocephalic Eye: Present EOMI and PERRL ENT: Present mucous membranes moist *Routine Neck Exam Neck: Present supple; Absent lymphadenopathy *Routine Respiratory Exam Respiratory: Present CTA bilaterally *Routine Cardiovascular Exam Cardiovascular: Present RRR *Routine Abdominal Exam Abdominal: Present soft, normoactive bowel sounds and tenderness Comments: No peritoneal signs. *Routine Extremities Exam Extremities: Absent cyanosis, clubbing or edema *Routine Skin Exam Skin: Present warm; Absent rash *Routine Neurological Exam Neurological: Present alert and oriented X3 Results Data Completed and Pending Labs on day of discharge: Labs from last 24 hours 02/27/25 02/26/25 07:15 22:00 WBC 6.3 RBC 4.01 L Hgb 10.4 L Hct 33.8 L MCV 84.3 MCH 25.9 L MCHC 30.8 L RDW 14.6 Plt Count 201 MPV 9.9 Neut % (Auto) 67.6 Lymph % (Auto) 21.1 [place] % (Auto) 8.1 Eos % (Auto) 2.2 Baso % (Auto) 0.5 Neut # (Auto) 4.3 Lymph # (Auto) 1.3 [place] # (Auto) 0.5 Eos # (Auto) 0.1 Baso # (Auto) 0.0 ESR 61 H Sodium 138 Potassium 3.7 Chloride 103 Carbon Dioxide 29 Anion Gap 9.7 BUN 5 L D Creatinine 1.00 Estimated Creat Clear 147 Estimated GFR 81 Est GFR ( Amer) 98 D Glucose 119 H Calcium 9.7 Total Bilirubin 0.5 AST 25 ALT 18 Alkaline Phosphatase 89 C-Reactive Protein 42.9 H D Total Protein 6.3 Albumin 3.9 Globulin 2.4 Albumin/Globulin Ratio 1.6 Urine Color Yellow Urine Appearance Clear Urine pH 6.0 Ur Specific [place] 1.010 Urine Protein Negative Urine Glucose (UA) Negative Urine Ketones Negative Urine Blood 1+ A Urine Nitrate Negative Urine Bilirubin Negative Urine Urobilinogen 0.2 Ur Leukocyte Esterase Negative Urine RBC 3-5 Urine WBC Occasional Ur Squamous Epith Cells Occasional Urine Bacteria 1+ Preliminary micro results at discharge 02/24/25 14:03 Blood Culture - Preliminary Blood NO GROWTH AFTER 48 HOURS 02/24/25 13:58 Blood Culture - Preliminary Blood NO GROWTH AFTER 48 HOURS DS: Diagnosis Discharge Diagnosis (1) Colitis: Status: Acute Code(s): K52.9 - Noninfective gastroenteritis and colitis, unspecified (2) Diarrhea: Status: Acute Code(s): R19.7 - Diarrhea, unspecified Qualifiers: Diarrhea type: infectious Qualified Code(s): A09 - Infectious gastroenteritis and colitis, unspecified (3) Mucus in stool: Status: Acute Code(s): R19.5 - Other fecal abnormalities (4) Obesity (BMI 30.0-34.9): Status: Acute Code(s): E66.811 - Obesity, class 1 (5) Diverticulitis of large intestine with complication: Status: Acute Code(s): K57.32 - Diverticulitis of large intestine without perforation or abscess without bleeding (6) BPH (benign prostatic hyperplasia): Status: Acute Code(s): N40.0 - Benign prostatic hyperplasia without lower urinary tract symptoms Meds Home Medications and Allergies Home Medications ?Medication ?Instructions ?Recorded ?Confirmed ?Type L.acidoph,paracasei,B.animalis 10 1 tab PO DAILY 05/27/20 02/24/25 History billion cell capsule alfuzosin 10 mg tablet,extended 10 mg PO DAILY 05/27/20 02/24/25 History release 24 hr buspirone 10 mg tablet 10 mg PO BID #60 tabs 12/18/24 02/24/25 Rx acetaminophen 325 mg tablet 650 mg (2 x 325 mg) PO Q4H PRN 02/27/25 Rx pain #50 tabs amoxicillin 500 mg-potassium 1 tab PO TID 5 days #15 tabs 02/27/25 Rx clavulanate 125 mg tablet (Augmentin) dicyclomine 20 mg tablet 40 mg (2 x 20 mg) PO QID 4 days 02/27/25 Rx #32 tabs metronidazole 500 mg tablet 500 mg PO Q8H 5 days #15 tabs 02/27/25 Rx oxycodone 5 mg tablet 10 mg (2 x 5 mg) PO Q4H PRN pain 02/27/25 Rx #40 tabs polyethylene glycol 3350 17 17 g PO DAILY #119 grams 02/27/25 Rx gram/dose oral powder (Miralax) New Prescriptions to Start Prescriptions: acetaminophen Baldemar Duenas amoxicillin-pot clavulanate [Augmentin] Baldemar Duenas dicyclomine Baldemar Duenas metronidazole Baldemar Duenas oxycodone Yulissa,Baldemar polyethylene glycol 3350 [Miralax] Baldemar Duenas Allergies Allergy/AdvReac Type Severity Reaction Status Date / Time ciprofloxacin (From Cipro) Allergy Severe Rash Verified 11/23/24 09:33 ibuprofen Allergy Mild Lips Verified 11/23/24 09:33 Swelling Discharge Plan Disposition Patient Disposition: Home, Self-Care Condition: Fair Discharge Order Discharge Orders: Discharge Order (Routine); Ordered 02/27/25 Ordered By: Baldemar Duenas Follow up Plan Prescriptions/Medication Reconciliation: New dicyclomine 20 mg tablet 40 mg PO QID 4 Days Qty: 32 0RF metronidazole 500 mg tablet 500 mg PO Q8H 5 Days Qty: 15 0RF amoxicillin-pot clavulanate [Augmentin] 500-125 mg tablet 1 tab PO TID 5 Days Qty: 15 0RF oxycodone 5 mg tablet 10 mg PO Q4H PRN (Reason: pain) Qty: 40 0RF Rx Instructions: Take 5 mg for moderate pain (scale 4-6), 10 mg for severe pain. acetaminophen 325 mg tablet 650 mg PO Q4H PRN (Reason: pain) Qty: 50 0RF polyethylene glycol 3350 [Miralax] 17 gram/dose powder 17 g PO DAILY Qty: 119 0RF Continued buspirone 10 mg tablet 10 mg PO BID Qty: 60 3RF alfuzosin 10 MG tablet extended release 24 hr 10 mg PO DAILY L.acidoph,paracasei,B.animalis 1 EACH capsule 1 tab PO DAILY Discontinued Metamucil (sugar) Powder 1 tbsp PO DAILY meloxicam 15 mg tablet 15 mg PO DAILY Patient Comments: TAKE 1 TABLET BY MOUTH ONCE DAILY NEEDED FOR ARTHRITIS doxycycline hyclate 100 mg capsule 100 mg PO DAILY Qty: 30 2RF Problem Reconciliation Problems Reviewed?: Yes Patient Discharge Instructions Patient Instructions: DI for Diverticulitis, DI for Colitis, Stop Light Infection Print Language: French Providers Primary Care Provider: Rayo Richey Admit Provider: Baldemar Duenas Attending Provider: Baldemar Duenas
--- NOTE | 2025-03-01 10:36 | SW/DCPLANNER ---
Spoke with patient on the phone. Patient stated that he is some what better. Patient stated that he was not very pleased with the stay this time. Patient stated that he was able to get his new medicine picked up from [facility]. Patient stated that he has no concerns or questions at this time. Tony Terry
== END 2025-02-27 16:55 | disposition home or self-care (01) | DRG 392 ==
LOC: ER 12:09 → 2ND 15:27
PROVIDERS: Admitting Provider Student in an Organized Health Care Education/Training Program; Emergency Provider Student in an Organized Health Care Education/Training Program; PCP Nurse Practitioner Family; Visit Provider Student in an Organized Health Care Education/Training Program
DX: K57.32 Diverticulitis of large intestine without perforation or abscess without bleeding (principal); A09 Infectious gastroenteritis and colitis, unspecified; N40.0 Benign prostatic hyperplasia without lower urinary tract symptoms; E66.811 Obesity, class 1; Z68.32 Body mass index [BMI] 32.0-32.9, adult; Z79.899 Other long term (current) drug therapy; Z88.6 Allergy status to analgesic agent; Z88.1 Allergy status to other antibiotic agents; Z87.891 Personal history of nicotine dependence
CPT/HCPCS: 36415; 74177; 80053; 81001; 83605; 83735; 84100; 85025; 85651; 86140; 87040; J0500; J1171; J1200; J1650; J2270; J2405; J2543; J3360; J7030; Q9967